=== PATIENT | male | born 1960 | race Caucasian/White ===

== ENCOUNTER → 2018-03-24 07:00 | Outpatient (REF) | payer OTHER, MEDICAID, SELFPAY ==
[2018-03-24 08:49] LABS: Add Manual Diff / Slide Review NO; Basophils Percent Auto 1.2 % (0-2); Eosinophils Percent Auto 3.2 % (2-4); Hematocrit 45.2 % (41-53); Lymphocytes Percent Auto 28.1 % (25-40); Mean Corpuscular HGB Conc 35.3 % (30-36); Mean Corpuscular Hemoglobin 31.2 PG (26-34); Mean Corpuscular Volume 88.2 fL (80-100); Monocytes Percent Auto 10.2 % (3-14); Neutrophils Absolute Auto 3600 /uL (3000-5900); Neutrophils Percent Auto 57.3 % (50-75); Platelet Count 223 X10^3/uL (150-400); Red Blood Cell Count 5.13 X10^6/uL (4.5-5.9); Red Cell Distribution Width 14.1 % (11.6-14.8); White Blood Cell Count 6.2 X10^3/uL (4.5-11.0)
[2018-03-24 09:18] LABS: BUN Creatinine Ratio 16.7 (6-22); Blood Urea Nitrogen 10 mg/dL (9-20); Calcium 8.9 mg/dL (8.4-10.2); Carbon Dioxide 30 mmol/L (22-32); Chloride 102 mmol/L (98-107); Estimated Glomerular Filt Rate > 60.0 mL/min (>60); Glucose 76 mg/dL (70-100); HEMOLYSIS < 15 (0-50); Potassium 3.4 mmol/L (3.4-5.1); Sodium 141 mmol/L (137-145)
== END ==
LOC: LAB 07:00
PROVIDERS: Visit Provider Internal Medicine
DX: N39.0 Urinary tract infection, site not specified (principal); I10 Essential (primary) hypertension
CPT/HCPCS: 36415; 80048; 85025

== ENCOUNTER → 2018-03-26 07:07 | Outpatient (REF) | payer OTHER, MEDICAID, SELFPAY ==
[2018-03-26 08:36] LABS: Add Manual Diff / Slide Review NO; Basophils Percent Auto 1.5 % (0-2); Eosinophils Percent Auto 3.2 % (2-4); Hematocrit 45.9 % (41-53); Hemoglobin 16.5 g/dL (13.5-17.5); Mean Corpuscular HGB Conc 35.9 % (30-36); Mean Corpuscular Hemoglobin 31.5 PG (26-34); Mean Corpuscular Volume 87.9 fL (80-100); Monocytes Percent Auto 10.6 % (3-14); Neutrophils Absolute Auto 3700 /uL (3000-5900); Neutrophils Percent Auto 59.7 % (50-75); Platelet Count 215 X10^3/uL (150-400); Red Blood Cell Count 5.23 X10^6/uL (4.5-5.9); Red Cell Distribution Width 14.2 % (11.6-14.8); White Blood Cell Count 6.2 X10^3/uL (4.5-11.0)
[2018-03-26 08:45] LABS: BUN Creatinine Ratio 16.7 (6-22); Blood Urea Nitrogen 10 mg/dL (9-20); Calcium 8.9 mg/dL (8.4-10.2); Carbon Dioxide 30 mmol/L (22-32); Chloride 101 mmol/L (98-107); Estimated Glomerular Filt Rate > 60.0 mL/min (>60); Glucose 81 mg/dL (70-100); HEMOLYSIS < 15 (0-50); Potassium 3.4 mmol/L (3.4-5.1); Sodium 140 mmol/L (137-145)
== END ==
LOC: LAB 07:07
PROVIDERS: Visit Provider Nurse Practitioner Family
DX: I10 Essential (primary) hypertension (principal); Z87.440 Personal history of urinary (tract) infections
CPT/HCPCS: 36415; 80048; 85025

== ENCOUNTER → 2018-04-14 14:06 | Outpatient (CLI) | payer OTHER, MEDICAID, SELFPAY ==
--- NOTE | 2018-04-14 | DI.ECHO.S_ITS ---
[facility]---------+ [facility] +---------+ : : [address] : : [place] : : : : [id number] : : : : Phone: [phone] Echocardiogram Report + + :Name: MISAEL COATES Study Date: 04/14/2018 Height: 71 in : :[facility] Exam Location: [facility] Weight: 191 lb : : Gender: Male BSA: 2.1 m2 : :: 1960 Age: 57 yrs BP: 168/100 mmHg: :Reason For Study: STROKE : :Ordering Physician: Dr. Verde : :Nicolas Performed By: Fany Jorge : :Referring: ROM HASSAN : + + Interpretation Summary This is a technically limited study complicated by positioning issues due to stroke. It is also complicated by inability to perform agitated saline study due to poor acoustic windows. As a result, cannot exclude small patent foramen ovale. Normal sinus rhythm. Normal LV size, mild concentric left ventricular hypertrophy, normal wall motion and left ventricular systolic function. Ejection fraction is 55-60 percent. Normal chamber sizes. No significant valvular abnormalities. Borderline dilated ascending aorta measuring 3.6 cm. No source of embolism identified. Procedure: A two-dimensional transthoracic echocardiogram with color flow and Doppler was performed. The study quality was technically difficult. Comparison is made with the echocardiogram of 5/24/18. The patient was in normal sinus rhythm during the exam. Left Ventricle: There is mild concentric left ventricular hypertrophy. The left ventricle is normal in size. The left ventricular ejection fraction is grossly normal. Left ventricular ejection fraction is estimated to be 55 +/- 5%. There are no obvious focal wall motion abnormalities noted but poor endocardial definition reduces the sensitivity for the detection of such. Assessment of diastolic parameters indicates a relaxation abnormality of the left ventricle, consistent with normal filling pressures. Right Ventricle: The right ventricle is normal in size and function. Atria: The left atrial size is normal. Right atrial size is normal. There is no Doppler evidence for an interatrial shunt. Mitral Valve: The mitral valve leaflets appear normal. There is no evidence of stenosis, fluttering, or prolapse. There is trace mitral regurgitation. Aortic Valve: The aortic valve is normal in structure and function. No aortic regurgitation is present. Tricuspid Valve: The tricuspid valve is normal. There is a trace or physiologic amount of tricuspid regurgitation. Pulmonary artery pressures cannot be estimated because of the lack of a measurable TR jet velocity. Pulmonic Valve: The pulmonic valve is not well seen, but is grossly normal. There is trace pulmonic regurgitation. Great Vessels: The aortic root is mildly dilated. The ascending aorta is at the upper limits of normal in size. The aortic arch is at the upper limits of normal in size. The pulmonary is not well visualized. The IVC is of normal diameter and collapses greater than 50% with a sniff. This suggests a low right atrial pressure of 3 mm Hg. Pericardium/ Pleura There is no pericardial effusion. There is no pleural effusion. MMode/2D Measurements & Calculations LVIDd: 4.4 cm LVOT diam: 2.3 cm LVIDs: 2.7 cm Ao root diam: 4.0 cm FS: 38.9 % asc Aorta Diam: 3.6 cm EPSS: 0.32 cm Ao Arch Diam (Prox Trans): 3.2 cm IVSd: 1.3 cm LVPWd: 1.1 cm LV saldaña. diameter/BSA (cm/m^2): 2.2 LV sys. diameter/BSA (cm/m^2): 1.3 LA A2 area: 15.4 cm2 RA long axis: 5.0 cm LA A4 area: 17.4 cm2 RA area: 17.1 cm2 LA length (vol): 4.4 cm RA vol: 49.8 ml LA vol: 51.1 ml RA : 24.1 ml/m2 LA vol index: 24.7 ml/m2 IVC diam: 0.91 cm TAPSE: 2.2 cm Doppler Measurements & Calculations Ao V2 max: 90.6 cm/sec LVOT Max Luke: 74.9 cm/sec Ao V2 mean: 63.6 cm/sec LV V1 max P.2 mmHg Ao max P.3 mmHg LV V1 VTI: 13.4 cm Ao mean P.8 mmHg OTONIEL(I,D): 3.5 cm2 Ao V2 VTI: 15.5 cm OTONIEL(V,D): 3.3 cm2 sev ratio: 0.86 OTONIEL indexed to BSA (cm^2/m^2): 1.7 MV E max luke: 67.2 cm/sec PA V2 max: 71.5 cm/sec MV A max luke: 79.9 cm/sec PA V2 mean: 42.2 cm/sec MV E/A: 0.84 PA mean P.85 mmHg Med Peak E' Luke: 6.2 cm/sec PA pr(Accel): 24.1 mmHg E/E' med: 10.8 Lat Peak E' Luke: 5.4 cm/sec E/E' lat: 12.5 E/e' average: 11.7 MV dec time: 0.17 sec MV P1/2t: 50.1 msec MV P1/2t max luke: 67.9 cm/sec MVA(P1/2t): 4.4 cm2 Reading Physician:05:09 PM
== END ==
PROVIDERS: Visit Provider Internal Medicine
DX: I63.9 Cerebral infarction, unspecified (principal)
CPT/HCPCS: 93306

== ENCOUNTER 2018-09-21 17:28 | Observation (INO) | payer OTHER, MEDICAID, SELFPAY ==
[2018-09-21] VITALS (7 sets, daily range): BP systolic 120–142; BP diastolic 73–87; PULSE 70–104; RESP 18–26; TEMP 36.9–38.4; O2SAT 96–98; BMI 23.2
--- NOTE | 2018-09-21 17:31 | DI.RAD.S_ITS ---
PROCEDURE: XR CHEST 1V INDICATIONS: suspected sepsis TECHNIQUE: One view of the chest was acquired. COMPARISON: [facility], CR, XR CHEST 1 VIEW, 12/30/2017, 14:08. FINDINGS: Surgical changes and devices: None. Lungs and pleura: Lungs are clear. No pleural effusions or pneumothorax. Mediastinum: Mediastinal contours appear normal. Heart size is normal. Bones and chest wall: No suspicious bony lesions. Overlying soft tissues appear unremarkable. IMPRESSION: No acute cardiopulmonary disease. Dictated by: Ana Maria Cota M.D. on 09/21/2018 at 20:27 Approved by: Ana Maria Cota M.D. on 09/21/2018 at 20:27
[2018-09-21 17:54] LABS: Influenza A and B by PCR Rapid Negative (Negative)
[2018-09-21 18:08] LABS: Add Manual Diff / Slide Review NO; Basophils Absolute Auto 100 /uL (0-100); Basophils Percent Auto 0.6 % (0-2); Eosinophils Absolute Auto 100 /uL (0-450); Eosinophils Percent Auto 0.5 % (2-4); Hematocrit 44.9 % (41-53); Hemoglobin 15.4 g/dL (13.5-17.5); Lymphocytes Absolute Auto 1000 /uL (1100-4500); Lymphocytes Percent Auto 7.2 % (25-40); Mean Corpuscular HGB Conc 34.3 % (30-36); Mean Corpuscular Hemoglobin 30.7 PG (26-34); Mean Corpuscular Volume 89.3 fL (80-100); Monocytes Absolute Auto 1400 /uL (0-900); Neutrophils Absolute Auto 11700 /uL (1500-7000); Neutrophils Percent Auto 81.7 % (50-75); Platelet Count 204 X10^3/uL (150-400); Red Blood Cell Count 5.02 X10^6/uL (4.5-5.9); Red Cell Distribution Width 13.8 % (11.6-14.8); White Blood Cell Count 14.3 X10^3/uL (4.5-11.0)
[2018-09-21 18:14] LABS: INR 1.2 (0.9-1.3); Prothrombin Time 13.8 SECONDS (10.1-12.7)
[2018-09-21 18:16] LABS: PTT Partial Thromboplastin Tim 35 SECONDS (26.4-36.2)
[2018-09-21 18:22] LABS: Alanine Aminotransferase 314 IU/L (21-72); Albumin 3.7 g/dL (3.5-5.0); Albumin Globulin Ratio 1.4 (1.0-2.8); Alkaline Phosphatase 259 U/L (38-126); Aspartate Aminotransferase 294 IU/L (17-59); Bilirubin Total 0.8 mg/dL (0.2-1.3); Blood Urea Nitrogen 9 mg/dL (9-20); Calcium 8.6 mg/dL (8.4-10.2); Carbon Dioxide 27 mmol/L (22-32); Chloride 99 mmol/L (98-107); Estimated Glomerular Filt Rate > 60.0 mL/min (>60); Globulin 2.7 g/dL (1.7-4.1); Glucose 171 mg/dL (70-100); HEMOLYSIS < 15 (0-50); Lipase 142 U/L (23-300); Potassium 3.3 mmol/L (3.4-5.1); Sodium 137 mmol/L (137-145); Total Protein 6.4 g/dL (6.3-8.2)
[2018-09-21 18:23] LABS: Lactate (Lactic Acid) 2.5 mmol/L (0.7-2.1)
--- NOTE | 2018-09-21 18:24 | ED.FEVER ---
HPI - Fever <MERLE Campos - Last Filed: 09/21/18 21:48> General Chief Complaint: Fever Stated Complaint: Fever Time Seen by Provider: 09/21/18 17:40 Source: patient Mode of arrival: ambulatory Limitations: no limitations History of Present Illness HPI Narrative: 57-year-old male with history of prior stroke and is a nonsmoker sent here from [facility] by provider due to a fever today. He denies any chest pain cough or cold-like symptoms. No nasal congestion. He denies any abdominal pain. No headache. No urinary symptoms no flank pain. Patient states that he feels pretty good he is tolerating p.o. fluids and intake well. He has no specific complaints at this timeframe. He denies any contact her family members having a fever or illness as well no other concerns or complaints at this timeframe. Related Data Home Medications Medication Instructions Recorded Confirmed Maalox Regular Strength 30 ml PO Q4H PRN 09/21/18 09/21/18 acetaminophen 650 mg PO Q4H PRN 09/21/18 09/21/18 amlodipine 5 mg PO DAILY 09/21/18 09/21/18 aspirin 81 mg PO DAILY 09/21/18 09/21/18 atorvastatin 40 mg PO DAILY 09/21/18 09/21/18 bisacodyl 5 - 10 mg PO PRN PRN 09/21/18 09/21/18 bisacodyl 10 mg MN Q8H PRN 09/21/18 09/21/18 cholecalciferol (vitamin D3) 1,000 unit PO DAILY 09/21/18 09/21/18 [Vitamin D3] dextran 70-hypromellose 1 drp EYE-BOTH BID 09/21/18 09/21/18 [Artificial Tears (PF)] docusate sodium 100 mg PO BID 09/21/18 09/21/18 fluoxetine 10 mg PO DAILY 09/21/18 09/21/18 hydrocortisone acetate [Anusol-HC] 1 supp MN Q2H PRN 09/21/18 09/21/18 sennosides [senna] 8.6 mg PO DAILY 09/21/18 09/21/18 Review of Systems <MERLE Campos - Last Filed: 09/21/18 21:48> Constitutional Denies chills, Reports fever(s), Denies lethargy and Denies weakness Eyes Denies change in vision, Denies eye discharge, Denies irritation and Denies loss of vision ENT Ears, Nose, Mouth, and Throat: Denies change in voice, Denies neck pain, Denies sore throat and Denies throat swelling Cardiovascular Denies chest pain, Denies irregular heart rhythm, Denies lightheadedness, Denies palpitations and Denies orthopnea Respiratory Denies wheezing Gastrointestinal Gastrointestinal: Denies abdominal pain, Denies change in bowel habits, Denies diarrhea, Denies nausea and Denies vomiting Genitourinary Denies hematuria, Denies flank pain, Denies urinary incontinence and Denies urinary urgency Musculoskeletal Denies neck pain Integumentary/Breasts Denies pruritus, Denies erythema, Denies rash and Denies wounds Neurologic Denies confusion, Denies loss of vision and Denies weakness Psychiatric Denies anxiety, Denies confusion, Denies depression, Denies homicidal ideation and Denies suicidal ideation Endocrine Denies palpitations Hematologic/Lymphatic Denies easy bruising Allergic/Immunologic Denies urticaria, Denies throat swelling and Denies wheezing PFSH <MERLE Campos - Last Filed: 09/21/18 21:48> Social History Smoking Status: Never smoker Social History Smoking Status: Never smoker Exam <MERLE Campos - Last Filed: 09/21/18 21:48> Initial Vital Signs Initial Vital Signs: Vital Signs Temperature 101.1 F H 09/21/18 17:32 Pulse Rate 104 H 09/21/18 17:32 Respiratory Rate 23 09/21/18 17:32 Blood Pressure 142/87 H 09/21/18 17:32 Pulse Oximetry 96 09/21/18 17:32 Const General: cooperative and well developed Nutritional Appearance: well nourished Orientation: alert, awake, oriented x3 and not confused [facility] Mouth: oral mucosae normal and moist mucous membranes Eyes Conjunctivae: conjunctivae normal Sclera: sclerae normal Pupils: PERRL EOM: EOM intact bilaterally Neck Neck: normal visual inspection, trachea midline, No lymphadenopathy, No midline deformity and No JVD Lymphatic: No lymphedema Chest Chest: normal inspection of the chest Resp Effort & Inspection: normal respiratory effort, able to speak in complete sentences, no respiratory distress and no use of accessory muscles Auscultation: clear to auscultation bilaterally, no rales, no rhonchi and no wheezes Cardio Rate: regular rate Rhythm: regular rhythm Heart Sounds: no click, no gallops, no murmurs and no rubs Pulses: normal peripheral pulses GI Inspection: non-distended Palpation: soft, no hepatosplenomegaly, No guarding, No pulsatile mass and No tender Auscultation: normal bowel sounds General: No CVA tenderness Neuro General: alert, oriented x3, gait normal and no focal motor deficits Speech: speech normal <Enrrique Carvalho DO - Last Filed: 09/21/18 21:53> Initial Vital Signs Initial Vital Signs: Vital Signs Temperature 101.1 F H 09/21/18 17:32 Pulse Rate 104 H 09/21/18 17:32 Respiratory Rate 23 09/21/18 17:32 Blood Pressure 142/87 H 09/21/18 17:32 Pulse Oximetry 96 09/21/18 17:32 Course <MERLE Campos - Last Filed: 09/21/18 21:48> Orders Ordered: ED Orders 09/21/18 17:30 FLU A and B [Influenza A and B by PCR Rapid] Stat 09/21/18 17:31 XR chest 1V Stat 09/21/18 17:55 Complete Blood Count AUTO DIFF Stat Comprehensive Metabolic Panel Stat Lactate (Lactic Acid) Stat Lipase Stat Partial Thromboplastin Time Stat Procalcitonin Stat Prothrombin Time INR Stat 09/21/18 18:12 Blood Culture Stat 09/21/18 19:43 US abdomen complete Stat Sodium Chloride (Normal Saline 0.9%) 1,000 mls @ 1,000 mls/hr IV BOLUS ONE Stop: 09/21/18 22:36 Last Admin: 09/21/18 21:49 Dose: 1,000 mls/hr Discontinued Medications Sodium Chloride (Normal Saline 0.9%) 1,000 mls @ 1,000 mls/hr IV BOLUS ONE Stop: 09/21/18 21:27 Last Infusion: 09/21/18 21:48 Dose: 0 mls/hr Admin: 09/21/18 20:32 Dose: 1,000 mls/hr Ceftriaxone Sodium/Dextrose (Rocephin) 1 gm in 50 mls @ 100 mls/hr IV NOW ONE Stop: 09/21/18 21:48 Last Admin: 09/21/18 21:28 Dose: 100 mls/hr Vital Signs - 8 hr 09/21/18 17:32 09/21/18 18:27 09/21/18 19:00 Temperature 101.1 F H Pulse Rate 104 H 89 88 Respiratory Rate 23 23 26 H Blood Pressure 142/87 H Blood Pressure [Left Arm] 127/80 124/77 Pulse Oximetry 96 96 96 09/21/18 20:00 09/21/18 20:33 09/21/18 21:00 Temperature 98.5 F Pulse Rate 76 75 Respiratory Rate 24 22 Blood Pressure Blood Pressure [Left Arm] 121/75 120/73 Pulse Oximetry 98 97 <Enrrique Carvalho DO - Last Filed: 09/21/18 21:53> Orders Ordered: ED Orders 09/21/18 17:30 FLU A and B [Influenza A and B by PCR Rapid] Stat 09/21/18 17:31 XR chest 1V Stat 09/21/18 17:55 Complete Blood Count AUTO DIFF Stat Comprehensive Metabolic Panel Stat Lactate (Lactic Acid) Stat Lipase Stat Partial Thromboplastin Time Stat Procalcitonin Stat Prothrombin Time INR Stat 09/21/18 18:12 Blood Culture Stat 09/21/18 19:43 US abdomen complete Stat Sodium Chloride (Normal Saline 0.9%) 1,000 mls @ 1,000 mls/hr IV BOLUS ONE Stop: 09/21/18 22:36 Last Admin: 09/21/18 21:49 Dose: 1,000 mls/hr Discontinued Medications Sodium Chloride (Normal Saline 0.9%) 1,000 mls @ 1,000 mls/hr IV BOLUS ONE Stop: 09/21/18 21:27 Last Infusion: 09/21/18 21:48 Dose: 0 mls/hr Admin: 09/21/18 20:32 Dose: 1,000 mls/hr Ceftriaxone Sodium/Dextrose (Rocephin) 1 gm in 50 mls @ 100 mls/hr IV NOW ONE Stop: 09/21/18 21:48 Last Admin: 09/21/18 21:28 Dose: 100 mls/hr Vital Signs - 8 hr 09/21/18 17:32 09/21/18 18:27 09/21/18 19:00 Temperature 101.1 F H Pulse Rate 104 H 89 88 Respiratory Rate 23 23 26 H Blood Pressure 142/87 H Blood Pressure [Left Arm] 127/80 124/77 Pulse Oximetry 96 96 96 09/21/18 20:00 09/21/18 20:33 09/21/18 21:00 Temperature 98.5 F Pulse Rate 76 75 Respiratory Rate 24 22 Blood Pressure Blood Pressure [Left Arm] 121/75 120/73 Pulse Oximetry 98 97 MDM - Fever <MERLE Campos - Last Filed: 09/21/18 21:48> Lab Data Result diagrams: 09/21/18 17:55 09/21/18 17:55 Lab Results 09/21/18 09/21/18 09/21/18 Range/Units 17:30 17:55 17:55 WBC 14.3 H (4.5-11.0) X10^3/uL RBC 5.02 (4.5-5.9) X10^6/uL Hgb 15.4 (13.5-17.5) g/dL Hct 44.9 (41-53) % MCV 89.3 (80-100) fL MCH 30.7 (26-34) PG MCHC 34.3 (30-36) % RDW 13.8 (11.6-14.8) % Plt Count 204 (150-400) X10^3/uL Neut % (Auto) 81.7 H (50-75) % Lymph % (Auto) 7.2 L (25-40) % [place] % (Auto) 10.0 (3-14) % Eos % (Auto) 0.5 L (2-4) % Baso % (Auto) 0.6 (0-2) % Neut # (Auto) 98469 H (4567-0111) /uL Lymph # (Auto) 1000 L (1500-4756) /uL [place] # (Auto) 1400 H (0-900) /uL Eos # (Auto) 100 (0-450) /uL Baso # (Auto) 100 (0-100) /uL PT 13.8 H (10.1-12.7) SECONDS INR 1.2 (0.9-1.3) APTT 35 (26.4-36.2) SECONDS Sodium (137-145) mmol/L Potassium (3.4-5.1) mmol/L Chloride (98-107) mmol/L Carbon Dioxide (22-32) mmol/L BUN (9-20) mg/dL Creatinine (0.66-1.25) mg/dL Estimated GFR (>60) mL/min BUN/Creatinine Ratio (6-22) Glucose (70-100) mg/dL Lactate (0.7-2.1) mmol/L Calcium (8.4-10.2) mg/dL Total Bilirubin (0.2-1.3) mg/dL AST (17-59) IU/L ALT (21-72) IU/L Alkaline Phosphatase (38-126) U/L Total Protein (6.3-8.2) g/dL Albumin (3.5-5.0) g/dL Globulin (1.7-4.1) g/dL Albumin/Globulin Ratio (1.0-2.8) Lipase (23-300) U/L Procalcitonin (<0.5) ng/mL Influenza A & B (PCR) Negative (Negative) 09/21/18 09/21/18 09/21/18 Range/Units 17:55 17:55 17:55 WBC (4.5-11.0) X10^3/uL RBC (4.5-5.9) X10^6/uL Hgb (13.5-17.5) g/dL Hct (41-53) % MCV (80-100) fL MCH (26-34) PG MCHC (30-36) % RDW (11.6-14.8) % Plt Count (150-400) X10^3/uL Neut % (Auto) (50-75) % Lymph % (Auto) (25-40) % [place] % (Auto) (3-14) % Eos % (Auto) (2-4) % Baso % (Auto) (0-2) % Neut # (Auto) (7194-6193) /uL Lymph # (Auto) (8902-4269) /uL [place] # (Auto) (0-900) /uL Eos # (Auto) (0-450) /uL Baso # (Auto) (0-100) /uL PT (10.1-12.7) SECONDS INR (0.9-1.3) APTT (26.4-36.2) SECONDS Sodium 137 (137-145) mmol/L Potassium 3.3 L (3.4-5.1) mmol/L Chloride 99 (98-107) mmol/L Carbon Dioxide 27 (22-32) mmol/L BUN 9 (9-20) mg/dL Creatinine 0.50 L (0.66-1.25) mg/dL Estimated GFR > 60.0 (>60) mL/min BUN/Creatinine Ratio 18.0 (6-22) Glucose 171 H (70-100) mg/dL Lactate 2.5 H (0.7-2.1) mmol/L Calcium 8.6 (8.4-10.2) mg/dL Total Bilirubin 0.8 (0.2-1.3) mg/dL AST 294 H (17-59) IU/L ALT 314 H (21-72) IU/L Alkaline Phosphatase 259 H (38-126) U/L Total Protein 6.4 (6.3-8.2) g/dL Albumin 3.7 (3.5-5.0) g/dL Globulin 2.7 (1.7-4.1) g/dL Albumin/Globulin Ratio 1.4 (1.0-2.8) Lipase 142 (23-300) U/L Procalcitonin 0.28 (<0.5) ng/mL Influenza A & B (PCR) (Negative) Urine Dip Bedside Urine Glucose Negative Bedside Urine Bilirubin - Negative Bedside Urine Ketone - Negative Urine Specific [place] 1.015 Bedside Urine Occult Blood - Negative Bedside Urine pH 5.5 Bedside Urine Protein - Negative Bedside Urine Urobilinogen +/- 1mg Bedside Urine Nitrite - Negative Bedside Urine Leukocytes - Negative Esterase Imaging Data Chest x-ray: Radiologist's impression: [address] [address] XRay Report Signed Patient: Osmin Pulido kMR#: [id number] : 2Acct:[id number] Age/Sex: 57 / MDate of Service: 09/21/18 Loc: ED Accession Number: [id number] Procedure: XR chest 1V Ordering Provider: Tiffanie Israel D.O. PROCEDURE: XR CHEST 1V INDICATIONS: suspected sepsis TECHNIQUE: One view of the chest was acquired. COMPARISON: [facility], CR, XR CHEST 1 VIEW, 12/30/2017, 14:08. FINDINGS: Surgical changes and devices: None. Lungs and pleura: Lungs are clear. No pleural effusions or pneumothorax. Mediastinum: Mediastinal contours appear normal. Heart size is normal. Bones and chest wall: No suspicious bony lesions. Overlying soft tissues appear unremarkable. IMPRESSION: No acute cardiopulmonary disease. Dictated by: Ana Maria Cota M.D. on 09/21/2018 at 20:27 Approved by: Ana Maria Cota M.D. on 09/21/2018 at 20:27 US - abdomen: Radiologist's impression: [place] [address] Ultrasound Report Signed Patient: Osmin Pulido kMR#: [id number] : 2Acct:[id number] Age/Sex: 57 / MDate of Service: 09/21/18 Loc: ED Accession Number: [id number] Procedure: US abdomen complete Ordering Provider: Nahid Pablo PROCEDURE: US ABDOMEN COMPLETE INDICATIONS: ELEVATED LIVER ENZYMES TECHNIQUE: Real-time scanning was performed of the abdominal and retroperitoneal organs, with image documentation. COMPARISON: US, ABDOMEN SONOGRAM, 11/05/2007, 10:30. CT, ABD/PELVIS W/CON (PNL), 10/27/2007, 5:00. [facility] Ultrasound, US, RETROPERITONEAL SONOGRAM, 09/12/2014, 8:00. FINDINGS: Liver: Liver is normal in size and measures diffusely increased echotexture. Gallbladder: There are multiple gallstones. No gallbladder wall thickening, pericholecystic fluid or sonographic Stinson's sign. Biliary ducts: Intrahepatic bile ducts are non-dilated. Extrahepatic bile duct caliber measures 3.5 mm. Normal is 6-7 mm or less in diameter, or 10 mm or less post-cholecystectomy. Pancreas: Visualized portions of the pancreas are sonographically normal. Spleen: Spleen is normal in size and homogeneous in echotexture. Kidneys: Kidneys are normal in size and echotexture. Right kidney measures 13.2 cm long; left kidney measures 10.6 cm long. No hydronephrosis or nephrolithiasis. No solid masses. Aorta: Visualized aorta is normal in caliber at less than 3 cm. Iliacs: Proximal common iliac arteries are normal in caliber at less than 2.5 cm. IVC: Intrahepatic inferior vena cava is not visualized. Miscellaneous: No free abdominal fluid. IMPRESSION: 1. Cholelithiasis. No ultrasound evidence for acute cholecystitis. 2. Diffusely increased hepatic echotexture. This finding is most likely secondary to hepatic fatty infiltration although other hepatocellular disease may have a similar appearance. Recommend clinical correlation. Dictated by: Ana Maria Cota M.D. on 09/21/2018 at 20:54 Approved by: Ana Maria Cota M.D. on 09/21/2018 at 20:56 [facility] Narrative Medical decision making narrative: CBC shows elevated white count. Chem panel shows elevated liver enzymes and alk-phos. Procalcitonin was obtained was unremarkable. Lactate was elevated at 2.5. Chest x-ray was obtained was negative for any acute findings. Due to elevated liver enzymes and alk-phos ultrasound of the abdomen was obtained and shows cholelithiasis but no signs of cholecystitis with normal common bile duct. Source of fever and infection is not identified at this time. Waiting for patient to give urine sample. Due to end of shift care is turned over to Dr. Carvalho. <Enrrique Carvalho, DO - Last Filed: 09/21/18 21:53> Lab Data Lab Results 09/21/18 09/21/18 09/21/18 Range/Units 17:30 17:55 17:55 WBC 14.3 H (4.5-11.0) X10^3/uL RBC 5.02 (4.5-5.9) X10^6/uL Hgb 15.4 (13.5-17.5) g/dL Hct 44.9 (41-53) % MCV 89.3 (80-100) fL MCH 30.7 (26-34) PG MCHC 34.3 (30-36) % RDW 13.8 (11.6-14.8) % Plt Count 204 (150-400) X10^3/uL Neut % (Auto) 81.7 H (50-75) % Lymph % (Auto) 7.2 L (25-40) % [place] % (Auto) 10.0 (3-14) % Eos % (Auto) 0.5 L (2-4) % Baso % (Auto) 0.6 (0-2) % Neut # (Auto) 27024 H (0377-5897) /uL Lymph # (Auto) 1000 L (8838-7498) /uL [place] # (Auto) 1400 H (0-900) /uL Eos # (Auto) 100 (0-450) /uL Baso # (Auto) 100 (0-100) /uL PT 13.8 H (10.1-12.7) SECONDS INR 1.2 (0.9-1.3) APTT 35 (26.4-36.2) SECONDS Sodium (137-145) mmol/L Potassium (3.4-5.1) mmol/L Chloride (98-107) mmol/L Carbon Dioxide (22-32) mmol/L BUN (9-20) mg/dL Creatinine (0.66-1.25) mg/dL Estimated GFR (>60) mL/min BUN/Creatinine Ratio (6-22) Glucose (70-100) mg/dL Lactate (0.7-2.1) mmol/L Calcium (8.4-10.2) mg/dL Total Bilirubin (0.2-1.3) mg/dL AST (17-59) IU/L ALT (21-72) IU/L Alkaline Phosphatase (38-126) U/L Total Protein (6.3-8.2) g/dL Albumin (3.5-5.0) g/dL Globulin (1.7-4.1) g/dL Albumin/Globulin Ratio (1.0-2.8) Lipase (23-300) U/L Procalcitonin (<0.5) ng/mL Influenza A & B (PCR) Negative (Negative) 09/21/18 09/21/18 09/21/18 Range/Units 17:55 17:55 17:55 WBC (4.5-11.0) X10^3/uL RBC (4.5-5.9) X10^6/uL Hgb (13.5-17.5) g/dL Hct (41-53) % MCV (80-100) fL MCH (26-34) PG MCHC (30-36) % RDW (11.6-14.8) % Plt Count (150-400) X10^3/uL Neut % (Auto) (50-75) % Lymph % (Auto) (25-40) % [place] % (Auto) (3-14) % Eos % (Auto) (2-4) % Baso % (Auto) (0-2) % Neut # (Auto) (8452-2356) /uL Lymph # (Auto) (8398-7029) /uL [place] # (Auto) (0-900) /uL Eos # (Auto) (0-450) /uL Baso # (Auto) (0-100) /uL PT (10.1-12.7) SECONDS INR (0.9-1.3) APTT (26.4-36.2) SECONDS Sodium 137 (137-145) mmol/L Potassium 3.3 L (3.4-5.1) mmol/L Chloride 99 (98-107) mmol/L Carbon Dioxide 27 (22-32) mmol/L BUN 9 (9-20) mg/dL Creatinine 0.50 L (0.66-1.25) mg/dL Estimated GFR > 60.0 (>60) mL/min BUN/Creatinine Ratio 18.0 (6-22) Glucose 171 H (70-100) mg/dL Lactate 2.5 H (0.7-2.1) mmol/L Calcium 8.6 (8.4-10.2) mg/dL Total Bilirubin 0.8 (0.2-1.3) mg/dL AST 294 H (17-59) IU/L ALT 314 H (21-72) IU/L Alkaline Phosphatase 259 H (38-126) U/L Total Protein 6.4 (6.3-8.2) g/dL Albumin 3.7 (3.5-5.0) g/dL Globulin 2.7 (1.7-4.1) g/dL Albumin/Globulin Ratio 1.4 (1.0-2.8) Lipase 142 (23-300) U/L Procalcitonin 0.28 (<0.5) ng/mL Influenza A & B (PCR) (Negative) Urine Dip Bedside Urine Glucose Negative Bedside Urine Bilirubin - Negative Bedside Urine Ketone - Negative Urine Specific [place] 1.015 Bedside Urine Occult Blood - Negative Bedside Urine pH 5.5 Bedside Urine Protein - Negative Bedside Urine Urobilinogen +/- 1mg Bedside Urine Nitrite - Negative Bedside Urine Leukocytes - Negative Esterase Discharge Plan Departure Patient Disposition: Admitted As Inpatient Clinical Impression: Fever Qualifiers: Fever type: unspecified Qualified Code(s): R50.9 - Fever, unspecified <Enrrique Carvalho DO - Last Filed: 09/21/18 21:53> Cosign ED Attending Quynh Attestation: I was available for consultation during this patient's emergency department encounter
[2018-09-21 18:48] LABS: Procalcitonin 0.28 ng/mL (<0.5)
--- NOTE | 2018-09-21 19:43 | DI.US.S_ITS ---
PROCEDURE: US ABDOMEN COMPLETE INDICATIONS: ELEVATED LIVER ENZYMES TECHNIQUE: Real-time scanning was performed of the abdominal and retroperitoneal organs, with image documentation. COMPARISON: US, ABDOMEN SONOGRAM, 11/05/2007, 10:30. CT, ABD/PELVIS W/CON (PNL), 10/27/2007, 5:00. [facility] Ultrasound, US, RETROPERITONEAL SONOGRAM, 09/12/2014, 8:00. FINDINGS: Liver: Liver is normal in size and measures diffusely increased echotexture. Gallbladder: There are multiple gallstones. No gallbladder wall thickening, pericholecystic fluid or sonographic Stinson's sign. Biliary ducts: Intrahepatic bile ducts are non-dilated. Extrahepatic bile duct caliber measures 3.5 mm. Normal is 6-7 mm or less in diameter, or 10 mm or less post-cholecystectomy. Pancreas: Visualized portions of the pancreas are sonographically normal. Spleen: Spleen is normal in size and homogeneous in echotexture. Kidneys: Kidneys are normal in size and echotexture. Right kidney measures 13.2 cm long; left kidney measures 10.6 cm long. No hydronephrosis or nephrolithiasis. No solid masses. Aorta: Visualized aorta is normal in caliber at less than 3 cm. Iliacs: Proximal common iliac arteries are normal in caliber at less than 2.5 cm. IVC: Intrahepatic inferior vena cava is not visualized. Miscellaneous: No free abdominal fluid. IMPRESSION: 1. Cholelithiasis. No ultrasound evidence for acute cholecystitis. 2. Diffusely increased hepatic echotexture. This finding is most likely secondary to hepatic fatty infiltration although other hepatocellular disease may have a similar appearance. Recommend clinical correlation. Dictated by: Ana Maria Cota M.D. on 09/21/2018 at 20:54 Approved by: Ana Maria Cota M.D. on 09/21/2018 at 20:56
[2018-09-21] MEDS: SODIUM CHLORIDE 0.9% 1,000 ML 1000 ML IV ×2 (20:32→21:49)
[2018-09-21] MEDS: CEFTRIAXONE 1 GM/50 ML FROZ.PIGGY IV (21:28)
[2018-09-21 21:56] LABS: Bacteria Urine None Seen; RBC Urine None Seen (0-5/HPF); WBC Urine None Seen (0-5/HPF)
[2018-09-21 22:00] LABS: Reflexed Lactate in 2 Hours Y
[2018-09-21 22:03] LABS: Culture Indicated Urine Cult Not Indicated; Urine Comments Microscopic Normal
[2018-09-21] MEDS: SODIUM CHLORIDE 0.9% 1,000 ML 125 ML IV (23:28)
--- NOTE | 2018-09-22 | DI.US.S_ITS ---
PROCEDURE: US THYROID INDICATIONS: PALPABLE THYROID NODULES TECHNIQUE: Real-time scanning was performed of the thyroid gland, with image documentation. COMPARISON: None. FINDINGS: Right: Thyroid lobe measures 4.3 x 2.3 x 1.5 cm, and is homogeneous in echotexture. Left: Thyroid lobe measures 4.2 x 2.0 x 1.8 cm, and is homogenous in echotexture. Isthmus: 3.0 mm thick. Nodule number: 1 Location: Right superior Size: 1.0 x 0.5 x 0.9 cm. Composition: Solid Echogenicity: Hypoechoic Shape: wider than tall. Margins: Smooth Echogenic foci: None Total points: 4 ACR TI-RADS category: Moderately suspicious Nodule number: 2 Location: Right superior Size: 0.8 x 0.5 x 0.8 cm. Composition: Solid Echogenicity: Hypoechoic Shape: wider than tall. Margins: Smooth Echogenic foci: None Total points: 4 ACR TI-RADS category: Moderately suspicious Nodule number: 3 Location: Right mid Size: 0.5 x 0.3 x 0.4 cm. Composition: Solid Echogenicity: Hypoechoic Shape: wider than tall. Margins: Smooth Echogenic foci: None Total points: 4 ACR TI-RADS category: Moderately suspicious Nodule number: 4 Location: Left mid Size: 0.9 x 0.6 x 0.7 cm. Composition: Solid Echogenicity: Isoechoic Shape: wider than tall. Margins: Smooth Echogenic foci: None Total points: 3 ACR TI-RADS category: Mildly suspicious Nodule number: 5 Location: Left inferior Size: 0.8 x 0.6 x 0.6 cm. Composition: Predominantly solid Echogenicity: Hypoechoic Shape: wider than tall. Margins: Smooth Echogenic foci: None Total points: 4 ACR TI-RADS category: Moderately suspicious Nodule number: 6 Location: Inferior isthmus Size: 1.8 x 1.0 x 1.5 cm. Composition: Predominantly solid Echogenicity: Hypoechoic Shape: wider than tall. Margins: Smooth Echogenic foci: None Total points: 4 ACR TI-RADS category: Moderately suspicious IMPRESSION: 1. Bilateral thyroid nodules as above. Recommend sonographic directed fine needle aspiration involving the # 6 isthmus nodule and continued followup sonographic surveillance as detailed below involving the additional nodules. ACR TI-RADS definitions and recommendations: TI-RADS 1 (benign): 0 points. FNA not needed. TI-RADS 2 (not suspicious): 2 points. FNA not needed. TI-RADS 3 (mildly suspicious): 3 points. * FNA if 2.5 cm or larger, follow up if 1.5 cm or larger (at 1, 3, and 5 years). TI-RADS 4 (moderately suspicious): 4-6 points. * FNA if 1.5 cm or larger, follow up if 1 cm or larger (at 1, 2, 3, and 5 years). TI-RADS 5 (highly suspicious): 7 points or more. * FNA if 1 cm or larger, follow up if 0.5 cm or larger (every year for 5 years). Dictated by: Gordon GERONIMO Interpreted: Beba Chisholm MD on 09/22/2018 at 14:59 Approved by: Beba Chisholm M.D. on 09/22/2018 at 17:20
[2018-09-22 00:22] VITALS: BP 131/78; PULSE 66; RESP 23; TEMP 36.9; O2SAT 96
[2018-09-22 04:23] VITALS: BP 141/86; PULSE 70; RESP 19; TEMP 36.9; O2SAT 96
[2018-09-22 05:19] LABS: Add Manual Diff / Slide Review NO; Basophils Absolute Auto 100 /uL (0-100); Basophils Percent Auto 0.8 % (0-2); Eosinophils Absolute Auto 100 /uL (0-450); Hematocrit 42.7 % (41-53); Hemoglobin 14.3 g/dL (13.5-17.5); Lymphocytes Absolute Auto 1600 /uL (1100-4500); Mean Corpuscular HGB Conc 33.6 % (30-36); Mean Corpuscular Hemoglobin 30.8 PG (26-34); Mean Corpuscular Volume 91.8 fL (80-100); Monocytes Absolute Auto 1400 /uL (0-900); Monocytes Percent Auto 11.2 % (3-14); Neutrophils Absolute Auto 9300 /uL (1500-7000); Platelet Count 175 X10^3/uL (150-400); Red Blood Cell Count 4.65 X10^6/uL (4.5-5.9); Red Cell Distribution Width 14.3 % (11.6-14.8); White Blood Cell Count 12.6 X10^3/uL (4.5-11.0)
[2018-09-22 05:23] LABS: Lactate (Lactic Acid) 0.7 mmol/L (0.7-2.1)
[2018-09-22] MEDS: SODIUM CHLORIDE 0.9% 1,000 ML 125 ML IV (07:34)
[2018-09-22 07:42] VITALS: BP 154/96; PULSE 75; RESP 21; TEMP 37; O2SAT 95
--- NOTE | 2018-09-22 10:20 | PM.HP.1 ---
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 Patient was sent to the emergency department last evening because of the documented fever of 101. Reports having a fever for 2 days. Patient denies any cough runny nose sore throat shortness of breath or chest pain. He has had no abdominal pain. He denies any nausea vomiting or diarrhea. Patient denies any joint pains. He has had no rashes. Patient denies any dysuria hematuria or pyuria. He denies any headache blurred vision or double vision. Patient was seen and examined in the emergency department. His lactate was elevated. Chest x-ray was negative, urine cultures negative, blood cultures are still pending. Patient had a influenza a and B both of which were negative. Of note the patient's LFTs were elevated in the emergency department. His bilirubin and protime were normal. However his AST ALT and alk-phos were elevated. An abdominal ultrasound was obtained. This revealed cholelithiasis but no evidence of cholecystitis gallbladder wall thickening or fluid, mey cholecystic fluid. His lipase was normal. Patient was given ceftriaxone and admitted to the hospital for further evaluation. Patient History Medical History Depression (Acute) History of CVA (cerebrovascular accident) (Acute) Hyperlipidemia (Acute) Hypertension (Acute) Surgical History S/P right knee arthroscopy (Acute) Social History Smoking Status: Never smoker alcohol intake: never Family & Social History Family History Father Heart disease Social History: Prior Living Arrangements Skilled Nurse Facility Safety & Behavioral: Feels Safe in Current Yes Environment Been Physically Hurt or No Threatened By a Person Suicidal Ideation Description None Tobacco & Substance use: Smoking Status Never smoker alcohol intake never Substance Use Type does not use Meds Home Medications Medication Instructions Recorded Confirmed Type Maalox Regular Strength 30 ml PO Q4H PRN 09/21/18 09/21/18 History acetaminophen 650 mg PO Q4H PRN 09/21/18 09/21/18 History amlodipine 5 mg PO DAILY 09/21/18 09/21/18 History aspirin 81 mg PO DAILY 09/21/18 09/21/18 History atorvastatin 40 mg PO DAILY 09/21/18 09/21/18 History bisacodyl 5 - 10 mg PO PRN PRN 09/21/18 09/21/18 History bisacodyl 10 mg MS Q8H PRN 09/21/18 09/21/18 History cholecalciferol (vitamin D3) 1,000 unit PO DAILY 09/21/18 09/21/18 History [Vitamin D3] dextran 70-hypromellose 1 drp EYE-BOTH BID 09/21/18 09/21/18 History [Artificial Tears (PF)] docusate sodium 100 mg PO BID 09/21/18 09/21/18 History fluoxetine 10 mg PO DAILY 09/21/18 09/21/18 History hydrocortisone acetate [Anusol-HC] 1 supp MS Q2H PRN 09/21/18 09/21/18 History sennosides [senna] 8.6 mg PO DAILY 09/21/18 09/21/18 History Allergies Allergy/AdvReac Type Severity Reaction Status Date / Time Penicillins Allergy Unknown Verified 09/22/18 10:24 Review of Systems Review of Systems All systems reviewed & are unremarkable except as noted in HPI and below Exam Vital Signs (past 8 hours): - 09/22/18 04:23 09/22/18 07:42 Temperature 98.4 F 98.6 F Pulse Rate 70 75 Respiratory Rate 19 21 Blood Pressure 141/86 H 154/96 H Pulse Oximetry 96 95 Oxygen Delivery Method Room Air Narrative Exam Narrative: Pleasant gentleman resting comfortably slow to respond but in no acute distress HEENT: Normocephalic atraumatic, extraocular muscles are intact, oropharynx is clear neck is supple, patient has a palpable firm nodules felt to be on the thyroid gland bilaterally. There is no appreciable adenopathy noted. There is no JVD. Lungs: Clear to auscultation Cardiac exam: Regular rate rhythm normal S1 and S2 with a 2/6 systolic ejection murmur Abdomen: Soft nontender nondistended without appreciable hepatosplenomegaly Extremities: No edema Skin: Multiple tattoos on the bilateral upper extremity Neuro exam: Cranial nerves appear to be intact, patient's speech is fluent although he is slow to respond. His strength is symmetric and equal in the left upper extremity. He has 1+ out of 5 in the right upper and right lower extremity. He is hyporeflexic on the right. Sensation appears to be intact. Psychiatric exam: No active hallucinations Objective Labs Result Diagrams: 09/22/18 04:48 09/22/18 04:48 Labs: Laboratory Results - last 24 hr 09/21/18 09/21/18 09/21/18 17:30 17:55 17:55 WBC 14.3 H RBC 5.02 Hgb 15.4 Hct 44.9 MCV 89.3 MCH 30.7 MCHC 34.3 RDW 13.8 Plt Count 204 Neut % (Auto) 81.7 H Lymph % (Auto) 7.2 L [place] % (Auto) 10.0 Eos % (Auto) 0.5 L Baso % (Auto) 0.6 Neut # (Auto) 78123 H Lymph # (Auto) 1000 L [place] # (Auto) 1400 H Eos # (Auto) 100 Baso # (Auto) 100 PT 13.8 H INR 1.2 APTT 35 Sodium Potassium Chloride Carbon Dioxide BUN Creatinine Estimated GFR BUN/Creatinine Ratio Glucose Lactate Calcium Total Bilirubin AST ALT Alkaline Phosphatase Total Protein Albumin Globulin Albumin/Globulin Ratio Lipase Procalcitonin Urine RBC Urine WBC Urine Bacteria Ur Culture Indicated? Micro UA Comment Nasal Screen MRSA (PCR) Influenza A & B (PCR) Negative 09/21/18 09/21/18 09/21/18 17:55 17:55 17:55 WBC RBC Hgb Hct MCV MCH MCHC RDW Plt Count Neut % (Auto) Lymph % (Auto) [place] % (Auto) Eos % (Auto) Baso % (Auto) Neut # (Auto) Lymph # (Auto) [place] # (Auto) Eos # (Auto) Baso # (Auto) PT INR APTT Sodium 137 Potassium 3.3 L Chloride 99 Carbon Dioxide 27 BUN 9 Creatinine 0.50 L Estimated GFR > 60.0 BUN/Creatinine Ratio 18.0 Glucose 171 H Lactate 2.5 H Calcium 8.6 Total Bilirubin 0.8 AST 294 H ALT 314 H Alkaline Phosphatase 259 H Total Protein 6.4 Albumin 3.7 Globulin 2.7 Albumin/Globulin Ratio 1.4 Lipase 142 Procalcitonin 0.28 Urine RBC Urine WBC Urine Bacteria Ur Culture Indicated? Micro UA Comment Nasal Screen MRSA (PCR) Influenza A & B (PCR) 09/21/18 09/21/18 09/21/18 20:50 22:12 22:45 WBC RBC Hgb Hct MCV MCH MCHC RDW Plt Count Neut % (Auto) Lymph % (Auto) [place] % (Auto) Eos % (Auto) Baso % (Auto) Neut # (Auto) Lymph # (Auto) [place] # (Auto) Eos # (Auto) Baso # (Auto) PT INR APTT Sodium Potassium Chloride Carbon Dioxide BUN Creatinine Estimated GFR BUN/Creatinine Ratio Glucose Lactate 1.0 Calcium Total Bilirubin AST ALT Alkaline Phosphatase Total Protein Albumin Globulin Albumin/Globulin Ratio Lipase Procalcitonin Urine RBC None seen Urine WBC None seen Urine Bacteria None seen Ur Culture Indicated? Cult not indicated Micro UA Comment Microscopic normal Nasal Screen MRSA (PCR) Negative for mrsa Influenza A & B (PCR) 09/22/18 09/22/18 09/22/18 04:48 04:48 04:48 WBC 12.6 H RBC 4.65 Hgb 14.3 Hct 42.7 MCV 91.8 MCH 30.8 MCHC 33.6 RDW 14.3 Plt Count 175 Neut % (Auto) 74.0 Lymph % (Auto) 13.0 L [place] % (Auto) 11.2 Eos % (Auto) 1.0 L Baso % (Auto) 0.8 Neut # (Auto) 9300 H Lymph # (Auto) 1600 [place] # (Auto) 1400 H Eos # (Auto) 100 Baso # (Auto) 100 PT INR APTT Sodium 140 Potassium 3.3 L Chloride 104 Carbon Dioxide 29 BUN 6 L Creatinine 0.40 L Estimated GFR > 60.0 BUN/Creatinine Ratio 15.0 Glucose 84 Lactate 0.7 Calcium 8.2 L Total Bilirubin AST ALT Alkaline Phosphatase Total Protein Albumin Globulin Albumin/Globulin Ratio Lipase Procalcitonin Urine RBC Urine WBC Urine Bacteria Ur Culture Indicated? Micro UA Comment Nasal Screen MRSA (PCR) Influenza A & B (PCR) Assessment & Plan Assessment Narrative: 57-year-old male with a history of CVA presents with fever of unknown etiology. Patient presented with an elevated lactate of 2.5. However chest x-ray blood cultures urine cultures have been negative thus far. Patient has had no further fever since admission. Elevated liver function tests, acute, present on admission. Suspect statin therapy. Id this may be causing fever as well. Will hold his atorvastatin. Hypertension, chronic, present on admission will continue amlodipine. History of CVA with right hemiplegia, chronic, present on admission. Hyperlipidemia, present on admission will hold statin at this time given elevated LFTs Plan Narrative: Patient found to have palpable nodules on his thyroid gland. Will obtain an ultrasound of the thyroid to rule out any significant pathology. In addition will obtain thyroid function studies. Patient indicates he is do not resuscitate. Will note that his record accordingly.
--- NOTE | 2018-09-22 10:26 | P.HP_ITS ---
History of Present Illness Date Patient Seen: 09/22/18 Chief complaint: Fever Narrative: The patient is a 57-year-old male who lives at [facility] following an acute CVA with resultant right upper extremity and lower extremity hemiplegia. Patient was sent to the emergency department last evening because of the documented fever of 101. Reports having a fever for 2 days. Patient denies any cough runny nose sore throat shortness of breath or chest pain. He has had no abdominal pain. He denies any nausea vomiting or diarrhea. Patient denies any joint pains. He has had no rashes. Patient denies any dysuria hematuria or pyuria. He denies any headache blurred vision or double vision. Patient was seen and examined in the emergency department. His lactate was elevated. Chest x-ray was negative, urine cultures negative, blood cultures are still pending. Patient had a influenza a and B both of which were negative. Of note the patient's LFTs were elevated in the emergency department. His bi lirubin and protime were normal. However his AST ALT and alk-phos were elevated. An abdominal ultrasound was obtained. This revealed cholelithiasis but no evidence of cholecystitis gallbladder wall thickening or fluid, mey cholecystic fluid. His lipase was normal. Patient was given ceftriaxone and admitted to the hospital for further evaluation. Patient History Medical History Depression (Acute) History of CVA (cerebrovascular accident) (Acute) Hyperlipidemia (Acute) Hypertension (Acute) Surgical History S/P right knee arthroscopy (Acute) Social History Smoking Status: Never smoker alcohol intake: never Family & Social History Family History Father Heart disease Social History: Prior Living Arrangements Skilled Nurse Facility Safety & Behavioral: Feels Safe in Current Yes Environment Been Physically Hurt or No Threatened By a Person Suicidal Ideation Description None Tobacco & Substance use: Smoking Status Never smoker alcohol intake never Substance Use Type does not use Meds Home Medications Medication Instructions Recorded Confirmed Type Maalox Regular Strength 30 ml PO Q4H PRN 09/21/18 09/21/18 History acetaminophen 650 mg PO Q4H PRN 09/21/18 09/21/18 History amlodipine 5 mg PO DAILY 09/21/18 09/21/18 History aspirin 81 mg PO DAILY 09/21/18 09/21/18 History atorvastatin 40 mg PO DAILY 09/21/18 09/21/18 History bisacodyl 5 - 10 mg PO PRN PRN 09/21/18 09/21/18 History bisacodyl 10 mg ID Q8H PRN 09/21/18 09/21/18 History cholecalciferol (vitamin D3) 1,000 unit PO DAILY 09/21/18 09/21/18 History [Vitamin D3] dextran 70-hypromellose 1 drp EYE-BOTH BID 09/21/18 09/21/18 History [Artificial Tears (PF)] docusate sodium 100 mg PO BID 09/21/18 09/21/18 History fluoxetine 10 mg PO DAILY 09/21/18 09/21/18 History hydrocortisone acetate [Anusol-HC] 1 supp ID Q2H PRN 09/21/18 09/21/18 History sennosides [senna] 8.6 mg PO DAILY 09/21/18 09/21/18 History Allergies Allergy/AdvReac Type Severity Reaction Status Date / Time Penicillins Allergy Unknown Verified 09/22/18 10:24 Review of Systems Review of Systems All systems reviewed & are unremarkable except as noted in HPI and below Exam Vital Signs (past 8 hours): - 09/22/18 04:23 09/22/18 07:42 Temperature 98.4 F 98.6 F Pulse Rate 70 75 Respiratory Rate 19 21 Blood Pressure 141/86 H 154/96 H Pulse Oximetry 96 95 Oxygen Delivery Method Room Air Narrative Exam Narrative: Pleasant gentleman resting comfortably slow to respond but in no acute distress HEENT: Normocephalic atraumatic, extraocular muscles are intact, oropharynx is clear neck is supple, patient has a palpable firm nodules felt to be on the thyroid gland bilaterally. There is no appreciable adenopathy noted. There is no JVD. Lungs: Clear to auscultation Cardiac exam: Regular rate rhythm normal S1 and S2 with a 2/6 systolic ejection murmur Abdomen: Soft nontender nondistended without appreciable hepatosplenomegaly Extremities: No edema Skin: Multiple tattoos on the bilateral upper extremity Neuro exam: Cranial nerves appear to be intact, patient's speech is fluent although he is slow to respond. His strength is symmetric and equal in the left upper extremity. He has 1+ out of 5 in the right upper and right lower extremity. He is hyporeflexic on the right. Sensation appears to be intact. Psychiatric exam: No active hallucinations Objective Labs Result Diagrams: 09/22/18 04:48 09/22/18 04:48 Labs: Laboratory Results - last 24 hr 09/21/18 09/21/18 09/21/18 17:30 17:55 17:55 WBC 14.3 H RBC 5.02 Hgb 15.4 Hct 44.9 MCV 89.3 MCH 30.7 MCHC 34.3 RDW 13.8 Plt Count 204 Neut % (Auto) 81.7 H Lymph % (Auto) 7.2 L [place] % (Auto) 10.0 Eos % (Auto) 0.5 L Baso % (Auto) 0.6 Neut # (Auto) 65221 H Lymph # (Auto) 1000 L [place] # (Auto) 1400 H Eos # (Auto) 100 Baso # (Auto) 100 PT 13.8 H INR 1.2 APTT 35 Sodium Potassium Chloride Carbon Dioxide BUN Creatinine Estimated GFR BUN/Creatinine Ratio Glucose Lactate Calcium Total Bilirubin AST ALT Alkaline Phosphatase Total Protein Albumin Globulin Albumin/Globulin Ratio Lipase Procalcitonin Urine RBC Urine WBC Urine Bacteria Ur Culture Indicated? Micro UA Comment Nasal Screen MRSA (PCR) Influenza A & B (PCR) Negative 09/21/18 09/21/18 09/21/18 17:55 17:55 17:55 WBC RBC Hgb Hct MCV MCH MCHC RDW Plt Count Neut % (Auto) Lymph % (Auto) [place] % (Auto) Eos % (Auto) Baso % (Auto) Neut # (Auto) Lymph # (Auto) [place] # (Auto) Eos # (Auto) Baso # (Auto) PT INR APTT Sodium 137 Potassium 3.3 L Chloride 99 Carbon Dioxide 27 BUN 9 Creatinine 0.50 L Estimated GFR > 60.0 BUN/Creatinine Ratio 18.0 Glucose 171 H Lactate 2.5 H Calcium 8.6 Total Bilirubin 0.8 AST 294 H ALT 314 H Alkaline Phosphatase 259 H Total Protein 6.4 Albumin 3.7 Globulin 2.7 Albumin/Globulin Ratio 1.4 Lipase 142 Procalcitonin 0.28 Urine RBC Urine WBC Urine Bacteria Ur Culture Indicated? Micro UA Comment Nasal Screen MRSA (PCR) Influenza A & B (PCR) 09/21/18 09/21/18 09/21/18 20:50 22:12 22:45 WBC RBC Hgb Hct MCV MCH MCHC RDW Plt Count Neut % (Auto) Lymph % (Auto) [place] % (Auto) Eos % (Auto) Baso % (Auto) Neut # (Auto) Lymph # (Auto) [place] # (Auto) Eos # (Auto) Baso # (Auto) PT INR APTT Sodium Potassium Chloride Carbon Dioxide BUN Creatinine Estimated GFR BUN/Creatinine Ratio Glucose Lactate 1.0 Calcium Total Bilirubin AST ALT Alkaline Phosphatase Total Protein Albumin Globulin Albumin/Globulin Ratio Lipase Procalcitonin Urine RBC None seen Urine WBC None seen Urine Bacteria None seen Ur Culture Indicated? Cult not indicated Micro UA Comment Microscopic normal Nasal Screen MRSA (PCR) Negative for mrsa Influenza A & B (PCR) 09/22/18 09/22/18 09/22/18 04:48 04:48 04:48 WBC 12.6 H RBC 4.65 Hgb 14.3 Hct 42.7 MCV 91.8 MCH 30.8 MCHC 33.6 RDW 14.3 Plt Count 175 Neut % (Auto) 74.0 Lymph % (Auto) 13.0 L [place] % (Auto) 11.2 Eos % (Auto) 1.0 L Baso % (Auto) 0.8 Neut # (Auto) 9300 H Lymph # (Auto) 1600 [place] # (Auto) 1400 H Eos # (Auto) 100 Baso # (Auto) 100 PT INR APTT Sodium 140 Potassium 3.3 L Chloride 104 Carbon Dioxide 29 BUN 6 L Creatinine 0.40 L Estimated GFR > 60.0 BUN/Creatinine Ratio 15.0 Glucose 84 Lactate 0.7 Calcium 8.2 L Total Bilirubin AST ALT Alkaline Phosphatase Total Protein Albumin Globulin Albumin/Globulin Ratio Lipase Procalcitonin Urine RBC Urine WBC Urine Bacteria Ur Culture Indicated? Micro UA Comment Nasal Screen MRSA (PCR) Influenza A & B (PCR) Assessment & Plan Assessment Narrative: 57-year-old male with a history of CVA presents with fever of unknown etiology. Patient presented with an elevated lactate of 2.5. H owever chest x-ray blood cultures urine cultures have been negative thus far. Patient has had no further fever since admission. Elevated liver function tests, acute, present on admission. Suspect statin therapy. Id this may be causing fever as well. Will hold his atorvastatin. Hypertension, chronic, present on admission will continue amlodipine. History of CVA with right hemiplegia, chronic, present on admission. Hyperlipidemia, present on admission will hold statin at this time given el evated LFTs Plan Narrative: Patient found to have palpable nodules on his thyroid gland. Will obtain an ultrasound of the thyroid to rule out any significant pathology. In addition will obtain thyroid function studies. Patient indicates he is do not resuscitate. Will note that his record accordingly.
[2018-09-22] MEDS: ENOXAPARIN 40 MG/0.4 ML SYRINGE SUBCUT (11:22)
[2018-09-22] MEDS: POTASSIUM CHLORIDE 40 MEQ in SODIUM CHLORIDE 0.9% 500 ML 130 ML IV (11:22)
[2018-09-22] MEDS: AMLODIPINE 5 MG TABLET PO (11:22)
[2018-09-22] MEDS: CHOLECALCIFEROL (VITAMIN D3) 1,000 UNIT TABLET 1000 UNIT PO (11:22)
[2018-09-22] MEDS: IBUPROFEN 600 MG TABLET PO (11:23)
--- NOTE | 2018-09-22 11:23 | CM.DANOTE ---
DCP: Case received, EMR reviewed and met with patient. Introduced self and role. Obtained additional information from Jennifer, admissions at [facility], regarding patient. DCP template completed with information currently available. Patient is a 57 year old male who admitted yesterday evening to the care of the hospitalist team. PCP: Dr. Yang/[facility]. Payer: confirmed: [facility]/Medicaid. Patient came to hospital via ambulance due to increased fatigue and fever. Patient holds diagnosis of possible sepsis, unclear if UTI related at this time. Spoke to Jennifer at [facility], for unable to get adequate information from patient. Would state yes or no. He knows that he lives at [facility]. Patient has history of CVA, as well. Jennifer at [facility] stated that patient self-propells in his wheel-chair. He is relatively quiet, and is up all day. She stated that he is on a regular diet, obtains assist with showers and toileting. P: DCP to follow closely. Patient should be able to return to [facility] when hs is medically stable. Olivia Pena RN/[employer]
[2018-09-22 11:40] LABS: Blood Urea Nitrogen 6 mg/dL (9-20); Calcium 8.2 mg/dL (8.4-10.2); Carbon Dioxide 29 mmol/L (22-32); Chloride 104 mmol/L (98-107); Estimated Glomerular Filt Rate > 60.0 mL/min (>60); Glucose 84 mg/dL (70-100); Potassium 3.3 mmol/L (3.4-5.1); Sodium 140 mmol/L (137-145)
[2018-09-22 11:42] LABS: Procalcitonin 0.22 ng/mL (<0.5)
[2018-09-22 11:52] LABS: Alanine Aminotransferase 252 IU/L (21-72); Albumin 3.1 g/dL (3.5-5.0); Albumin Globulin Ratio 1.2 (1.0-2.8); Alkaline Phosphatase 217 U/L (38-126); Aspartate Aminotransferase 196 IU/L (17-59); Bilirubin Total 0.9 mg/dL (0.2-1.3); Cholesterol 92 mg/dL (140-199); Globulin 2.6 g/dL (1.7-4.1); HDL Cholesterol 27 mg/dL (40-60); HEMOLYSIS 20 (0-50); LDL Cholesterol Calculated 58 mg/dL (<100); Total Protein 5.7 g/dL (6.3-8.2); Triglycerides 37 mg/dL (35-150)
[2018-09-22 11:59] VITALS: BP 147/82; PULSE 66; RESP 18; TEMP 36.7; O2SAT 95
[2018-09-22 12:29] VITALS: O2SAT 96
[2018-09-22 13:18] LABS: Adenovirus Not Detected (Not Detect); Bordetella pertussis Not Detected (Not Detect); Chlamydophila pneumoniae Not Detected (Not Detect); Coronavirus 229E Not Detected (Not Detect); Coronavirus HKU1 Not Detected (Not Detect); Coronavirus NL 63 Not Detected (Not Detect); Coronavirus OC43 Not Detected (Not Detect); Human Metapneumovirus Not Detected (Not Detect); Human Rhinovirus/Enterovirus Not Detected (Not Detect); Influenza A Not Detected (Not Detect); Influenza B Not Detected (Not Detect); Mycoplasma pneumoniae Not Detected (Not Detect); Parainfluenza Virus 1 Not Detected (Not Detect); Parainfluenza Virus 2 Not Detected (Not Detect); Parainfluenza Virus 3 Not Detected (Not Detect); Parainfluenza Virus 4 Not Detected (Not Detect); Respiratory Syncytial Virus Not Detected (Not Detect)
--- NOTE | 2018-09-22 14:33 | PC.NURSE ---
pt with prior cva and right sided hemiparesis- incont of urine- no noted temperatures this shift, lungs clear, iv kcl rider infusing at present then saline locked- pt denies pain and is a resident of [facility]
[2018-09-22 18:14] VITALS: BP 130/77; PULSE 56; RESP 20; TEMP 36.3; O2SAT 98
[2018-09-22] MEDS: DOCUSATE 100 MG CAPSULE PO (20:04)
[2018-09-22] MEDS: SENNOSIDES 8.6 MG TABLET 17.2 MG PO (20:04)
[2018-09-23] VITALS: BP 133/76; PULSE 64; RESP 16; TEMP 36.6; O2SAT 96
[2018-09-23 01:44] VITALS: O2SAT 96
[2018-09-23 04:52] VITALS: BP 146/87; PULSE 86; RESP 16; TEMP 36.9; O2SAT 96
[2018-09-23 07:00] VITALS: O2SAT 97
[2018-09-23 07:24] VITALS: BP 154/85; PULSE 61; RESP 20; TEMP 36.5; O2SAT 96
[2018-09-23] MEDS: ENOXAPARIN 40 MG/0.4 ML SYRINGE SUBCUT (08:23)
[2018-09-23] MEDS: DOCUSATE 100 MG CAPSULE PO (08:23)
[2018-09-23] MEDS: AMLODIPINE 5 MG TABLET PO (08:23)
[2018-09-23] MEDS: CHOLECALCIFEROL (VITAMIN D3) 1,000 UNIT TABLET 1000 UNIT PO (08:23)
[2018-09-23] MEDS: SODIUM CHLORIDE 0.9% FLUSH 10 ML IV (08:23)
--- NOTE | 2018-09-23 11:15 | PM.PN.1 ---
Subjective Date Patient Seen: 09/23/18 Interval history: Patient is seen and examined today. He has had no further fevers. Denies any shortness of breath cough or chest pain. We discussed the findings on ultrasound of his thyroid which indicated bilateral thyroid nodules. Explained to the patient that we will arrange for aspiration of the thyroid nodules to rule out cancer. In addition the patient has been taken off his statin. Will recheck his liver function tests today. Exam Vital Signs (past 8 hours): - 09/23/18 04:52 09/23/18 07:00 09/23/18 07:24 Temperature 98.5 F 97.7 F Pulse Rate 86 61 Respiratory Rate 16 20 Blood Pressure 146/87 H 154/85 H Pulse Oximetry 96 97 96 Oxygen Delivery Method Room Air Oxygen Flow Rate 0 Narrative Exam Narrative: Pleasant male in no acute distress Neck: Palpable bilateral thyroid nodules, firm to palpation Lungs: Clear to auscultation Cardiac exam: Regular rate rhythm normal S1 and S2 with a 2/6 systolic ejection murmur Abdomen: Soft nontender nondistended Extremities: No edema Neuro exam: Patient has a dense right lane paresis involving the upper and lower extremity Objective Labs Result Diagrams: 09/22/18 04:48 09/22/18 04:45 Labs: Laboratory Results - last 24 hr 09/22/18 09/22/18 09/22/18 04:45 04:48 04:48 Sodium 140 Cancelled Potassium 3.3 L Cancelled Chloride 104 Cancelled Carbon Dioxide 29 Cancelled BUN 6 L Cancelled Creatinine 0.40 L Cancelled Estimated GFR > 60.0 Cancelled BUN/Creatinine Ratio 15.0 Cancelled Glucose 84 Cancelled Calcium 8.2 L Cancelled Total Bilirubin 0.9 AST 196 H ALT 252 H Alkaline Phosphatase 217 H Total Protein 5.7 L Albumin 3.1 L Globulin 2.6 Albumin/Globulin Ratio 1.2 Triglycerides 37 Cholesterol 92 L LDL Cholesterol, Calc 58 HDL Cholesterol 27 L Procalcitonin 0.22 Chlamy pneumoniae PCR Adenovirus (PCR) B.parapertussis DNA PCR Coronavirus OC43 (PCR) Coronavirus HKU1 (PCR) Coronavirus 229E (PCR) Coronavirus NL63 (PCR) Human Metapneumovir PCR Influenza Type A (PCR) Influenza Type B (PCR) M. pneumoniae (PCR) Parainfluenza 1 (PCR) Parainfluenza 2 (PCR) Parainfluenza 3 (PCR) Parainfluenza 4 (PCR) RSV (PCR) Entero/Rhino (PCR) 09/22/18 09/22/18 04:48 10:30 Sodium Potassium Chloride Carbon Dioxide BUN Creatinine Estimated GFR BUN/Creatinine Ratio Glucose Calcium Total Bilirubin AST ALT Alkaline Phosphatase Total Protein Albumin Globulin Albumin/Globulin Ratio Triglycerides Cancelled Cholesterol Cancelled LDL Cholesterol, Calc Cancelled HDL Cholesterol Cancelled Procalcitonin Chlamy pneumoniae PCR Not detected Adenovirus (PCR) Not detected B.parapertussis DNA PCR Not detected Coronavirus OC43 (PCR) Not detected Coronavirus HKU1 (PCR) Not detected Coronavirus 229E (PCR) Not detected Coronavirus NL63 (PCR) Not detected Human Metapneumovir PCR Not detected Influenza Type A (PCR) Not detected Influenza Type B (PCR) Not detected M. pneumoniae (PCR) Not detected Parainfluenza 1 (PCR) Not detected Parainfluenza 2 (PCR) Not detected Parainfluenza 3 (PCR) Not detected Parainfluenza 4 (PCR) Not detected RSV (PCR) Not detected Entero/Rhino (PCR) Not detected Assessment & Plan Assessment Narrative: 1. Fever etiology unclear. No further fever since hospitalization 2. Elevated liver function tests, suspect secondary to statin, statin has been discontinued. Will recheck liver function tests present on admission, 3. Thyroid nodules, present on admission, 4. History of CVA with right lane paresis present on admission 5. Hyperlipidemia suspect elevated LFTs related to statin on hold Plan Narrative: Plan will arrange for thyroid biopsy today. Will repeat laboratory studies. Will continue to hold statin.
[2018-09-23 11:50] LABS: Add Manual Diff / Slide Review NO; Basophils Absolute Auto 100 /uL (0-100); Basophils Percent Auto 0.8 % (0-2); Eosinophils Absolute Auto 200 /uL (0-450); Eosinophils Percent Auto 1.9 % (2-4); Hematocrit 43.1 % (41-53); Hemoglobin 15.1 g/dL (13.5-17.5); Lymphocytes Absolute Auto 1500 /uL (1100-4500); Lymphocytes Percent Auto 15.4 % (25-40); Mean Corpuscular Hemoglobin 31.2 PG (26-34); Monocytes Absolute Auto 1000 /uL (0-900); Neutrophils Absolute Auto 6800 /uL (1500-7000); Neutrophils Percent Auto 71.9 % (50-75); Platelet Count 212 X10^3/uL (150-400); Red Blood Cell Count 4.84 X10^6/uL (4.5-5.9); Red Cell Distribution Width 13.9 % (11.6-14.8); White Blood Cell Count 9.5 X10^3/uL (4.5-11.0)
[2018-09-23 12:00] VITALS: BP 131/82; PULSE 75; RESP 18; TEMP 36.9; O2SAT 96
[2018-09-23 12:00] LABS: Alanine Aminotransferase 190 IU/L (21-72); Albumin 3.5 g/dL (3.5-5.0); Albumin Globulin Ratio 1.2 (1.0-2.8); Alkaline Phosphatase 243 U/L (38-126); Aspartate Aminotransferase 99 IU/L (17-59); Bilirubin Total 0.8 mg/dL (0.2-1.3); Blood Urea Nitrogen 6 mg/dL (9-20); Calcium 8.6 mg/dL (8.4-10.2); Carbon Dioxide 28 mmol/L (22-32); Chloride 101 mmol/L (98-107); Estimated Glomerular Filt Rate > 60.0 mL/min (>60); Globulin 2.9 g/dL (1.7-4.1); Glucose 99 mg/dL (70-100); HEMOLYSIS 16 (0-50); Potassium 3.8 mmol/L (3.4-5.1); Sodium 138 mmol/L (137-145); Total Protein 6.4 g/dL (6.3-8.2)
--- NOTE | 2018-09-23 12:15 | PM.DS.1 ---
History of Present Illness Chief complaint: Fever Narrative: The patient is a 57-year-old male who lives at [facility] following an acute CVA with resultant right upper extremity and lower extremity hemiplegia. Patient was sent to the emergency department last evening because of the documented fever of 101. Reports having a fever for 2 days. Patient denies any cough runny nose sore throat shortness of breath or chest pain. He has had no abdominal pain. He denies any nausea vomiting or diarrhea. Patient denies any joint pains. He has had no rashes. Patient denies any dysuria hematuria or pyuria. He denies any headache blurred vision or double vision. Patient was seen and examined in the emergency department. His lactate was elevated. Chest x-ray was negative, urine cultures negative, blood cultures are still pending. Patient had a influenza a and B both of which were negative. Of note the patient's LFTs were elevated in the emergency department. His bilirubin and protime were normal. However his AST ALT and alk-phos were elevated. An abdominal ultrasound was obtained. This revealed cholelithiasis but no evidence of cholecystitis gallbladder wall thickening or fluid, mey cholecystic fluid. His lipase was normal. Patient was given ceftriaxone and admitted to the hospital for further evaluation. Discharge Providers Date of admission: 09/21/18 22:02 Consults: 09/21/18 22:03 Consult to Physician Routine Comment: Consulting Provider: Atif Coyle Reason for consultation: Admission Has provider been notified: Yes Discharge provider: Danna Lott MD Discharge Date: 09/23/18 Summary Discharge Diagnosis: Fever etiology unclear, no evidence pneumonia urinary tract infection or cholecystitis, present on admission, resolved Bilateral thyroid nodules, concerning for malignancy, present on admission, further workup as an outpatient to include aspiration of the thyroid nodule Elevated liver function tests suspect secondary to statins statin therapy discontinued, present on admission, improved Hypertension, chronic Hyperlipidemia, chronic History of CVA, with resultant right hemiplegia, present on admission Hypokalemia, present on admission, resolved Hospital Course: Patient is a 57-year-old male who was in his usual state of health until 1 day prior to admission when he developed a high spiking fever to 101. He lives at [facility] following a stroke many years ago. Patient was sent to the emergency department for evaluation. In the emergency department a chest x-ray was negative. Urine culture was negative. Blood cultures have been negative. Patient had an elevated white count. There was concern regarding infection. And he was admitted to the hospital. During his hospitalization the patient did not receive antibiotics blood cultures remain negative. He had no further fever. Of note the patient's LFTs were elevated. His statin therapy was discontinued. Follow-up LFTs were improving. During the examination the patient was found to have bilateral thyroid nodules. These were firm and palpable. Ultrasound confirmed bilateral thyroid nodules and recommendations were for him to have an outpatient aspirate of the nodules to rule out thyroid cancer. This was shared with the patient who acknowledged understanding patient continued to improve and had no further symptoms. Was deemed appropriate for discharge and arrangements were made for him to be discharged back to [facility]. Status at Discharge Functional status at discharge: uses cane/walker Overall status at discharge: patient is back to baseline Time Spent with Patient Greater than 30 minutes Exam Vital Signs (past 8 hours): - 09/23/18 04:52 09/23/18 07:00 09/23/18 07:24 Temperature 98.5 F 97.7 F Pulse Rate 86 61 Respiratory Rate 16 20 Blood Pressure 146/87 H 154/85 H Pulse Oximetry 96 97 96 09/23/18 12:00 Temperature 98.5 F Pulse Rate 75 Respiratory Rate 18 Blood Pressure 131/82 Pulse Oximetry 96 Oxygen Delivery Method Room Air Oxygen Flow Rate 0 Narrative Exam Narrative: Pleasant male resting comfortably in no acute distress Neck exam: Palpable bilateral thyroid nodules noted, these are firm, not warm, nontender Lungs: Clear to auscultation Cardiac exam: Regular rate and rhythm normal S1 and S2 with a 2/6 systolic ejection murmur Abdomen: Soft nontender nondistended without hepatosplenomegaly Extremities: No edema Neuro exam: The patient has a dense right lane paresis Objective Labs Result Diagrams: 09/23/18 11:25 09/23/18 11:25 Labs: Laboratory Results - last 24 hr 09/22/18 09/23/18 09/23/18 10:30 11:25 11:25 WBC 9.5 RBC 4.84 Hgb 15.1 Hct 43.1 MCV 89.0 MCH 31.2 MCHC 35.0 RDW 13.9 Plt Count 212 Neut % (Auto) 71.9 Lymph % (Auto) 15.4 L [place] % (Auto) 10.0 Eos % (Auto) 1.9 L Baso % (Auto) 0.8 Neut # (Auto) 6800 Lymph # (Auto) 1500 [place] # (Auto) 1000 H Eos # (Auto) 200 Baso # (Auto) 100 Sodium 138 Potassium 3.8 Chloride 101 Carbon Dioxide 28 BUN 6 L Creatinine 0.50 L Estimated GFR > 60.0 BUN/Creatinine Ratio 12.0 Glucose 99 Calcium 8.6 Total Bilirubin 0.8 AST 99 H ALT 190 H Alkaline Phosphatase 243 H Total Protein 6.4 Albumin 3.5 Globulin 2.9 Albumin/Globulin Ratio 1.2 Chlamy pneumoniae PCR Not detected Adenovirus (PCR) Not detected B.parapertussis DNA PCR Not detected Coronavirus OC43 (PCR) Not detected Coronavirus HKU1 (PCR) Not detected Coronavirus 229E (PCR) Not detected Coronavirus NL63 (PCR) Not detected Human Metapneumovir PCR Not detected Influenza Type A (PCR) Not detected Influenza Type B (PCR) Not detected M. pneumoniae (PCR) Not detected Parainfluenza 1 (PCR) Not detected Parainfluenza 2 (PCR) Not detected Parainfluenza 3 (PCR) Not detected Parainfluenza 4 (PCR) Not detected RSV (PCR) Not detected Entero/Rhino (PCR) Not detected Discharge Plan Discharge Plan Patient Disposition: Assisted Living Other facility: [facility] Under care of provider: Dr. Vogt Transportation: Cabulance Diagnostic studies (x-ray, etc.): patient needs an outpatient biopsy/Aspirate thyroid to r/o cancer I certify the postop hospital snf care is medically necessary on a continuing basis for any conditions for which he/ she received care during this hospitalization.: Yes The receiving facility has agreed to accept transfer and provide medical treatment.: Yes Discharge Med Rec/Prescriptions Prescriptions: Continued sennosides [senna] 8.6 mg Tablet 8.6 mg PO DAILY RF: 0 acetaminophen 325 mg Tablet 650 mg PO Q4H PRN (Reason: Fever Or Pain) RF: 0 fluoxetine 10 mg Tablet 10 mg PO DAILY RF: 0 amlodipine 5 mg Tablet 5 mg PO DAILY RF: 0 aspirin 81 mg Tablet,Delayed Release (Dr/Ec) 81 mg PO DAILY RF: 0 hydrocortisone acetate [Anusol-HC] 25 mg Suppository 1 supp MD Q2H PRN (Reason: rectal pain) RF: 0 bisacodyl 10 mg Suppository 10 mg MD Q8H PRN (Reason: Constipation) RF: 0 docusate sodium 100 mg Capsule 100 mg PO BID RF: 0 bisacodyl 5 mg Tablet 5 - 10 mg PO PRN PRN (Reason: Constipation) RF: 0 Artificial Tears (PF) Dropperette 1 drp EYE-BOTH BID RF: 0 cholecalciferol (vitamin D3) [Vitamin D3] 1,000 unit Tablet 1,000 unit PO DAILY RF: 0 Maalox Regular Strength 30 ml PO Q4H PRN (Reason: nausea or heartburn) RF: 0 Discontinued atorvastatin 40 mg Tablet 40 mg PO DAILY RF: 0 Discharge Orders: Discharge (Order); Ordered 09/23/18 Ordered By: Danna Lott Discharge Health Status Brief summary of current health status: atorvastatin discontinued because of elevated liver function tests Provider Discharge Instructions Diet: Low-sodium and Low-cholesterol Liquid consistency: Normal/Thin Food texture: Regular Diet comment: no restrictions on diet Activity: as tolerated Special Rehabilitation Services Reason for rehabilitation: Therapy following stroke Rehab type: Physical therapy and Occupational therapy Discharge Data Attending Provider: Atif Coyle Admit Date/Time: 09/21/18 22:02
--- NOTE | 2018-09-23 12:21 | P.DS_ITS ---
History of Present Illness Chief complaint: Fever Narrative: The patient is a 57-year-old male who lives at [facility] following an acute CVA with resultant right upper extremity and lower extremity hemiplegia. Patient was sent to the emergency department last evening because of the documented fever of 101. Reports having a fever for 2 days. Patient denies any cough runny nose sore throat shortness of breath or chest pain. He has had no abdominal pain. He denies any nausea vomiting or diarrhea. Patient denies any joint pains. He has had no rashes. Patient denies any dysuria hematuria or pyuria. He denies any headache blurred vision or double vision. Patient was seen and examined in the emergency department. His lactate was elevated. Chest x-ray was negative, urine cultures negative, blood cultures are still pending. Patient had a influenza a and B both of which were negative. Of note the patient's LFTs were elevated in the emergency department. His bilirubin and protime were normal. However his AST ALT and alk-phos were elevated. An abdominal ultrasound was obtained. This revealed cholelithiasis b ut no evidence of cholecystitis gallbladder wall thickening or fluid, mey cholecystic fluid. His lipase was normal. Patient was given ceftriaxone and admitted to the hospital for further evaluation. Discharge Providers Date of admission: 09/21/18 22:02 Consults: 09/21/18 22:03 Consult to Physician Routine Comment: Consulting Provider: Atif Coyle Reason for consultation: Admission Has provider been notified: Yes Discharge provider: Danna Lott MD Discharge Date: 09/23/18 Summary Discharge Diagnosis: Fever etiology unclear, no evidence pneumonia urinary tract infection or cholecystitis, present on admission, resolved Bilateral thyroid nodules, concerning for malignancy, present on admission, further workup as an outpatient to include aspiration of the thyroid nodule Elevated liver function tests suspect secondary to statins statin therapy discontinued, present on admission, improved Hypertension, chronic Hyperlipidemia, chronic History of CVA, with resultant right hemiplegia, present on admission Hypokalemia, present on admission, resolved Hospital Course: Patient is a 57-year-old male who was in his usual state of health until 1 day prior to admission when he developed a high spiking fever to 101. He lives at [facility] following a stroke many years ago. Patient was sent to the emergency department for evaluation. In the emergency department a chest x-ray was negative. Urine culture was negative. Blood cultures have been negative. Patient had an elevated white count. There was concern regarding infection. And he was admitted to the hospital. During his hospitalization the patient did not receive antibiotics blood cultures remain negative. He had no further fever. Of note the patient's LFTs were elevated. His statin therapy was discontinued. Follow-up LFTs were improving. During the examination the patient was found to have bilateral thyroid nodules. These were firm and palpable. Ultrasound confirmed bilateral thyroid nodules and recommendations were for him to have an outpatient aspirate of the nodules to rule out thyroid cancer. This was shared with the patient who acknowledged understanding patient continued to improve and had no further symptoms. Was deemed appropriate for discharge and arrangements were made for him to be discharged back to [facility]. Status at Discharge Functional status at discharge: uses cane/walker Overall status at discharge: patient is back to baseline Time Spent with Patient Greater than 30 minutes Exam Vital Signs (past 8 hours): - 09/23/18 04:52 09/23/18 07:00 09/23/18 07:24 Temperature 98.5 F 97.7 F Pulse Rate 86 61 Respiratory Rate 16 20 Blood Pressure 146/87 H 154/85 H Pulse Oximetry 96 97 96 09/23/18 12:00 Temperature 98.5 F Pulse Rate 75 Respiratory Rate 18 Blood Pressure 131/82 Pulse Oximetry 96 Oxygen Delivery Method Room Air Oxygen Flow Rate 0 Narrative Exam Narrative: Pleasant male resting comfortably in no acute distress Neck exam: Palpable bilateral thyroid nodules noted, these are firm, not warm, nontender Lungs: Clear to auscultation Cardiac exam: Regular rate and rhythm normal S1 and S2 with a 2/6 systolic ejection murmur Abdomen: Soft nontender nondistended without hepatosplenomegaly Extremities: No edema Neuro exam: The patient has a dense right lane paresis Objective Labs Result Diagrams: 09/23/18 11:25 09/23/18 11:25 Labs: Laboratory Results - last 24 hr 09/22/18 09/23/18 09/23/18 10:30 11:25 11:25 WBC 9.5 RBC 4.84 Hgb 15.1 Hct 43.1 MCV 89.0 MCH 31.2 MCHC 35.0 RDW 13.9 Plt Count 212 Neut % (Auto) 71.9 Lymph % (Auto) 15.4 L [place] % (Auto) 10.0 Eos % (Auto) 1.9 L Baso % (Auto) 0.8 Neut # (Auto) 6800 Lymph # (Auto) 1500 [place] # (Auto) 1000 H Eos # (Auto) 200 Baso # (Auto) 100 Sodium 138 Potassium 3.8 Chloride 101 Carbon Dioxide 28 BUN 6 L Creatinine 0.50 L Estimated GFR > 60.0 BUN/Creatinine Ratio 12.0 Glucose 99 Calcium 8.6 Total Bilirubin 0.8 AST 99 H ALT 190 H Alkaline Phosphatase 243 H Total Protein 6.4 Albumin 3.5 Globulin 2.9 Albumin/Globulin Ratio 1.2 Chlamy pneumoniae PCR Not detected Adenovirus (PCR) Not detected B.parapertussis DNA PCR Not detected Coronavirus OC43 (PCR) Not detected Coronavirus HKU1 (PCR) Not detected Coronavirus 229E (PCR) Not detected Coronavirus NL63 (PCR) Not detected Human Metapneumovir PCR Not detected Influenza Type A (PCR) Not detected Influenza Type B (PCR) Not detected M. pneumoniae (PCR) Not detected Parainfluenza 1 (PCR) Not detected Parainfluenza 2 (PCR) Not detected Parainfluenza 3 (PCR) Not detected Parainfluenza 4 (PCR) Not detected RSV (PCR) Not detected Entero/Rhino (PCR) Not detected Discharge Plan Discharge Plan Patient Disposition: Assisted Living Other facility: [facility] Under care of provider: Dr. Vogt Transportation: Cabulance Diagnostic studies (x-ray, etc.): patient needs an outpatient biopsy/Aspirate thyroid to r/o cancer I certify the postop hospital residential care is medically necessary on a continuing basis for any conditions for which he/ she received care during this hospitalization.: Yes The receiving facility has agreed to accept transfer and provide medical treatment.: Yes Discharge Med Rec/Prescriptions Prescriptions: Continued sennosides [senna] 8.6 mg Tablet 8.6 mg PO DAILY RF: 0 acetaminophen 325 mg Tablet 650 mg PO Q4H PRN (Reason: Fever Or Pain) RF: 0 fluoxetine 10 mg Tablet 10 mg PO DAILY RF: 0 amlodipine 5 mg Tablet 5 mg PO DAILY RF: 0 aspirin 81 mg Tablet,Delayed Release (Dr/Ec) 81 mg PO DAILY RF: 0 hydrocortisone acetate [Anusol-HC] 25 mg Suppository 1 supp NC Q2H PRN (Reason: rectal pain) RF: 0 bisacodyl 10 mg Suppository 10 mg NC Q8H PRN (Reason: Constipation) RF: 0 docusate sodium 100 mg Capsule 100 mg PO BID RF: 0 bisacodyl 5 mg Tablet 5 - 10 mg PO PRN PRN (Reason: Constipation) RF: 0 Artificial Tears (PF) Dropperette 1 drp EYE-BOTH BID RF: 0 cholecalciferol (vitamin D3) [Vitamin D3] 1,000 unit Tablet 1,000 unit PO DAILY RF: 0 Maalox Regular Strength 30 ml PO Q4H PRN (Reason: nausea or heartburn) RF: 0 Discontinued atorvastatin 40 mg Tablet 40 mg PO DAILY RF: 0 Discharge Orders: Discharge (Order); Ordered 09/23/18 Ordered By: Danna Lott Discharge Health Status Brief summary of current health status: atorvastatin discontinued because of elevated liver function tests Provider Discharge Instructions Diet: Low-sodium and Low-cholesterol Liquid consistency: Normal/Thin Food texture: Regular Diet comment: no restrictions on diet Activity: as tolerated Special Rehabilitation Services Reason for rehabilitation: Therapy following stroke Rehab type: Physical therapy and Occupational therapy Discharge Data Attending Provider: Atif Coyle Admit Date/Time: 09/21/18 22:02
[2018-09-23 12:35] LABS: INR 1.1 (0.9-1.3)
[2018-09-23 12:37] LABS: PTT Partial Thromboplastin Tim 35 SECONDS (26.4-36.2)
--- NOTE | 2018-09-23 15:22 | PC.NURSE ---
Discharge Note Report given to receiving RN at [facility] and all questions answered. 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
--- NOTE | 2018-09-23 15:47 | CM.DPNOTE ---
DCP: continued: Dr. Lott did deem pt stable for a return to [facility] today. EMR reviewed. Orders were received this afternoon. Jennifer/STEVE discussed specifics of pt's current level of function and agreed to have their van pick him up at 1515 today. Have spoken with her now. She says she has no access to the current EMR at . Faxed her the d/c summary.
== END 2018-09-23 15:45 ==
LOC: ED 21:48 → ICU 22:03
PROVIDERS: Emergency Medicine; Internal Medicine; Admitting Provider Internal Medicine; Emergency Provider Nurse Practitioner Family; Visit Provider Internal Medicine
DX: R50.9 Fever, unspecified (principal); I69.351 Hemiplegia and hemiparesis following cerebral infarction affecting right dominant side; F32.9 Major depressive disorder, single episode, unspecified; E78.5 Hyperlipidemia, unspecified; I10 Essential (primary) hypertension; E87.6 Hypokalemia; E04.2 Nontoxic multinodular goiter; R94.5 Abnormal results of liver function studies
CPT/HCPCS: 36415; 36591; 51798; 71045; 76536; 76700; 80053; 80061; 81003; 81015; 83605; 83690; 84145; 85025; 85610; 85730; 87040; 87400; 87633; 87797; 96361; 96365; 99284; 99285; G0378; J1650; J3480

== ENCOUNTER → 2018-10-06 07:22 | Outpatient (REF) | payer OTHER, MEDICAID, SELFPAY ==
[2018-09-21 22:43] VITALS: BMI 23.2
[2018-10-06 08:10] LABS: Add Manual Diff / Slide Review NO; Basophils Absolute Auto 100 /uL (0-100); Basophils Percent Auto 1.3 % (0-2); Eosinophils Absolute Auto 200 /uL (0-450); Eosinophils Percent Auto 3.1 % (2-4); Lymphocytes Absolute Auto 1800 /uL (1100-4500); Lymphocytes Percent Auto 29.8 % (25-40); Mean Corpuscular HGB Conc 34.9 % (30-36); Mean Corpuscular Hemoglobin 31.1 PG (26-34); Mean Corpuscular Volume 89.1 fL (80-100); Monocytes Absolute Auto 500 /uL (0-900); Monocytes Percent Auto 8.8 % (3-14); Neutrophils Absolute Auto 3500 /uL (1500-7000); Platelet Count 268 X10^3/uL (150-400); Red Blood Cell Count 4.49 X10^6/uL (4.5-5.9); Red Cell Distribution Width 13.6 % (11.6-14.8); White Blood Cell Count 6.1 X10^3/uL (4.5-11.0)
[2018-10-06 08:29] LABS: Alanine Aminotransferase 54 IU/L (21-72); Albumin 3.2 g/dL (3.5-5.0); Albumin Globulin Ratio 1.2 (1.0-2.8); Alkaline Phosphatase 181 U/L (38-126); Aspartate Aminotransferase 34 IU/L (17-59); Bilirubin Total 0.6 mg/dL (0.2-1.3); Blood Urea Nitrogen 10 mg/dL (9-20); Calcium 8.4 mg/dL (8.4-10.2); Carbon Dioxide 30 mmol/L (22-32); Chloride 102 mmol/L (98-107); Estimated Glomerular Filt Rate > 60.0 mL/min (>60); Globulin 2.7 g/dL (1.7-4.1); Glucose 76 mg/dL (70-100); HEMOLYSIS 15 (0-50); Potassium 3.5 mmol/L (3.4-5.1); Sodium 139 mmol/L (137-145); Total Protein 5.9 g/dL (6.3-8.2)
== END ==
LOC: LAB 07:22
PROVIDERS: Visit Provider Nurse Practitioner Family
DX: R94.5 Abnormal results of liver function studies (principal); R50.9 Fever, unspecified
CPT/HCPCS: 36415; 80053; 85025

== ENCOUNTER → 2018-10-20 09:39 | Outpatient (CLI) | payer OTHER, MEDICAID, SELFPAY ==
[2018-09-21 22:43] VITALS: BMI 23.2
--- NOTE | 2018-10-20 | PATH_ITS ---
Note [facility] Accession Number: [id number] TESTS RESULT FLAG UNITS REF RANGE LAB Clinician Provided Cytology Information No. of containers..01 ThinPrep Vial No. of containers..12 Previously Prepared Cytology Slide 01 L THYROID ISTHMUS DIAGNOSIS: 02 L THYROID ISTHMUS BENIGN. BETHESDA CATEGORY II - BENIGN. SPECIMEN CONSISTS OF BENIGN FOLLICULAR CELLS, HEMOSIDERIN-LADEN MACROPHAGES, COLLOID, AND BLOOD. THIS PATTERN IS CONSISTENT WITH A BENIGN FOLLICULAR NODULE. Pathologist ICD10: 02 E04.1 02 Raghav Crowell MD, PhD, Pathologist NPI- [id number] Chalino Louis, Food Service Ambassador ([facility]) 01 30 CC, PINK, CLEAR Also received 6 alcohol fixed, 6 quick stained slides, and 1 RNA vial. /HKH FLAG LEGEND: L-Low Normal,H-High Normal,LL-Alert Low,HH-Alert High <-Panic Low,>-Panic High,A-Abnormal,AA-Critical Abnormal Performed at: 01 =Z [facility] [address], [place] [address] Nain Olivas MD, 02 [facility] [address] [place] [id number] Aura Mares MD, Performed at: 01 [facility] [address], [place], [place] [id number] MD Nain Olivas MD Phone: [phone]
--- NOTE | 2018-10-20 | DI.US.S_ITS ---
PROCEDURE: US FINE NEEDLE ASPIRATION INDICATIONS: THYROID NODULE TECHNIQUE: The indications, alternatives, benefits, risks, and complications of the procedure were explained to the patient. Written informed consent was obtained and placed in the chart. The thyroid region was examined sonographically and a site was chosen for ultrasound guided percutaneous sampling. The skin was prepared and draped in the usual fashion, and anesthetized with 1% lidocaine infiltrated from the skin down to the thyroid gland. Multiple passes were then performed, with contents emptied into an appropriate pathology specimen container. A bandage was applied to the area of access at completion of the study. COMPARISON: None. FINDINGS: Location(s) of lesion(s) sampled: Left lobe/isthmus [place]: 22 and 25 gauge hypodermic needles. Number of passes: 6 Medications: 1% lidocaine for local anaesthesia. Complications: None. IMPRESSION: Successful ultrasound-guided thyroid nodule fine needle aspiration, with cytology results pending. Please see chart below for management recommendations based on cytology results. [facility] ReportingRecommendationsNon-diagnostic* Repeat US-guided FNA, with on-site cytology evaluation if possible. * Repeated non-diagnostic nodules without high suspicion US features: close observation vs surgical consult. * Consider surgery if nodule has high suspicion US features, grows >20% in 2 dimensions on followup, or patient has clinical risk factors for malignancy. Benign* If nodule has high suspicion US features: repeat US and FNA within 12 months. * If nodule has low to intermediate suspicion US features: repeat US at 12-24 months. If nodule grows (20% increase in at least 2 dimensions, with minimal increase of 2 mm or >50% change in volume), or development of new suspicious US features, then repeat FNA or continue followup. * If nodule has very low suspicion US features: followup US at >24 months. Atypia of undetermined significance, follicular lesion of undetermined significanceRepeat FNA, molecular testing, followup US, or surgical consult.Follicular neoplasm, suspicious for follicular neoplasmSurgical consult; also consider molecular testing. Suspicious for malignancySurgical consult.MalignantSurgical consult. Dictated by: Trey Betancourt M.D. on 10/20/2018 at 12:07 Approved by: Trey Betancuort M.D. on 10/20/2018 at 12:24
== END ==
PROVIDERS: Visit Provider Nurse Practitioner Family
DX: E04.1 Nontoxic single thyroid nodule (principal)
CPT/HCPCS: 10005

== ENCOUNTER → 2018-12-15 09:30 | Outpatient (ROUT) | payer OTHER, MEDICAID, SELFPAY ==
[2018-09-21 22:43] VITALS: BMI 23.2
[2018-12-15 10:11] LABS: Add Manual Diff / Slide Review NO; Basophils Absolute Auto 100 /uL (0-100); Basophils Percent Auto 0.9 % (0-2); Eosinophils Absolute Auto 200 /uL (0-450); Eosinophils Percent Auto 3.3 % (2-4); Hematocrit 43.5 % (41-53); Hemoglobin 14.9 g/dL (13.5-17.5); Lymphocytes Absolute Auto 1800 /uL (1100-4500); Lymphocytes Percent Auto 23.7 % (25-40); Mean Corpuscular HGB Conc 34.3 % (30-36); Mean Corpuscular Hemoglobin 30.9 PG (26-34); Mean Corpuscular Volume 90.2 fL (80-100); Monocytes Absolute Auto 900 /uL (0-900); Monocytes Percent Auto 11.9 % (3-14); Neutrophils Absolute Auto 4500 /uL (1500-7000); Neutrophils Percent Auto 60.2 % (50-75); Platelet Count 214 X10^3/uL (150-400); Red Blood Cell Count 4.82 X10^6/uL (4.5-5.9); Red Cell Distribution Width 13.9 % (11.6-14.8); White Blood Cell Count 7.5 X10^3/uL (4.5-11.0)
[2018-12-15 10:21] LABS: Alanine Aminotransferase 40 IU/L (21-72); Albumin 3.4 g/dL (3.5-5.0); Albumin Globulin Ratio 1.3 (1.0-2.8); Alkaline Phosphatase 110 U/L (38-126); Aspartate Aminotransferase 33 IU/L (17-59); Bilirubin Total 0.6 mg/dL (0.2-1.3); Blood Urea Nitrogen 9 mg/dL (9-20); Calcium 8.7 mg/dL (8.4-10.2); Carbon Dioxide 30 mmol/L (22-32); Chloride 102 mmol/L (98-107); Estimated Glomerular Filt Rate > 60.0 mL/min (>60); Globulin 2.7 g/dL (1.7-4.1); Glucose 67 mg/dL (70-100); HEMOLYSIS < 15 (0-50); Potassium 3.4 mmol/L (3.4-5.1); Sodium 140 mmol/L (137-145); Total Protein 6.1 g/dL (6.3-8.2)
== END ==
PROVIDERS: Visit Provider Internal Medicine
DX: R94.5 Abnormal results of liver function studies (principal)
CPT/HCPCS: 36415; 80053; 85025

== ENCOUNTER → 2019-03-11 07:51 | Outpatient (ROUT) | payer OTHER, MEDICAID, SELFPAY ==
[2018-09-21 22:43] VITALS: BMI 23.2
[2019-03-11 08:11] LABS: Add Manual Diff / Slide Review NO; Basophils Absolute Auto 100 /uL (0-100); Basophils Percent Auto 1.3 % (0-2); Eosinophils Absolute Auto 200 /uL (0-450); Eosinophils Percent Auto 3.6 % (2-4); Hematocrit 43.6 % (41-53); Lymphocytes Absolute Auto 1800 /uL (1100-4500); Lymphocytes Percent Auto 30.3 % (25-40); Mean Corpuscular HGB Conc 34.5 % (30-36); Mean Corpuscular Hemoglobin 31.2 PG (26-34); Mean Corpuscular Volume 90.4 fL (80-100); Monocytes Absolute Auto 600 /uL (0-900); Monocytes Percent Auto 10.2 % (3-14); Neutrophils Absolute Auto 3200 /uL (1500-7000); Neutrophils Percent Auto 54.6 % (50-75); Platelet Count 209 X10^3/uL (150-400); Red Blood Cell Count 4.82 X10^6/uL (4.5-5.9); Red Cell Distribution Width 13.4 % (11.6-14.8); White Blood Cell Count 5.8 X10^3/uL (4.5-11.0)
[2019-03-11 08:45] LABS: Alanine Aminotransferase 37 IU/L (21-72); Albumin 3.3 g/dL (3.5-5.0); Albumin Globulin Ratio 1.4 (1.0-2.8); Alkaline Phosphatase 98 U/L (38-126); Aspartate Aminotransferase 34 IU/L (17-59); Bilirubin Total 0.7 mg/dL (0.2-1.3); Blood Urea Nitrogen 9 mg/dL (9-20); Calcium 8.7 mg/dL (8.4-10.2); Carbon Dioxide 30 mmol/L (22-32); Chloride 102 mmol/L (98-107); Cholesterol 159 mg/dL (140-199); Estimated Glomerular Filt Rate > 60.0 mL/min (>60); Globulin 2.4 g/dL (1.7-4.1); Glucose 78 mg/dL (70-100); HDL Cholesterol 30 mg/dL (40-60); HEMOLYSIS < 15 (0-50); LDL Cholesterol Calculated 115 mg/dL (<100); Potassium 3.7 mmol/L (3.4-5.1); Sodium 138 mmol/L (137-145); Total Protein 5.7 g/dL (6.3-8.2); Triglycerides 69 mg/dL (35-150)
== END ==
PROVIDERS: Visit Provider Nurse Practitioner Family
DX: I10 Essential (primary) hypertension (principal); F32.9 Major depressive disorder, single episode, unspecified; Z79.899 Other long term (current) drug therapy
CPT/HCPCS: 36415; 80053; 80061; 85025

== ENCOUNTER → 2019-08-12 07:23 | Outpatient (ROUT) | payer OTHER, MEDICAID, SELFPAY ==
[2018-09-21 22:43] VITALS: BMI 23.2
[2019-08-12 08:32] LABS: Add Manual Diff / Slide Review NO; Basophils Absolute Auto 100 /uL (0-100); Basophils Percent Auto 1.4 % (0-2); Eosinophils Absolute Auto 200 /uL (0-450); Eosinophils Percent Auto 3.9 % (2-4); Hematocrit 44.2 % (41-53); Hemoglobin 15.4 g/dL (13.5-17.5); Lymphocytes Absolute Auto 1700 /uL (1100-4500); Lymphocytes Percent Auto 27.9 % (25-40); Mean Corpuscular HGB Conc 34.9 % (30-36); Mean Corpuscular Hemoglobin 31.4 PG (26-34); Monocytes Absolute Auto 600 /uL (0-900); Neutrophils Absolute Auto 3500 /uL (1500-7000); Neutrophils Percent Auto 56.8 % (50-75); Platelet Count 240 X10^3/uL (150-400); Red Blood Cell Count 4.91 X10^6/uL (4.5-5.9); Red Cell Distribution Width 13.4 % (11.6-14.8); White Blood Cell Count 6.1 X10^3/uL (4.5-11.0)
[2019-08-12 08:53] LABS: Alanine Aminotransferase 46 IU/L (<50); Albumin 3.6 g/dL (3.5-5.0); Albumin Globulin Ratio 1.4 (1.0-2.8); Alkaline Phosphatase 106 U/L (38-126); Aspartate Aminotransferase 36 IU/L (17-59); BUN Creatinine Ratio 21.7 (6-22); Bilirubin Total 0.6 mg/dL (0.2-1.3); Blood Urea Nitrogen 13 mg/dL (9-20); Calcium 8.8 mg/dL (8.4-10.2); Carbon Dioxide 30 mmol/L (22-32); Chloride 103 mmol/L (98-107); Cholesterol 184 mg/dL (140-199); Estimated Glomerular Filt Rate > 60.0 mL/min (>60); Globulin 2.5 g/dL (1.7-4.1); Glucose 85 mg/dL (70-100); HDL Cholesterol 26 mg/dL (40-60); HEMOLYSIS < 15 (0-50); LDL Cholesterol Calculated 144 mg/dL (<100); Potassium 3.5 mmol/L (3.4-5.1); Sodium 140 mmol/L (137-145); Total Protein 6.1 g/dL (6.3-8.2); Triglycerides 71 mg/dL (35-150)
== END ==
PROVIDERS: Visit Provider Nurse Practitioner Family
DX: I25.2 Old myocardial infarction (principal); I50.9 Heart failure, unspecified; F32.9 Major depressive disorder, single episode, unspecified
CPT/HCPCS: 36415; 80053; 80061; 85025

== ENCOUNTER → 2020-01-11 07:34 | Outpatient (ROUT) | payer OTHER, MEDICAID, SELFPAY ==
[2018-09-21 22:43] VITALS: BMI 23.2
[2020-01-11 08:23] LABS: Alanine Aminotransferase 43 IU/L (<50); Albumin 3.9 g/dL (3.5-5.0); Albumin Globulin Ratio 1.3 (1.0-2.8); Alkaline Phosphatase 118 U/L (38-126); Aspartate Aminotransferase 39 IU/L (17-59); BUN Creatinine Ratio 17.5 (6-22); Bilirubin Total 0.7 mg/dL (0.2-1.3); Blood Urea Nitrogen 11 mg/dL (9-20); Calcium 8.9 mg/dL (8.4-10.2); Carbon Dioxide 29 mmol/L (22-32); Chloride 103 mmol/L (98-107); Cholesterol 103 mg/dL (140-199); Estimated Glomerular Filt Rate > 60.0 mL/min (>60); Globulin 3.1 g/dL (1.7-4.1); Glucose 84 mg/dL (70-100); HDL Cholesterol 27 mg/dL (40-60); HEMOLYSIS < 15 (0-50); LDL Cholesterol Calculated 66 mg/dL (<100); Potassium 3.6 mmol/L (3.4-5.1); Sodium 140 mmol/L (137-145); Triglycerides 48 mg/dL (35-150)
== END ==
PROVIDERS: Visit Provider Internal Medicine
DX: I10 Essential (primary) hypertension (principal); E78.5 Hyperlipidemia, unspecified
CPT/HCPCS: 36415; 80053; 80061

== ENCOUNTER → 2021-01-16 07:59 | Outpatient (ROUT) | payer OTHER, MEDICAID, SELFPAY ==
[2018-09-21 22:43] VITALS: BMI 23.2
[2021-01-16 08:42] LABS: Add Manual Diff / Slide Review NO; Basophils Absolute Auto 100 /uL (0-100); Basophils Percent Auto 1.3 % (0-2); Eosinophils Absolute Auto 300 /uL (0-450); Eosinophils Percent Auto 4.4 % (2-4); Hematocrit 43.5 % (41-53); Hemoglobin 15.2 g/dL (13.5-17.5); Lymphocytes Absolute Auto 1700 /uL (1100-4500); Lymphocytes Percent Auto 27.8 % (25-40); Mean Corpuscular HGB Conc 34.9 % (30-36); Mean Corpuscular Hemoglobin 31.2 PG (26-34); Mean Corpuscular Volume 89.5 fL (80-100); Monocytes Absolute Auto 700 /uL (0-900); Monocytes Percent Auto 12.1 % (3-14); Neutrophils Absolute Auto 3300 /uL (1500-7000); Neutrophils Percent Auto 54.4 % (50-75); Platelet Count 213 X10^3/uL (150-400); Red Blood Cell Count 4.86 X10^6/uL (4.5-5.9); Red Cell Distribution Width 13.8 % (11.6-14.8)
[2021-01-16 09:07] LABS: Alanine Aminotransferase 34 IU/L (<50); Albumin 3.4 g/dL (3.5-5.0); Albumin Globulin Ratio 1.3 (1.0-2.8); Alkaline Phosphatase 98 U/L (38-126); Aspartate Aminotransferase 40 IU/L (17-59); BUN Creatinine Ratio 18.5 (6-22); Bilirubin Total 0.6 mg/dL (0.2-1.3); Blood Urea Nitrogen 12 mg/dL (9-20); Calcium 8.8 mg/dL (8.4-10.2); Carbon Dioxide 30 mmol/L (22-32); Chloride 103 mmol/L (98-107); Cholesterol 124 mg/dL (140-199); Estimated Glomerular Filt Rate > 60.0 mL/min (>60); Globulin 2.7 g/dL (1.7-4.1); Glucose 81 mg/dL (70-100); HDL Cholesterol 28 mg/dL (40-60); HEMOLYSIS < 15 (0-50); LDL Cholesterol Calculated 86 mg/dL (<100); Potassium 3.7 mmol/L (3.4-5.1); Sodium 138 mmol/L (137-145); Total Protein 6.1 g/dL (6.3-8.2); Triglycerides 50 mg/dL (35-150)
[2021-01-16 09:34] LABS: Thyroid Stimulating Hormone 2.61 uIU/mL (0.47-4.68)
[2021-01-16 09:55] LABS: Vitamin B12 275 pg/mL (239-931)
== END ==
PROVIDERS: Visit Provider Nurse Practitioner Family
DX: I10 Essential (primary) hypertension (principal); R53.83 Other fatigue
CPT/HCPCS: 36415; 80053; 80061; 82607; 84443; 85025

== ENCOUNTER → 2021-06-05 08:33 | Outpatient (ROUT) | payer OTHER, MEDICAID, SELFPAY ==
[2018-09-21 22:43] VITALS: BMI 23.2
[2021-06-05 11:49] LABS: Add Manual Diff / Slide Review NO; Basophils Absolute Auto 100 /uL (0-100); Basophils Percent Auto 1.3 % (0-2); Eosinophils Absolute Auto 200 /uL (0-450); Eosinophils Percent Auto 2.2 % (2-4); Hematocrit 43.8 % (41-53); Hemoglobin 15.2 g/dL (13.5-17.5); Lymphocytes Absolute Auto 1800 /uL (1100-4500); Lymphocytes Percent Auto 26.1 % (25-40); Mean Corpuscular HGB Conc 34.7 % (30-36); Mean Corpuscular Hemoglobin 31.2 PG (26-34); Monocytes Absolute Auto 700 /uL (0-900); Monocytes Percent Auto 10.5 % (3-14); Neutrophils Absolute Auto 4200 /uL (1500-7000); Neutrophils Percent Auto 59.9 % (50-75); Platelet Count 254 X10^3/uL (150-400); Red Blood Cell Count 4.86 X10^6/uL (4.5-5.9); Red Cell Distribution Width 13.6 % (11.6-14.8)
[2021-06-05 12:09] LABS: Blood Urea Nitrogen 12 mg/dL (9-20); Calcium 8.9 mg/dL (8.4-10.2); Carbon Dioxide 28 mmol/L (22-32); Chloride 103 mmol/L (98-107); Estimated Glomerular Filt Rate > 60.0 mL/min (>60); Glucose 62 mg/dL (70-100); HEMOLYSIS < 15 (0-50); Potassium 3.8 mmol/L (3.4-5.1); Sodium 138 mmol/L (137-145)
== END ==
PROVIDERS: Visit Provider Nurse Practitioner Family
DX: R11.10 Vomiting, unspecified (principal)
CPT/HCPCS: 36415; 80048; 85025

== ENCOUNTER → 2021-07-12 15:32 | Outpatient (CLI) | payer OTHER, MEDICAID, SELFPAY ==
[2018-09-21 22:43] VITALS: BMI 23.2
--- NOTE | 2021-07-12 15:37 | DI.RAD.S_ITS ---
PROCEDURE: XR CHEST 2V INDICATIONS: FEVER AND NO APPETITE TECHNIQUE: 2 views of the chest were acquired. COMPARISON: None. FINDINGS: Surgical changes and devices: None. Lungs and pleura: Lungs are clear. No pleural effusions or pneumothorax. Mediastinum: Mediastinal contours are normal. Heart size is normal. Bones and chest wall: No suspicious bony abnormalities. Soft tissues appear unremarkable. IMPRESSION: No acute cardiopulmonary process demonstrated radiographically. Dictated by: Toribio Lowery M.D. on 07/12/2021 at 15:50 Approved by: Toribio Lowery M.D. on 07/12/2021 at 15:51
[2021-07-12 18:06] LABS: Add Manual Diff / Slide Review NO; Basophils Absolute Auto 100 /uL (0-100); Basophils Percent Auto 0.2 % (0-2); Eosinophils Absolute Auto 0 /uL (0-450); Hematocrit 49.9 % (41-53); Hemoglobin 17.6 g/dL (13.5-17.5); Lymphocytes Absolute Auto 1100 /uL (1100-4500); Lymphocytes Percent Auto 4.6 % (25-40); Mean Corpuscular HGB Conc 35.3 % (30-36); Mean Corpuscular Hemoglobin 31.4 PG (26-34); Monocytes Absolute Auto 2200 /uL (0-900); Monocytes Percent Auto 9.3 % (3-14); Neutrophils Absolute Auto 20500 /uL (1500-7000); Neutrophils Percent Auto 85.9 % (50-75); Platelet Count 229 X10^3/uL (150-400); Red Blood Cell Count 5.61 X10^6/uL (4.5-5.9); Red Cell Distribution Width 13.8 % (11.6-14.8); White Blood Cell Count 23.8 X10^3/uL (4.5-11.0)
[2021-07-12 18:38] LABS: Alanine Aminotransferase 112 IU/L (<50); Albumin 3.8 g/dL (3.5-5.0); Albumin Globulin Ratio 1.2 (1.0-2.8); Alkaline Phosphatase 148 U/L (38-126); Amylase 39 U/L (30-110); Aspartate Aminotransferase 73 IU/L (17-59); BUN Creatinine Ratio 18.8 (6-22); Bilirubin Total 3.2 mg/dL (0.2-1.3); Blood Urea Nitrogen 12 mg/dL (9-20); Calcium 9.3 mg/dL (8.4-10.2); Carbon Dioxide 28 mmol/L (22-32); Chloride 98 mmol/L (98-107); Estimated Glomerular Filt Rate > 60.0 mL/min (>60); Globulin 3.1 g/dL (1.7-4.1); Glucose 142 mg/dL (70-100); HEMOLYSIS 15 (0-50); Lipase 84 U/L (23-300); Potassium 3.8 mmol/L (3.4-5.1); Sodium 135 mmol/L (137-145); Total Protein 6.9 g/dL (6.3-8.2)
== END ==
PROVIDERS: Referring Provider Internal Medicine; Visit Provider Internal Medicine
DX: R50.9 Fever, unspecified (principal); R63.0 Anorexia
CPT/HCPCS: 36415; 71046; 80053; 82150; 83690; 85025

== ENCOUNTER 2021-07-12 20:45 | Observation (INO) | payer OTHER, MEDICAID, SELFPAY ==
[2018-09-21 22:43] VITALS: BMI 23.2
[2021-07-12] VITALS (11 sets, daily range): BP systolic 141–155; BP diastolic 78–93; PULSE 85–102; RESP 16; TEMP 37.7; O2SAT 92–95; BMI 25.4
--- NOTE | 2021-07-12 20:50 | DI.US.S_ITS ---
PROCEDURE: US ABDOMEN COMPLETE INDICATIONS: N/V, FEVER, ABNORMAL LABS TECHNIQUE: Real-time scanning was performed of the abdominal and retroperitoneal organs, with image documentation. COMPARISON: [facility], US, US ABDOMEN COMPLETE, 09/21/2018, 19:51. FINDINGS: Suboptimal study secondary to lack of good acoustic window. Liver: Liver is normal in size and homogeneous in echotexture. Gallbladder: The gallbladder is not well evaluated due to lack of good acoustic window. There are several shadowing floating and adherent stones within the gallbladder of varying sizes, the largest measuring up to 1.2 cm. The gallbladder wall is difficult to see but appears to be normal in thickness at 2.6 mm. No definite pericholecystic fluid or sonographic Stinson sign. Biliary ducts: Intrahepatic bile ducts are non-dilated. Extrahepatic bile duct caliber measures 5.4 mm. Normal is 6-7 mm or less in diameter, or 10 mm or less post-cholecystectomy. Pancreas: Visualized portions of the pancreas are sonographically normal. Spleen: Spleen is normal in size and homogeneous in echotexture. Kidneys: Kidneys are normal in size and echotexture. Right kidney measures 13.8 cm long; left kidney measures 10.6 cm long. No hydronephrosis or nephrolithiasis. No solid masses. Probable right parapelvic cyst measuring about 1.9 cm. Aorta: Visualized aorta is normal in caliber at less than 3 cm. Iliacs: Proximal common iliac arteries are normal in caliber at less than 2.5 cm. IVC: Not well seen. Miscellaneous: No free abdominal fluid. IMPRESSION: 1. Cholelithiasis and sludge without other sonographic sign of acute cholecystitis. The exam is technically challenging. 2. No other visible sonographic abnormalities. Dictated by: Clementine Waters M.D. on 07/12/2021 at 21:53 Approved by: Clementine Waters M.D. on 07/12/2021 at 21:57
--- NOTE | 2021-07-12 20:52 | ED.NAVMDI ---
HPI - Nausea/Vomiting/Diarrhea General Chief complaint: Abdominal Pain Stated complaint: N/V Time Seen by Provider: 07/12/21 20:49 History of Present Illness HPI Narrative: 60M nonsmoker with history of stroke resulting in expressive aphasia and right-sided deficits, hypertension and hyperlipidemia presents from a local shelter facility for about 24 hours of worsening symptoms including persistent nausea and vomiting, increasing upper abdominal pain and fever just prior to transport. He has a poor appetite and pain is worse when he moves while improves when he rests. He has no report of jaundice or confusion above baseline. Related Data Home Medications Medication Instructions Recorded Confirmed acetaminophen 325 mg tablet 650 mg PO Q4H PRN 09/21/18 07/12/21 amlodipine 5 mg tablet 10 mg PO DAILY 09/21/18 07/12/21 aspirin 81 mg tablet,delayed 81 mg PO DAILY 09/21/18 07/12/21 release cholecalciferol (vitamin D3) 25 1,000 unit PO DAILY 09/21/18 07/12/21 mcg (1,000 unit) tablet (Vitamin D3) docusate sodium 100 mg capsule 100 mg PO BID 09/21/18 07/12/21 fluoxetine 10 mg tablet 10 mg PO DAILY 09/21/18 07/12/21 sennosides 8.6 mg tablet (senna) 8.6 mg PO DAILY 09/21/18 07/12/21 atorvastatin 20 mg tablet 20 mg PO BEDTIME 07/12/21 07/12/21 cyanocobalamin (vitamin B-12) 1,000 mcg PO DAILY 07/12/21 07/12/21 1,000 mcg capsule ondansetron 4 mg disintegrating 4 mg PO Q4H PRN 07/12/21 07/12/21 tablet Allergies Allergy/AdvReac Type Severity Reaction Status Date / Time Penicillins Allergy Unknown Verified 07/12/21 20:51 Review of Systems Review of Systems Narrative: GENERAL: See HPI HEENT: Denies sinus pain, ear pain, sore throat, difficulty swallowing, dizziness. RESPIRATORY: Denies dyspnea, cough, wheezing, hemoptysis, sputum. CARDIOVASCULAR: Denies chest pain, palpitations, orthopnea, edema, GASTROINTESTINAL: See HPI : Denies dysuria, frequency, incontinence, hematuria, urinary retention. MUSCULOSKELETAL: denies weakness, joint pain, or bony pain SKIN: Denies rash, skin lesions, or other NEUROLOGIC: Denies weakness, headache, numbness, change in speech, confusion, seizures, incoordination. PSYCHIATRIC: No concerning psychosocial issues. 12 point review of systems is negative except for those stated above Patient History Medical History (Updated 07/13/21 @ 14:08 by Erik Strickland MD) Depression History of CVA (cerebrovascular accident) Hyperlipidemia Hypertension Surgical History S/P right knee arthroscopy Family History Father Heart disease Social History household members: other Smoking Status: Never smoker alcohol intake: never Smoking Status: Never smoker Substance Use Type: does not use Exam Narrative Exam Narrative: GENERAL: [60 year old patient appears stated age. Well-developed patient, in mild distress. Expressive aphasia at baseline per nursing staff HEAD: Atraumatic. Normocephalic. EYES: Pupils equal round and reactive. Extraocular motions intact. No scleral icterus. No injection or drainage. ENT: Nose without bleeding, purulent drainage. Throat without erythema, tonsillar hypertrophy or exudate. Airway patent. NECK: Trachea midline. Non tender CARDIOVASCULAR: Regular rate and rhythm without murmurs, gallops, or rubs. RESPIRATORY: Clear to auscultation. Breath sounds equal bilaterally. No wheezes, rales, or rhonchi. GASTROINTESTINAL: Abdomen soft, tender in the epigastrium and right upper quadrant nondistended. EXTREMITIES: No edema or joint tenderness. BACK: Nontender without deformity or crepitance. No flank tenderness. NEURO: Right-sided weakness consistent with prior stroke SKIN: No rash or erythema of visible areas Initial Vital Signs Initial Vital Signs: Vital Signs Temperature 99.9 F H 07/12/21 20:45 Pulse Rate 102 H 07/12/21 20:45 Respiratory Rate 16 07/12/21 20:45 Blood Pressure 141/93 H 07/12/21 20:45 Pulse Oximetry 95 07/12/21 20:45 Course Orders Ordered: Acetaminophen (Acetaminophen 325 Mg Tablet) 650 mg PO Q4H PRN PRN Reason: Fever Or Pain Amlodipine Besylate (Amlodipine 5 Mg Tablet) 10 mg PO DAILY [facility] Atorvastatin Calcium (Atorvastatin 20 Mg Tablet) 20 mg PO BEDTIME [facility] Last Admin: 07/13/21 21:24 Dose: 20 mg Documented by: HOWARD Docusate Sodium (Docusate 100 Mg Capsule) 100 mg PO BID [facility] Last Admin: 07/13/21 21:24 Dose: 100 mg Documented by: HOWARD Enoxaparin Sodium (Enoxaparin 40 Mg/0.4 Ml Syringe) 40 mg SUBCUT DAILY [facility] Fluoxetine HCl (Fluoxetine 10 Mg Capsule) 10 mg PO DAILY [facility] Levofloxacin (Levaquin) 750 mg in 150 mls @ 100 mls/hr IV Q24H [facility] Last Infusion: 07/14/21 01:02 Dose: 0 mls/hr Documented by: Admin: 07/13/21 22:38 Dose: 100 mls/hr Documented by: HOWARD Metronidazole (Flagyl) 500 mg in 100 mls @ 100 mls/hr IV Q6H [facility] Last Infusion: 07/14/21 02:05 Dose: 0 mls/hr Documented by: Admin: 07/14/21 01:02 Dose: 100 mls/hr Documented by: Infusion: 07/13/21 22:39 Dose: 0 mls/hr Documented by: Admin: 07/13/21 20:05 Dose: 100 mls/hr Documented by: HOWARD Sodium Chloride (Normal Saline 0.9%) 1,000 mls @ 100 mls/hr IV CONT [facility] Last Admin: 07/13/21 19:58 Dose: 100 mls/hr Documented by: HOWARD Morphine Sulfate (Morphine 4 Mg/Ml Inj) 4 mg IV Q4HR PRN PRN Reason: Pain, Severe (7-10) Naloxone HCl (Naloxone 0.4 Mg/Ml Vial) 0.2 mg IV Q2MIN PRN PRN Reason: Opiate Reversal Ondansetron HCl (Ondansetron 4 Mg/2 Ml Inj) 4 mg IV Q4HR PRN PRN Reason: Nausea And Vomiting Oxycodone HCl (Oxycodone Ir 5 Mg Tablet) 5 mg PO Q6HR PRN PRN Reason: Pain, Moderate (4-6) Last Admin: 07/14/21 04:14 Dose: 5 mg Documented by: Admin: 07/13/21 22:38 Dose: 5 mg Documented by: HOWARD Sennosides (Sennosides 8.6 Mg Tablet) 8.6 mg PO DAILY [facility] Discontinued Medications Acetaminophen (Acetaminophen 325 Mg Tablet) 975 mg PO NOW ONE Stop: 07/13/21 00:35 Last Admin: 07/13/21 00:37 Dose: Not Given Documented by: BROOKE Bupivacaine HCl (Bupivacaine 0.5% (Pf) Vial) 10 ml INJ NOW ONE Stop: 07/13/21 15:19 Last Admin: 07/13/21 15:18 Dose: 20 ml Documented by: YOLA Fentanyl (Fentanyl 100 Mcg/2 Ml Inj) 50 mcg IV Q1H PRN PRN Reason: Pain, Severe (7-10) Last Admin: 07/13/21 05:05 Dose: 50 mcg Documented by: BROOKE Fentanyl (Fentanyl 100 Mcg/2 Ml Inj) 0 mcg IV Q5M PRN PRN Reason: Pain, Moderate (4-6) Hydromorphone HCl (Hydromorphone 2 Mg Inj) 0 mg IV Q5MIN PRN PRN Reason: Pain, Mild (1-3) Hydroxyzine HCl (Hydroxyzine 50 Mg/Ml Inj) 25 mg IM NOW PRN PRN Reason: Pain, Mild (1-3) Hydroxyzine Pamoate (Hydroxyzine Pamoate 25 Mg Capsule) 25 mg PO NOW PRN PRN Reason: Pain, Mild (1-3) Sodium Chloride (Normal Saline 0.9%) 1,000 mls @ 125 mls/hr IV CONT [facility] Last Infusion: 07/13/21 12:29 Dose: 125 mls/hr Documented by: Infusion: 07/13/21 10:54 Dose: 125 mls/hr Documented by: Infusion: 07/13/21 10:12 Dose: 0 mls/hr Documented by: Admin: 07/13/21 09:31 Dose: 125 mls/hr Documented by: Infusion: 07/13/21 01:21 Dose: 0 mls/hr Documented by: Admin: 07/12/21 22:03 Dose: 125 mls/hr Documented by: BROOKE Metronidazole (Flagyl) 500 mg in 100 mls @ 100 mls/hr IV Q8H [facility] Last Admin: 07/13/21 19:59 Dose: Not Given Documented by: Infusion: 07/13/21 11:31 Dose: 0 mls/hr Documented by: Infusion: 07/13/21 10:54 Dose: 100 mls/hr Documented by: Infusion: 07/13/21 10:12 Dose: 0 mls/hr Documented by: Admin: 07/13/21 09:31 Dose: 100 mls/hr Documented by: Infusion: 07/13/21 00:51 Dose: 0 mls/hr Documented by: Admin: 07/12/21 23:37 Dose: 100 mls/hr Documented by: BROOKE Levofloxacin (Levaquin) 750 mg in 150 mls @ 100 mls/hr IV NOW ONE Stop: 07/13/21 00:51 Last Infusion: 07/13/21 01:21 Dose: 0 mls/hr Documented by: Admin: 07/12/21 23:37 Dose: 100 mls/hr Documented by: BROOKE Sodium Chloride (Normal Saline 0.9%) 1,000 mls @ 150 mls/hr IV BOLUS ONE Stop: 07/13/21 08:01 Last Infusion: 07/13/21 08:41 Dose: 0 mls/hr Documented by: Admin: 07/13/21 01:50 Dose: 150 mls/hr Documented by: BROOKE Lactated Ringer's (Lactated Ringers) 1,000 mls @ 150 mls/hr IV NOW ONE Stop: 07/13/21 19:18 Last Infusion: 07/13/21 18:18 Dose: 0 mls/hr Documented by: Admin: 07/13/21 15:40 Dose: 150 mls/hr Documented by: Infusion: 07/13/21 15:40 Dose: 150 mls/hr Documented by: Admin: 07/13/21 12:39 Dose: 150 mls/hr Documented by: JORGE Lactated Ringer's (Lactated Ringers) 1,000 mls @ 42 mls/hr IV CONT [facility] Last Admin: 07/13/21 23:09 Dose: Not Given Documented by: HOWARD Cefotetan Disodium 2 gm/ (Sodium Chloride) 100 mls @ 200 mls/hr IV NOW ONE Stop: 07/13/21 13:59 Last Admin: 07/13/21 15:17 Dose: 200 mls/hr Documented by: ROSE MARIE Lactated Ringer's (Lactated Ringers) 1,000 mls @ 120 mls/hr IV CONT [facility] Last Admin: 07/13/21 23:09 Dose: Not Given Documented by: HOWARD Iopamidol (Iopamidol 15 Ml Vial) 15 ml INJ NOW ONE Stop: 07/13/21 16:04 Last Admin: 07/13/21 16:04 Dose: 15 ml Documented by: YOLA Metoclopramide HCl (Metoclopramide 10 Mg/2 Ml Inj) 10 mg IV NOW PRN PRN Reason: Nausea And Vomiting Metoprolol Tartrate (Metoprolol Tartrate 5 Mg/5 Ml Inj) 1 mg IV PRN PRN PRN Reason: Tachyarrhythmias Ondansetron HCl (Ondansetron 4 Mg/2 Ml Inj) 4 mg IV NOW ONE Stop: 07/13/21 04:59 Last Admin: 07/13/21 05:05 Dose: 4 mg Documented by: BROOKE Ondansetron HCl (Ondansetron 4 Mg/2 Ml Inj) 4 mg IV NOW PRN PRN Reason: Nausea And Vomiting Oxycodone HCl (Oxycodone Ir 5 Mg Tablet) 5 mg PO PACUNOW PRN PRN Reason: Mild or moderate pain Consultations Consultation #1: discussed with photographer motion picture surgery (Marco A) regarding findings. Recommends NPO, fluids at 150, ABX as given, and order for MRCP Vital Signs Vital signs: Vital Signs - 8 hr 07/12/21 23:30 07/13/21 00:01 07/13/21 00:02 Pulse Rate 87 91 H Blood Pressure 155/89 H 149/85 H Pulse Oximetry 94 96 95 07/13/21 00:30 07/13/21 01:00 07/13/21 01:30 Pulse Rate 91 H 93 H 95 H Blood Pressure Pulse Oximetry 94 95 94 07/13/21 02:00 07/13/21 02:30 07/13/21 03:00 Pulse Rate 94 H 93 H 89 Blood Pressure Pulse Oximetry 94 94 94 07/13/21 03:30 07/13/21 04:00 07/13/21 04:30 Pulse Rate 92 H 91 H 89 Blood Pressure 151/90 H Pulse Oximetry 95 94 94 07/13/21 05:00 07/13/21 05:30 07/13/21 06:00 Pulse Rate 92 H 87 87 Blood Pressure Pulse Oximetry 94 93 94 07/13/21 06:30 Pulse Rate 89 Blood Pressure Pulse Oximetry 94 MDM - Nausea/Vomiting/Diarrhea Lab Data Result diagrams: 07/13/21 05:36 07/13/21 05:36 Labs: Lab Results 07/12/21 07/12/21 07/12/21 Range/Units 21:05 21:05 21:05 WBC 24.8 H (4.5-11.0) X10^3/uL RBC 5.58 (4.5-5.9) X10^6/uL Hgb 17.4 (13.5-17.5) g/dL Hct 49.5 (41-53) % MCV 88.6 (80-100) fL MCH 31.3 (26-34) PG MCHC 35.3 (30-36) % RDW 13.8 (11.6-14.8) % Plt Count 220 (150-400) X10^3/uL Neut % (Auto) 83.2 H (50-75) % Lymph % (Auto) 4.3 L (25-40) % Lincoln % (Auto) 12.2 (3-14) % Eos % (Auto) 0.0 L (2-4) % Baso % (Auto) 0.3 (0-2) % Neut # (Auto) 86827 H (6344-9152) /uL Lymph # (Auto) 1100 (1932-0220) /uL Lincoln # (Auto) 3000 H (0-900) /uL Eos # (Auto) 0 (0-450) /uL Baso # (Auto) 100 (0-100) /uL PT 16.4 H (10.1-12.7) SECONDS INR 1.4 H (0.9-1.3) Sodium 133 L (137-145) mmol/L Potassium 3.7 (3.4-5.1) mmol/L Chloride 99 (98-107) mmol/L Carbon Dioxide 30 (22-32) mmol/L BUN 13 (9-20) mg/dL Creatinine 0.69 (0.66-1.25) mg/dL Estimated GFR > 60.0 (>60) mL/min BUN/Creatinine Ratio 18.8 (6-22) Glucose 122 H (70-100) mg/dL Lactate (0.7-2.1) mmol/L Calcium 9.5 (8.4-10.2) mg/dL Total Bilirubin 3.1 H (0.2-1.3) mg/dL AST 66 H (17-59) IU/L ALT 116 H (<50) IU/L Alkaline Phosphatase 146 H (38-126) U/L Total Protein 7.4 (6.3-8.2) g/dL Albumin 3.9 (3.5-5.0) g/dL Globulin 3.5 (1.7-4.1) g/dL Albumin/Globulin Ratio 1.1 (1.0-2.8) Lipase 48 (23-300) U/L Urine RBC (0-5/HPF) Urine WBC (0-5/HPF) Urine Bacteria (None) Hyaline Casts (None) Ur Culture Indicated? Micro UA Comment SARS-CoV-2 (PCR) (Negative) 07/12/21 07/12/21 07/13/21 Range/Units 21:05 21:33 00:42 WBC (4.5-11.0) X10^3/uL RBC (4.5-5.9) X10^6/uL Hgb (13.5-17.5) g/dL Hct (41-53) % MCV (80-100) fL MCH (26-34) PG MCHC (30-36) % RDW (11.6-14.8) % Plt Count (150-400) X10^3/uL Neut % (Auto) (50-75) % Lymph % (Auto) (25-40) % Lincoln % (Auto) (3-14) % Eos % (Auto) (2-4) % Baso % (Auto) (0-2) % Neut # (Auto) (8621-9475) /uL Lymph # (Auto) (9127-1517) /uL Lincoln # (Auto) (0-900) /uL Eos # (Auto) (0-450) /uL Baso # (Auto) (0-100) /uL PT (10.1-12.7) SECONDS INR (0.9-1.3) Sodium (137-145) mmol/L Potassium (3.4-5.1) mmol/L Chloride (98-107) mmol/L Carbon Dioxide (22-32) mmol/L BUN (9-20) mg/dL Creatinine (0.66-1.25) mg/dL Estimated GFR (>60) mL/min BUN/Creatinine Ratio (6-22) Glucose (70-100) mg/dL Lactate 1.2 (0.7-2.1) mmol/L Calcium (8.4-10.2) mg/dL Total Bilirubin (0.2-1.3) mg/dL AST (17-59) IU/L ALT (<50) IU/L Alkaline Phosphatase (38-126) U/L Total Protein (6.3-8.2) g/dL Albumin (3.5-5.0) g/dL Globulin (1.7-4.1) g/dL Albumin/Globulin Ratio (1.0-2.8) Lipase (23-300) U/L Urine RBC 1-5/hpf (0-5/HPF) Urine WBC 5-10/hpf H (0-5/HPF) Urine Bacteria None seen (None) Hyaline Casts 0-1/lpf (None) Ur Culture Indicated? Specimen cultured Micro UA Comment * SARS-CoV-2 (PCR) Negative (Negative) 07/13/21 07/13/21 Range/Units 05:36 05:36 WBC 21.5 H (4.5-11.0) X10^3/uL RBC 5.21 (4.5-5.9) X10^6/uL Hgb 16.2 (13.5-17.5) g/dL Hct 45.9 (41-53) % MCV 88.1 (80-100) fL MCH 31.0 (26-34) PG MCHC 35.2 (30-36) % RDW 13.5 (11.6-14.8) % Plt Count 172 (150-400) X10^3/uL Neut % (Auto) 84.7 H (50-75) % Lymph % (Auto) 3.8 L (25-40) % Lincoln % (Auto) 11.1 (3-14) % Eos % (Auto) 0.2 L (2-4) % Baso % (Auto) 0.2 (0-2) % Neut # (Auto) 55169 H (4649-8615) /uL Lymph # (Auto) 800 L (5611-6175) /uL Lincoln # (Auto) 2400 H (0-900) /uL Eos # (Auto) 0 (0-450) /uL Baso # (Auto) 0 (0-100) /uL PT (10.1-12.7) SECONDS INR (0.9-1.3) Sodium 137 (137-145) mmol/L Potassium 3.7 (3.4-5.1) mmol/L Chloride 102 (98-107) mmol/L Carbon Dioxide 30 (22-32) mmol/L BUN 11 (9-20) mg/dL Creatinine 0.66 (0.66-1.25) mg/dL Estimated GFR > 60.0 (>60) mL/min BUN/Creatinine Ratio 16.7 (6-22) Glucose 106 H (70-100) mg/dL Lactate (0.7-2.1) mmol/L Calcium 8.5 (8.4-10.2) mg/dL Total Bilirubin 3.0 H (0.2-1.3) mg/dL AST 53 (17-59) IU/L ALT 92 H (<50) IU/L Alkaline Phosphatase 131 H (38-126) U/L Total Protein 6.4 (6.3-8.2) g/dL Albumin 3.3 L (3.5-5.0) g/dL Globulin 3.1 (1.7-4.1) g/dL Albumin/Globulin Ratio 1.1 (1.0-2.8) Lipase 33 (23-300) U/L Urine RBC (0-5/HPF) Urine WBC (0-5/HPF) Urine Bacteria (None) Hyaline Casts (None) Ur Culture Indicated? Micro UA Comment SARS-CoV-2 (PCR) (Negative) Urine Dip Bedside Urine Glucose Negative Bedside Urine Bilirubin - Negative Bedside Urine Ketone - Negative Urine Specific Parachute 1.015 Bedside Urine Occult Blood + Bedside Urine pH 5.5 Bedside Urine Protein + 30 Bedside Urine Urobilinogen 2+ 4mg Bedside Urine Nitrite - Negative Bedside Urine Leukocytes + 70 Esterase Discharge Plan Departure Patient Disposition: Admitted to Surgery Clinical Impression: Cholecystitis Admit Date/Time: 07/13/21 11:43 Admit Provider: Erik Strickland
[2021-07-12 21:12] LABS: Add Manual Diff / Slide Review NO; Basophils Absolute Auto 100 /uL (0-100); Basophils Percent Auto 0.3 % (0-2); Eosinophils Absolute Auto 0 /uL (0-450); Hematocrit 49.5 % (41-53); Hemoglobin 17.4 g/dL (13.5-17.5); Lymphocytes Absolute Auto 1100 /uL (1100-4500); Lymphocytes Percent Auto 4.3 % (25-40); Mean Corpuscular HGB Conc 35.3 % (30-36); Mean Corpuscular Hemoglobin 31.3 PG (26-34); Mean Corpuscular Volume 88.6 fL (80-100); Monocytes Absolute Auto 3000 /uL (0-900); Monocytes Percent Auto 12.2 % (3-14); Neutrophils Absolute Auto 20600 /uL (1500-7000); Neutrophils Percent Auto 83.2 % (50-75); Platelet Count 220 X10^3/uL (150-400); Red Blood Cell Count 5.58 X10^6/uL (4.5-5.9); Red Cell Distribution Width 13.8 % (11.6-14.8); White Blood Cell Count 24.8 X10^3/uL (4.5-11.0)
[2021-07-12 21:22] LABS: INR 1.4 (0.9-1.3); Prothrombin Time 16.4 SECONDS (10.1-12.7)
[2021-07-12 21:24] LABS: Lactate (Lactic Acid) 1.2 mmol/L (0.7-2.1)
[2021-07-12 21:25] LABS: Alanine Aminotransferase 116 IU/L (<50); Albumin 3.9 g/dL (3.5-5.0); Albumin Globulin Ratio 1.1 (1.0-2.8); Alkaline Phosphatase 146 U/L (38-126); Aspartate Aminotransferase 66 IU/L (17-59); BUN Creatinine Ratio 18.8 (6-22); Bilirubin Total 3.1 mg/dL (0.2-1.3); Blood Urea Nitrogen 13 mg/dL (9-20); Calcium 9.5 mg/dL (8.4-10.2); Carbon Dioxide 30 mmol/L (22-32); Chloride 99 mmol/L (98-107); Estimated Glomerular Filt Rate > 60.0 mL/min (>60); Globulin 3.5 g/dL (1.7-4.1); Glucose 122 mg/dL (70-100); HEMOLYSIS 16 (0-50); Lipase 48 U/L (23-300); Potassium 3.7 mmol/L (3.4-5.1); Sodium 133 mmol/L (137-145); Total Protein 7.4 g/dL (6.3-8.2)
--- NOTE | 2021-07-12 21:48 | DI.CT.S_ITS ---
PROCEDURE: CT ABDOMEN PELVIS W CON INDICATIONS: fever, N/V TECHNIQUE: After the administration of intravenous contrast, axial sections acquired from the lung bases to the pubic symphysis. Coronal and sagittal reformats were performed. For radiation dose reduction, the following was used: automated exposure control, adjustment of mA and/or kV according to patient size. COMPARISON: None. FINDINGS: Image quality: Excellent. Lung bases: Ill-defined 13 mm left lung base nodule.. Heart: No significant findings. ABDOMEN: Liver: Unremarkable. Gallbladder: Wall is mildly thickened and there is mild surrounding pericholecystic fat stranding. Multiple calculi within the gallbladder lumen are present. Biliary ducts: Unremarkable. Pancreas: Unremarkable. Spleen: Unremarkable. Adrenal Glands: Unremarkable. Kidneys and Ureters: Mild right hydronephrosis is present. There is a 12 mm right renal pelvic calculus. Mild right perinephric fat stranding. Minimal left perinephric fat stranding. No left hydronephrosis. Stomach and Bowel: Stomach, small bowel loops, and colon are unremarkable. Appendix is not seen. No evidence of appendicitis. Peritoneum: No abnormal intraperitoneal fluid. No free air. Ventral Wall: No hernias. Abdominal Nodes: No retroperitoneal or mesenteric adenopathy by size criteria. Vessels: Aorta and inferior vena cava are normal in size. PELVIS: Pelvic Organs: Unremarkable. Bladder: 7 mm right ureterovesical junction calculus. 2 mm diameter calculus within the posterior aspect of the urinary bladder. Pelvic Nodes: No enlarged lymph nodes. Miscellaneous: No hernias are seen. Bones: Unremarkable. IMPRESSION: 1. Acute cholecystitis. Cholelithiasis. 2. Right renal pelvic calculus associated with right hydronephrosis. Right ureteropelvic junction calculus. Small urinary bladder calculus. 3. Left lung base nodule. Follow-up is recommended as below. Fleischner Society criteria for SOLID lung nodule followup. Nodule size (mm)Low-risk patientHigh-risk patient<6 (single or multiple)No routine followup.Optional CT at 12 months. 6-8 (single or multiple)CT at 6-12 months, then optional CT at 18-24 mo.CT at 6-12 months, then CT at 18-24 months. >8 (single)CT, PET-CT, or biopsy at 3 months. Same as for low-risk pts. >8 (multiple)CT at 3-6 months, then optional CT at 18-24 mo.CT at 3-6 months, then CT at 18-24 months. Recommendations do not apply to lung cancer screening, patients with immunosuppression, or patients with known primary cancer. Dictated by: Jalen Rojas M.D. on 07/12/2021 at 22:24 Approved by: Jalen Rojas M.D. on 07/12/2021 at 22:27
[2021-07-12] MEDS: SODIUM CHLORIDE 0.9% 1,000 ML 125 ML IV (22:03)
[2021-07-12 22:33] LABS: COVID19 - ADMIT (NP swab/PCR) Negative (Negative)
[2021-07-12] MEDS: metroNIDAZOLE 500 MG/100 ML PIGGYBACK 100 MG IV (23:37)
[2021-07-12] MEDS: levoFLOXacin 750 MG/150 ML PIGGYBACK 100 MG IV (23:37)
[2021-07-13] VITALS (41 sets, daily range): BP systolic 127–157; BP diastolic 63–90; PULSE 78–95; RESP 12–25; TEMP 36.8–38.2; O2SAT 93–97; BMI 25.4
--- NOTE | 2021-07-13 | PATH_ITS ---
[facility] Accession Number: [id number] . 01 Material submitted: . gallbladder - GALLBLADDER . 02 Diagnosis: Gallbladder, Cholecystectomy: Acute necrotizing cholecystitis with cholelithiasis. Negative for dysplasia and malignancy. [facility] 07/17/2021 1444 Local . 02 Electronically signed: . Aura Mares MD, Pathologist NPI- [id number] . 01 Gross description: . Received in formalin, labeled with the patient's name and gallbladder is a significantly disrupted and fragmented gallbladder measuring 8.5 x 7.8 x 3.8 cm in aggregate. The external surface is diffusely roughened and covered by adhesions. The wall thickness ranges from 0.3-0.6 cm. The mucosa is green-brown and hemorrhagic. Approximately 15 black, multifaceted gallstones are present ranging from 0.5-1.2 cm in greatest dimension. Prn Occupational Therapist sections of cystic duct margin and gallbladder mucosa are submitted in cassette A1. ([id number]:[id number]) /V 07/16/2021 0944 Local . 02 Pathologist provided ICD-10: K81.0, K80.60 . 02 CPT . 018443 Performed at: 01 [facility] [address], [place], [place] [id number] MD Nain Olivas MD Phone: [phone] Performed at: 02 [facility] [address] [place], [place] [id number] MD Aura Mares MD Phone: [phone]
--- NOTE | 2021-07-13 00:12 | DI.MRI.S_ITS ---
PROCEDURE: MR ABDOMEN WO CON INDICATIONS: concern for CBD stone TECHNIQUE: Coronal HASTE through the abdomen, axial 2-D FLASH in- and [id number], and breath-hold T2 FSE with fat saturation through the biliary system and pancreas. Oblique coronal and axial thin-slice HASTE, radial thick-slab HASTE centered on the extrahepatic bile ducts. Intravenous secretin: Not requested. COMPARISON: [facility], US, US ABDOMEN COMPLETE, 07/12/2021, 21:10. [facility], CT, CT ABDOMEN PELVIS W CON, 07/12/2021, 22:03. FINDINGS: Image quality: Degraded by motion artifact. Pancreas and biliary system: Intra- and extra-hepatic biliary ducts are non dilated. There is suboptimal visualization of the distal common bile duct. Pancreas is normal in morphology, without adjacent soft tissue edema. Pancreatic duct is normal in caliber, without developmental anomalies. Gallbladder wall is thickened and there is moderate surrounding fat stranding. Multiple calculi within the gallbladder lumen are present. Other solid organs: Liver is normal in size. Spleen is normal in size. No adrenal nodules. Both kidneys are normal in size. There is mild right hydronephrosis. Incompletely visualized right ureteropelvic junction calculus is present, as before. Nodes and vessels: No retroperitoneal or mesenteric adenopathy by size criteria. Aorta and inferior vena cava are normal in size. Bowel and peritoneum: Unenhanced bowel loops are normal in caliber. No free fluid. Lung bases: No basal pleural effusions. Heart size is normal. Bones and soft tissues: No ventral hernias. Bone marrow is of normal overall signal. IMPRESSION: 1. Cholelithiasis. Cholecystitis, as seen by CT. 2. No biliary ductal dilatation, as seen by CT. 3. Limited evaluation of the distal common bile duct. No definite choledocholithiasis is present. 4. Right ureteropelvic junction calculus with mild right hydronephrosis, as seen by CT. Dictated by: Jalen Rojas M.D. on 07/13/2021 at 10:45 Approved by: Jalen Rojas M.D. on 07/13/2021 at 10:50
[2021-07-13 01:09] LABS: RBC Urine 1-5/HPF (0-5/HPF); WBC Urine 5-10/HPF (0-5/HPF)
[2021-07-13 01:10] LABS: Bacteria Urine None Seen; Culture Indicated Urine Specimen Cultured; Hyaline Casts Urine 0-1/LPF
[2021-07-13] MEDS: SODIUM CHLORIDE 0.9% 1,000 ML 150 ML IV (01:50)
[2021-07-13] MEDS: ONDANSETRON 4 MG/2 ML INJ IV (05:05)
[2021-07-13] MEDS: fentaNYL 100 MCG/2 ML INJ 50 MCG IV (05:05)
[2021-07-13 05:47] LABS: Add Manual Diff / Slide Review NO; Basophils Absolute Auto 0 /uL (0-100); Basophils Percent Auto 0.2 % (0-2); Eosinophils Absolute Auto 0 /uL (0-450); Eosinophils Percent Auto 0.2 % (2-4); Hematocrit 45.9 % (41-53); Hemoglobin 16.2 g/dL (13.5-17.5); Lymphocytes Absolute Auto 800 /uL (1100-4500); Lymphocytes Percent Auto 3.8 % (25-40); Mean Corpuscular HGB Conc 35.2 % (30-36); Mean Corpuscular Volume 88.1 fL (80-100); Monocytes Absolute Auto 2400 /uL (0-900); Monocytes Percent Auto 11.1 % (3-14); Neutrophils Absolute Auto 18200 /uL (1500-7000); Neutrophils Percent Auto 84.7 % (50-75); Platelet Count 172 X10^3/uL (150-400); Red Blood Cell Count 5.21 X10^6/uL (4.5-5.9); Red Cell Distribution Width 13.5 % (11.6-14.8); White Blood Cell Count 21.5 X10^3/uL (4.5-11.0)
[2021-07-13 05:55] LABS: Alanine Aminotransferase 92 IU/L (<50); Albumin 3.3 g/dL (3.5-5.0); Albumin Globulin Ratio 1.1 (1.0-2.8); Alkaline Phosphatase 131 U/L (38-126); Aspartate Aminotransferase 53 IU/L (17-59); BUN Creatinine Ratio 16.7 (6-22); Blood Urea Nitrogen 11 mg/dL (9-20); Calcium 8.5 mg/dL (8.4-10.2); Carbon Dioxide 30 mmol/L (22-32); Chloride 102 mmol/L (98-107); Estimated Glomerular Filt Rate > 60.0 mL/min (>60); Globulin 3.1 g/dL (1.7-4.1); Glucose 106 mg/dL (70-100); HEMOLYSIS < 15 (0-50); Lipase 33 U/L (23-300); Potassium 3.7 mmol/L (3.4-5.1); Sodium 137 mmol/L (137-145); Total Protein 6.4 g/dL (6.3-8.2)
--- NOTE | 2021-07-13 08:41 | PC.NURSE ---
Rec'd report on pt from [facility]. Pt resting comfortably in inpatient hospital bed. denies pain at this time. NS completed. Dr Taveras in to see. Plan for pt to go to [facility] at 1030. NAD.
[2021-07-13] MEDS: metroNIDAZOLE 500 MG/100 ML PIGGYBACK 100 MG IV ×2 (09:31→20:05)
[2021-07-13] MEDS: SODIUM CHLORIDE 0.9% 1,000 ML 125 ML IV (09:31)
--- NOTE | 2021-07-13 10:55 | PC.NURSE ---
pt arrived back from MRI, NAD. incontinence care provided.
[2021-07-13] MEDS: LACTATED RINGERS 1,000 ML 150 ML IV ×2 (12:39→15:40)
--- NOTE | 2021-07-13 13:46 | SUR.OPER ---
Supine on padded OR bed, head on pillow, arms secured on padded arm boards at <90 degrees abduction, legs uncrossed, safety belt at thigh, tape over blanket over lower legs.
--- NOTE | 2021-07-13 13:53 | PM.HP.1 ---
History of Present Illness History of Present Illness Date Patient Seen: 07/13/21 Time Patient Seen: 07:15 Date of Onset of Symptoms: 07/11/21 Chief complaint: N/V Narrative: The patient is a gentleman who developed back pain 2 days ago. It was accompanied by persistent nausea and vomiting. 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 He has not had this pain before. He had some lab tests done and because of the findings was sent to the emergency room where I was asked to evaluate him. Patient History Medical History (Updated 07/13/21 @ 14:08 by Erik Strickland MD) Depression History of CVA (cerebrovascular accident) Hyperlipidemia Hypertension Surgical History S/P right knee arthroscopy Family & Social History Family History Father Heart disease Social History: household members other Prior Living Arrangements Skilled Nurse Facility Safety & Behavioral: Feels Safe in Current Yes Environment Been Physically Hurt or No Threatened By a Person Tobacco & Substance use: Smoking Status Never smoker alcohol intake never alcohol intake frequency holiday/special occasion Substance Use Type does not use Meds Home Medications and Allergies Home Medications Medication Instructions Recorded Confirmed Type acetaminophen 325 mg tablet 650 mg PO Q4H PRN 09/21/18 07/12/21 History amlodipine 5 mg tablet 10 mg PO DAILY 09/21/18 07/12/21 History aspirin 81 mg tablet,delayed 81 mg PO DAILY 09/21/18 07/12/21 History release cholecalciferol (vitamin D3) 25 1,000 unit PO DAILY 09/21/18 07/12/21 History mcg (1,000 unit) tablet (Vitamin D3) docusate sodium 100 mg capsule 100 mg PO BID 09/21/18 07/12/21 History fluoxetine 10 mg tablet 10 mg PO DAILY 09/21/18 07/12/21 History sennosides 8.6 mg tablet (senna) 8.6 mg PO DAILY 09/21/18 07/12/21 History atorvastatin 20 mg tablet 20 mg PO BEDTIME 07/12/21 07/12/21 History cyanocobalamin (vitamin B-12) 1,000 mcg PO DAILY 07/12/21 07/12/21 History 1,000 mcg capsule ondansetron 4 mg disintegrating 4 mg PO Q4H PRN 07/12/21 07/12/21 History tablet Allergies Allergy/AdvReac Type Severity Reaction Status Date / Time Penicillins Allergy Unknown Verified 07/12/21 20:51 Review of Systems Review of Systems Narrative: No cough or cold at this time. No chest pain. No black or bloody bowel movements noted. Not vomiting blood. No seizures. Exam Vital Signs (past 8 hours): - 07/13/21 06:00 07/13/21 06:30 07/13/21 07:00 Temperature Pulse Rate 87 89 90 Respiratory Rate Blood Pressure Pulse Oximetry 94 94 95 07/13/21 07:30 07/13/21 08:00 07/13/21 08:30 Temperature Pulse Rate 90 90 90 Respiratory Rate Blood Pressure 157/82 H Pulse Oximetry 94 94 94 07/13/21 09:00 07/13/21 09:30 07/13/21 10:00 Temperature Pulse Rate 88 89 87 Respiratory Rate Blood Pressure Pulse Oximetry 94 94 95 07/13/21 10:51 07/13/21 10:52 07/13/21 11:00 Temperature Pulse Rate 88 90 87 Respiratory Rate Blood Pressure 144/83 H Pulse Oximetry 94 94 94 07/13/21 11:30 07/13/21 12:00 07/13/21 12:42 Temperature 100.7 F H Pulse Rate 88 90 86 Respiratory Rate 17 Blood Pressure 146/82 H 135/82 Pulse Oximetry 94 93 94 Oxygen Delivery Method Room Air Narrative Exam Narrative: Cooperative. Laying still in bed. Eyes are nonicteric. He is alert. Difficulty speaking but when he does it is appropriate. Eyebrows are covering over his eyes partially. Oral mucosa is dry no open lesions. No nodes in the neck or supraclavicular areas. Lungs are clear to auscultation without rales or rhonchi. Heart regular rate and rhythm without murmur gallop. Abdomen is protuberant soft. Mild tenderness in right upper quadrant. No guarding. No hernias appreciated. Patient is unable to move his right side. Objective Imaging MRI - abdomen: Radiologist's impression: Poor visualization of the distal common bile duct. No ductal dilatation in the liver. Right mild hydronephrosis due to a stone at the ureteropelvic junction. Labs Result Diagrams: 07/13/21 05:36 07/13/21 05:36 Labs: Laboratory Results - last 24 hr 07/12/21 07/12/21 07/12/21 21:05 21:05 21:05 WBC 24.8 H RBC 5.58 Hgb 17.4 Hct 49.5 MCV 88.6 MCH 31.3 MCHC 35.3 RDW 13.8 Plt Count 220 Neut % (Auto) 83.2 H Lymph % (Auto) 4.3 L [place] % (Auto) 12.2 Eos % (Auto) 0.0 L Baso % (Auto) 0.3 Neut # (Auto) 70613 H Lymph # (Auto) 1100 [place] # (Auto) 3000 H Eos # (Auto) 0 Baso # (Auto) 100 PT 16.4 H INR 1.4 H Sodium 133 L Potassium 3.7 Chloride 99 Carbon Dioxide 30 BUN 13 Creatinine 0.69 Estimated GFR > 60.0 BUN/Creatinine Ratio 18.8 Glucose 122 H Lactate Calcium 9.5 Total Bilirubin 3.1 H AST 66 H ALT 116 H Alkaline Phosphatase 146 H Total Protein 7.4 Albumin 3.9 Globulin 3.5 Albumin/Globulin Ratio 1.1 Lipase 48 Urine RBC Urine WBC Urine Bacteria Hyaline Casts Ur Culture Indicated? Micro UA Comment SARS-CoV-2 (PCR) 07/12/21 07/12/21 07/13/21 21:05 21:33 00:42 WBC RBC Hgb Hct MCV MCH MCHC RDW Plt Count Neut % (Auto) Lymph % (Auto) [place] % (Auto) Eos % (Auto) Baso % (Auto) Neut # (Auto) Lymph # (Auto) [place] # (Auto) Eos # (Auto) Baso # (Auto) PT INR Sodium Potassium Chloride Carbon Dioxide BUN Creatinine Estimated GFR BUN/Creatinine Ratio Glucose Lactate 1.2 Calcium Total Bilirubin AST ALT Alkaline Phosphatase Total Protein Albumin Globulin Albumin/Globulin Ratio Lipase Urine RBC 1-5/hpf Urine WBC 5-10/hpf H Urine Bacteria None seen Hyaline Casts 0-1/lpf Ur Culture Indicated? Specimen cultured Micro UA Comment * SARS-CoV-2 (PCR) Negative 07/13/21 07/13/21 05:36 05:36 WBC 21.5 H RBC 5.21 Hgb 16.2 Hct 45.9 MCV 88.1 MCH 31.0 MCHC 35.2 RDW 13.5 Plt Count 172 Neut % (Auto) 84.7 H Lymph % (Auto) 3.8 L [place] % (Auto) 11.1 Eos % (Auto) 0.2 L Baso % (Auto) 0.2 Neut # (Auto) 73431 H Lymph # (Auto) 800 L [place] # (Auto) 2400 H Eos # (Auto) 0 Baso # (Auto) 0 PT INR Sodium 137 Potassium 3.7 Chloride 102 Carbon Dioxide 30 BUN 11 Creatinine 0.66 Estimated GFR > 60.0 BUN/Creatinine Ratio 16.7 Glucose 106 H Lactate Calcium 8.5 Total Bilirubin 3.0 H AST 53 ALT 92 H Alkaline Phosphatase 131 H Total Protein 6.4 Albumin 3.3 L Globulin 3.1 Albumin/Globulin Ratio 1.1 Lipase 33 Urine RBC Urine WBC Urine Bacteria Hyaline Casts Ur Culture Indicated? Micro UA Comment SARS-CoV-2 (PCR) Assessment & Plan Assessment and plan (1) History of CVA (cerebrovascular accident): Status: Acute (2) Cholecystitis: Status: Acute Assessment & Plan narrative: Patient with gallstones and a thickened gallbladder wall and abnormal liver function test and marked elevation of the white blood cell count all suggesting acute cholecystitis. I have discussed removal of his gallbladder with him. Risks of bleeding infection injury to internal organs and ducts bile leakage discussed hernia discussed. He seemed to understand and wished to proceed. He also was agreeable to having his eyebrows tree and so he could see and having the hair around his mouth trimmed so he could eat with gout getting food in his flores. Time Spent With Patient Critical Care time: I spent a total of [] minutes of critical care time on this patient's care today; this time is exclusive of procedural time.
--- NOTE | 2021-07-13 14:09 | PM.PREOP ---
Pre-operative Note COVID-19 COVID-19 status: Negative Result date/Date tested (Pos, Neg/Pending): 07/12/21 Interval Note History & Physical reviewed/Exam performed by Physician: Yes Changes to H&P: No
[2021-07-13] MEDS: CEFOTETAN 2 GM in SODIUM CHLORIDE 0.9% 100 ML 200 ML IV (15:17)
[2021-07-13] MEDS: BUPIVACAINE 0.5% (PF) VIAL 10 ML INJ (15:18)
[2021-07-13] MEDS: IOPAMIDOL 15 ML VIAL INJ (16:04)
--- NOTE | 2021-07-13 18:08 | SUR.PHASEI ---
Pt arrived with oral airway, manual chin support also needed for 5 min, 02 placed nasal cannula, airway out, breathing on own w/o difficulty. Denied pain, following simple commands. Taking ice chips well, report called.
--- NOTE | 2021-07-13 18:20 | PM.OP.1 ---
Operative Date/Time/Diagnoses Date of procedure: 07/13/21 Time of procedure: 18:20 Pre-op diagnosis: Acute cholecystitis with cholelithiasis. Post-op diagnosis: same (Gangrenous gallbladder. Unable to perform a cholangiogram. See details below.) Procedure & Clinicians Procedure: Laparoscopic cholecystectomy.(very difficult procedure) Same procedure as scheduled: Yes Indications: Patient with an elevated white blood cell count elevated bilirubin labs with an MRCP that showed no evidence of stones in the duct that the distal duct was not seen well. There was no ductal dilatation. He was taken the operating room to remove his gallbladder. Surgeon: Erik Strickland Click Yes if Unassisted: Yes Anesthesia Type: General Operative Notes Findings: Gangrenous gallbladder. Very difficult dissection due to the bleeding that ensued and the necrosis of the gallbladder and spillage. Closure Type: primary Specimen(s): other (Gallbladder and stones) Prosthetic devices, grafts, tissues, transplants, or devices: None Estimated Blood Loss (mL): 300 Blood products transfused: none Procedure in detail: The patient was placed supine on the operating room table and underwent general endotracheal anesthesia. The patient was prepped and draped in the usual fashion. Local anesthetic was infiltrated and a vertical incision made above the umbilicus due to his long midline and carried down through fascia into the peritoneal cavity. Stay sutures of 0 Vicryl were placed in the fascia. A 12 mm port was placed. The abdomen was insufflated. The patient was repositioned. Local anesthetic was infiltrated in 3 areas under the right costal margin and 3 small incisions made followed by placing 3 5 mm ports under direct laparoscopic camera vision internally. The gallbladder was encased in omentum and this was bluntly taken down. The gallbladder was tensely distended and I aspirated dark green fluid from it. This was cultured. I then Grasped and elevated the gallbladder. The wall however was necrotic and it simply fell apart spilling some of the contents. Dissection was begun near its end. I swept away tissues from the end of the gallbladder and identified what I thought was probably the cystic duct and adjacent structures. However was quite thickened and I was concerned that I might be looking at a size common bile duct with a short cystic duct therefore I abandoned further dissection in this area as it was quite bloody and chose to take the gallbladder down from above. Using [employer] scalpel I dissected a plane between the gallbladder surface and inner wall and began to dissect the gallbladder out of the bed in the liver. The gallbladder was frankly necrotic and there places that the wall tore away leaving back wall in place. There was ensued a significant amount of bleeding during this dissection as well. Ultimately however I was able to bring the dissection down to where only the cystic duct held the gallbladder in place. I transected the gallbladder right near its junction with the cystic duct bleeding along of stump in order to manipulate it. I pushed the gallbladder to the side and attempted to perform a cholangiogram. I actually had add a 4th 5 mm port in order to gain enough exposure. After multiple attempts to cannulate the cystic duct through the gallbladder stump I abandoned the attempt at the cholangiogram and placed an 0 PDS loop at the junction of the other with the cystic duct and cinched it down. This appeared to control the duct. Gallbladder was then placed in a bag and removed through the umbilical port. I made a diligent search for any spilled stones and removed these as well. The right upper quadrant irrigated and suctioned free of fluid. Any slight oozing was controlled with cautery. I passed the camera off and realized I did not put a drain so I passed a drain through the ports and secured it with 2-0 PDS. It was placed in the gallbladder fossa. This was a 7 mm flat Martin-Johnson drain. The ports were all removed. Port sites were all irrigated. The stay sutures at the umbilicus were elevated. A 2 0 PDS suture was placed between them. The Vicryl and PDS sutures were then tied. The skin in all areas was closed with interrupted 4 0 Vicryl subcuticular stitches. Steri-Strips and Mastisol were applied. Band-Aids were placed and the patient was awakened, extubated and taken to the recovery area in good condition. Complications: none Post-operative Condition: stable Disposition: PACU
--- NOTE | 2021-07-13 18:26 | SUR.PHASEI ---
Pt ready to go up, awaiting orders from .
--- NOTE | 2021-07-13 18:58 | SUR.PHASEI ---
Orders in pt transported up to room, Bed low, locked SCD's on , call light in reach.
--- NOTE | 2021-07-13 19:16 | PC.NURSE ---
Patient to room 218, he had a lap gregory. Hx of cva and has r.sided weakness. Patient is incontinent of urine and band new brief placed on him. Patient is comfortable and on 1L of 02 at 96%.
[2021-07-13] MEDS: SODIUM CHLORIDE 0.9% 1,000 ML 100 ML IV (19:58)
[2021-07-13] MEDS: DOCUSATE 100 MG CAPSULE PO (21:24)
[2021-07-13] MEDS: ATORVASTATIN 20 MG TABLET PO (21:24)
[2021-07-13] MEDS: OXYCODONE IR 5 MG TABLET PO (22:38)
[2021-07-13] MEDS: levoFLOXacin 750 MG/150 ML PIGGYBACK 100 MG IV (22:38)
[2021-07-14] VITALS (11 sets, daily range): BP systolic 133–153; BP diastolic 77–88; PULSE 63–93; RESP 16–17; TEMP 36.8–37.4; O2SAT 94–98
[2021-07-14] MEDS: metroNIDAZOLE 500 MG/100 ML PIGGYBACK 100 MG IV ×4 (01:02→18:42)
--- NOTE | 2021-07-14 02:00 | PC.NURSE ---
Patient arrived to the unit at 1900, patient was sleepy but easily awoke. Patient has a history of stroke with right sided deficits and expressive aphasia. During admission questions and assessment, patient was not able to answer questions other than nodding yes or no. Patients chart was used for questions that could not be answered this way. Patient denied pain and was able to swallow 2100 medication with small sips of water. Patient was placed on 1L NC when he arrived but was quickly taken off. Around 2200 patients O2 saturation would decrease as low as 82% but would quickly recover to 95-97%, this RN replaced 1L NC and O2 saturation holding at 94-95%. Patient was becoming more awake and was able to speak yes, no and rate his pain. Patient was given 5mg Oxy at 2238 for pain rated 6/10 and a new ice pack was applied to the abdomen. Patient is resting in bed, call light within reach, and bed is in the lowest and locked position with the alarm on.
[2021-07-14] MEDS: OXYCODONE IR 5 MG TABLET PO ×2 (04:14→11:28)
[2021-07-14 06:32] LABS: Add Manual Diff / Slide Review NO; Basophils Absolute Auto 0 /uL (0-100); Basophils Percent Auto 0.4 % (0-2); Eosinophils Absolute Auto 0 /uL (0-450); Hematocrit 38.5 % (41-53); Hemoglobin 13.7 g/dL (13.5-17.5); Lymphocytes Absolute Auto 500 /uL (1100-4500); Lymphocytes Percent Auto 3.8 % (25-40); Mean Corpuscular HGB Conc 35.6 % (30-36); Mean Corpuscular Hemoglobin 31.4 PG (26-34); Mean Corpuscular Volume 88.1 fL (80-100); Monocytes Absolute Auto 1600 /uL (0-900); Monocytes Percent Auto 11.8 % (3-14); Neutrophils Absolute Auto 11300 /uL (1500-7000); Platelet Count 205 X10^3/uL (150-400); Red Blood Cell Count 4.37 X10^6/uL (4.5-5.9); Red Cell Distribution Width 13.4 % (11.6-14.8); White Blood Cell Count 13.5 X10^3/uL (4.5-11.0)
[2021-07-14 06:38] LABS: Alanine Aminotransferase 83 IU/L (<50); Albumin 2.9 g/dL (3.5-5.0); Alkaline Phosphatase 111 U/L (38-126); Aspartate Aminotransferase 54 IU/L (17-59); BUN Creatinine Ratio 18.3 (6-22); Bilirubin Total 1.5 mg/dL (0.2-1.3); Blood Urea Nitrogen 11 mg/dL (9-20); Calcium 8.2 mg/dL (8.4-10.2); Carbon Dioxide 30 mmol/L (22-32); Chloride 101 mmol/L (98-107); Estimated Glomerular Filt Rate > 60.0 mL/min (>60); Glucose 112 mg/dL (70-100); HEMOLYSIS < 15 (0-50); Potassium 3.7 mmol/L (3.4-5.1); Sodium 136 mmol/L (137-145); Total Protein 5.9 g/dL (6.3-8.2)
--- NOTE | 2021-07-14 08:38 | PM.PNPO.1 ---
Subjective Subjective Date Patient Seen: 07/14/21 Time Patient Seen: 08:38 Exam Vital Signs (past 8 hours): - 07/14/21 02:00 07/14/21 04:05 07/14/21 06:00 Temperature 99.3 F Pulse Rate 93 H Respiratory Rate 17 Blood Pressure 153/88 H Pulse Oximetry 96 94 94 07/14/21 07:15 Temperature 99.1 F Pulse Rate 65 Respiratory Rate 16 Blood Pressure 133/85 Pulse Oximetry 95 Oxygen Delivery Method Nasal Cannula Oxygen Flow Rate 1 Narrative Exam Narrative: abdomen is soft, incisions are dry and intact dressing. Drain is serosang. labs are showing resolution of biliary obstruction. Objective Labs Result Diagrams: 07/14/21 06:15 07/14/21 06:15 Labs: Laboratory Results - last 24 hr 07/14/21 07/14/21 06:15 06:15 WBC 13.5 H RBC 4.37 L Hgb 13.7 Hct 38.5 L MCV 88.1 MCH 31.4 MCHC 35.6 RDW 13.4 Plt Count 205 Neut % (Auto) 84.0 H Lymph % (Auto) 3.8 L [place] % (Auto) 11.8 Eos % (Auto) 0.0 L Baso % (Auto) 0.4 Neut # (Auto) 33925 H Lymph # (Auto) 500 L [place] # (Auto) 1600 H Eos # (Auto) 0 Baso # (Auto) 0 Sodium 136 L Potassium 3.7 Chloride 101 Carbon Dioxide 30 BUN 11 Creatinine 0.60 L Estimated GFR > 60.0 BUN/Creatinine Ratio 18.3 Glucose 112 H Calcium 8.2 L Total Bilirubin 1.5 H AST 54 ALT 83 H Alkaline Phosphatase 111 Total Protein 5.9 L Albumin 2.9 L Globulin 3.0 Albumin/Globulin Ratio 1.0 [facility] Medical History (Updated 07/13/21 @ 14:08 by Erik Strickland MD) Depression History of CVA (cerebrovascular accident) Hyperlipidemia Hypertension Surgical History S/P right knee arthroscopy Family History Father Heart disease Social History household members: other Smoking Status: Never smoker alcohol intake: never Assessment & Plan Post-op Postoperative Procedures: Procedures Operation Date: 07/13/21 12:30 Actual Procedure Side Surgeon p Laparoscopic Cholecystectomy Not Applicable Erik Strickland MD Postoperative status: doing well Postoperative status narrative: no post op complications Postoperative plan: routine post-op care Postoperative plan narrative: will continue drain and another day of IV antibiotics. discharge planning to anticipate discharge 1-2 days Time Spent With Patient Time with patient: 15-24 minutes
[2021-07-14] MEDS: ENOXAPARIN 40 MG/0.4 ML SYRINGE SUBCUT (10:34)
[2021-07-14] MEDS: AMLODIPINE 5 MG TABLET 10 MG PO (10:34)
[2021-07-14] MEDS: DOCUSATE 100 MG CAPSULE PO ×2 (10:34→21:00)
[2021-07-14] MEDS: SENNOSIDES 8.6 MG TABLET PO (10:35)
[2021-07-14] MEDS: FLUoxetine 10 MG CAPSULE PO (10:39)
--- NOTE | 2021-07-14 14:13 | PT-IP ANOTE ---
checked on pt this morning and asked regarding PLOF. pt has h/o CVA and has cognitive issues and needs time to respond to questions. Pt stated that he does not get out of the bed and does not even get out to use the toilet. PT asked pt if this is since he had a CVA ~ 2 years ago and pt stated that it has been 4 years. pt lives at [facility] and called [facility] to confirm information but unsuccessful. Tried several time but no repond. 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 checked back on pt and pt's brother in room visiting. Brother stated that pt cannot move his R side at all and when be took pt home for thanksgiving to visit, he picked pt up to squat pivot pt. Left pt to visit the brother. attempted to call [facility] again but continues to be unsuccessful. checked back on pt this afternoon to clarify PLOF. pt stated that he is mostly in bed but staff gets him up for dinner on a w/c with 2 person assist. asked pt if he is willing to get up with PT to assess current level of function. PT eval to obtain baseline assist and staff recommendations; if there is any change in mobility and if PT will be needed. Pt refused to get out of the bed this afternoon. Agreed to try tomorrow. will f/u
--- NOTE | 2021-07-14 14:44 | CM.IDA ---
Discharge Planning/Care Management CM Discharge Assessment Start: 07/14/21 14:33 Freq: Status: Active Protocol: Document 07/14/21 14:34 PATRICIA (Rec: 07/14/21 14:44 PATRICIA [id number]) Discharge Planning Assessment Assigned Manager House MELIZA Crawley DPOA/Assigned Designee Name Linda Pulido, mother Contact Information [phone] Advance Directives? Yes Advance Directives on File Yes History Provided By Patient,Medical Record Prior Living Arrangements Assisted Living Comment Patient states he has lived at [facility] for 4 years Household Members other Type of transporation used prior to Relies on Others admit Facility Name Admitted From: [facility] Willing to Return to Facility? Yes Independent with ADL's No Is patient alert and oriented? Yes: h/o CVA Slow processing, slow to respond Needs Assistance With Bathing,Grooming,Meal Prep, Toileting,Managing Medications ,Home Chores / Shopping Comment Bed bound, full care at [facility] according to patient. Patient does not want to get up w/PT today Barriers to Discharge No Comment Back to [facility] when medically stable, patient agreeable. Placed call to WOO Rodríguez at [facility] and alerted her that patient may be medically stable Friday or Friday. Anne instructed CM team to call back on the day of patient's DC Discharge Plan Assisted Living Facility Transportation Arrangement Facility van Referrals Initiated None needed
--- NOTE | 2021-07-14 17:00 | PC.NURSE ---
Pt responds & can answer short phrased questions. Pt resting at intervals. IVF changed to HL Bandaid dsgs to belly CDI. SHELDON drain intact/patent. Satisfactory post op course. Call light w/in reach, bed alarm on for pt safety. Continue w/plan of care.
[2021-07-14] MEDS: ATORVASTATIN 20 MG TABLET PO (21:00)
[2021-07-14] MEDS: levoFLOXacin 750 MG/150 ML PIGGYBACK 100 MG IV (21:50)
[2021-07-15 00:15] VITALS: BP 159/92; PULSE 66; RESP 16; TEMP 36.6
[2021-07-15] MEDS: metroNIDAZOLE 500 MG/100 ML PIGGYBACK 100 MG IV ×2 (00:22→05:45)
[2021-07-15 02:00] VITALS: O2SAT 96
[2021-07-15] MEDS: ACETAMINOPHEN 325 MG TABLET 650 MG PO (03:16)
[2021-07-15 03:20] VITALS: BP 151/88; PULSE 68; RESP 18; TEMP 36.8; O2SAT 96
[2021-07-15 05:20] VITALS: O2SAT 96
[2021-07-15] MEDS: DOCUSATE 100 MG CAPSULE PO (08:04)
[2021-07-15] MEDS: ENOXAPARIN 40 MG/0.4 ML SYRINGE SUBCUT (08:04)
[2021-07-15] MEDS: AMLODIPINE 5 MG TABLET 10 MG PO (08:04)
[2021-07-15] MEDS: SENNOSIDES 8.6 MG TABLET PO (08:04)
--- NOTE | 2021-07-15 08:24 | PC.NURSE ---
pt awake denies pain took am meds without problems, repositioned ,call light within reach, bed alarm on.
[2021-07-15 08:40] VITALS: BP 147/88; PULSE 61; RESP 18; TEMP 36.6; O2SAT 94
--- NOTE | 2021-07-15 12:01 | PT-IP ANOTE ---
Pt reports total assist for mobility and ADLs at baseline. He does not want to get up out of bed. PT will discharge orders at this time.
--- NOTE | 2021-07-15 12:49 | P.PN_ITS ---
Subjective Subjective Date Patient Seen: 07/15/21 Time Patient Seen: 12:49 Interval history: Patient feels ready for discharge back to assisted living. Exam Vital Signs (past 8 hours): - 07/15/21 05:20 07/15/21 08:40 Temperature 98 F Pulse Rate 61 Respiratory Rate 18 Blood Pressure 147/88 H Pulse Oximetry 96 94 Oxygen Delivery Method Room Air Oxygen Flow Rate 0 Narrative Exam Narrative: abdomen is benign, drain is serous no bile. Objective Labs Result Diagrams: 07/14/21 06:15 07/14/21 06:15 [facility] Medical History (Updated 07/13/21 @ 14:08 by Erik Strickland MD) Depression History of CVA (cerebrovascular accident) Hyperlipidemia Hypertension Surgical History S/P right knee arthroscopy Family History Father Heart disease Social History household members: other Smoking Status: Never smoker alcohol intake: never Assessment & Plan Post-op Postoperative Procedures: Procedures Operation Date: 07/13/21 12:30 Actual Procedure Side Surgeon p Laparoscopic Cholecystectomy Not Applicable Erik Strickland MD Postoperative status: doing well Postoperative status narrative: No complications Postoperative plan narrative: discharge to assisted living when bed available. Time Spent With Patient Time with patient: less than 15 minutes
--- NOTE | 2021-07-15 12:51 | P.DS_ITS ---
History of Present Illness History of Present Illness Date Patient Seen: 07/15/21 Time Patient Seen: 12:51 Chief complaint: N/V Narrative: Gangrenous cholecystitis. S/p lap gregory Discharge Providers Provider Date of admission: 07/13/21 11:43 Discharge Date: 07/15/21 Consults: 07/13/21 18:44 Consult to Discharge Planning Routine Comment: 07/14/21 08:37 Consult to Physical Therapy Evaluate & Treat Comment: H/o stroke with right sided weakness. Physician Instructions: Evaluate and Treat 07/14/21 09:00 Consult to Dietitian, Adult Routine Comment: Reason For Exam: expressive aphasia, low score on admit assessment Discharge provider: Zulema Gardner MD Summary Status at Discharge Overall status at discharge: patient is progressing back to baseline Time Spent with Patient Time spent: Less than 30 minutes Exam Vital Signs (past 8 hours): - 07/15/21 05:20 07/15/21 08:40 Temperature 98 F Pulse Rate 61 Respiratory Rate 18 Blood Pressure 147/88 H Pulse Oximetry 96 94 Oxygen Delivery Method Room Air Oxygen Flow Rate 0 Const General: cooperative and comfortable Nutritional Appearance: average body habitus Orientation: alert and oriented x3 Other: slow response due to prior stroke HENMT Head: normal to inspection Ears: hearing grossly normal bilaterally Eyes Sclera: sclerae normal Resp Effort & Inspection: normal respiratory effort and able to speak in complete sentences Cardio Rate: regular rate Rhythm: regular rhythm GI Palpation: soft Objective Labs Result Diagrams: 07/14/21 06:15 07/14/21 06:15 REPLACED BY [facility] Medical History (Updated 07/13/21 @ 14:08 by Erik Strickland MD) Depression History of CVA (cerebrovascular accident) Hyperlipidemia Hypertension Surgical History S/P right knee arthroscopy Family History Father Heart disease Social History household members: other Smoking Status: Never smoker alcohol intake: never Discharge Assessment & Plan Assessment and Plan Assessment: S/p lap gregory w/o complication Plan of Treatment: Remove drain [facility]. Discharge Plan Discharge Plan Patient Disposition: SNF Transfer to: [facility] Discharge orders & Medications Prescriptions: New oxycodone 5 mg Tablet 5 mg PO Q6HR PRN (Reason: Pain, Moderate (4-6)) Qty: 20 0RF Continued sennosides [senna] 8.6 mg Tablet 8.6 mg PO DAILY 0RF acetaminophen 325 mg Tablet 650 mg PO Q4H PRN (Reason: Fever Or Pain) 0RF Rx Instructions: pain level 1-3 or fever >100.1 fluoxetine 10 mg Tablet 10 mg PO DAILY 0RF amlodipine 5 mg Tablet 10 mg PO DAILY 0RF aspirin 81 mg Tablet,Delayed Release (Dr/Ec) 81 mg PO DAILY 0RF docusate sodium 100 mg Capsule 100 mg PO BID 0RF Rx Instructions: hold if loose stools cholecalciferol (vitamin D3) [Vitamin D3] 1,000 unit Tablet 1,000 unit PO DAILY 0RF atorvastatin 20 mg Tablet 20 mg PO BEDTIME 0RF ondansetron 4 mg Tablet,Disintegrating 4 mg PO Q4H PRN (Reason: Nausea) 0RF cyanocobalamin (vitamin B-12) 1,000 mcg Capsule 1,000 mcg PO DAILY 0RF Diet/Activity/Treatments Diet comment: as tolerated Activity: as tolerated Skin/Wound/Dressing Care Dressing: remove out dressing and leave steri strips for 10 day [facility] Reason for rehabilitation: Therapy following stroke Rehab type: Physical therapy and Occupational therapy Restrictions to mobility: right sided weakness Visit Report/Discharge Packet Instructions: DI for Laparoscopy Stand Alone Forms: Surgery Discharge
--- NOTE | 2021-07-15 12:52 | CM.DPC ---
DCP Discharge [facility] Per Surgeon, pt is medically stable to d/c back to [facility] today. ULTHER called [facility] nurses station and updated them on pt d/c today and they confirm that they can transport around 1430. LUTHER updated Surgeon that script needed for the pain med and to sign the med rec that was printed and on the chart and she is agreeable. LUTHER faxed [facility] the initial d/c pwk to review and med rec and will fax script and signed med rec when available. LUTHER updated FREIGHT CHECKER, food and beverage lead and RN and provided RN report number to call for RN. Plan: Patient to d/c back to [facility] via facility van at 1430 today. MELIZA Rasmussen
--- NOTE | 2021-07-15 14:43 | PC.NURSE ---
dc back to [facility] via w/c
== END 2021-07-15 14:40 ==
LOC: ED 07-13 11:17 → AC 07-13 12:21
PROVIDERS: Admitting Provider Specialist; Emergency Provider Emergency Medicine; Referring Provider Emergency Medicine; Visit Provider Specialist
PROC: 0FT44ZZ Resection of Gallbladder, Percutaneous Endoscopic Approach (ICD-10-PCS; CPT 47562; principal; 2021-07-13 12:30)
DX: K80.00 Calculus of gallbladder with acute cholecystitis without obstruction (principal); R10.9 Unspecified abdominal pain; I69.320 Aphasia following cerebral infarction; I69.351 Hemiplegia and hemiparesis following cerebral infarction affecting right dominant side; I10 Essential (primary) hypertension; E78.5 Hyperlipidemia, unspecified; F32.9 Major depressive disorder, single episode, unspecified; Z20.822 Contact with and (suspected) exposure to COVID-19; K82.A1 Gangrene of gallbladder in cholecystitis; K82.8 Other specified diseases of gallbladder; R50.9 Fever, unspecified; R63.0 Anorexia
CPT/HCPCS: 47562; 36415; 71046; 74177; 74181; 76700; 80053; 81003; 81015; 82150; 83605; 83690; 85025; 85610; 87040; 87070; 87075; 87077; 87086; 87147; 87205; 87635; 94760; 96361; 96365; 96366; 96367; 96372; 96375; 99219; 99284; 99285; C9803; G0378; J0330; J1100; J1650; J1956; J2250; J2405; J2704; J2765; J3010; Q9967

== ENCOUNTER → 2021-07-20 14:34 | Outpatient (CLI) | payer OTHER, MEDICAID, SELFPAY ==
[2021-07-18 11:50] VITALS: BMI 25.4
--- NOTE | 2021-07-20 14:36 | DI.RAD.S_ITS ---
PROCEDURE: XR KUB INDICATIONS: Stone TECHNIQUE: One view of the abdomen acquired. COMPARISON: [facility], CT, CT ABDOMEN PELVIS W CON, 07/12/2021, 22:03. FINDINGS: Surgical changes and devices: None. Bowel: Bowel gas pattern is normal. Soft tissues: There is a persistent calcification overlying the region of the right renal pelvis/proximal ureter, corresponding to stone on on 09/12/2020 CT exam. Visualized solid organ contours appear normal in size. Bones: No suspicious bony lesions. IMPRESSION: Persistent appearance of stone location overlying the proximal right ureter when compared to prior exam. Dictated by: Beba Chisholm M.D. on 07/20/2021 at 15:44 Approved by: Beba Chisholm M.D. on 07/20/2021 at 15:45
== END ==
PROVIDERS: Referring Provider Urology; Visit Provider Urology
DX: N20.1 Calculus of ureter (principal)
CPT/HCPCS: 74018

== ENCOUNTER → 2021-09-05 12:04 | Outpatient (CLI) | payer OTHER, MEDICAID, SELFPAY ==
[2021-08-01 15:52] VITALS: BMI 25.4
[2021-09-05 13:50] LABS: COVID19 -Nasal RAPID Negative (Negative)
== END ==
PROVIDERS: PCP Family Medicine; Referring Provider Specialist; Visit Provider Specialist
DX: N20.1 Calculus of ureter (principal); Z20.822 Contact with and (suspected) exposure to COVID-19
CPT/HCPCS: 87635; 99215

== ENCOUNTER 2021-09-07 09:34 | Day surgery (SDC) | payer OTHER, MEDICAID, SELFPAY ==
[2021-08-01 15:52] VITALS: BMI 25.4
[2021-09-04 07:34] VITALS: BMI 26.8
[2021-09-07] VITALS (7 sets, daily range): BP systolic 155–172; BP diastolic 84–89; PULSE 56–62; RESP 12–20; TEMP 36.6–37.1; O2SAT 96–98; BMI 26.8
--- NOTE | 2021-09-07 | DI.RAD.S_ITS ---
PROCEDURE: XR KUB INDICATIONS: RIGHT EXTRACORPORAL SHOCKWAVE LITHOTRIPSY TECHNIQUE: One view of the abdomen acquired. COMPARISON: [facility], , XR KUB, 07/20/2021, 14:35. FINDINGS: Surgical changes and devices: None. Bowel: Bowel gas pattern is normal. Soft tissues: With there is a persistent 1.3 cm calcification projecting over the proximal right ureter, similar prior exam. Bones: No suspicious bony lesions. IMPRESSION: Unchanged proximal right ureteral calculus Approved by: Rubén Kilgore M.D. on 09/07/2021 at 11:06
[2021-09-07] MEDS: LACTATED RINGERS 1,000 ML 42 ML IV (09:42)
--- NOTE | 2021-09-07 09:52 | PM.PREOP ---
Pre-operative Note COVID-19 Criteria for continued procedure: Expected advancement of disease process, Possibility delay results in more complex future surgery or treatment, Increased loss of function, Delay expected to result in less-positive ultimate med/surg outcome and Non-surgical alternatives not available or appropriate per current SOC Interval Note History & Physical reviewed/Exam performed by Physician: Yes Changes to H&P: No
[2021-09-07] MEDS: CEFAZOLIN 2 GM/20 ML SYRINGE IV (10:45)
--- NOTE | 2021-09-07 11:31 | SUR.OPER ---
Addendum entered by Minerva Ghosh R.N. 09/07/21 11:43: Patients glasses placed in black glass case with patient label and placed in patients belongings bag. Original Note: Supine on ESWL table in lithotomy position. Bilateral legs in padded stirrups, head on pillow, arms at sides. Gel pads under bilateral arms, rolled towel under bilateral wrists, warm blankets placed to entire body and around head. Once switched to ESWL, legs on padded table extension, gel pads under bilateral heels.
--- NOTE | 2021-09-07 11:50 | PM.OP.1 ---
Operative Date/Time/Diagnoses Date of procedure: 09/07/21 Time of procedure: 11:51 Pre-op diagnosis: 1. Obstructing 12 x 16 mm right ureteropelvic junction calculus. Post-op diagnosis: other (Multiple small/tiny bladder calculi) Procedure & Clinicians Procedure: 1. Cystoscopy/removal multiple bladder calculi. 2. Cystoscopy/manipulation right ureteral pelvic junction calculus. 3. Cystoscopy/placement right ureteral stent (7 [place] by 22-32 cm multi-length). 4. Right extracorporeal shockwave lithotripsy (maximal power level 7.5 x 2000 shocks). Same procedure as scheduled: No (Multiple tiny bladder calculi were discovered dependently at bladder base) Indications: 1. 12 x 16 mm obstructing right ureteropelvic junction calculus. 2. Right hemiparesis. Surgeon: Gama Oneil Click Yes if Unassisted: Yes Anesthesia Type: General Operative Notes Findings: 1. Urethra-normal caliber stricture or annular lesion. 2. External sphincter- coapted with normal overlying urothelium. 3. Prostate-3.5-4 cm length with moderate trilobar hyperplasia. 4. Bladder-1 to 2+ trabeculation. Normal ureteral orifices bilaterally. There are innumerable 1-2 mm calculi lying dependently in the bladder floor. Color ranged from cream/yellow to brown/black. 5. Stone was highly impacted in the right UPJ. The guidewire initially could not pass proximally. With the use of a 5 [place] open-ended catheter the stone was successfully manipulated and access to the wire to the upper portion of the right intrarenal collecting system was accomplished. Closure Type: not applicable Specimen(s): other (Bladder calculi) Applied: other (7 [place] by 22-32 cm multi-length right ureteral stent) Estimated Blood Loss (mL): 0 Blood products transfused: none Procedure in detail: The patient was positioned general anesthesia. He was then repositioned semi lithotomy and the lower abdomen, genitalia, and groin were then prepped and draped in sterile. A 22 [place] panendoscope was then passed lower urinary tract with findings as described above. The [facility] evacuator was then employed to irrigate and suction the calculi from within the bladder lumen. This material was then submitted for crystallographic analysis. Next, a 0.35 hybrid guidewire was selected advanced through the working channel of the scope and then into the right collecting system under direct fluoroscopic guidance. As noted above, the wire coiled at the inferior margin of the stone and could not be successfully manipulated beyond it more proximally. Therefore a 5 [place] open-ended [place] catheter was front loaded onto the hybrid guidewire and advanced proximally under direct and fluoroscopic guidance at which point successful passage of his tip proximal to the stone was accomplished. The wire was then advanced more proximally and positioned appropriately under fluoroscopic guidance. The [place] catheter was then backloaded off the wire. Next, a 7 [place] by 22-32 cm multi-length stent was selected. This was then advanced over the hybrid guidewire under direct fluoroscopic guidance with good positioning in the right collecting system. The bladder was then drained completely in the panendoscope was removed. A RETRIEVAL LINE WAS LEFT ATTACHED. A 1 in wide segment of clear plastic tape was then applied to the retrieval line several cm beyond the urethral meatus excess retrieval line was excised and discarded. Next, the patient was repositioned in supine. The index calculus was then localized in the X, Y, and Z plane. Lithotripsy was commenced at minimal power level for 200 shocks. A 2 minute pause was then conducted. Lithotripsy was then resumed and the power level gradually increased to maximum 7.5. A total 2000 shocks were delivered to the stone with excellent radiographic evidence complication. Patient was then awakened, transferred to [facility] in stable condition. Complications: none Post-operative Condition: stable Disposition: PACU Plan for aftercare: Discharge to his primary residence.
--- NOTE | 2021-09-07 12:46 | SUR.PHASEII ---
Called [facility] assisted living facility and report given to facility.
--- NOTE | 2021-09-07 13:11 | SUR.PHASEII ---
Discharged patient back to assisted care facility in stable condition. All paperwork and narcotic prescription given to brother, who provided same to long haul truck driver of [employer].
[2021-09-13 11:30] LABS: Ca oxalate monohydr 70 % (.); Hydroxyapatite 30 % (.); Size 2x1 mm (.)
== END 2021-09-07 13:11 | disposition home or self-care (01) ==
PROVIDERS: PCP Family Medicine; Referring Provider Specialist; Visit Provider Specialist
PROC: (CPT 50590; principal; 2021-09-07 10:30)
DX: N20.1 Calculus of ureter (principal); N21.0 Calculus in bladder; I69.351 Hemiplegia and hemiparesis following cerebral infarction affecting right dominant side
CPT/HCPCS: 50590; 52332; 74018; 82365; J0690; J2250; J2405; J2704; J3010

== ENCOUNTER → 2021-09-19 14:49 | Outpatient (CLI) | payer OTHER, MEDICAID, SELFPAY ==
[2021-09-10 10:27] VITALS: BMI 25.4
--- NOTE | 2021-09-19 14:52 | DI.RAD.S_ITS ---
PROCEDURE: XR KUB INDICATIONS: ureteropelvic stones TECHNIQUE: One view of the abdomen acquired. COMPARISON: [facility], CT, CT ABDOMEN PELVIS W CON, 07/12/2021, 22:03. [facility], CR, XR KUB, 07/20/2021, 14:35. [facility], CR, XR KUB, 09/07/2021, 9:40. FINDINGS: Surgical changes and devices: There is a ureteral stent in expected position. There is a stone overlapping the proximal loop of the stent. Bowel: Bowel gas pattern is normal. Soft tissues: No suspicious abdominal calcifications. Visualized solid organ contours appear normal in size. Bones: No suspicious bony lesions. IMPRESSION: Right ureteral stent in expected position. A stone is seen overlapping the proximal loop of the stent. Dictated by: Ana Maria Cota M.D. on 09/20/2021 at 7:47 Approved by: Ana Maria Cota M.D. on 09/20/2021 at 7:52
== END ==
PROVIDERS: PCP Family Medicine; Referring Provider Specialist; Visit Provider Specialist
DX: N20.1 Calculus of ureter (principal); Z96.0 Presence of urogenital implants
CPT/HCPCS: 74018; 99214

== ENCOUNTER → 2021-09-25 15:01 | Outpatient (CLI) | payer OTHER, MEDICAID, SELFPAY ==
[2021-09-19 15:36] VITALS: BMI 25.4
--- NOTE | 2021-09-25 15:03 | DI.RAD.S_ITS ---
PROCEDURE: XR KUB INDICATIONS: uteropelvic stones TECHNIQUE: One view of the abdomen acquired. COMPARISON: , CR, XR KUB, 09/19/2021, 14:45. FINDINGS: No significant change in appearance of right UPJ calculus projecting over the proximal coiled portion of the ureteral stent. No additional urinary tract calculus identified radiographically. IMPRESSION: No significant change from prior study. Dictated by: Toribio Lowery M.D. on 09/25/2021 at 16:16 Approved by: Toribio Lowery M.D. on 09/25/2021 at 16:16
== END ==
PROVIDERS: PCP Family Medicine; Referring Provider Specialist; Visit Provider Specialist
DX: N20.1 Calculus of ureter (principal)
CPT/HCPCS: 74018

== ENCOUNTER → 2021-10-16 10:16 | Outpatient (CLI) | payer OTHER, MEDICAID, SELFPAY ==
[2021-09-19 15:36] VITALS: BMI 25.4
[2021-10-16 11:27] LABS: COVID19 -Nasal RAPID Negative (Negative)
== END ==
PROVIDERS: PCP Family Medicine; Visit Provider Specialist
DX: Z20.822 Contact with and (suspected) exposure to COVID-19 (principal)
CPT/HCPCS: 87635; C9803

== ENCOUNTER 2021-10-19 06:35 | Day surgery (SDC) | payer OTHER, MEDICAID, SELFPAY ==
[2021-09-19 15:36] VITALS: BMI 25.4
[2021-10-16 10:10] VITALS: BMI 26.8
[2021-10-19] VITALS (7 sets, daily range): BP systolic 121–142; BP diastolic 66–83; PULSE 60–72; RESP 16–18; TEMP 36.7–37.1; O2SAT 95–100; BMI 26.8
--- NOTE | 2021-10-19 | DI.RAD.S_ITS ---
PROCEDURE: XR KUB INDICATIONS: Right nephrolithiasis/stone TECHNIQUE: One view of the abdomen acquired. COMPARISON: [facility], , XR KUB, 09/25/2021, 15:01. FINDINGS: Surgical changes and devices: Right-sided ureteral stent is again seen unchanged from prior study. Bowel: Bowel gas pattern is normal. Soft tissues: Patient's known stone projecting over proximal coiled portion of right ureteral stent remains unchanged. No new renal calcification is seen. Visualized solid organ contours appear normal in size. Bones: No suspicious bony lesions. IMPRESSION: Again noted is stone projecting in the region of right renal pelvis/UPJ with presence of right-sided ureteral stent. Dictated by: Luther Noe M.D. on 10/19/2021 at 8:16 Approved by: Luther Noe M.D. on 10/19/2021 at 8:17
--- NOTE | 2021-10-19 07:44 | SUR.PREOP ---
[facility] transfer with [facility] lift. Liquid stool, cleaned up, dressing to reddened area at the top of the buttocks crack. Patient oriented and responsive, cooperative.
--- NOTE | 2021-10-19 07:44 | PM.PREOP ---
Pre-operative Note COVID-19 Criteria for continued procedure: Expected advancement of disease process, Possibility delay results in more complex future surgery or treatment, Deterioration of the patient's condition or overall health, Delay expected to result in less-positive ultimate med/surg outcome and Non-surgical alternatives not available or appropriate per current SOC Interval Note History & Physical reviewed/Exam performed by Physician: Yes Changes to H&P: No
[2021-10-19] MEDS: LACTATED RINGERS 1,000 ML 42 ML IV (07:46)
--- NOTE | 2021-10-19 09:34 | PM.OP.1 ---
Operative Date/Time/Diagnoses Date of procedure: 10/19/21 Time of procedure: 09:34 Pre-op diagnosis: Right nephrolithiasis Post-op diagnosis: same Procedure & Clinicians Procedure: 1. Second stage right ESWL (maximal power level 7.5 x 2381 shocks). Same procedure as scheduled: Yes Indications: 1. Right nephrolithiasis. 2. Retained right ureteral stent. Surgeon: Gama Oenil Click Yes if Unassisted: Yes Anesthesia Type: General Operative Notes Findings: Index calculus identified fluoroscopically in unchanged position verses preoperative imaging. Closure Type: not applicable Specimen(s): none sent Estimated Blood Loss (mL): 0 Blood products transfused: none Procedure in detail: The patient was positioned in supine was administered general anesthesia. The above described calculus was identified in the X, Y, and Z plane. Lithotripsy was then commenced at minimal power level for 200 shocks. A 2 minute pause was then conducted. Lithotripsy was then resumed and power level was gradually increased to 7.5 maximum. The stone demonstrated progressive fragmentation. The various densities will relook lysed in the X, Y, and Z plane as needed during treatment. At 2381 shocks there was excellent radiographic evidence of stone comminution. Treatment was halted. Complications: none Post-operative Condition: stable Disposition: PACU Plan for aftercare: Discharge home.
--- NOTE | 2021-10-19 10:28 | SUR.PHASEII ---
pt discharged with his brother and brother wheeled him out in his own wheel chair. Physical therapy and RN's used [employer] lift an placed pt back in wheel chair. pt denies any pain prior to discharge. No complaints voiced. Pt's brother states he understands discharge instructions. RN called skilled nursing and they did not want a verbal report per nurse. She said she just wanted written discharge instructions.
== END 2021-10-19 10:31 | disposition home or self-care (01) ==
PROVIDERS: PCP Family Medicine; Referring Provider Specialist; Visit Provider Specialist
PROC: (CPT 50590; principal; 2021-10-19 07:45)
DX: N20.0 Calculus of kidney (principal); Z96.0 Presence of urogenital implants; I10 Essential (primary) hypertension; Z86.73 Personal history of transient ischemic attack (TIA), and cerebral infarction without residual deficits
CPT/HCPCS: 50590; 74018; 82962; J2704; J3010

== ENCOUNTER → 2021-12-18 08:20 | Outpatient (ROUT) | payer OTHER, MEDICAID, SELFPAY ==
[2021-09-19 15:36] VITALS: BMI 25.4
[2021-12-18 08:43] LABS: Add Manual Diff / Slide Review NO; Basophils Absolute Auto 100 /uL (0-100); Basophils Percent Auto 2.2 % (0-2); Eosinophils Absolute Auto 300 /uL (0-450); Hematocrit 42.1 % (41-53); Hemoglobin 14.4 g/dL (13.5-17.5); Lymphocytes Absolute Auto 1700 /uL (1100-4500); Lymphocytes Percent Auto 28.3 % (25-40); Mean Corpuscular HGB Conc 34.2 % (30-36); Mean Corpuscular Hemoglobin 30.5 PG (26-34); Mean Corpuscular Volume 89.1 fL (80-100); Monocytes Absolute Auto 600 /uL (0-900); Monocytes Percent Auto 11.1 % (3-14); Neutrophils Absolute Auto 3100 /uL (1500-7000); Neutrophils Percent Auto 53.4 % (50-75); Platelet Count 231 X10^3/uL (150-400); Red Blood Cell Count 4.72 X10^6/uL (4.5-5.9); Red Cell Distribution Width 14.3 % (11.6-14.8); White Blood Cell Count 5.8 X10^3/uL (4.5-11.0)
[2021-12-18 08:52] LABS: Alanine Aminotransferase 24 IU/L (<50); Albumin 3.4 g/dL (3.5-5.0); Albumin Globulin Ratio 1.3 (1.0-2.8); Alkaline Phosphatase 94 U/L (38-126); Aspartate Aminotransferase 29 IU/L (17-59); BUN Creatinine Ratio 13.6 (6-22); Bilirubin Total 0.4 mg/dL (0.2-1.3); Blood Urea Nitrogen 11 mg/dL (9-20); Calcium 8.3 mg/dL (8.4-10.2); Carbon Dioxide 33 mmol/L (22-32); Chloride 108 mmol/L (98-107); Estimated Glomerular Filt Rate > 60 mL/min (>60); Globulin 2.6 g/dL (1.7-4.1); Glucose 85 mg/dL (80-110); HEMOLYSIS < 15 (0-50); Potassium 3.6 mmol/L (3.4-5.1); Sodium 142 mmol/L (137-145)
[2021-12-18 09:51] LABS: Folate 4.4 ng/mL (2.76-20.0); Vitamin B12 > 1000 pg/mL (239-931)
== END ==
PROVIDERS: PCP Family Medicine; Visit Provider Internal Medicine
DX: E53.8 Deficiency of other specified B group vitamins (principal); E88.09 Other disorders of plasma-protein metabolism, not elsewhere classified; D72.829 Elevated white blood cell count, unspecified
CPT/HCPCS: 36415; 80053; 82607; 82746; 85025

== ENCOUNTER → 2022-01-15 08:54 | Outpatient (ROUT) | payer OTHER, MEDICAID, SELFPAY ==
[2021-09-19 15:36] VITALS: BMI 25.4
[2022-01-15 11:13] LABS: Cholesterol 118 mg/dL (140-199); HDL Cholesterol 27 mg/dL (40-60); LDL Cholesterol Calculated 79 mg/dL (<100); Triglycerides 59 mg/dL (35-150)
[2022-01-15 12:00] LABS: Vitamin B12 > 1000 pg/mL (239-931)
[2022-01-15 12:46] LABS: Folate 5.5 ng/mL (2.76-20.0)
== END ==
PROVIDERS: PCP Family Medicine; Visit Provider Nurse Practitioner Family
DX: E78.5 Hyperlipidemia, unspecified (principal); I10 Essential (primary) hypertension; D51.9 Vitamin B12 deficiency anemia, unspecified
CPT/HCPCS: 36415; 80061; 82607; 82746

== ENCOUNTER → 2022-03-12 08:40 | Outpatient (ROUT) | payer OTHER, MEDICAID, SELFPAY ==
[2021-09-19 15:36] VITALS: BMI 25.4
[2022-03-12 10:30] LABS: Vitamin B12 971 pg/mL (239-931)
== END ==
PROVIDERS: PCP Family Medicine; Visit Provider Nurse Practitioner Family
DX: E53.8 Deficiency of other specified B group vitamins (principal)
CPT/HCPCS: 36415; 82607

== ENCOUNTER → 2022-04-30 22:19 | Outpatient (ROUT) | payer OTHER, MEDICAID, SELFPAY ==
[2021-09-19 15:36] VITALS: BMI 25.4
[2022-04-30 22:58] LABS: Bilirubin Urine UA NEGATIVE (NEGATIVE); Glucose Urine UA NEGATIVE (Negative); Ketones Urine UA TRACE (NEGATIVE); Leukocyte Esterase Urine UA 2+ (NEGATIVE); Nitrite Urine UA POSITIVE (Negative); Occult Blood Urine UA 3+ (Negative); Protein Urine UA 3+ (Negative); Specific Gravity Urine UA >=1.030 (1.000-1.035); Urobilinogen Urine UA 0.2 E.U./dL (0.2)
[2022-04-30 23:01] LABS: Appearance Urine UA CLOUDY; Color Urine UA BROWN; RBC Urine >100/HPF (0-5/HPF); WBC Urine 5-10/HPF (0-5/HPF)
[2022-04-30 23:02] LABS: Bacteria Urine Many (>30); Culture Indicated Urine Specimen Cultured; Squamous Epithelial Cell Urine 0-1 /HPF (0-5/HPF)
== END ==
PROVIDERS: PCP Family Medicine; Visit Provider Nurse Practitioner Gerontology
DX: R31.9 Hematuria, unspecified (principal)
CPT/HCPCS: 81001; 87086

== ENCOUNTER → 2022-05-09 12:08 | Outpatient (CLI) | payer OTHER, MEDICAID, SELFPAY ==
[2021-09-19 15:36] VITALS: BMI 25.4
--- NOTE | 2022-05-09 | DI.US.S_ITS ---
PROCEDURE: US RENAL COMPLETE INDICATIONS: Hematuria, unspecified TECHNIQUE: Real-time scanning was performed of the kidneys and bladder, with image documentation. COMPARISON: [facility], CR, XR KUB, 10/19/2021, 7:36. [facility], CR, XR KUB, 09/25/2021, 15:01. [facility], CR, XR KUB, 09/19/2021, 14:45. [facility], CR, XR KUB, 09/07/2021, 9:40. CR, XR KUB, 07/20/2021, 14:35. [facility], MR, MR ABDOMEN WO CON, 07/13/2021, 10:02. [facility], CT, CT ABDOMEN PELVIS W CON, 07/12/2021, 22:03. FINDINGS: Kidneys: Kidneys are normal in size. Right kidney measures 13 cm long; left kidney measures 11.8 cm long. Right renal cortical thickness is 1.0 cm; left renal cortical thickness is 1.2 cm. There is mild echogenicity of the renal pyramids on the right with slight prominence of the superior renal collecting system. It is noted portions of the kidneys are obscured secondary to overlying bowel gas. Bladder: Pre-void bladder volume is 18 mL. Post-void residual not obtained. Pre-void images demonstrate multiple foci of increased echogenicity within the bladder. On pre-void images, neither ureteral jets are noted with color Doppler interrogation. (Of note, ureteral jets may not be detectable in up to 25% of cases due to insufficient differences in specific gravity between ureteral and bladder urine). Miscellaneous: No free pelvic fluid. IMPRESSION: Foci of increased echogenicity within the bladder possibly related to stones. It is noted that a single calcification was noted in the bladder on CT exam of 07/12/2021. Mild increased echogenicity of the renal pyramids on the right which can be seen with medullary calcinosis. This could also be artifactual noting this is not well appreciated on prior CT. Mild appearance of right hydronephrosis within partially visualized portions of the kidney. Dictated by: Beba Chisholm M.D. on 05/09/2022 at 14:55 Approved by: Beba Chisholm M.D. on 05/09/2022 at 14:59
== END ==
PROVIDERS: PCP Family Medicine; Referring Provider Nurse Practitioner Gerontology; Visit Provider Nurse Practitioner Gerontology
DX: N13.30 Unspecified hydronephrosis (principal); R31.9 Hematuria, unspecified
CPT/HCPCS: 76770

== ENCOUNTER → 2022-06-11 07:52 | Outpatient (ROUT) | payer OTHER, MEDICAID, SELFPAY ==
[2021-09-19 15:36] VITALS: BMI 25.4
[2022-06-11 09:59] LABS: Vitamin B12 819 pg/mL (239-931)
== END ==
PROVIDERS: PCP Family Medicine; Visit Provider Nurse Practitioner Family
DX: E67.8 Other specified hyperalimentation (principal)
CPT/HCPCS: 36415; 82607

== ENCOUNTER → 2022-06-19 11:27 | Outpatient (ROUT) | payer OTHER, MEDICAID, SELFPAY ==
[2021-09-19 15:36] VITALS: BMI 25.4
[2022-06-19 11:40] LABS: Appearance Urine UA CLOUDY; Bilirubin Urine UA NEGATIVE (NEGATIVE); Color Urine UA YELLOW; Glucose Urine UA NEGATIVE (Negative); Ketones Urine UA TRACE (NEGATIVE); Leukocyte Esterase Urine UA 2+ (NEGATIVE); Nitrite Urine UA POSITIVE (Negative); Occult Blood Urine UA 3+ (Negative); Protein Urine UA 2+ (Negative); Specific Gravity Urine UA 1.025 (1.000-1.035); pH Urine UA 6.5 (4.5-8.0)
[2022-06-19 12:00] LABS: Bacteria Urine Many (>30); Culture Indicated Urine Specimen Cultured; RBC Urine >100/HPF (0-5/HPF); WBC Urine >100/HPF (0-5/HPF)
== END ==
PROVIDERS: PCP Family Medicine; Visit Provider Nurse Practitioner Gerontology
DX: R31.9 Hematuria, unspecified (principal)
CPT/HCPCS: 81001; 87086

== ENCOUNTER 2022-06-25 14:20 | Emergency (ER) | payer OTHER, MEDICAID, SELFPAY ==
[2021-09-19 15:36] VITALS: BMI 25.4
[2022-06-25] VITALS (12 sets, daily range): BP systolic 132–188; BP diastolic 80–109; PULSE 85–112; RESP 18–32; TEMP 36.8; O2SAT 95–99
--- NOTE | 2022-06-25 14:31 | DI.RAD.S_ITS ---
PROCEDURE: XR CHEST 1V INDICATIONS: suspected sepsis TECHNIQUE: One view of the chest was acquired. COMPARISON: [facility], CR, XR CHEST 1V, 09/21/2018, 17:37. FINDINGS: Surgical changes and devices: None. Lungs and pleura: Lungs are clear. No pleural effusions or pneumothorax. Mediastinum: Mediastinal contours appear normal. Heart size is normal. Bones and chest wall: No suspicious bony lesions. Overlying soft tissues appear unremarkable. IMPRESSION: No acute cardiopulmonary process demonstrated radiographically. Dictated by: Toribio Lowery M.D. on 06/25/2022 at 15:38 Approved by: Toribio Lowery M.D. on 06/25/2022 at 15:38
[2022-06-25 14:45] LABS: Add Manual Diff / Slide Review NO; Basophils Absolute Auto 100 /uL (0-100); Eosinophils Absolute Auto 400 /uL (0-450); Eosinophils Percent Auto 2.7 % (2-4); Hematocrit 43.4 % (41-53); Hemoglobin 15.1 g/dL (13.5-17.5); Lymphocytes Absolute Auto 900 /uL (1100-4500); Lymphocytes Percent Auto 6.4 % (25-40); Mean Corpuscular HGB Conc 34.7 % (30-36); Mean Corpuscular Hemoglobin 30.1 PG (26-34); Mean Corpuscular Volume 86.8 fL (80-100); Monocytes Absolute Auto 1700 /uL (0-900); Monocytes Percent Auto 11.8 % (3-14); Neutrophils Absolute Auto 11100 /uL (1500-7000); Neutrophils Percent Auto 78.1 % (50-75); Platelet Count 349 X10^3/uL (150-400); Red Cell Distribution Width 13.4 % (11.6-14.8); White Blood Cell Count 14.3 X10^3/uL (4.5-11.0)
[2022-06-25 14:52] LABS: INR 1.3 (0.9-1.3); Prothrombin Time 14.4 SECONDS (10.1-12.7)
[2022-06-25 14:54] LABS: PTT Partial Thromboplastin Tim 35 SECONDS (26-36)
[2022-06-25 14:55] LABS: Lactate (Lactic Acid) 2.3 mmol/L (0.7-2.1)
[2022-06-25 14:57] LABS: Alanine Aminotransferase 33 IU/L (<50); Albumin 3.8 g/dL (3.5-5.0); Alkaline Phosphatase 206 U/L (38-126); Aspartate Aminotransferase 61 IU/L (17-59); BUN Creatinine Ratio 13.1 (6-22); Bilirubin Total 0.7 mg/dL (0.2-1.3); Blood Urea Nitrogen 11 mg/dL (9-20); Calcium 8.7 mg/dL (8.4-10.2); Carbon Dioxide 29 mmol/L (22-32); Chloride 98 mmol/L (98-107); Estimated Glomerular Filt Rate > 60 mL/min (>60); Glucose 164 mg/dL (80-110); HEMOLYSIS < 15 (0-50); Lipase 146 U/L (23-300); Potassium 3.3 mmol/L (3.4-5.1); Sodium 136 mmol/L (137-145); Total Protein 7.8 g/dL (6.3-8.2)
[2022-06-25] MEDS: SODIUM CHLORIDE 0.9% 1,000 ML 1000 ML IV (15:03)
[2022-06-25 15:13] LABS: Procalcitonin 0.12 ng/mL (<0.5)
[2022-06-25 16:40] LABS: Reflexed Lactate in 2 Hours Y
[2022-06-25 18:35] LABS: Lactate 2HR (Lactic Acid Rflx) 1.1 mmol/L (0.7-2.1)
[2022-06-25 19:18] LABS: Appearance Urine UA SL CLOUDY; Bilirubin Urine UA NEGATIVE (NEGATIVE); Color Urine UA YELLOW; Glucose Urine UA NEGATIVE (Negative); Ketones Urine UA NEGATIVE (NEGATIVE); Leukocyte Esterase Urine UA 3+ (NEGATIVE); Nitrite Urine UA POSITIVE (Negative); Occult Blood Urine UA 3+ (Negative); Protein Urine UA 2+ (Negative); pH Urine UA 6.5 (4.5-8.0)
--- NOTE | 2022-06-25 19:22 | ED_ITS ---
HPI - Fever General Chief Complaint: Fever Stated Complaint: Bloody Urine Time Seen by Provider: 06/25/22 19:18 Source: patient Mode of arrival: Wheelchair History of Present Illness HPI Narrative: Osmin Pulido is a 61-year-old skilled nursing bound gentleman with a history of stroke and ureteral stent on the right was sent to the ER today by the skilled nursing staff because of fever and hematuria. History is obtained from the nurse who spoke to the skilled nursing staff. Dr. Oneil spoke to the staff at the skilled nursing who suggested empiric antibiotics for the hematuria and fever. The patient himself denies pain other than a sensation of a full bladder. Denies fever, cough, chills, nausea, vomiting, abdominal pain or chest pain. In fact can not really tell me why he is here in the 1st place. Related Data Home Medications Medication Instructions Recorded Confirmed acetaminophen 325 mg tablet 650 mg PO Q4H PRN Fever Or Pain 09/21/18 10/19/21 amlodipine 5 mg tablet 10 mg PO DAILY 09/21/18 10/19/21 aspirin 81 mg tablet,delayed 81 mg PO DAILY 09/21/18 10/19/21 release cholecalciferol (vitamin D3) 25 1,000 unit PO DAILY 09/21/18 10/19/21 mcg (1,000 unit) tablet (Vitamin D3) docusate sodium 100 mg capsule 100 mg PO BID 09/21/18 10/19/21 fluoxetine 10 mg tablet 10 mg PO DAILY 09/21/18 10/19/21 sennosides 8.6 mg tablet (senna) 8.6 mg PO DAILY 09/21/18 10/19/21 atorvastatin 20 mg tablet 20 mg PO BEDTIME 07/12/21 10/19/21 cyanocobalamin (vitamin B-12) 1,000 mcg PO DAILY 07/12/21 10/19/21 1,000 mcg capsule ondansetron 4 mg disintegrating 4 mg PO Q4H PRN Nausea 07/12/21 10/19/21 tablet magnesium hydroxide 400 mg/5 mL 5 ml PO DAILY PRN Constipation 09/05/21 10/19/21 oral suspension (Milk of Magnesia) nystatin 100,000 unit/gram topical 1 applic topical DAILY 09/05/21 10/19/21 powder Previous Rx's Medication Instructions Recorded oxycodone 5 mg tablet 5 mg PO Q4H PRN pain #14 tabs 10/19/21 oxycodone 5 mg tablet 5 mg PO Q4H PRN pain #14 tabs 10/19/21 ciprofloxacin HCl 500 mg tablet 500 mg PO BID #14 tabs 06/25/22 (Cipro) Allergies Allergy/AdvReac Type Severity Reaction Status Date / Time Penicillins Allergy Intermediate Rash over Verified 06/25/22 14:29 body Review of Systems Review of Systems Narrative: Complete review of systems is negative other than as noted above. Patient History Medical History (Updated 06/25/22 @ 19:31 by José Miguel Dai MD) Depression History of CVA (cerebrovascular accident) Hyperlipidemia Hypertension Obstruction of right ureteropelvic junction (UPJ) due to stone Retained ureteral stent Right renal stone Surgical History (Updated 10/16/21 @ 10:18 by Zuleika Mims RN) History of cholecystectomy (07/13/21) Hx of cystoscopy (09/07/21) S/P right knee arthroscopy Family History Father Heart disease Social History household members: other Smoking Status: Former smoker Tobacco: How many years used: 15 alcohol intake: former caffeine: No Smoking Status: Former smoker alcohol intake frequency: holidays/special occasions only Substance Use Type: does not use Exam Narrative Exam Narrative: GENERAL: Alert, cooperative and in no distress. HEAD: Atraumatic. Normocephalic. EYES: Sclera are clear without icterus. Extraocular movements are full. ENT: No rhinorrhea NECK: Supple. Full range of motion. CARDIOVASCULAR: Normal rate and rhythm without murmur gallop or rub. RESPIRATORY: Clear to auscultation. Breath sounds equal bilaterally. No wheezes, rales, or rhonchi. GASTROINTESTINAL: Abdomen soft, non-tender, nondistended. EXTREMITIES: No edema, full range of motion. No obvious trauma. BACK: Normal inspection, no CVA tenderness. NEURO: Nonfocal examination, normal speech SKIN: No rash or erythema of visible areas PSYCH: Normally oriented. Normal range of affect. Appropriate behavior Initial Vital Signs Initial Vital Signs: Vital Signs Temperature 98.3 F 06/25/22 14:29 Pulse Rate 112 H 06/25/22 14:29 Respiratory Rate 18 06/25/22 14:29 Blood Pressure 146/91 H 06/25/22 14:29 Pulse Oximetry 98 06/25/22 14:29 Oxygen Delivery Method 06/25/22 14:29 Course Orders Ordered: ED Orders 06/25/22 14:31 XR chest 1V Stat EKG-12 Lead Stat RT Consult Eval and Treat NOW 06/25/22 14:34 Complete Blood Count AUTO DIFF Stat Comprehensive Metabolic Panel Stat Lactate (Lactic Acid) Stat Lipase Stat Partial Thromboplastin Time Stat Procalcitonin Stat Prothrombin Time INR Stat 06/25/22 14:55 Blood Culture Stat 06/25/22 19:11 Urinalysis and Microscopic Stat Urine Culture Stat Discontinued Medications Ciprofloxacin (Ciprofloxacin 250 Mg Tablet) 500 mg PO NOW ONE Stop: 06/25/22 19:32 Sodium Chloride (Normal Saline 0.9%) 1,000 mls @ 1,000 mls/hr IV BOLUS ONE Stop: 06/25/22 15:30 Last Infusion: 06/25/22 17:28 Dose: 0 mls/hr Documented By: Admin: 06/25/22 15:03 Dose: 1,000 mls/hr Documented By: CATHRYN Vital Signs Vital signs: Vital Signs - 8 hr 06/25/22 14:29 Temperature 98.3 F Pulse Rate 112 H Respiratory Rate 18 Blood Pressure 146/91 H Pulse Oximetry 98 Oxygen Delivery Method Room Air MDM - Fever Lab Data Result diagrams: 06/25/22 14:34 06/25/22 14:34 Labs: Lab Results 06/25/22 06/25/22 06/25/22 Range/Units 14:34 14:34 14:34 WBC 14.3 H (4.5-11.0) X10^3/uL RBC 5.00 (4.5-5.9) X10^6/uL Hgb 15.1 (13.5-17.5) g/dL Hct 43.4 (41-53) % MCV 86.8 (80-100) fL MCH 30.1 (26-34) PG MCHC 34.7 (30-36) % RDW 13.4 (11.6-14.8) % Plt Count 349 (150-400) X10^3/uL Neut % (Auto) 78.1 H (50-75) % Lymph % (Auto) 6.4 L (25-40) % [place] % (Auto) 11.8 (3-14) % Eos % (Auto) 2.7 (2-4) % Baso % (Auto) 1.0 (0-2) % Neut # (Auto) 71842 H (0543-2844) /uL Lymph # (Auto) 900 L (0074-2806) /uL [place] # (Auto) 1700 H (0-900) /uL Eos # (Auto) 400 (0-450) /uL Baso # (Auto) 100 (0-100) /uL PT 14.4 H (10.1-12.7) SECONDS INR 1.3 (0.9-1.3) APTT 35 (26-36) SECONDS Sodium 136 L (137-145) mmol/L Potassium 3.3 L (3.4-5.1) mmol/L Chloride 98 (98-107) mmol/L Carbon Dioxide 29 (22-32) mmol/L BUN 11 (9-20) mg/dL Creatinine 0.84 (0.66-1.25) mg/dL Estimated GFR > 60 (>60) mL/min BUN/Creatinine Ratio 13.1 (6-22) Glucose 164 H (80-110) mg/dL Lactate (0.7-2.1) mmol/L Calcium 8.7 (8.4-10.2) mg/dL Total Bilirubin 0.7 (0.2-1.3) mg/dL AST 61 H (17-59) IU/L ALT 33 (<50) IU/L Alkaline Phosphatase 206 H (38-126) U/L Total Protein 7.8 (6.3-8.2) g/dL Albumin 3.8 (3.5-5.0) g/dL Globulin 4.0 (1.7-4.1) g/dL Albumin/Globulin Ratio 1.0 (1.0-2.8) Lipase 146 (23-300) U/L Procalcitonin 0.12 (<0.5) ng/mL Urine Color Urine Appearance Urine pH (4.5-8.0) Ur Specific [place] (1.000-1.035) Urine Protein (Negative) Urine Glucose (UA) (Negative) g/dL Urine Ketones (NEGATIVE) Urine Occult Blood (Negative) Urine Nitrate (Negative) Urine Bilirubin (NEGATIVE) Urine Urobilinogen (0.2) E.U./dL Ur Leukocyte Esterase (NEGATIVE) Urine RBC (0-5/HPF) Urine WBC (0-5/HPF) Ur Squamous Epith Cells (0-5/HPF) Amorphous Sediment Urine Bacteria (None) Urine Mucus (Negative) Ur Culture Indicated? 06/25/22 06/25/22 06/25/22 Range/Units 14:34 18:10 19:11 WBC (4.5-11.0) X10^3/uL RBC (4.5-5.9) X10^6/uL Hgb (13.5-17.5) g/dL Hct (41-53) % MCV (80-100) fL MCH (26-34) PG MCHC (30-36) % RDW (11.6-14.8) % Plt Count (150-400) X10^3/uL Neut % (Auto) (50-75) % Lymph % (Auto) (25-40) % [place] % (Auto) (3-14) % Eos % (Auto) (2-4) % Baso % (Auto) (0-2) % Neut # (Auto) (2280-2038) /uL Lymph # (Auto) (4464-7822) /uL [place] # (Auto) (0-900) /uL Eos # (Auto) (0-450) /uL Baso # (Auto) (0-100) /uL PT (10.1-12.7) SECONDS INR (0.9-1.3) APTT (26-36) SECONDS Sodium (137-145) mmol/L Potassium (3.4-5.1) mmol/L Chloride (98-107) mmol/L Carbon Dioxide (22-32) mmol/L BUN (9-20) mg/dL Creatinine (0.66-1.25) mg/dL Estimated GFR (>60) mL/min BUN/Creatinine Ratio (6-22) Glucose (80-110) mg/dL Lactate 2.3 H 1.1 (0.7-2.1) mmol/L Calcium (8.4-10.2) mg/dL Total Bilirubin (0.2-1.3) mg/dL AST (17-59) IU/L ALT (<50) IU/L Alkaline Phosphatase (38-126) U/L Total Protein (6.3-8.2) g/dL Albumin (3.5-5.0) g/dL Globulin (1.7-4.1) g/dL Albumin/Globulin Ratio (1.0-2.8) Lipase (23-300) U/L Procalcitonin (<0.5) ng/mL Urine Color Yellow Urine Appearance Sl cloudy Urine pH 6.5 (4.5-8.0) Ur Specific [place] 1.020 (1.000-1.035) Urine Protein 2+ H (Negative) Urine Glucose (UA) Negative (Negative) g/dL Urine Ketones Negative (NEGATIVE) Urine Occult Blood 3+ H (Negative) Urine Nitrate Positive H (Negative) Urine Bilirubin Negative (NEGATIVE) Urine Urobilinogen 1.0 (0.2) E.U./dL Ur Leukocyte Esterase 3+ H (NEGATIVE) Urine RBC 30-100/hpf H (0-5/HPF) Urine WBC 30-100/hpf H (0-5/HPF) Ur Squamous Epith Cells 0-1 /hpf (0-5/HPF) Amorphous Sediment 2+ Urine Bacteria Moderate (10-30) H (None) Urine Mucus 1+ H (Negative) Ur Culture Indicated? Specimen cultured MDM Narrative Medical decision making narrative: The patient was little tachycardic on arrival he is no longer tachycardic. He has no fever. White blood cell count is slightly elevated. I think he has a urinary tract source for his infection without evidence of acute sepsis. IV hydration has improved his symptoms dramatically. He has no vomiting. He has a soft and benign abdominal examination. Urinary evaluation looks consistent with urinary tract infection and will treat for same with Cipro as recommended by Dr. Oneil. Discharge Plan Departure Patient Disposition: Home Clinical Impression: Acute on chronic urinary retention, Urinary tract infection Activity Restrictions/Additional Instructions: Some evidence of urinary tract infection. Also, the patient was unable to void. Padron catheter was placed. Retained 500 mL of urine was drained. Will treat empirically with ciprofloxacin. Monitor closely for signs of sepsis such as vomiting, high fever or altered mental status. For now I recommend Tylenol or ibuprofen. I recommend Urology follow-up regarding the stent and resolution of the infection. Prescriptions: New ciprofloxacin HCl [Cipro] 500 mg tablet 500 mg PO BID Qty: 14 0RF No Action sennosides [senna] 8.6 mg Tablet 8.6 mg PO DAILY acetaminophen 325 mg Tablet 650 mg PO Q4H PRN (Reason: Fever Or Pain) Rx Instructions: pain level 1-3 or fever >100.1 fluoxetine 10 mg Tablet 10 mg PO DAILY amlodipine 5 mg Tablet 10 mg PO DAILY aspirin 81 mg Tablet,Delayed Release (Dr/Ec) 81 mg PO DAILY docusate sodium 100 mg Capsule 100 mg PO BID Rx Instructions: hold if loose stools cholecalciferol (vitamin D3) [Vitamin D3] 1,000 unit Tablet 1,000 unit PO DAILY atorvastatin 20 mg Tablet 20 mg PO BEDTIME ondansetron 4 mg Tablet,Disintegrating 4 mg PO Q4H PRN (Reason: Nausea) cyanocobalamin (vitamin B-12) 1,000 mcg Capsule 1,000 mcg PO DAILY oxycodone 5 mg tablet 5 mg PO Q4H PRN (Reason: pain) Qty: 14 0RF oxycodone 5 mg tablet 5 mg PO Q4H PRN (Reason: pain) Qty: 14 0RF nystatin 100,000 unit/gram powder 1 applic topical DAILY magnesium hydroxide [Milk of Magnesia] 400 mg/5 mL suspension 5 ml PO DAILY PRN (Reason: Constipation) Referrals: Gee Arriaga MD [Primary Care Provider] -
[2022-06-25 19:30] LABS: Amorphous Sediment Urine 2+; Bacteria Urine Moderate (10-30); Culture Indicated Urine Specimen Cultured; Mucus Urine 1+ (Negative); RBC Urine 30-100/HPF (0-5/HPF); Squamous Epithelial Cell Urine 0-1 /HPF (0-5/HPF); WBC Urine 30-100/HPF (0-5/HPF)
[2022-06-25] MEDS: CIPROFLOXACIN 250 MG TABLET 500 MG PO (19:52)
== END 2022-06-25 22:30 | disposition home or self-care (01) ==
PROVIDERS: Emergency Medicine; Emergency Provider Family Medicine Addiction Medicine; PCP Family Medicine
DX: R33.8 Other retention of urine (principal); N39.0 Urinary tract infection, site not specified; R00.0 Tachycardia, unspecified; R79.89 Other specified abnormal findings of blood chemistry
CPT/HCPCS: 36415; 51798; 71045; 80053; 81001; 83605; 83690; 84145; 85025; 85610; 85730; 87040; 87077; 87086; 87186; 99284

== ENCOUNTER → 2022-07-11 08:29 | Outpatient (CLI) | payer OTHER, MEDICAID, SELFPAY ==
[2021-09-19 15:36] VITALS: BMI 25.4
--- NOTE | 2022-07-11 08:30 | DI.RAD.S_ITS ---
PROCEDURE: XR KUB INDICATIONS: renal stones TECHNIQUE: One view of the abdomen acquired. COMPARISON: [facility], , XR KUB, 10/19/2021, 7:36. FINDINGS: Surgical changes and devices: Double-J ureteral stent is unchanged. Bowel: Bowel gas pattern is normal. Soft tissues: A focal radiopacity surrounds the inferior aspect of the right double-J ureteral stent which is new when compared with the prior CT dated October 19, 2021. Bones: No suspicious bony lesions. IMPRESSION: Focal radiopacity surrounding the inferior margin of the double-J ureteral stent. Findings raise the suspicion for calcification around the tube. If further characterization is warranted, CT KUB could be used. Dictated by: Zita Henry M.D. on 07/11/2022 at 12:30 Approved by: Zita Henry M.D. on 07/11/2022 at 12:31
== END ==
PROVIDERS: PCP Family Medicine; Referring Provider Internal Medicine; Visit Provider Internal Medicine
DX: N20.0 Calculus of kidney (principal); Z96.0 Presence of urogenital implants; Z87.442 Personal history of urinary calculi
CPT/HCPCS: 74018; 99215

== ENCOUNTER → 2022-07-19 10:00 | Outpatient (CLI) | payer OTHER, MEDICAID, SELFPAY ==
[2021-09-19 15:36] VITALS: BMI 25.4
--- NOTE | 2022-07-19 10:01 | DI.CT.S_ITS ---
PROCEDURE: CT KIDNEY URETER BLADDER (KUB) INDICATIONS: Right stent/stone TECHNIQUE: Axial sections were acquired from the lung bases to the pubic symphysis. Coronal and sagittal reformats were performed. For radiation dose reduction, the following was used: automated exposure control, adjustment of mA and/or kV according to patient size. COMPARISON: [facility], CT, CT ABDOMEN PELVIS W CON, 07/12/2021, 22:03. [facility], US, US RENAL COMPLETE, 05/09/2022, 12:38. FINDINGS: Image quality: Excellent. Lung bases: Unremarkable. Heart: Heart size is enlarged, no pericardial effusion. URINARY: Right Kidney: Right-sided ureteral stent is seen. There is moderate right-sided hydronephrosis and mild right perinephric fat stranding. Right Ureter: There is right-sided hydroureter is adjacent to ureteral stent. No obstructing stone is noted. Left Kidney: No stones or hydronephrosis. Left Ureter: No hydroureter. Bladder: Diffuse bladder wall thickening is seen. Padron catheter is seen within the bladder lumen. No gross discrete bladder wall mass. No calcified bladder stones. ABDOMEN: Liver: Unremarkable. Gallbladder: Surgically absent. Biliary ducts: Unremarkable. Pancreas: Unremarkable. Spleen: Unremarkable. Adrenal Glands: Unremarkable. Stomach and Bowel: Stomach, small bowel loops, and colon are unremarkable. Mild sigmoid diverticulosis is seen without sigmoid colon wall thickening or mesenteric fat stranding. Appendix is visualized and is within normal limits. Peritoneum: No abnormal intraperitoneal fluid. No free air. Ventral Wall: No hernia. Abdominal Nodes: No enlarged retroperitoneal or mesenteric lymph nodes. Vessels: Aorta and inferior vena cava are normal in size. PELVIS: Pelvic Organs: Unremarkable. Pelvic Nodes: Unremarkable. Miscellaneous: No inguinal hernias are seen. Bones: No suspicious bony lesions. No acute vertebral body compression fracture. IMPRESSION: 1. Right-sided ureteral stent in place. Moderate right-sided hydronephrosis and hydroureter and mild right perinephric fat stranding concerning for stent malfunction, suggest clinical correlation. 2. No left-sided stones or hydronephrosis. Padron catheter in decompressed urinary bladder with suggestion of diffuse bladder wall thickening concerning for cystitis. No discrete bladder wall mass. 3. No bowel obstruction or abnormal bowel wall thickening. No free fluid or free air. 4. Interval cholecystectomy. Dictated by: Luther Noe M.D. on 07/19/2022 at 10:33 Approved by: Luther Noe M.D. on 07/19/2022 at 10:47
== END ==
PROVIDERS: PCP Family Medicine; Referring Provider Specialist; Visit Provider Specialist
DX: N13.30 Unspecified hydronephrosis; N20.2 Calculus of kidney with calculus of ureter; Z96.0 Presence of urogenital implants
CPT/HCPCS: 74176

== ENCOUNTER → 2022-07-27 00:36 | Outpatient (ROUT) | payer OTHER, MEDICAID, SELFPAY ==
[2021-09-19 15:36] VITALS: BMI 25.4
[2022-07-27 01:01] LABS: Bilirubin Urine UA NEGATIVE (NEGATIVE); Color Urine UA YELLOW; Glucose Urine UA NEGATIVE (Negative); Ketones Urine UA NEGATIVE (NEGATIVE); Leukocyte Esterase Urine UA 2+ (NEGATIVE); Nitrite Urine UA POSITIVE (Negative); Occult Blood Urine UA 3+ (Negative); Protein Urine UA 2+ (Negative); Urobilinogen Urine UA 0.2 E.U./dL (0.2)
[2022-07-27 01:03] LABS: Appearance Urine UA CLOUDY
[2022-07-27 01:22] LABS: Bacteria Urine Many (>30); Culture Indicated Urine Specimen Cultured; RBC Urine 10-30/HPF (0-5/HPF); WBC Urine >100/HPF (0-5/HPF)
== END ==
PROVIDERS: PCP Family Medicine; Visit Provider Nurse Practitioner Family
DX: N39.0 Urinary tract infection, site not specified (principal)
CPT/HCPCS: 81001; 87077; 87086; 87186

== ENCOUNTER → 2022-08-06 08:08 | Outpatient (ROUT) | payer OTHER, MEDICAID, SELFPAY ==
[2021-09-19 15:36] VITALS: BMI 25.4
[2022-08-06 08:42] LABS: Add Manual Diff / Slide Review NO; Basophils Absolute Auto 100 /uL (0-100); Basophils Percent Auto 1.1 % (0-2); Eosinophils Absolute Auto 300 /uL (0-450); Eosinophils Percent Auto 2.6 % (2-4); Hematocrit 42.4 % (41-53); Hemoglobin 14.6 g/dL (13.5-17.5); Lymphocytes Absolute Auto 1300 /uL (1100-4500); Lymphocytes Percent Auto 12.9 % (25-40); Mean Corpuscular HGB Conc 34.5 % (30-36); Mean Corpuscular Hemoglobin 30.6 PG (26-34); Mean Corpuscular Volume 88.7 fL (80-100); Monocytes Absolute Auto 1300 /uL (0-900); Monocytes Percent Auto 12.9 % (3-14); Neutrophils Absolute Auto 7400 /uL (1500-7000); Neutrophils Percent Auto 70.5 % (50-75); Platelet Count 301 X10^3/uL (150-400); Red Blood Cell Count 4.78 X10^6/uL (4.5-5.9); Red Cell Distribution Width 13.7 % (11.6-14.8); White Blood Cell Count 10.5 X10^3/uL (4.5-11.0)
[2022-08-06 08:58] LABS: Alanine Aminotransferase 29 IU/L (<50); Albumin 3.4 g/dL (3.5-5.0); Albumin Globulin Ratio 0.9 (1.0-2.8); Alkaline Phosphatase 145 U/L (38-126); Aspartate Aminotransferase 30 IU/L (17-59); BUN Creatinine Ratio 15.3 (6-22); Bilirubin Total 0.3 mg/dL (0.2-1.3); Blood Urea Nitrogen 11 mg/dL (9-20); Calcium 8.4 mg/dL (8.4-10.2); Carbon Dioxide 32 mmol/L (22-32); Chloride 105 mmol/L (98-107); Estimated Glomerular Filt Rate > 60 mL/min (>60); Globulin 3.7 g/dL (1.7-4.1); Glucose 90 mg/dL (80-110); HEMOLYSIS < 15 (0-50); Potassium 4.1 mmol/L (3.4-5.1); Sodium 144 mmol/L (137-145); Total Protein 7.1 g/dL (6.3-8.2)
== END ==
PROVIDERS: PCP Family Medicine; Visit Provider Nurse Practitioner Gerontology
DX: D51.9 Vitamin B12 deficiency anemia, unspecified (principal)
CPT/HCPCS: 36415; 80053; 85025

== ENCOUNTER → 2022-08-26 17:10 | Outpatient (ROUT) | payer OTHER, MEDICAID, SELFPAY ==
[2021-09-19 15:36] VITALS: BMI 25.4
[2022-08-26 18:28] LABS: Appearance Urine UA TURBID; Bilirubin Urine UA NEGATIVE (NEGATIVE); Color Urine UA YELLOW; Glucose Urine UA NEGATIVE (Negative); Ketones Urine UA NEGATIVE (NEGATIVE); Leukocyte Esterase Urine UA 2+ (NEGATIVE); Nitrite Urine UA POSITIVE (Negative); Occult Blood Urine UA 3+ (Negative); Protein Urine UA 3+ (Negative)
[2022-08-26 18:46] LABS: Bacteria Urine Moderate (10-30); Culture Indicated Urine Specimen Cultured; RBC Urine None Seen (0-5/HPF); WBC Urine >100/HPF (0-5/HPF)
== END ==
PROVIDERS: PCP Family Medicine; Visit Provider Specialist
DX: N39.0 Urinary tract infection, site not specified (principal)
CPT/HCPCS: 81001; 87077; 87086; 87186

== ENCOUNTER → 2022-09-25 19:34 | Outpatient (ROUT) | payer OTHER, MEDICAID, SELFPAY ==
[2021-09-19 15:36] VITALS: BMI 25.4
[2022-09-25 19:45] LABS: Appearance Urine UA TURBID; Bilirubin Urine UA NEGATIVE (NEGATIVE); Color Urine UA YELLOW; Glucose Urine UA NEGATIVE (Negative); Ketones Urine UA NEGATIVE (NEGATIVE); Leukocyte Esterase Urine UA 3+ (NEGATIVE); Nitrite Urine UA POSITIVE (Negative); Occult Blood Urine UA 3+ (Negative); Protein Urine UA 1+ (Negative); pH Urine UA 7.5 (4.5-8.0)
[2022-09-25 19:46] LABS: Bacteria Urine Moderate (10-30); Culture Indicated Urine Specimen Cultured; RBC Urine None Seen (0-5/HPF); WBC Urine >100/HPF (0-5/HPF)
== END ==
PROVIDERS: PCP Family Medicine; Visit Provider Physician Assistant Surgical
DX: N21.0 Calculus in bladder (principal)
CPT/HCPCS: 81001; 87077; 87086; 87186

== ENCOUNTER → 2022-10-07 19:32 | Outpatient (ROUT) | payer OTHER, MEDICAID, SELFPAY ==
[2021-09-19 15:36] VITALS: BMI 25.4
[2022-10-07 19:37] LABS: Appearance Urine UA TURBID; Bilirubin Urine UA NEGATIVE (NEGATIVE); Color Urine UA YELLOW; Glucose Urine UA NEGATIVE (Negative); Ketones Urine UA NEGATIVE (NEGATIVE); Leukocyte Esterase Urine UA 2+ (NEGATIVE); Nitrite Urine UA POSITIVE (Negative); Occult Blood Urine UA 3+ (Negative); Protein Urine UA 2+ (Negative); Specific Gravity Urine UA 1.025 (1.000-1.035)
[2022-10-07 20:11] LABS: Bacteria Urine Many (>30); Culture Indicated Urine Specimen Cultured; RBC Urine None Seen (0-5/HPF); WBC Urine 30-100/HPF (0-5/HPF)
== END ==
PROVIDERS: PCP Family Medicine; Visit Provider Nurse Practitioner Gerontology
DX: N39.0 Urinary tract infection, site not specified (principal)
CPT/HCPCS: 81001; 87077; 87086; 87186

== ENCOUNTER 2022-10-25 23:51 | Emergency (ER) | payer OTHER, MEDICAID, SELFPAY ==
[2021-09-19 15:36] VITALS: BMI 25.4
[2022-10-26 00:05] VITALS: BP 115/80; PULSE 59; RESP 12; TEMP 36.6; O2SAT 97; BMI 23.1
--- NOTE | 2022-10-26 00:51 | ED_ITS ---
HPI - Male Genitourinary General Chief complaint: Urogenital-Male Stated complaint: urinary pain Time Seen by Provider: 10/26/22 00:08 Source: patient and EMS Mode of arrival: EMS History of Present Illness HPI Narrative: 61-year-old male nonsmoker with prior stroke presents by EMS for evaluation problem with Padron catheter and ureteral stent. The patient had been at the [facility] about 1 week ago and had a ureteral stent placed for complications relating to a prior stent. Additionally, he had a Padron catheter in place and nursing staff from his long term facility report that his Padron catheter was removed today and they note that it was not supposed to be removed until Friday. He was sent here for evaluation. The patient is asymptomatic and denies dizziness, weakness or lightheadedness. He has no chest pain or shortness of breath. He has no abdominal pain, nausea or vomiting. He has no urinary complaints and specifically no lower abdominal, suprapubic or penile pain. The nursing note from facility suggests that the Padron catheter and stent or to be removed on Friday and the expectation is that when the Padron catheter is removed the stent should have come out with it, however it did not Related Data Home Medications Medication Instructions Recorded Confirmed acetaminophen 325 mg tablet 650 mg PO Q4H PRN Fever Or Pain 09/21/18 07/23/22 amlodipine 5 mg tablet 10 mg PO DAILY 09/21/18 07/23/22 aspirin 81 mg tablet,delayed 81 mg PO DAILY 09/21/18 07/23/22 release cholecalciferol (vitamin D3) 25 1,000 unit PO DAILY 09/21/18 07/23/22 mcg (1,000 unit) tablet (Vitamin D3) docusate sodium 100 mg capsule 100 mg PO BID 09/21/18 07/23/22 fluoxetine 10 mg tablet 10 mg PO DAILY 09/21/18 07/23/22 sennosides 8.6 mg tablet (senna) 8.6 mg PO DAILY 09/21/18 07/23/22 atorvastatin 20 mg tablet 20 mg PO BEDTIME 07/12/21 07/23/22 cyanocobalamin (vitamin B-12) 1,000 mcg PO DAILY 07/12/21 07/23/22 1,000 mcg capsule ondansetron 4 mg disintegrating 4 mg PO Q4H PRN Nausea 07/12/21 07/23/22 tablet magnesium hydroxide 400 mg/5 mL 5 ml PO DAILY PRN Constipation 09/05/21 07/23/22 oral suspension (Milk of Magnesia) nystatin 100,000 unit/gram topical 1 applic topical DAILY 09/05/21 07/23/22 powder Previous Rx's Medication Instructions Recorded oxycodone 5 mg tablet 5 mg PO Q4H PRN pain #14 tabs 10/19/21 Allergies Allergy/AdvReac Type Severity Reaction Status Date / Time Penicillins Allergy Intermediate Rash over Verified 07/23/22 08:12 body tetracycline Allergy Unknown Verified 07/23/22 08:12 Review of Systems Review of Systems Narrative: GENERAL: Denies chills, fatigue, malaise, fever, sweats. HEENT: Denies sinus pain, ear pain, sore throat, difficulty swallowing, dizziness. RESPIRATORY: Denies dyspnea, cough, wheezing, hemoptysis, sputum. CARDIOVASCULAR: Denies chest pain, palpitations, orthopnea, edema, GASTROINTESTINAL: Denies nausea, vomiting, abdominal pain, diarrhea, constipation, melena. : See HPI MUSCULOSKELETAL: denies weakness, joint pain, or bony pain SKIN: Denies rash, skin lesions, or other NEUROLOGIC: Denies weakness, headache, numbness, change in speech, confusion, seizures, incoordination. PSYCHIATRIC: No concerning psychosocial issues. 12 point review of systems is negative except for those stated above Patient History Medical History Depression History of CVA (cerebrovascular accident) History of nephrolithiasis Hyperlipidemia Hypertension Obstruction of right ureteropelvic junction (UPJ) due to stone Retained ureteral stent Retained ureteral stent Right renal stone Surgical History History of cholecystectomy (07/13/21) Hx of cystoscopy (09/07/21) S/P right knee arthroscopy Family History Father Heart disease Social History household members: other Smoking Status: Former smoker Tobacco: How many years used: 15 alcohol intake: former caffeine: No Smoking Status: Former smoker alcohol intake frequency: holidays/special occasions only Substance Use Type: does not use Exam Narrative Exam Narrative: GENERAL: [61] year old patient appears stated age. Well-developed patient, in no obvious distress. HEAD: Atraumatic. Normocephalic. EYES: Pupils equal round and reactive. Extraocular motions intact. No scleral icterus. No injection or drainage. ENT: Nose without bleeding, purulent drainage. Throat without erythema, tonsillar hypertrophy or exudate. Airway patent. NECK: Trachea midline. Non tender CARDIOVASCULAR: Regular rate and rhythm without murmurs, gallops, or rubs. RESPIRATORY: Clear to auscultation. Breath sounds equal bilaterally. No wheezes, rales, or rhonchi. GASTROINTESTINAL: Abdomen soft, non-tender, nondistended. : no pain, ureteral strings visible, no bleeding or discharge EXTREMITIES: No edema or joint tenderness. BACK: Nontender without deformity or crepitance. No flank tenderness. NEURO: AOx3.R sided weakness is chronic SKIN: No rash or erythema of visible areas Initial Vital Signs Initial Vital Signs: Vital Signs Temperature 97.8 F 10/26/22 00:05 Pulse Rate 59 L 10/26/22 00:05 Respiratory Rate 12 10/26/22 00:05 Blood Pressure 115/80 10/26/22 00:05 Pulse Oximetry 97 10/26/22 00:05 Oxygen Delivery Method Room Air 10/26/22 00:05 Course Consultations Consultation #1: Call to on-call Urology at [facility], they have reviewed the patient's history and physical as well as recent visit charts. After this discussion they recommend removal of ureteral stent and discharged home Vital Signs Vital signs: Vital Signs - 8 hr 10/26/22 00:05 Temperature 97.8 F Pulse Rate 59 L Respiratory Rate 12 Blood Pressure 115/80 Pulse Oximetry 97 Oxygen Delivery Method Room Air MDM - Male Genitourinary MDM Narrative Medical decision making narrative: [61] year old patient presents with retained ureteral stent in the absence of symptoms Multiple etiologies for patient's symptoms considered including, but not limited to: Retained ureteral stent versus other [] Prior Charts reviewed in our EMR Primary Historian: patient Consultations: Neurology, see details above Patient asymptomatic for duration of visit. Ureteral stent easily removed at request of Urology, no pain or bleeding Findings and discharge diagnosis discussed with patient/family followed by verbalization of understanding Return precautions discussed with patient/family whom verbalize understanding of diagnosis and plan Discharge Plan Departure Patient Disposition: Home Clinical Impression: Displacement of ureteral stent Instructions: DI for Ureteral Stent Placement Activity Restrictions/Additional Instructions: *You have been diagnosed with [ureteral stent removal] *What to do: *Please continue to take your regular medications as directed. *Please follow up with your primary care provider in 2-3 days, call for an appointment. Let them know you were seen in the Emergency Department and that we ask that you be seen in follow up. We will electronically transmit a record of today's note if your PCP is in our system *Return to Emergency Department if you should have any new, worsening or concerning symptoms Prescriptions: No Action sennosides [senna] 8.6 mg Tablet 8.6 mg PO DAILY acetaminophen 325 mg Tablet 650 mg PO Q4H PRN (Reason: Fever Or Pain) Rx Instructions: pain level 1-3 or fever >100.1 fluoxetine 10 mg Tablet 10 mg PO DAILY amlodipine 5 mg Tablet 10 mg PO DAILY aspirin 81 mg Tablet,Delayed Release (Dr/Ec) 81 mg PO DAILY docusate sodium 100 mg Capsule 100 mg PO BID Rx Instructions: hold if loose stools cholecalciferol (vitamin D3) [Vitamin D3] 1,000 unit Tablet 1,000 unit PO DAILY atorvastatin 20 mg Tablet 20 mg PO BEDTIME ondansetron 4 mg Tablet,Disintegrating 4 mg PO Q4H PRN (Reason: Nausea) cyanocobalamin (vitamin B-12) 1,000 mcg Capsule 1,000 mcg PO DAILY oxycodone 5 mg tablet 5 mg PO Q4H PRN (Reason: pain) Qty: 14 0RF nystatin 100,000 unit/gram powder 1 applic topical DAILY magnesium hydroxide [Milk of Magnesia] 400 mg/5 mL suspension 5 ml PO DAILY PRN (Reason: Constipation) Referrals: Gee Arriaga MD [Primary Care Provider] - Stand Alone Forms: Patient Portal/API
--- NOTE | 2022-10-26 01:57 | PC.NURSE ---
Pt had stent in place, was suppose to be removed with catheter, but catheter was removed and stent did not come out.
== END 2022-10-26 01:59 | disposition home or self-care (01) ==
PROVIDERS: Emergency Provider Emergency Medicine; PCP Family Medicine
DX: T83.123A Displacement of other urinary stents, initial encounter (principal)
CPT/HCPCS: 99281

== ENCOUNTER → 2022-11-25 17:06 | Outpatient (ROUT) | payer OTHER, MEDICAID, SELFPAY ==
[2021-09-19 15:36] VITALS: BMI 25.4
[2022-11-25 17:38] LABS: Appearance Urine UA CLOUDY; Bilirubin Urine UA NEGATIVE (NEGATIVE); Color Urine UA YELLOW; Glucose Urine UA NEGATIVE (Negative); Ketones Urine UA NEGATIVE (NEGATIVE); Leukocyte Esterase Urine UA 2+ (NEGATIVE); Nitrite Urine UA NEGATIVE (Negative); Occult Blood Urine UA 3+ (Negative); Protein Urine UA 2+ (Negative); Specific Gravity Urine UA >=1.030 (1.000-1.035); Urobilinogen Urine UA 0.2 E.U./dL (0.2); pH Urine UA 5.5 (4.5-8.0)
[2022-11-25 17:47] LABS: Bacteria Urine Moderate (10-30); Culture Indicated Urine Specimen Cultured; RBC Urine 10-30/HPF (0-5/HPF); WBC Urine >100/HPF (0-5/HPF)
== END ==
PROVIDERS: PCP Family Medicine; Visit Provider Internal Medicine
DX: Z46.6 Encounter for fitting and adjustment of urinary device (principal)
CPT/HCPCS: 81001; 87077; 87086; 87186

== ENCOUNTER → 2022-12-10 07:49 | Outpatient (ROUT) | payer OTHER, MEDICAID, SELFPAY ==
[2021-09-19 15:36] VITALS: BMI 25.4
[2022-12-10 16:13] LABS: Vitamin B12 863 pg/mL (239-931)
== END ==
PROVIDERS: PCP Family Medicine; Visit Provider Nurse Practitioner Gerontology
DX: E53.8 Deficiency of other specified B group vitamins (principal)
CPT/HCPCS: 36415; 82607

== ENCOUNTER → 2022-12-11 15:17 | Outpatient (CLI) | payer OTHER, MEDICAID, SELFPAY ==
[2021-09-19 15:36] VITALS: BMI 25.4
--- NOTE | 2022-12-11 | DI.US.S_ITS ---
PROCEDURE: US RENAL COMPLETE INDICATIONS: POSSIBLE KIDNEY STONE TECHNIQUE: Real-time scanning was performed of the kidneys and bladder, with image documentation. COMPARISON: [facility], CT, CT KIDNEY URETER BLADDER (KUB), 07/19/2022, 10:13. [facility], US, US RENAL COMPLETE, 05/09/2022, 12:38. FINDINGS: Kidneys: Kidneys are normal in size. Right kidney measures 13.7 cm long; left kidney measures 12.2 cm long. Right renal cortical thickness is 1.5 cm; left renal cortical thickness is 1.5 cm. Renal cortical echotexture is normal. No nephrolithiasis. No suspicious solid mass lesions. Note is made of lobulated cortex of the right kidney. Moderate right-sided hydronephrosis is seen. At the superior aspect of the left kidney, there is a 1.9 cm simple cyst. Bladder: A Padron catheter is seen, which decompresses the bladder and limits evaluation of the bladder. Miscellaneous: No free pelvic fluid. IMPRESSION: There is moderate right-sided hydronephrosis. No stones are seen on these images. Padron catheter in place. Dictated by: Keron Torres M.D. on 12/11/2022 at 16:38 Approved by: Keron Torres M.D. on 12/11/2022 at 16:40
== END ==
PROVIDERS: PCP Family Medicine; Referring Provider Physician Assistant Surgical; Visit Provider Physician Assistant Surgical
DX: N13.30 Unspecified hydronephrosis (principal); N28.1 Cyst of kidney, acquired
CPT/HCPCS: 76770

== ENCOUNTER → 2022-12-18 17:29 | Outpatient (ROUT) | payer OTHER, MEDICAID, SELFPAY ==
[2021-09-19 15:36] VITALS: BMI 25.4
[2022-12-18 17:40] LABS: Appearance Urine UA CLOUDY; Bilirubin Urine UA NEGATIVE (NEGATIVE); Color Urine UA YELLOW; Glucose Urine UA NEGATIVE (Negative); Ketones Urine UA NEGATIVE (NEGATIVE); Leukocyte Esterase Urine UA 3+ (NEGATIVE); Nitrite Urine UA NEGATIVE (Negative); Occult Blood Urine UA 3+ (Negative); Protein Urine UA 1+ (Negative); pH Urine UA 6.5 (4.5-8.0)
[2022-12-18 18:29] LABS: RBC Urine 10-30/HPF (0-5/HPF); WBC Urine >100/HPF (0-5/HPF)
[2022-12-18 18:30] LABS: Bacteria Urine Many (>30); Culture Indicated Urine Specimen Cultured
== END ==
PROVIDERS: PCP Family Medicine; Visit Provider Nurse Practitioner Family
DX: R10.30 Lower abdominal pain, unspecified (principal)
CPT/HCPCS: 81001; 87077; 87086; 87186

== ENCOUNTER 2023-01-11 11:38 | Emergency (ER) | payer OTHER, MEDICAID, SELFPAY ==
[2021-09-19 15:36] VITALS: BMI 25.4
[2023-01-11] VITALS (27 sets, daily range): BP systolic 115–162; BP diastolic 74–92; PULSE 76–119; RESP 18–27; TEMP 36.4–37; O2SAT 94–99; BMI 24.3
[2023-01-11 12:24] LABS: Appearance Urine UA TURBID; Color Urine UA BROWN
[2023-01-11 12:26] LABS: Glucose Urine UA NEGATIVE (Negative); Ketones Urine UA NEGATIVE (NEGATIVE); Occult Blood Urine UA 4+ (Negative); Protein Urine UA 4+ (Negative)
[2023-01-11 12:27] LABS: Bilirubin Urine UA Negative (NEGATIVE); Leukocyte Esterase Urine UA 4+ (NEGATIVE); Nitrite Urine UA NEGATIVE (Negative); Urobilinogen Urine UA 0.2 E.U./dL (0.2)
[2023-01-11 12:28] LABS: Amorphous Sediment Urine 3+; Bacteria Urine Many (>30); RBC Urine 30-100/HPF (0-5/HPF); Squamous Epithelial Cell Urine 1-5 /HPF (0-5/HPF); Triple Phosphate Crystal Urine Few; WBC Urine >100/HPF (0-5/HPF)
[2023-01-11 12:29] LABS: Culture Indicated Urine Specimen Cultured; Mucus Urine 4+ (Negative)
--- NOTE | 2023-01-11 12:45 | PC.NURSE ---
Attempted IV x2 unsuccessfully, lab called for blood draw, Charge Claribel BERKOWITZ notified.
[2023-01-11 13:16] LABS: Add Manual Diff / Slide Review NO; Basophils Absolute Auto 0 /uL (0-100); Basophils Percent Auto 0.4 % (0-2); Eosinophils Absolute Auto 0 /uL (0-450); Hemoglobin 15.2 g/dL (13.5-17.5); Lymphocytes Absolute Auto 500 /uL (1100-4500); Lymphocytes Percent Auto 3.6 % (25-40); Mean Corpuscular HGB Conc 35.3 % (30-36); Mean Corpuscular Hemoglobin 30.5 PG (26-34); Mean Corpuscular Volume 86.4 fL (80-100); Monocytes Absolute Auto 2200 /uL (0-900); Monocytes Percent Auto 15.7 % (3-14); Neutrophils Absolute Auto 11000 /uL (1500-7000); Neutrophils Percent Auto 80.3 % (50-75); Platelet Count 291 X10^3/uL (150-400); Red Blood Cell Count 4.97 X10^6/uL (4.5-5.9); Red Cell Distribution Width 13.9 % (11.6-14.8); White Blood Cell Count 13.7 X10^3/uL (4.5-11.0)
[2023-01-11 13:24] LABS: Lactate (Lactic Acid) 3.8 mmol/L (0.7-2.1)
[2023-01-11 13:26] LABS: Albumin 3.8 g/dL (3.5-5.0); Albumin Globulin Ratio 1.1 (1.0-2.8); Alkaline Phosphatase 127 U/L (38-126); Aspartate Aminotransferase 57 IU/L (17-59); BUN Creatinine Ratio 13.8 (6-22); Bilirubin Total 0.7 mg/dL (0.2-1.3); Blood Urea Nitrogen 15 mg/dL (9-20); Calcium 8.6 mg/dL (8.4-10.2); Carbon Dioxide 27 mmol/L (22-32); Chloride 102 mmol/L (98-107); Creatine Kinase 36 U/L (55-170); Estimated Glomerular Filt Rate > 60 mL/min (>60); Globulin 3.6 g/dL (1.7-4.1); Glucose 142 mg/dL (80-110); HEMOLYSIS < 15 (0-50); Potassium 3.3 mmol/L (3.4-5.1); Sodium 139 mmol/L (137-145); Total Protein 7.4 g/dL (6.3-8.2)
[2023-01-11 13:34] LABS: Alanine Aminotransferase 46 IU/L (<50)
[2023-01-11 13:36] LABS: Troponin I 0.027 ng/mL (0.01-0.034)
[2023-01-11 13:40] LABS: Procalcitonin 0.25 ng/mL (<0.5)
[2023-01-11] MEDS: SODIUM CHLORIDE 0.9% 1,000 ML 1000 ML IV (13:46)
[2023-01-11] MEDS: cefTRIAXone 1,000 MG in SODIUM CHLORIDE 0.9% 100 ML 200 MG IV (13:46)
--- NOTE | 2023-01-11 13:51 | PC.NURSE ---
Padron bag emptied, urine initially draining has a sludge-purulent quality and then becomes more liquid like, is malodorous.
[2023-01-11 15:06] LABS: Reflexed Lactate in 2 Hours Y
--- NOTE | 2023-01-11 15:31 | ED_ITS ---
HPI - Male Genitourinary General Chief complaint: Urogenital-Male Stated complaint: UTI, low fever Time Seen by Provider: 01/11/23 11:51 Source: patient and EMS Mode of arrival: EMS History of Present Illness HPI Narrative: Patient is a 62-year-old male history of nonsmoker prior stroke lives at long- term care facility has urinary retention with indwelling Padron catheter presents today with kinked fully. He reports that he was feeling well he has no fever nausea vomiting or other symptoms. Catheter was noted to be kinked or not work ing appropriately 700 cc was found in the bladder. It has since been readjusted and draining. The patient has no other complaints. Related Data Home Medications Medication Instructions Recorded Confirmed acetaminophen 325 mg tablet 650 mg PO Q4H PRN Fever Or Pain 09/21/18 07/23/22 amlodipine 5 mg tablet 10 mg PO DAILY 09/21/18 07/23/22 aspirin 81 mg tablet,delayed 81 mg PO DAILY 09/21/18 07/23/22 release cholecalciferol (vitamin D3) 25 1,000 unit PO DAILY 09/21/18 07/23/22 mcg (1,000 unit) tablet (Vitamin D3) docusate sodium 100 mg capsule 100 mg PO BID 09/21/18 07/23/22 fluoxetine 10 mg tablet 10 mg PO DAILY 09/21/18 07/23/22 sennosides 8.6 mg tablet (senna) 8.6 mg PO DAILY 09/21/18 07/23/22 atorvastatin 20 mg tablet 20 mg PO BEDTIME 07/12/21 07/23/22 cyanocobalamin (vitamin B-12) 1,000 mcg PO DAILY 07/12/21 07/23/22 1,000 mcg capsule ondansetron 4 mg disintegrating 4 mg PO Q4H PRN Nausea 07/12/21 07/23/22 tablet magnesium hydroxide 400 mg/5 mL 5 ml PO DAILY PRN Constipation 09/05/21 07/23/22 oral suspension (Milk of Magnesia) nystatin 100,000 unit/gram topical 1 applic topical DAILY 09/05/21 07/23/22 powder Previous Rx's Medication Instructions Recorded oxycodone 5 mg tablet 5 mg PO Q4H PRN pain #14 tabs 10/19/21 nitrofurantoin 100 mg PO Q12H 7 days #14 caps 01/11/23 monohydrate/macrocrystals 100 mg capsule (Macrobid) nitrofurantoin 100 mg PO Q12H 7 days #14 caps 01/11/23 monohydrate/macrocrystals 100 mg capsule (Macrobid) Allergies Allergy/AdvReac Type Severity Reaction Status Date / Time Penicillins Allergy Intermediate Rash over Verified 01/11/23 11:44 body tetracycline Allergy Unknown Verified 01/11/23 11:44 Review of Systems Review of Systems ROS Unobtainable: All systems reviewed & are unremarkable except as noted in HPI and below Patient History Medical History Depression History of CVA (cerebrovascular accident) History of nephrolithiasis Hyperlipidemia Hypertension Obstruction of right ureteropelvic junction (UPJ) due to stone Retained ureteral stent Retained ureteral stent Right renal stone Surgical History History of cholecystectomy (07/13/21) Hx of cystoscopy (09/07/21) S/P right knee arthroscopy Family History Father Heart disease Social History household members: other Smoking Status: Former smoker Tobacco: How many years used: 15 alcohol intake: former caffeine: No Smoking Status: Former smoker alcohol intake frequency: holidays/special occasions only Substance Use Type: does not use Exam Initial Vital Signs Initial Vital Signs: Vital Signs Temperature 98.6 F 01/11/23 11:41 Pulse Rate 119 H 01/11/23 11:41 Respiratory Rate 18 01/11/23 11:41 Blood Pressure 162/92 H 01/11/23 11:41 Pulse Oximetry 96 01/11/23 11:41 Oxygen Delivery Method Room Air 01/11/23 11:41 GENERAL: Alert 62-year-old male HEENT: Head atraumatic,EOMI, pupils reactive, face symmetric, slightly dry mucous membranes CARDIOVASCULAR: Regular rate and rhythm without murmurs, rubs or gallops. RESPIRATORY: Breath sounds equal bilaterally, no wheezes rales or rhonchi. ABDOMEN: Soft, nontender. Normoactive bowel sounds all 4 quadrants. No guarding or rebound. : Padron in place cloudy. EXTREMITIES: Normal range of motion, no clubbing or edema. Neurovascularly intact NEUROLOGICAL: Alert and oriented x4. SKIN: Warm, dry, no laceration, no petechiae, no rashes or lesions. Course Orders Ordered: Discontinued Medications Sodium Chloride (Normal Saline 0.9%) 1,000 mls @ 1,000 mls/hr IV BOLUS ONE Stop: 01/11/23 14:18 Last Infusion: 01/11/23 14:24 Dose: 0 mls/hr Documented By: Admin: 01/11/23 13:46 Dose: 1,000 mls/hr Documented By: MODESTA Sodium Chloride (Normal Saline 0.9%) 1,000 mls @ 1,000 mls/hr IV BOLUS ONE Stop: 01/11/23 14:18 Last Admin: 01/11/23 13:21 Dose: Not Given Documented By: SOLOMON Ceftriaxone Sodium 1,000 mg/ (Sodium Chloride) 100 mls @ 200 mls/hr IV NOW ONE Stop: 01/11/23 13:20 Last Infusion: 01/11/23 14:24 Dose: 0 mls/hr Documented By: Admin: 01/11/23 13:46 Dose: 200 mls/hr Documented By: MODESTA Vital Signs Vital signs: Vital Signs - 8 hr 01/11/23 11:41 01/11/23 12:00 01/11/23 12:47 Temperature 98.6 F Pulse Rate 119 H 104 H 108 H Respiratory Rate 18 18 27 H Blood Pressure 162/92 H 144/81 H Pulse Oximetry 96 99 97 Oxygen Delivery Method Room Air Room Air 01/11/23 12:59 01/11/23 12:59 01/11/23 13:00 Temperature Pulse Rate 94 H Respiratory Rate 23 Blood Pressure 115/75 115/74 Pulse Oximetry 95 Oxygen Delivery Method 01/11/23 13:00 01/11/23 13:15 01/11/23 13:15 Temperature Pulse Rate 92 H 89 Respiratory Rate 22 24 Blood Pressure 119/74 Pulse Oximetry 96 Oxygen Delivery Method Room Air 01/11/23 13:30 01/11/23 13:30 01/11/23 13:45 Temperature Pulse Rate 87 84 Respiratory Rate 22 21 Blood Pressure 124/77 Pulse Oximetry Oxygen Delivery Method 01/11/23 13:45 01/11/23 14:00 01/11/23 14:00 Temperature Pulse Rate 81 Respiratory Rate 22 Blood Pressure 122/78 122/76 Pulse Oximetry Oxygen Delivery Method 01/11/23 14:15 01/11/23 14:15 01/11/23 14:30 Temperature Pulse Rate 81 Respiratory Rate 22 Blood Pressure 129/81 129/79 Pulse Oximetry Oxygen Delivery Method 01/11/23 14:30 01/11/23 14:45 01/11/23 14:45 Temperature Pulse Rate 82 82 Respiratory Rate 22 21 Blood Pressure 127/78 Pulse Oximetry 96 95 Oxygen Delivery Method 01/11/23 15:00 01/11/23 15:00 01/11/23 15:15 Temperature Pulse Rate 82 80 Respiratory Rate 23 21 Blood Pressure 129/78 Pulse Oximetry 94 98 Oxygen Delivery Method 01/11/23 15:15 01/11/23 15:30 01/11/23 15:30 Temperature Pulse Rate 80 Respiratory Rate 23 Blood Pressure 130/75 132/80 Pulse Oximetry 96 Oxygen Delivery Method 01/11/23 15:45 01/11/23 15:45 01/11/23 16:00 Temperature Pulse Rate 79 Respiratory Rate 22 Blood Pressure 126/78 132/76 Pulse Oximetry 94 Oxygen Delivery Method 01/11/23 16:00 01/11/23 16:15 01/11/23 16:15 Temperature Pulse Rate 79 79 Respiratory Rate 21 22 Blood Pressure 129/77 Pulse Oximetry 96 96 Oxygen Delivery Method 01/11/23 16:30 01/11/23 16:30 01/11/23 16:45 Temperature Pulse Rate 79 77 Respiratory Rate 21 20 Blood Pressure 126/77 Pulse Oximetry 96 97 Oxygen Delivery Method 01/11/23 16:45 01/11/23 17:00 01/11/23 17:00 Temperature Pulse Rate 78 Respiratory Rate 20 Blood Pressure 125/78 125/77 Pulse Oximetry 97 Oxygen Delivery Method 01/11/23 17:15 01/11/23 17:15 01/11/23 17:30 Temperature Pulse Rate 77 Respiratory Rate 21 Blood Pressure 124/78 122/78 Pulse Oximetry 97 Oxygen Delivery Method 01/11/23 17:30 01/11/23 18:25 01/11/23 17:45 Temperature 97.5 F L Pulse Rate 79 78 Respiratory Rate 22 20 Blood Pressure Pulse Oximetry 95 97 Oxygen Delivery Method 01/11/23 17:45 01/11/23 18:00 01/11/23 18:00 Temperature Pulse Rate 77 Respiratory Rate 21 Blood Pressure 128/81 128/79 Pulse Oximetry 96 Oxygen Delivery Method 01/11/23 18:15 01/11/23 18:15 Temperature Pulse Rate 76 Respiratory Rate 21 Blood Pressure 129/75 Pulse Oximetry 97 Oxygen Delivery Method MDM - Male Genitourinary Lab Data 01/11/23 12:55 01/11/23 12:55 Labs: Lab Results 01/11/23 01/11/23 01/11/23 Range/Units 12:00 12:55 12:55 WBC 13.7 H (4.5-11.0) X10^3/uL RBC 4.97 (4.5-5.9) X10^6/uL Hgb 15.2 (13.5-17.5) g/dL Hct 43.0 (41-53) % MCV 86.4 (80-100) fL MCH 30.5 (26-34) PG MCHC 35.3 (30-36) % RDW 13.9 (11.6-14.8) % Plt Count 291 (150-400) X10^3/uL Neut % (Auto) 80.3 H (50-75) % Lymph % (Auto) 3.6 L (25-40) % [place] % (Auto) 15.7 H (3-14) % Eos % (Auto) 0.0 L (2-4) % Baso % (Auto) 0.4 (0-2) % Neut # (Auto) 76162 H (3839-5136) /uL Lymph # (Auto) 500 L (5881-4147) /uL [place] # (Auto) 2200 H (0-900) /uL Eos # (Auto) 0 (0-450) /uL Baso # (Auto) 0 (0-100) /uL Sodium 139 (137-145) mmol/L Potassium 3.3 L (3.4-5.1) mmol/L Chloride 102 (98-107) mmol/L Carbon Dioxide 27 (22-32) mmol/L BUN 15 (9-20) mg/dL Creatinine 1.09 (0.66-1.25) mg/dL Estimated GFR > 60 (>60) mL/min BUN/Creatinine Ratio 13.8 (6-22) Glucose 142 H (80-110) mg/dL Lactate (0.7-2.1) mmol/L Calcium 8.6 (8.4-10.2) mg/dL Total Bilirubin 0.7 (0.2-1.3) mg/dL AST 57 (17-59) IU/L ALT 46 (<50) IU/L Alkaline Phosphatase 127 H (38-126) U/L Total Creatine Kinase 36 L (55-170) U/L CK-MB (CK-2) TNP CK-MB (CK-2) Rel Index TNP Troponin I 0.027 (0.01-0.034) ng/mL Total Protein 7.4 (6.3-8.2) g/dL Albumin 3.8 (3.5-5.0) g/dL Globulin 3.6 (1.7-4.1) g/dL Albumin/Globulin Ratio 1.1 (1.0-2.8) Procalcitonin 0.25 (<0.5) ng/mL Urine Color Brown Urine Appearance Turbid Urine pH 8.0 (4.5-8.0) Ur Specific [place] 1.010 (1.000-1.035) Urine Protein 4+ H (Negative) Urine Glucose (UA) Negative (Negative) g/dL Urine Ketones Negative (NEGATIVE) Urine Occult Blood 4+ H (Negative) Urine Nitrate Negative (Negative) Urine Bilirubin Negative (NEGATIVE) Urine Urobilinogen 0.2 (0.2) E.U./dL Ur Leukocyte Esterase 4+ H (NEGATIVE) Urine RBC 30-100/hpf H (0-5/HPF) Urine WBC >100/hpf H (0-5/HPF) Ur Squamous Epith Cells 1-5 /hpf (0-5/HPF) Triple Phos Crystals Few Amorphous Sediment 3+ Urine Bacteria Many (>30) H (None) Urine Mucus 4+ H D (Negative) Ur Culture Indicated? Specimen cultured 01/11/23 01/11/23 Range/Units 12:55 15:25 WBC (4.5-11.0) X10^3/uL RBC (4.5-5.9) X10^6/uL Hgb (13.5-17.5) g/dL Hct (41-53) % MCV (80-100) fL MCH (26-34) PG MCHC (30-36) % RDW (11.6-14.8) % Plt Count (150-400) X10^3/uL Neut % (Auto) (50-75) % Lymph % (Auto) (25-40) % [place] % (Auto) (3-14) % Eos % (Auto) (2-4) % Baso % (Auto) (0-2) % Neut # (Auto) (8793-4009) /uL Lymph # (Auto) (6607-9592) /uL [place] # (Auto) (0-900) /uL Eos # (Auto) (0-450) /uL Baso # (Auto) (0-100) /uL Sodium (137-145) mmol/L Potassium (3.4-5.1) mmol/L Chloride (98-107) mmol/L Carbon Dioxide (22-32) mmol/L BUN (9-20) mg/dL Creatinine (0.66-1.25) mg/dL Estimated GFR (>60) mL/min BUN/Creatinine Ratio (6-22) Glucose (80-110) mg/dL Lactate 3.8 H 2.0 (0.7-2.1) mmol/L Calcium (8.4-10.2) mg/dL Total Bilirubin (0.2-1.3) mg/dL AST (17-59) IU/L ALT (<50) IU/L Alkaline Phosphatase (38-126) U/L Total Creatine Kinase (55-170) U/L CK-MB (CK-2) CK-MB (CK-2) Rel Index Troponin I (0.01-0.034) ng/mL Total Protein (6.3-8.2) g/dL Albumin (3.5-5.0) g/dL Globulin (1.7-4.1) g/dL Albumin/Globulin Ratio (1.0-2.8) Procalcitonin (<0.5) ng/mL Urine Color Urine Appearance Urine pH (4.5-8.0) Ur Specific [place] (1.000-1.035) Urine Protein (Negative) Urine Glucose (UA) (Negative) g/dL Urine Ketones (NEGATIVE) Urine Occult Blood (Negative) Urine Nitrate (Negative) Urine Bilirubin (NEGATIVE) Urine Urobilinogen (0.2) E.U./dL Ur Leukocyte Esterase (NEGATIVE) Urine RBC (0-5/HPF) Urine WBC (0-5/HPF) Ur Squamous Epith Cells (0-5/HPF) Triple Phos Crystals Amorphous Sediment Urine Bacteria (None) Urine Mucus (Negative) Ur Culture Indicated? Imaging Data XR KUB: Radiologist's Impression: PROCEDURE:? XR KUB ? INDICATIONS:? stent? ? TECHNIQUE:? One view of the abdomen acquired.? ? COMPARISON:? [facility], , XR KUB, 07/11/2022, 8:31. ? FINDINGS:? ? Surgical changes and devices:? Overlying EKG wires.? Interval removal of right- sided ureteral stent. ? Bowel:? Nonobstructive bowel gas pattern.? Large amount of dense stool noted within the rectum. ? Soft tissues:? No suspicious abdominal calcifications.? Visualized solid organ contours appear normal in size.? ? Bones:? No suspicious bony lesions.? ? IMPRESSION:? ? Large amount of dense stool noted distending the rectum.? Recommend clinical correlation for constipation. ? Interval removal of right-sided ureteral stent. ? ? Dictated by: Edward Brand D.O. on 01/11/2023 at 15:25 ? ? Approved by: Edward Brand D.O. on 01/11/2023 at 15:27? ECG Data Interpretation: EKG 1. Sinus rhythm significant artifact noted rate 121 IL interval 172 QRS 86 QTC 448 no priors to compare ST elevations wandering baseline low voltage Repeat EKG significantly less artifact normal sinus rhythm rate 70 IL interval 180 QRS 98 QTC 471 Q-wave noted in lead 3 MDM Narrative Medical decision making narrative: Patient is a 62-year-old male history of UTIs nephrolithiasis with ureteral stents presenting today low-grade fever catheter problem. Found to have mild leukocytosis 13, lactate 3.8 with improvement 2.0 after 1 L of fluids, UTI. He is currently hemodynamically stable. X-ray KUB confirms removal of right ureteral stent. He overall appears well. He was given fluids and 1 dose Rocephin. Previous urine culture from 12/18/2022 shows Klebsiella with resistance to ampicillin and intensive activities to fluoroquinolones. At this time I think reasonable to be discharged back to facility with new Padron catheter and Keflex. No concern for sepsis at this time. He overall is not in any further pain. Discharge Plan Departure Patient Disposition: Home Clinical Impression: Acute UTI, Acute urinary retention Instructions: DI for Urinary Tract Infection (UTI) Activity Restrictions/Additional Instructions: *You have been diagnosed with UTI *What to do: At this time you do have a bladder and action Padron catheter has been replaced. *Continue to take medications as directed Macrobid 100mg twice a day for 7 days--> SENT TO [facility] *Follow up with your primary care provider in 2-3 days or call [phone] *Return to ER if you should have increasing confusion fever catheter problem abdominal pain or any new, worsening or concerning symptoms Prescriptions: New nitrofurantoin monohyd/m-cryst [Macrobid] 100 mg capsule 100 mg PO Q12H 7 Days Qty: 14 0RF Rx Instructions: must administer with a meal/food nitrofurantoin monohyd/m-cryst [Macrobid] 100 mg capsule 100 mg PO Q12H 7 Days Qty: 14 0RF Rx Instructions: must administer with a meal/food No Action sennosides [senna] 8.6 mg Tablet 8.6 mg PO DAILY acetaminophen 325 mg Tablet 650 mg PO Q4H PRN (Reason: Fever Or Pain) Rx Instructions: pain level 1-3 or fever >100.1 fluoxetine 10 mg Tablet 10 mg PO DAILY amlodipine 5 mg Tablet 10 mg PO DAILY aspirin 81 mg Tablet,Delayed Release (Dr/Ec) 81 mg PO DAILY docusate sodium 100 mg Capsule 100 mg PO BID Rx Instructions: hold if loose stools cholecalciferol (vitamin D3) [Vitamin D3] 1,000 unit Tablet 1,000 unit PO DAILY atorvastatin 20 mg Tablet 20 mg PO BEDTIME ondansetron 4 mg Tablet,Disintegrating 4 mg PO Q4H PRN (Reason: Nausea) cyanocobalamin (vitamin B-12) 1,000 mcg Capsule 1,000 mcg PO DAILY oxycodone 5 mg tablet 5 mg PO Q4H PRN (Reason: pain) Qty: 14 0RF nystatin 100,000 unit/gram powder 1 applic topical DAILY magnesium hydroxide [Milk of Magnesia] 400 mg/5 mL suspension 5 ml PO DAILY PRN (Reason: Constipation) Referrals: Gee Arriaga MD [Primary Care Provider] - Stand Alone Forms: Patient Portal/API
--- NOTE | 2023-01-11 15:55 | DI.RAD.S_ITS ---
PROCEDURE: XR KUB INDICATIONS: stent? TECHNIQUE: One view of the abdomen acquired. COMPARISON: [facility], CR, XR KUB, 07/11/2022, 8:31. FINDINGS: Surgical changes and devices: Overlying EKG wires. Interval removal of right-sided ureteral stent. Bowel: Nonobstructive bowel gas pattern. Large amount of dense stool noted within the rectum. Soft tissues: No suspicious abdominal calcifications. Visualized solid organ contours appear normal in size. Bones: No suspicious bony lesions. IMPRESSION: Large amount of dense stool noted distending the rectum. Recommend clinical correlation for constipation. Interval removal of right-sided ureteral stent. Dictated by: Edward Brand D.O. on 01/11/2023 at 15:25 Approved by: Edward Brand D.O. on 01/11/2023 at 15:27
== END 2023-01-11 18:32 | disposition home or self-care (01) ==
PROVIDERS: Emergency Provider Emergency Medicine; PCP Family Medicine
DX: N39.0 Urinary tract infection, site not specified (principal); R33.8 Other retention of urine; R50.9 Fever, unspecified
CPT/HCPCS: 36415; 74018; 80053; 81001; 82550; 83605; 84145; 84484; 85025; 87040; 87077; 87086; 87186; 93005; 93010; 96365; 99284; J0696

== ENCOUNTER → 2023-01-25 00:08 | Outpatient (ROUT) | payer OTHER, MEDICAID, SELFPAY ==
[2021-09-19 15:36] VITALS: BMI 25.4
[2023-01-25 00:38] LABS: Bilirubin Urine UA NEGATIVE (NEGATIVE); Color Urine UA YELLOW; Glucose Urine UA NEGATIVE (Negative); Ketones Urine UA NEGATIVE (NEGATIVE); Leukocyte Esterase Urine UA 2+ (NEGATIVE); Nitrite Urine UA NEGATIVE (Negative); Occult Blood Urine UA 1+ (Negative); Protein Urine UA 1+ (Negative)
[2023-01-25 00:41] LABS: Appearance Urine UA Slightly Cloudy
[2023-01-25 01:43] LABS: RBC Urine 1-5/HPF (0-5/HPF)
[2023-01-25 01:44] LABS: Bacteria Urine Few (2-10); Culture Indicated Urine Specimen Cultured; Squamous Epithelial Cell Urine None Seen (0-5/HPF); WBC Urine 30-100/HPF (0-5/HPF)
== END ==
PROVIDERS: PCP Family Medicine; Visit Provider Internal Medicine
DX: N39.0 Urinary tract infection, site not specified (principal)
CPT/HCPCS: 81001; 87086

== ENCOUNTER → 2023-02-08 09:52 | Outpatient (ROUT) | payer OTHER, MEDICAID, SELFPAY ==
[2021-09-19 15:36] VITALS: BMI 25.4
[2023-02-08 10:07] LABS: Appearance Urine UA CLOUDY; Bilirubin Urine UA NEGATIVE (NEGATIVE); Color Urine UA YELLOW; Glucose Urine UA NEGATIVE (Negative); Ketones Urine UA NEGATIVE (NEGATIVE); Leukocyte Esterase Urine UA 3+ (NEGATIVE); Nitrite Urine UA POSITIVE (Negative); Occult Blood Urine UA 3+ (Negative); Protein Urine UA 3+ (Negative)
[2023-02-08 10:16] LABS: Bacteria Urine Many (>30); Culture Indicated Urine Specimen Cultured; RBC Urine 10-30/HPF (0-5/HPF); Squamous Epithelial Cell Urine None Seen (0-5/HPF); WBC Urine >100/HPF (0-5/HPF)
== END ==
PROVIDERS: PCP Family Medicine; Visit Provider Internal Medicine
DX: R50.9 Fever, unspecified (principal); R82.90 Unspecified abnormal findings in urine
CPT/HCPCS: 81001; 87077; 87086; 87186

== ENCOUNTER → 2023-02-23 16:02 | Outpatient (ROUT) | payer OTHER, MEDICAID, SELFPAY ==
[2021-09-19 15:36] VITALS: BMI 25.4
[2023-02-23 16:13] LABS: Appearance Urine UA CLEAR; Bilirubin Urine UA NEGATIVE (NEGATIVE); Color Urine UA YELLOW; Glucose Urine UA NEGATIVE (Negative); Ketones Urine UA NEGATIVE (NEGATIVE); Leukocyte Esterase Urine UA 2+ (NEGATIVE); Nitrite Urine UA NEGATIVE (Negative); Occult Blood Urine UA 3+ (Negative); Protein Urine UA TRACE (Negative); Specific Gravity Urine UA 1.015 (1.000-1.035)
[2023-02-23 16:30] LABS: Bacteria Urine Moderate (10-30); Culture Indicated Urine Specimen Cultured; RBC Urine 30-100/HPF (0-5/HPF); Squamous Epithelial Cell Urine None Seen (0-5/HPF); WBC Urine 5-10/HPF (0-5/HPF)
== END ==
PROVIDERS: PCP Family Medicine; Visit Provider Internal Medicine
DX: N39.0 Urinary tract infection, site not specified (principal)
CPT/HCPCS: 81001; 87086

== ENCOUNTER → 2023-03-25 22:07 | Outpatient (ROUT) | payer OTHER, MEDICAID, SELFPAY ==
[2021-09-19 15:36] VITALS: BMI 25.4
[2023-03-25 22:49] LABS: Appearance Urine UA SL CLOUDY; Bilirubin Urine UA NEGATIVE (NEGATIVE); Glucose Urine UA NEGATIVE (Negative); Ketones Urine UA NEGATIVE (NEGATIVE); Leukocyte Esterase Urine UA 2+ (NEGATIVE); Nitrite Urine UA POSITIVE (Negative); Occult Blood Urine UA 3+ (Negative); Protein Urine UA 2+ (Negative); Specific Gravity Urine UA 1.025 (1.000-1.035); pH Urine UA 6.5 (4.5-8.0)
[2023-03-25 23:31] LABS: Bacteria Urine Many (>30); Color Urine UA YELLOW; RBC Urine 5-10/HPF (0-5/HPF); WBC Urine 30-100/HPF (0-5/HPF)
[2023-03-25 23:32] LABS: Culture Indicated Urine Specimen Cultured; Squamous Epithelial Cell Urine n (0-5/HPF)
== END ==
PROVIDERS: PCP Family Medicine; Visit Provider Internal Medicine
DX: Z00.00 Encounter for general adult medical examination without abnormal findings (principal)
CPT/HCPCS: 81001; 87077; 87086; 87186

== ENCOUNTER 2023-04-23 11:38 | Emergency (ER) | payer OTHER, MEDICAID, SELFPAY ==
[2021-09-19 15:36] VITALS: BMI 25.4
[2023-04-23 11:40] VITALS: BP 144/79; PULSE 65; RESP 16; TEMP 36.9; O2SAT 97; BMI 24.3
--- NOTE | 2023-04-23 12:09 | ED_ITS ---
HPI - Male Genitourinary <Edna Coronado PA-C - Last Filed: 04/23/23 12:15> General Chief complaint: Urogenital-Male Stated complaint: hematuria/catheter placed last night Time Seen by Provider: 04/23/23 11:59 Source: patient and EMS Mode of arrival: EMS History of Present Illness HPI Narrative: Patient is a 62-year-old male with a history of CVA and right-sided deficit with chronic indwelling Padron presents with hematuria and penile pain. His Padron catheter was replaced yesterday at his facility and he subsequently felt pain at the tip of his penis and noticed blood in his urine and a large blood clot in his catheter bag. He does not report any difficult placement of the catheter yesterday or pain at the time of placement. He does not usually have blood in his urine. He has no fever, no abdominal pain, no nausea vomiting. Patient does not take any blood thinners. Related Data Home Medications Medication Instructions Recorded Confirmed acetaminophen 325 mg tablet 650 mg PO Q4H PRN Fever Or Pain 09/21/18 07/23/22 amlodipine 5 mg tablet 10 mg PO DAILY 09/21/18 07/23/22 aspirin 81 mg tablet,delayed 81 mg PO DAILY 09/21/18 07/23/22 release cholecalciferol (vitamin D3) 25 1,000 unit PO DAILY 09/21/18 07/23/22 mcg (1,000 unit) tablet (Vitamin D3) docusate sodium 100 mg capsule 100 mg PO BID 09/21/18 07/23/22 fluoxetine 10 mg tablet 10 mg PO DAILY 09/21/18 07/23/22 sennosides 8.6 mg tablet (senna) 8.6 mg PO DAILY 09/21/18 07/23/22 atorvastatin 20 mg tablet 20 mg PO BEDTIME 07/12/21 07/23/22 cyanocobalamin (vitamin B-12) 1,000 mcg PO DAILY 07/12/21 07/23/22 1,000 mcg capsule ondansetron 4 mg disintegrating 4 mg PO Q4H PRN Nausea 07/12/21 07/23/22 tablet magnesium hydroxide 400 mg/5 mL 5 ml PO DAILY PRN Constipation 09/05/21 07/23/22 oral suspension (Milk of Magnesia) nystatin 100,000 unit/gram topical 1 applic topical DAILY 09/05/21 07/23/22 powder Previous Rx's Medication Instructions Recorded oxycodone 5 mg tablet 5 mg PO Q4H PRN pain #14 tabs 10/19/21 Allergies Allergy/AdvReac Type Severity Reaction Status Date / Time Penicillins Allergy Intermediate Rash over Verified 01/11/23 11:44 body tetracycline Allergy Unknown Verified 01/11/23 11:44 Review of Systems <Edna Coronado PA-C - Last Filed: 04/23/23 12:15> Review of Systems ROS Unobtainable: All systems reviewed & are unremarkable except as noted in HPI and below Patient History <Edna Coronado PA-C - Last Filed: 04/23/23 12:15> Medical History Depression History of CVA (cerebrovascular accident) History of nephrolithiasis Hyperlipidemia Hypertension Obstruction of right ureteropelvic junction (UPJ) due to stone Retained ureteral stent Retained ureteral stent Right renal stone Surgical History History of cholecystectomy (07/13/21) Hx of cystoscopy (09/07/21) S/P right knee arthroscopy Family History Father Heart disease Social History household members: other Smoking Status: Former smoker Tobacco: How many years used: 15 alcohol intake: former caffeine: No Smoking Status: Former smoker alcohol intake frequency: holidays/special occasions only Substance Use Type: does not use Exam <Edna Coronado PA-C - Last Filed: 04/23/23 12:15> Narrative Exam Narrative: GENERAL: 62 year old patient appears stated age. Well-developed patient, in no distress. NEURO: AOx3. HEAD: Atraumatic. Normocephalic. EYES: Pupils equal round and reactive. RESPIRATORY: No distress GASTROINTESTINAL: Abdomen soft, non-tender, nondistended. No suprapubic pain. : No skin breakdown or lesions at the urethral meatus. Padron catheter is actively draining yellow urine with visible blood clots. SKIN: No rash or erythema of visible areas. Bandage over skin tear on the right elbow. Initial Vital Signs Initial Vital Signs: Vital Signs Temperature 98.5 F 04/23/23 11:40 Pulse Rate 65 04/23/23 11:40 Respiratory Rate 16 04/23/23 11:40 Blood Pressure 144/79 H 04/23/23 11:40 Pulse Oximetry 97 04/23/23 11:40 Oxygen Delivery Method Room Air 04/23/23 11:40 <Brock Veloz MD - Last Filed: 05/01/23 08:30> Initial Vital Signs Initial Vital Signs: Vital Signs Temperature 98.5 F 04/23/23 11:40 Pulse Rate 65 04/23/23 11:40 Respiratory Rate 16 04/23/23 11:40 Blood Pressure 144/79 H 04/23/23 11:40 Pulse Oximetry 97 04/23/23 11:40 Oxygen Delivery Method Room Air 04/23/23 11:40 Course <Edna Coronado PA-C - Last Filed: 04/23/23 12:15> Orders Ordered: Discontinued Medications Oxybutynin (Oxybutynin 5 Mg Tablet) 5 mg PO DAILY [facility] Last Admin: 04/23/23 13:27 Dose: 5 mg Documented By: AMV Vital Signs Vital signs: Vital Signs - 8 hr 04/23/23 11:40 Temperature 98.5 F Pulse Rate 65 Respiratory Rate 16 Blood Pressure 144/79 H Pulse Oximetry 97 Oxygen Delivery Method Room Air <Brock Veloz MD - Last Filed: 05/01/23 08:30> Orders Ordered: Discontinued Medications Oxybutynin (Oxybutynin 5 Mg Tablet) 5 mg PO DAILY [facility] Last Admin: 04/23/23 13:27 Dose: 5 mg Documented By: AMV Vital Signs Vital signs: Vital Signs - 8 hr 04/23/23 11:40 Temperature 98.5 F Pulse Rate 65 Respiratory Rate 16 Blood Pressure 144/79 H Pulse Oximetry 97 Oxygen Delivery Method Room Air MDM - Male Genitourinary <Edna Coronado PA-C - Last Filed: 04/23/23 12:15> MDM Narrative Medical decision making narrative: Multiple etiologies for patient's symptoms considered including, but not limited to: Traumatic catheter placement causing urethral or bladder bleeding, neoplasm of the bladder. Bladder scan with scant urine consistent with fully that is draining. Will attempt catheter irrigation and repositioning. Patient's symptoms improved over duration of stay with above-stated therapies. Findings and discharge diagnosis discussed with patient/family followed by verbalization of understanding Return precautions discussed with patient/family whom verbalize understanding of diagnosis and plan Discharge Plan Departure Patient Disposition: Assisted Living Clinical Impression: Trauma of urethra Qualifiers: Encounter type: initial encounter Qualified Code(s): S37.30XA - Unspecified injury of urethra, initial encounter Hematuria Qualifiers: Hematuria type: gross Qualified Code(s): R31.0 - Gross hematuria Instructions: DI for Hematuria Activity Restrictions/Additional Instructions: *You have been diagnosed with hematuria likely secondary to Padron catheter malposition. Catheter was flushed and repositioned while in emergency room. Yo u were given a dose of an antispasmodic agent to help calm down your bladder spasms. You may continue to have some blood in your urine for the next several days but it should be getting less and less. The pain should improve over the next several days. If you continue to notice significant bleeding or experienced significant pain, you should return to the emergency department. Please follow-up with your primary care as scheduled. *What to do: *Please continue to take your regular medications as directed. [ ] New medication prescriptions sent to your pharmacy: [ ] [ ] New medication written as a paper prescription [x ] No new medications given *Please follow up with your primary care provider in 2-3 days, call for an appointment. Let them know you were seen in the Emergency Department and that we ask that you be seen in follow up. We will electronically transmit a record of today's note if your PCP is in our system *If you do not have a primary care provider please contact the [facility] Resource line at [phone]. They will ask some questions about your medical history and help get you set up with a doctor in the community. *Return to Emergency Department if you should have any new, worsening or concerning symptoms, such as [fever greater than 101 F, shaking chills, worsening pain, persistent vomiting or other concerning symptoms]. Prescriptions: No Action sennosides [senna] 8.6 mg Tablet 8.6 mg PO DAILY acetaminophen 325 mg Tablet 650 mg PO Q4H PRN (Reason: Fever Or Pain) Rx Instructions: pain level 1-3 or fever >100.1 fluoxetine 10 mg Tablet 10 mg PO DAILY amlodipine 5 mg Tablet 10 mg PO DAILY aspirin 81 mg Tablet,Delayed Release (Dr/Ec) 81 mg PO DAILY docusate sodium 100 mg Capsule 100 mg PO BID Rx Instructions: hold if loose stools cholecalciferol (vitamin D3) [Vitamin D3] 1,000 unit Tablet 1,000 unit PO DAILY atorvastatin 20 mg Tablet 20 mg PO BEDTIME ondansetron 4 mg Tablet,Disintegrating 4 mg PO Q4H PRN (Reason: Nausea) cyanocobalamin (vitamin B-12) 1,000 mcg Capsule 1,000 mcg PO DAILY oxycodone 5 mg tablet 5 mg PO Q4H PRN (Reason: pain) Qty: 14 0RF nystatin 100,000 unit/gram powder 1 applic topical DAILY magnesium hydroxide [Milk of Magnesia] 400 mg/5 mL suspension 5 ml PO DAILY PRN (Reason: Constipation) Medication counseling provided by Pharmacist: No Referrals: Gee Arriaga MD [Primary Care Provider] - SNF Discharge Plan Transfer to: [facility] I certify the postop hospital long term care is medically necessary on a continuing basis for any conditions for which he/ she received care during this hospitalization.: Yes The receiving facility has agreed to accept transfer and provide medical treatment.: Yes Discharge Health Status Precautions: [place] Diet/Activity/Treatments Catheter: 2-way Padron <Brock Veloz MD - Last Filed: 05/01/23 08:30> Cosign ED Attending Cosignature Attestation: I was immediately available in the department for consultation. ?This documentation has been reviewed and I agree with assessment and plan. Supervised by Brock Veloz MD
--- NOTE | 2023-04-23 12:26 | PC.NURSE ---
went in to room to reposition catheter and flush. when pulling back on balloon, this nurse found only 3ml in the balloon. advanced catheter and filled balloon with 10cc NS. catheter then appeared much more advance than found. some drainage of blood clots noticed escaping from tip of penis. flushed patient's bladder with 30cc NS and 50cc returned. small blood clots and some pink noticed in return. 2nd syringe of 60cc flushed into bladder with return of 60 clear fluid, no clots. 3rd syring of 50cc flushed into bladder with clear return and not clots. informed provider of procedure and outcomes.
[2023-04-23] MEDS: OXYBUTYNIN 5 MG TABLET PO (13:27)
[2023-04-23 13:59] VITALS: BP 129/69; PULSE 61; RESP 16; O2SAT 96
== END 2023-04-23 14:00 ==
PROVIDERS: Emergency Provider Physician Assistant; PCP Family Medicine
DX: S37.30XA Unspecified injury of urethra, initial encounter (principal); R31.9 Hematuria, unspecified
CPT/HCPCS: 51798; 99283

== ENCOUNTER 2023-05-01 00:46 | Emergency (ER) | payer OTHER, MEDICAID, SELFPAY ==
[2021-09-19 15:36] VITALS: BMI 25.4
[2023-05-01 00:57] VITALS: BP 165/94; PULSE 114; RESP 23; TEMP 37.2; O2SAT 95; BMI 25.2
[2023-05-01] MEDS: LIDOCAINE 2% (GLYDO) 6 ML GEL TOP (01:07)
[2023-05-01 01:08] VITALS: PULSE 91; O2SAT 95
--- NOTE | 2023-05-01 01:08 | PC.NURSE ---
Facility catheter removed. Replaced with 20fr coude with no complications. 500ml output noted. Urine collected and sent to lab. Pt with immediate relief.
[2023-05-01 01:10] VITALS: BP 120/68; PULSE 90; O2SAT 95
[2023-05-01 01:12] LABS: Bilirubin Urine UA NEGATIVE (NEGATIVE); Color Urine UA YELLOW; Glucose Urine UA NEGATIVE (Negative); Ketones Urine UA NEGATIVE (NEGATIVE); Leukocyte Esterase Urine UA 3+ (NEGATIVE); Nitrite Urine UA POSITIVE (Negative); Occult Blood Urine UA TRACE-INTACT (Negative); Protein Urine UA TRACE (Negative); Specific Gravity Urine UA 1.015 (1.000-1.035)
[2023-05-01 01:16] LABS: Appearance Urine UA Slightly Cloudy
[2023-05-01 01:18] LABS: Bacteria Urine Many (>30); RBC Urine 0-1/HPF (0-5/HPF); WBC Urine 30-100/HPF (0-5/HPF)
[2023-05-01 01:19] LABS: Culture Indicated Urine Specimen Cultured; Squamous Epithelial Cell Urine None Seen (0-5/HPF)
[2023-05-01 01:30] VITALS: BP 114/70; PULSE 86; O2SAT 94
--- NOTE | 2023-05-01 01:46 | ED.MALEGU ---
HPI - Male Genitourinary General Chief complaint: Urogenital-Male Stated complaint: Catheter not draining, Lower abdomen pain Time Seen by Provider: 05/01/23 01:01 Source: patient and EMS Mode of arrival: EMS History of Present Illness HPI Narrative: Patient is a 62-year-old male history of CVA chronic indwelling Padron catheter multidrug resistant organisms presents today with Padron catheter problem. Was previously seen on February 20 with hematuria and previously January 11. He is afebrile he is overall a poor historian. He was having some abdominal discomfort way 1st came in due to malfunctioning Padron catheter. Once Padron has been changed pain is improved and so his heart rate. Related Data Home Medications Medication Instructions Recorded Confirmed acetaminophen 325 mg tablet 650 mg PO Q4H PRN Fever Or Pain 09/21/18 07/23/22 amlodipine 5 mg tablet 10 mg PO DAILY 09/21/18 07/23/22 aspirin 81 mg tablet,delayed 81 mg PO DAILY 09/21/18 07/23/22 release cholecalciferol (vitamin D3) 25 1,000 unit PO DAILY 09/21/18 07/23/22 mcg (1,000 unit) tablet (Vitamin D3) docusate sodium 100 mg capsule 100 mg PO BID 09/21/18 07/23/22 fluoxetine 10 mg tablet 10 mg PO DAILY 09/21/18 07/23/22 sennosides 8.6 mg tablet (senna) 8.6 mg PO DAILY 09/21/18 07/23/22 atorvastatin 20 mg tablet 20 mg PO BEDTIME 07/12/21 07/23/22 cyanocobalamin (vitamin B-12) 1,000 mcg PO DAILY 07/12/21 07/23/22 1,000 mcg capsule ondansetron 4 mg disintegrating 4 mg PO Q4H PRN Nausea 07/12/21 07/23/22 tablet magnesium hydroxide 400 mg/5 mL 5 ml PO DAILY PRN Constipation 09/05/21 07/23/22 oral suspension (Milk of Magnesia) nystatin 100,000 unit/gram topical 1 applic topical DAILY 09/05/21 07/23/22 powder Previous Rx's Medication Instructions Recorded oxycodone 5 mg tablet 5 mg PO Q4H PRN pain #14 tabs 10/19/21 Allergies Allergy/AdvReac Type Severity Reaction Status Date / Time Penicillins Allergy Intermediate Rash over Verified 01/11/23 11:44 body tetracycline Allergy Unknown Verified 01/11/23 11:44 Review of Systems Review of Systems ROS Unobtainable: All systems reviewed & are unremarkable except as noted in HPI and below Patient History Medical History Depression History of CVA (cerebrovascular accident) History of nephrolithiasis Hyperlipidemia Hypertension Obstruction of right ureteropelvic junction (UPJ) due to stone Retained ureteral stent Retained ureteral stent Right renal stone Surgical History History of cholecystectomy (07/13/21) Hx of cystoscopy (09/07/21) S/P right knee arthroscopy Family History Father Heart disease Social History household members: other Smoking Status: Former smoker Tobacco: How many years used: 15 alcohol intake: former caffeine: No Smoking Status: Former smoker alcohol intake frequency: holidays/special occasions only Substance Use Type: does not use Exam Initial Vital Signs Initial Vital Signs: Vital Signs Temperature 98.9 F 05/01/23 00:57 Pulse Rate 114 H 05/01/23 00:57 Respiratory Rate 23 05/01/23 00:57 Blood Pressure 165/94 H 05/01/23 00:57 Pulse Oximetry 95 05/01/23 00:57 Oxygen Delivery Method Room Air 05/01/23 00:57 GENERAL: Alert 62-year-old male that baseline CARDIOVASCULAR: peripheral pulses in tact, cap refill <2 sec RESPIRATORY: No respiratory distress, speaks in full sentences without difficulty ABDOMEN: Soft, nontender, no guarding or rebound : Padron catheter that has now been replaced significant clouding it does drain gross blood EXTREMITIES: Normal range of motion, no clubbing or edema. Neurovascularly intact NEUROLOGICAL: A&O x 3 SKIN: Warm, dry, no petechiae, no rashes or lesions. Course Orders Ordered: ED Orders 05/01/23 01:01 Urinalysis and Microscopic Stat Urine Culture Stat Discontinued Medications Lidocaine HCl (Lidocaine 2% (Glydo) 6 Ml Gel) 6 ml TOP NOW ONE Stop: 05/01/23 01:06 Last Admin: 05/01/23 01:07 Dose: 6 ml Documented By: Vital Signs Vital signs: Vital Signs - 8 hr 05/01/23 00:57 05/01/23 01:08 05/01/23 01:10 Temperature 98.9 F Pulse Rate 114 H 91 H 90 Respiratory Rate 23 Blood Pressure 165/94 H Pulse Oximetry 95 95 95 Oxygen Delivery Method Room Air 05/01/23 01:10 05/01/23 01:30 05/01/23 01:30 Temperature Pulse Rate 86 Respiratory Rate Blood Pressure 120/68 114/70 Pulse Oximetry 94 Oxygen Delivery Method Room Air 05/01/23 02:00 05/01/23 02:00 Temperature Pulse Rate 82 Respiratory Rate Blood Pressure 117/71 Pulse Oximetry 93 Oxygen Delivery Method Room Air MDM - Male Genitourinary Lab Data Labs: Lab Results 05/01/23 Range/Units 01:01 Urine Color Yellow Urine Appearance Slightly cloudy Urine pH 8.0 (4.5-8.0) Ur Specific [place] 1.015 (1.000-1.035) Urine Protein Trace H (Negative) Urine Glucose (UA) Negative (Negative) g/dL Urine Ketones Negative (NEGATIVE) Urine Occult Blood Trace-intact (Negative) Urine Nitrate Positive H (Negative) Urine Bilirubin Negative (NEGATIVE) Urine Urobilinogen 1.0 (0.2) E.U./dL Ur Leukocyte Esterase 3+ H (NEGATIVE) Urine RBC 0-1/hpf (0-5/HPF) Urine WBC 30-100/hpf H (0-5/HPF) Ur Squamous Epith Cells None seen (0-5/HPF) Urine Bacteria Many (>30) H (None) Ur Culture Indicated? 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 It has been switched urinalysis sent. Recommend waiting for UA before starting antibiotics. Possible colonization as well. Although quite significant amount of sedimentation Discharge Plan Departure Patient Disposition: Home Clinical Impression: Complication of Padron catheter Instructions: How to Catheterize Yourself -- for Men Activity Restrictions/Additional Instructions: *You have been diagnosed with catheter problem *What to do: No antibiotics but wait for culture in 2-3 days *Continue to take medications as directed *Follow up with your primary care provider in 2-3 days or call [phone] *Return to ER if you should have Padron catheter problem, hematuria or any new, worsening or concerning symptoms Prescriptions: No Action sennosides [senna] 8.6 mg Tablet 8.6 mg PO DAILY acetaminophen 325 mg Tablet 650 mg PO Q4H PRN (Reason: Fever Or Pain) Rx Instructions: pain level 1-3 or fever >100.1 fluoxetine 10 mg Tablet 10 mg PO DAILY amlodipine 5 mg Tablet 10 mg PO DAILY aspirin 81 mg Tablet,Delayed Release (Dr/Ec) 81 mg PO DAILY docusate sodium 100 mg Capsule 100 mg PO BID Rx Instructions: hold if loose stools cholecalciferol (vitamin D3) [Vitamin D3] 1,000 unit Tablet 1,000 unit PO DAILY atorvastatin 20 mg Tablet 20 mg PO BEDTIME ondansetron 4 mg Tablet,Disintegrating 4 mg PO Q4H PRN (Reason: Nausea) cyanocobalamin (vitamin B-12) 1,000 mcg Capsule 1,000 mcg PO DAILY oxycodone 5 mg tablet 5 mg PO Q4H PRN (Reason: pain) Qty: 14 0RF nystatin 100,000 unit/gram powder 1 applic topical DAILY magnesium hydroxide [Milk of Magnesia] 400 mg/5 mL suspension 5 ml PO DAILY PRN (Reason: Constipation) Referrals: Gee Arriaga MD [Primary Care Provider] - Stand Alone Forms: Patient Portal/API
[2023-05-01 02:00] VITALS: BP 117/71; PULSE 82; O2SAT 93
== END 2023-05-01 02:30 | disposition home or self-care (01) ==
PROVIDERS: Emergency Provider Emergency Medicine; PCP Family Medicine
DX: T83.9XXA Unspecified complication of genitourinary prosthetic device, implant and graft, initial encounter (principal); B96.89 Other specified bacterial agents as the cause of diseases classified elsewhere; Z16.24 Resistance to multiple antibiotics
CPT/HCPCS: 51702; 81001; 87077; 87086; 87186; 99283

== ENCOUNTER → 2023-05-20 21:43 | Outpatient (ROUT) | payer OTHER, MEDICAID, SELFPAY ==
[2021-09-19 15:36] VITALS: BMI 25.4
[2023-05-20 21:56] LABS: Bilirubin Urine UA NEGATIVE (NEGATIVE); Color Urine UA YELLOW; Glucose Urine UA NEGATIVE (Negative); Ketones Urine UA NEGATIVE (NEGATIVE); Leukocyte Esterase Urine UA 3+ (NEGATIVE); Nitrite Urine UA POSITIVE (Negative); Occult Blood Urine UA 3+ (Negative); Protein Urine UA 3+ (Negative); Urobilinogen Urine UA 0.2 E.U./dL (0.2); pH Urine UA 7.5 (4.5-8.0)
[2023-05-20 21:57] LABS: Appearance Urine UA CLOUDY
[2023-05-20 22:17] LABS: Bacteria Urine Moderate (10-30); Culture Indicated Urine Specimen Cultured; RBC Urine 10-30/HPF (0-5/HPF); Squamous Epithelial Cell Urine None Seen (0-5/HPF); WBC Urine >100/HPF (0-5/HPF)
== END ==
PROVIDERS: PCP Family Medicine; Visit Provider Internal Medicine
DX: Z13.89 Encounter for screening for other disorder (principal)
CPT/HCPCS: 81001; 87077; 87086; 87186

== ENCOUNTER → 2023-06-02 22:52 | Outpatient (ROUT) | payer OTHER, MEDICAID, SELFPAY ==
[2021-09-19 15:36] VITALS: BMI 25.4
[2023-06-03 01:38] LABS: Bilirubin Urine UA NEGATIVE (NEGATIVE); Color Urine UA YELLOW; Glucose Urine UA NEGATIVE (Negative); Ketones Urine UA NEGATIVE (NEGATIVE); Leukocyte Esterase Urine UA 2+ (NEGATIVE); Nitrite Urine UA POSITIVE (Negative); Occult Blood Urine UA NEGATIVE (Negative); Protein Urine UA 2+ (Negative); pH Urine UA >= 9.0 (4.5-8.0)
[2023-06-03 01:47] LABS: Appearance Urine UA Slightly Cloudy
[2023-06-03 02:00] LABS: Bacteria Urine Many (>30); RBC Urine None Seen (0-5/HPF); Squamous Epithelial Cell Urine None Seen (0-5/HPF); Triple Phosphate Crystal Urine Many; WBC Urine 1-5/HPF (0-5/HPF)
[2023-06-03 02:01] LABS: Culture Indicated Urine Specimen Cultured
== END ==
PROVIDERS: PCP Family Medicine; Visit Provider Internal Medicine
DX: R10.30 Lower abdominal pain, unspecified (principal); R30.0 Dysuria; R50.9 Fever, unspecified
CPT/HCPCS: 81001; 87077; 87086; 87186

== ENCOUNTER → 2023-06-28 14:51 | Outpatient (ROUT) | payer OTHER, MEDICAID, SELFPAY ==
[2021-09-19 15:36] VITALS: BMI 25.4
[2023-06-28 16:04] LABS: Appearance Urine UA CLEAR; Bilirubin Urine UA NEGATIVE (NEGATIVE); Color Urine UA YELLOW; Glucose Urine UA NEGATIVE (Negative); Ketones Urine UA NEGATIVE (NEGATIVE); Leukocyte Esterase Urine UA 3+ (NEGATIVE); Nitrite Urine UA POSITIVE (Negative); Occult Blood Urine UA 2+ (Negative); Protein Urine UA 2+ (Negative); pH Urine UA >= 9.0 (4.5-8.0)
[2023-06-28 16:13] LABS: Bacteria Urine Many (>30); RBC Urine None Seen (0-5/HPF); Squamous Epithelial Cell Urine None Seen (0-5/HPF); WBC Urine 10-30/HPF (0-5/HPF)
[2023-06-28 16:14] LABS: Culture Indicated Urine Specimen Cultured; Triple Phosphate Crystal Urine Few
== END ==
PROVIDERS: PCP Family Medicine; Visit Provider Internal Medicine
DX: R39.89 Other symptoms and signs involving the genitourinary system (principal); R50.9 Fever, unspecified; R82.90 Unspecified abnormal findings in urine
CPT/HCPCS: 81001; 87077; 87086; 87186

== ENCOUNTER → 2023-08-01 02:47 | Outpatient (ROUT) | payer OTHER, MEDICAID, SELFPAY ==
[2021-09-19 15:36] VITALS: BMI 25.4
[2023-08-01 02:55] LABS: Appearance Urine UA SL CLOUDY; Bilirubin Urine UA NEGATIVE (NEGATIVE); Color Urine UA YELLOW; Glucose Urine UA NEGATIVE (Negative); Ketones Urine UA NEGATIVE (NEGATIVE); Leukocyte Esterase Urine UA 1+ (NEGATIVE); Nitrite Urine UA POSITIVE (Negative); Occult Blood Urine UA 1+ (Negative); Protein Urine UA 2+ (Negative)
[2023-08-01 03:40] LABS: Bacteria Urine Moderate (10-30); Culture Indicated Urine Specimen Cultured; Granular Casts Urine 0-1/LPF; RBC Urine 1-5/HPF (0-5/HPF); Squamous Epithelial Cell Urine 0-1 /HPF (0-5/HPF); Triple Phosphate Crystal Urine Few; WBC Urine 30-100/HPF (0-5/HPF)
== END ==
PROVIDERS: PCP Family Medicine; Visit Provider Internal Medicine
DX: Z13.89 Encounter for screening for other disorder (principal)
CPT/HCPCS: 81001; 87077; 87086; 87186

== ENCOUNTER → 2023-08-05 10:31 | Outpatient (ROUT) | payer OTHER, MEDICAID, SELFPAY ==
[2021-09-19 15:36] VITALS: BMI 25.4
[2023-08-05 10:49] LABS: Bilirubin Urine UA NEGATIVE (NEGATIVE); Color Urine UA YELLOW; Glucose Urine UA NEGATIVE (Negative); Ketones Urine UA TRACE (NEGATIVE); Leukocyte Esterase Urine UA 3+ (NEGATIVE); Nitrite Urine UA POSITIVE (Negative); Occult Blood Urine UA TRACE-INTACT (Negative); Protein Urine UA 2+ (Negative); pH Urine UA >= 9.0 (4.5-8.0)
[2023-08-05 11:03] LABS: Appearance Urine UA CLOUDY
[2023-08-05 11:04] LABS: Amorphous Sediment Urine 3+; Bacteria Urine Many (>30); Culture Indicated Urine Specimen Cultured; RBC Urine 0-1/HPF (0-5/HPF); Squamous Epithelial Cell Urine 0-1 /HPF (0-5/HPF); Triple Phosphate Crystal Urine Few; WBC Urine 1-5/HPF (0-5/HPF)
== END ==
PROVIDERS: PCP Family Medicine; Visit Provider Internal Medicine
DX: N39.0 Urinary tract infection, site not specified (principal)
CPT/HCPCS: 81001; 87077; 87086; 87186

== ENCOUNTER → 2023-08-23 22:24 | Outpatient (ROUT) | payer OTHER, MEDICAID, SELFPAY ==
[2021-09-19 15:36] VITALS: BMI 25.4
[2023-08-23 22:31] LABS: Appearance Urine UA CLEAR; Bilirubin Urine UA NEGATIVE (NEGATIVE); Color Urine UA YELLOW; Glucose Urine UA NEGATIVE (Negative); Ketones Urine UA NEGATIVE (NEGATIVE); Leukocyte Esterase Urine UA TRACE (NEGATIVE); Nitrite Urine UA NEGATIVE (Negative); Occult Blood Urine UA 3+ (Negative); Protein Urine UA NEGATIVE (Negative); Specific Gravity Urine UA 1.025 (1.000-1.035); pH Urine UA 5.5 (4.5-8.0)
[2023-08-23 22:42] LABS: RBC Urine 5-10/HPF (0-5/HPF)
[2023-08-23 22:43] LABS: Bacteria Urine Few (2-10); Culture Indicated Urine Specimen Cultured; Squamous Epithelial Cell Urine None Seen (0-5/HPF); WBC Urine 5-10/HPF (0-5/HPF)
== END ==
PROVIDERS: PCP Family Medicine; Visit Provider Internal Medicine
DX: N39.0 Urinary tract infection, site not specified (principal)
CPT/HCPCS: 81001; 87086

== ENCOUNTER → 2023-09-22 18:02 | Outpatient (ROUT) | payer OTHER, MEDICAID, SELFPAY ==
[2021-09-19 15:36] VITALS: BMI 25.4
[2023-09-22 18:12] LABS: Appearance Urine UA CLOUDY; Bilirubin Urine UA NEGATIVE (NEGATIVE); Color Urine UA YELLOW; Glucose Urine UA NEGATIVE (Negative); Ketones Urine UA TRACE (NEGATIVE); Leukocyte Esterase Urine UA 2+ (NEGATIVE); Nitrite Urine UA POSITIVE (Negative); Occult Blood Urine UA 3+ (Negative); Protein Urine UA 2+ (Negative); Specific Gravity Urine UA 1.025 (1.000-1.035); pH Urine UA 6.5 (4.5-8.0)
[2023-09-22 18:20] LABS: Amorphous Sediment Urine 1+; Bacteria Urine Few (2-10); RBC Urine 5-10/HPF (0-5/HPF); Squamous Epithelial Cell Urine 0-1 /HPF (0-5/HPF); Urine Volume 10mL (spun); WBC Urine 5-10/HPF (0-5/HPF)
[2023-09-22 18:21] LABS: Culture Indicated Urine Specimen Cultured
== END ==
PROVIDERS: PCP Family Medicine; Visit Provider Internal Medicine
DX: Z00.00 Encounter for general adult medical examination without abnormal findings (principal)
CPT/HCPCS: 81001; 87077; 87086; 87186

== ENCOUNTER → 2023-10-21 18:46 | Outpatient (ROUT) | payer OTHER, MEDICAID, SELFPAY ==
[2021-09-19 15:36] VITALS: BMI 25.4
[2023-10-21 18:59] LABS: Appearance Urine UA SL CLOUDY; Bilirubin Urine UA NEGATIVE (NEGATIVE); Color Urine UA YELLOW; Glucose Urine UA NEGATIVE (Negative); Ketones Urine UA TRACE (NEGATIVE); Leukocyte Esterase Urine UA 2+ (NEGATIVE); Nitrite Urine UA POSITIVE (Negative); Occult Blood Urine UA 1+ (Negative); Protein Urine UA 1+ (Negative); Specific Gravity Urine UA >=1.030 (1.000-1.035); Urobilinogen Urine UA 0.2 E.U./dL (0.2); pH Urine UA 5.5 (4.5-8.0)
[2023-10-21 19:07] LABS: RBC Urine 0-1/HPF (0-5/HPF); Urine Volume 10mL (spun); WBC Urine 30-100/HPF (0-5/HPF)
[2023-10-21 19:08] LABS: Bacteria Urine Moderate (10-30); Calcium Oxalate Crystals Urine Few; Culture Indicated Urine Specimen Cultured; Mucus Urine 2+ (Negative); Squamous Epithelial Cell Urine 0-1 /HPF (0-5/HPF)
== END ==
PROVIDERS: PCP Family Medicine; Visit Provider Internal Medicine
DX: Z00.00 Encounter for general adult medical examination without abnormal findings (principal)
CPT/HCPCS: 81001; 87077; 87086; 87186

== ENCOUNTER → 2023-11-20 21:16 | Outpatient (ROUT) | payer OTHER, MEDICAID, SELFPAY ==
[2021-09-19 15:36] VITALS: BMI 25.4
[2023-11-20 21:28] LABS: Appearance Urine UA CLOUDY; Bilirubin Urine UA NEGATIVE (NEGATIVE); Color Urine UA YELLOW; Glucose Urine UA NEGATIVE (Negative); Ketones Urine UA NEGATIVE (NEGATIVE); Leukocyte Esterase Urine UA 3+ (NEGATIVE); Nitrite Urine UA POSITIVE (Negative); Occult Blood Urine UA 2+ (Negative); Protein Urine UA 1+ (Negative)
[2023-11-20 21:36] LABS: Bacteria Urine Many (>30); RBC Urine 5-10/HPF (0-5/HPF); Squamous Epithelial Cell Urine 0-1 /HPF (0-5/HPF); Urine Volume Low Vol <10mL unspun; WBC Urine 30-100/HPF (0-5/HPF)
[2023-11-20 21:37] LABS: Calcium Oxalate Crystals Urine Occasional; Culture Indicated Urine Specimen Cultured
== END ==
PROVIDERS: PCP Family Medicine; Visit Provider Internal Medicine
DX: Z00.00 Encounter for general adult medical examination without abnormal findings (principal)
CPT/HCPCS: 81001; 87077; 87086; 87186

== ENCOUNTER → 2023-12-20 23:12 | Outpatient (ROUT) | payer OTHER, MEDICAID, SELFPAY ==
[2021-09-19 15:36] VITALS: BMI 25.4
[2023-12-20 23:19] LABS: Bilirubin Urine UA NEGATIVE (NEGATIVE); Color Urine UA YELLOW; Glucose Urine UA NEGATIVE (Negative); Ketones Urine UA TRACE (NEGATIVE); Leukocyte Esterase Urine UA 2+ (NEGATIVE); Nitrite Urine UA POSITIVE (Negative); Occult Blood Urine UA 3+ (Negative); Protein Urine UA 2+ (Negative)
[2023-12-20 23:22] LABS: Appearance Urine UA SL CLOUDY
[2023-12-20 23:23] LABS: Urine Volume 10mL (spun)
[2023-12-20 23:25] LABS: Bacteria Urine Many (>30); RBC Urine 30-100/HPF (0-5/HPF); Squamous Epithelial Cell Urine 1-5 /HPF (0-5/HPF); Transitional Epi Cells Urine 1-5/HPF (0-5/HPF); WBC Urine 30-100/HPF (0-5/HPF)
[2023-12-20 23:26] LABS: Culture Indicated Urine Specimen Cultured; Mucus Urine 1+ (Negative)
== END ==
PROVIDERS: PCP Family Medicine; Visit Provider Internal Medicine
DX: N39.0 Urinary tract infection, site not specified (principal)
CPT/HCPCS: 81001; 87077; 87086; 87186

== ENCOUNTER → 2023-12-23 07:53 | Outpatient (ROUT) | payer OTHER, MEDICAID, SELFPAY ==
[2021-09-19 15:36] VITALS: BMI 25.4
[2023-12-23 09:48] LABS: Vitamin B12 889 pg/mL (239-931)
== END ==
PROVIDERS: PCP Family Medicine; Visit Provider Nurse Practitioner Gerontology
DX: Z13.9 Encounter for screening, unspecified (principal)
CPT/HCPCS: 36415; 82607

== ENCOUNTER → 2024-01-19 16:46 | Outpatient (ROUT) | payer OTHER, MEDICAID, SELFPAY ==
[2021-09-19 15:36] VITALS: BMI 25.4
[2024-01-19 17:02] LABS: Appearance Urine UA CLEAR; Bilirubin Urine UA NEGATIVE (NEGATIVE); Color Urine UA YELLOW; Glucose Urine UA NEGATIVE (Negative); Ketones Urine UA TRACE (NEGATIVE); Leukocyte Esterase Urine UA 2+ (NEGATIVE); Nitrite Urine UA POSITIVE (Negative); Occult Blood Urine UA 3+ (Negative); Protein Urine UA 2+ (Negative); Specific Gravity Urine UA >=1.030 (1.000-1.035)
[2024-01-19 17:11] LABS: Amorphous Sediment Urine 2+; Bacteria Urine Moderate (10-30); Culture Indicated Urine Specimen Cultured; RBC Urine 5-10/HPF (0-5/HPF); Renal Epithelial Cells Urine 0-1/HPF (0-1/HPF); Squamous Epithelial Cell Urine 0-1 /HPF (0-5/HPF); Urine Volume 10mL (spun); WBC Urine 5-10/HPF (0-5/HPF)
== END ==
PROVIDERS: PCP Family Medicine; Visit Provider Internal Medicine
DX: Z00.00 Encounter for general adult medical examination without abnormal findings (principal)
CPT/HCPCS: 81001; 87077; 87086; 87186

== ENCOUNTER → 2024-02-19 18:52 | Outpatient (ROUT) | payer OTHER, MEDICAID, SELFPAY ==
[2021-09-19 15:36] VITALS: BMI 25.4
[2024-02-19 19:18] LABS: Appearance Urine UA SL CLOUDY; Bilirubin Urine UA NEGATIVE (NEGATIVE); Color Urine UA YELLOW; Glucose Urine UA NEGATIVE (Negative); Ketones Urine UA NEGATIVE (NEGATIVE); Leukocyte Esterase Urine UA 3+ (NEGATIVE); Nitrite Urine UA POSITIVE (Negative); Occult Blood Urine UA 2+ (Negative); Protein Urine UA 1+ (Negative)
[2024-02-19 19:29] LABS: Bacteria Urine Many (>30); Culture Indicated Urine Specimen Cultured; RBC Urine 5-10/HPF (0-5/HPF); Squamous Epithelial Cell Urine 0-1 /HPF (0-5/HPF); Urine Volume 10mL (spun); WBC Urine 30-100/HPF (0-5/HPF)
== END ==
PROVIDERS: PCP Family Medicine; Visit Provider Internal Medicine
DX: Z00.00 Encounter for general adult medical examination without abnormal findings (principal)
CPT/HCPCS: 81001; 87086

== ENCOUNTER → 2024-03-12 22:13 | Outpatient (ROUT) | payer OTHER, MEDICAID, SELFPAY ==
[2021-09-19 15:36] VITALS: BMI 25.4
[2024-03-12 22:23] LABS: Appearance Urine UA CLOUDY; Bilirubin Urine UA NEGATIVE (NEGATIVE); Color Urine UA YELLOW; Glucose Urine UA NEGATIVE (Negative); Ketones Urine UA NEGATIVE (NEGATIVE); Leukocyte Esterase Urine UA 3+ (NEGATIVE); Nitrite Urine UA POSITIVE (Negative); Occult Blood Urine UA 3+ (Negative); Protein Urine UA TRACE (Negative); Specific Gravity Urine UA 1.015 (1.000-1.035)
[2024-03-12 22:31] LABS: Bacteria Urine Many (>30); Culture Indicated Urine Specimen Cultured; RBC Urine 10-30/HPF (0-5/HPF); Squamous Epithelial Cell Urine None Seen (0-5/HPF); Urine Volume 10mL (spun); WBC Urine >100/HPF (0-5/HPF)
== END ==
PROVIDERS: PCP Family Medicine; Visit Provider Internal Medicine
DX: R31.1 Benign essential microscopic hematuria (principal)
CPT/HCPCS: 81001; 87077; 87086; 87186

== ENCOUNTER 2024-03-30 03:45 | Emergency (ER) | payer OTHER, MEDICAID, SELFPAY ==
[2021-09-19 15:36] VITALS: BMI 25.4
[2024-03-30 03:55] VITALS: TEMP 37.5; BMI 23.1
--- NOTE | 2024-03-30 04:02 | PC.NURSE ---
pt has indwelling catheter, was sent from facility for dislodgement of catheter, catheter removed with gross amount of sediment noted in tubing, new catheter inserted without difficulty with about 150 ml cloudy matt colored urine returned
[2024-03-30 04:09] LABS: Appearance Urine UA CLOUDY; Bilirubin Urine UA NEGATIVE (NEGATIVE); Color Urine UA YELLOW; Glucose Urine UA NEGATIVE (Negative); Ketones Urine UA NEGATIVE (NEGATIVE); Leukocyte Esterase Urine UA 3+ (NEGATIVE); Nitrite Urine UA POSITIVE (Negative); Occult Blood Urine UA 1+ (Negative); Protein Urine UA 1+ (Negative); Specific Gravity Urine UA 1.015 (1.000-1.035); pH Urine UA 7.5 (4.5-8.0)
[2024-03-30 04:14] LABS: Bacteria Urine Many (>30); RBC Urine 5-10/HPF (0-5/HPF); Urine Volume 10mL (spun); WBC Urine >100/HPF (0-5/HPF)
[2024-03-30 04:15] LABS: Culture Indicated Urine Specimen Cultured; Squamous Epithelial Cell Urine 0-1 /HPF (0-5/HPF); Triple Phosphate Crystal Urine Occasional
--- NOTE | 2024-03-30 04:15 | ED_ITS ---
HPI - General Adult General Chief complaint: Urogenital-Male Stated complaint: displaced chambers catheter Time Seen by Provider: 03/30/24 03:46 Source: EMS Mode of arrival: EMS History of Present Illness HPI narrative: 63-year-old gentleman with a history of prior stroke, lives at [facility], has a chronic indwelling Chambers catheter that he has been complaining is bothering him. Staff is concerned that it is displaced 911 was called to have not transported to the emergency department for further evaluation. There was no complain of abdominal pain or fever. He has not had nausea or vomiting. Related Data Home Medications Medication Instructions Recorded Confirmed acetaminophen 325 mg tablet 650 mg PO Q4H PRN Fever Or Pain 09/21/18 07/23/22 amlodipine 5 mg tablet 10 mg PO DAILY 09/21/18 07/23/22 aspirin 81 mg tablet,delayed 81 mg PO DAILY 09/21/18 07/23/22 release cholecalciferol (vitamin D3) 25 1,000 unit PO DAILY 09/21/18 07/23/22 mcg (1,000 unit) tablet (Vitamin D3) docusate sodium 100 mg capsule 100 mg PO BID 09/21/18 07/23/22 fluoxetine 10 mg tablet 10 mg PO DAILY 09/21/18 07/23/22 sennosides 8.6 mg tablet (senna) 8.6 mg PO DAILY 09/21/18 07/23/22 atorvastatin 20 mg tablet 20 mg PO BEDTIME 07/12/21 07/23/22 cyanocobalamin (vitamin B-12) 1,000 mcg PO DAILY 07/12/21 07/23/22 1,000 mcg capsule ondansetron 4 mg disintegrating 4 mg PO Q4H PRN Nausea 07/12/21 07/23/22 tablet magnesium hydroxide 400 mg/5 mL 5 ml PO DAILY PRN Constipation 09/05/21 07/23/22 oral suspension (Milk of Magnesia) nystatin 100,000 unit/gram topical 1 applic topical DAILY 09/05/21 07/23/22 powder Previous Rx's Medication Instructions Recorded oxycodone 5 mg tablet 5 mg PO Q4H PRN pain #14 tabs 10/19/21 Allergies Allergy/AdvReac Type Severity Reaction Status Date / Time Penicillins Allergy Intermediate Rash over Verified 01/11/23 11:44 body tetracycline Allergy Unknown Verified 01/11/23 11:44 Patient History Medical History Depression History of CVA (cerebrovascular accident) History of nephrolithiasis Hyperlipidemia Hypertension Obstruction of right ureteropelvic junction (UPJ) due to stone Retained ureteral stent Retained ureteral stent Right renal stone Surgical History History of cholecystectomy (07/13/21) Hx of cystoscopy (09/07/21) S/P right knee arthroscopy Family History Father Heart disease Social History household members: other Smoking Status: Former smoker Tobacco: How many years used: 15 alcohol intake: former caffeine: No Smoking Status: Former smoker alcohol intake frequency: holidays/special occasions only Substance Use Type: does not use Exam Initial Vital Signs Initial Vital Signs: Vital Signs Temperature 99.5 F 03/30/24 03:55 General: Alert , no acute distress Respiratory: Able to speak in full sentences, no obvious respiratory distress Abdomen is soft nontender nondistended Genitourinary: He does have an indwelling Chambers catheter with purulent discharge from the glands. He is some irritation in the right side of his groin and flank that initially it was concerned could be zoster but looks like it is skin irritation and abrasion from where his brief is and where the brief has been pulled trying to help him adjust his position in bed. The Chambers catheter is leaking and his groin and scrotum are somewhat macerated secondary to the moisture. Course Orders Ordered: ED Orders 03/30/24 03:55 Urinalysis and Microscopic Stat Vital Signs Vital signs: Vital Signs - 8 hr 03/30/24 03:55 Temperature 99.5 F Medical Decision Making Lab Data Labs: Lab Results 03/30/24 Range/Units 03:55 Urine Color Yellow Urine Appearance Cloudy Urine pH 7.5 (4.5-8.0) Ur Specific [place] 1.015 (1.000-1.035) Urine Protein 1+ H (Negative) Urine Glucose (UA) Negative (Negative) g/dL Urine Ketones Negative (NEGATIVE) Urine Occult Blood 1+ H (Negative) Urine Nitrate Positive H (Negative) Urine Bilirubin Negative (NEGATIVE) Urine Urobilinogen 1.0 (0.2) E.U./dL Ur Leukocyte Esterase 3+ H (NEGATIVE) MDM Narrative Medical decision making narrative: CC: Chambers catheter concern Complicating co-morbidities: Chronic indwelling Chambers, history of multidrug resistant organism, retained ureteral stent for urology notes, currently living in a care facility post CVA Data collected from: patient, medics, halfway note available Social determinants of health that may influence the patients condition: Currently lives at [facility] Medical records reviewed: Prior ER in urology notes with similar complaints reviewed Differential considered: Symptomatic UTI, balanitis, zoster, leaking Chambers with irritation due to chronic moisture, Suresh's gangrene Exam documented above, pertinent findings include: Pleasant gentleman post stroke sequelae. No abdominal pain. Abrasions to the right side of the groin and hip from his brief and where it his rubbed. Purulent discharge from his penis, drainage around the Chambers catheter irritated scrotum due to chronic moisture Lab Test results independently reviewed as above. Pertinent findings: Urinalysis is positive for leukocytes red cells white cells bacteria and is exactly the same as it has been with multiple prior urinalyses Treatments: Chambers catheter is replaced. There is approximately 4-5 cm of sedimentation in the proximal portion of the Chambers blocking it which is what was causing the leaking and likely discomfort. With the new Chambers in place it is draining nicely and patient was not complaining of any additional irritation. Discussion: 63-year-old gentleman lives at [facility] chronic indwelling Chambers catheter with multidrug resistant bacteria cultured each time cultures obtained. There is significant debris/sediment within the Chambers catheter which is why it was not draining. New Chambers catheter was placed without difficulty. As patient does not have a fever, abdominal pain and once catheter was replaced and genitals were cleaned and dried he has having no additional irritation or pain will opt to not treat with any antibiotics given the absence of clinical signs or symptoms of significant urinary tract infection. He is safe to return to his half-way facility Discharge Plan Departure Patient Disposition: Home Clinical Impression: Complication, blocked Chambers catheter Qualifiers: Encounter type: initial encounter Qualified Code(s): T83.091A - Other mechanical complication of indwelling urethral catheter, initial encounter Activity Restrictions/Additional Instructions: Thank you for coming in today Your catheter had quite a bit of debris stuck in the middle of the catheter which is why it was not draining and you are having such discomfort We replaced the catheter in your bladder seems to be draining nicely at this point. You are not complaining any additional pain once the catheter was replaced and your genitals were cleaned and dried We did culture your urine based on the multidrug resistant bacteria that have grown out previously in the absence of obvious signs of clinical urinary tract infection I am going to opt to not treat with any antibiotics today If there are additional concerns please feel free to return to the ER Prescriptions: No Action sennosides [senna] 8.6 mg Tablet 8.6 mg PO DAILY acetaminophen 325 mg Tablet 650 mg PO Q4H PRN (Reason: Fever Or Pain) Rx Instructions: pain level 1-3 or fever >100.1 fluoxetine 10 mg Tablet 10 mg PO DAILY amlodipine 5 mg Tablet 10 mg PO DAILY aspirin 81 mg Tablet,Delayed Release (Dr/Ec) 81 mg PO DAILY docusate sodium 100 mg Capsule 100 mg PO BID Rx Instructions: hold if loose stools cholecalciferol (vitamin D3) [Vitamin D3] 1,000 unit Tablet 1,000 unit PO DAILY atorvastatin 20 mg Tablet 20 mg PO BEDTIME ondansetron 4 mg Tablet,Disintegrating 4 mg PO Q4H PRN (Reason: Nausea) cyanocobalamin (vitamin B-12) 1,000 mcg Capsule 1,000 mcg PO DAILY oxycodone 5 mg tablet 5 mg PO Q4H PRN (Reason: pain) Qty: 14 0RF nystatin 100,000 unit/gram powder 1 applic topical DAILY magnesium hydroxide [Milk of Magnesia] 400 mg/5 mL suspension 5 ml PO DAILY PRN (Reason: Constipation) Referrals: Gee Arriaga MD [Primary Care Provider] - Stand Alone Forms: Patient Portal/API
[2024-03-30 05:24] VITALS: BP 128/78; PULSE 70; RESP 14; TEMP 37.3; O2SAT 96
== END 2024-03-30 05:25 | disposition home or self-care (01) ==
PROVIDERS: Emergency Provider Emergency Medicine; PCP Family Medicine
DX: T83.091A Other mechanical complication of indwelling urethral catheter, initial encounter (principal)
CPT/HCPCS: 81001; 87077; 87086; 99283

== ENCOUNTER → 2024-04-27 19:08 | Outpatient (ROUT) | payer OTHER, MEDICAID, SELFPAY ==
[2021-09-19 15:36] VITALS: BMI 25.4
[2024-04-27 19:23] LABS: Appearance Urine UA SL CLOUDY; Bilirubin Urine UA NEGATIVE (NEGATIVE); Color Urine UA YELLOW; Glucose Urine UA NEGATIVE (Negative); Ketones Urine UA NEGATIVE (NEGATIVE); Leukocyte Esterase Urine UA 3+ (NEGATIVE); Nitrite Urine UA POSITIVE (Negative); Occult Blood Urine UA 2+ (Negative); Protein Urine UA TRACE (Negative)
[2024-04-27 19:40] LABS: Bacteria Urine Many (>30); Culture Indicated Urine Specimen Cultured; RBC Urine 1-5/HPF (0-5/HPF); Squamous Epithelial Cell Urine 0-1 /HPF (0-5/HPF); Urine Volume 10mL (spun); WBC Urine 30-100/HPF (0-5/HPF)
== END ==
PROVIDERS: PCP Family Medicine; Visit Provider Internal Medicine
DX: Z00.00 Encounter for general adult medical examination without abnormal findings (principal)
CPT/HCPCS: 81001; 87086

== ENCOUNTER 2024-04-30 04:53 | Emergency (ER) | payer OTHER, MEDICAID, SELFPAY ==
[2021-09-19 15:36] VITALS: BMI 25.4
[2024-04-30] VITALS (12 sets, daily range): BP systolic 124–154; BP diastolic 73–87; PULSE 77–140; RESP 14–22; TEMP 36.6–36.8; O2SAT 95–99
--- NOTE | 2024-04-30 05:07 | EKG_ITS ---
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
--- NOTE | 2024-04-30 05:10 | ED_ITS ---
HPI - General Adult <Antonina Arriola MD - Last Filed: 05/04/24 07:49> General Chief complaint: Urogenital-Male Stated complaint: cath site pain Time Seen by Provider: 04/30/24 05:10 Source: patient and EMS Mode of arrival: EMS History of Present Illness HPI narrative: 63-year-old gentleman with a history of prior stroke, hypertension, hyperlipidemia currently lives at [facility] has a Padron catheter in place. Complains that is irritated at the tip. He states that it has not bothered him for over a year however he was seen in the emergency department in March of this year with similar complaints. Staff reported that he had a fever home he is initially afebrile upon arrival in the emergency department but he is somewhat diaphoretic. He will nod yes or no to questions can speak but simply chooses not to. He does have some right-sided deficits after his stroke. He does not indicate that he feels unwell, has chest pain, shortness for breath, abdominal pain, nausea, vomiting or diarrhea Related Data Home Medications Medication Instructions Recorded Confirmed acetaminophen 325 mg tablet 650 mg PO Q4H PRN Fever Or Pain 09/21/18 07/23/22 amlodipine 5 mg tablet 10 mg PO DAILY 09/21/18 07/23/22 aspirin 81 mg tablet,delayed 81 mg PO DAILY 09/21/18 07/23/22 release cholecalciferol (vitamin D3) 25 1,000 unit PO DAILY 09/21/18 07/23/22 mcg (1,000 unit) tablet (Vitamin D3) docusate sodium 100 mg capsule 100 mg PO BID 09/21/18 07/23/22 fluoxetine 10 mg tablet 10 mg PO DAILY 09/21/18 07/23/22 sennosides 8.6 mg tablet (senna) 8.6 mg PO DAILY 09/21/18 07/23/22 atorvastatin 20 mg tablet 20 mg PO BEDTIME 07/12/21 07/23/22 cyanocobalamin (vitamin B-12) 1,000 mcg PO DAILY 07/12/21 07/23/22 1,000 mcg capsule ondansetron 4 mg disintegrating 4 mg PO Q4H PRN Nausea 07/12/21 07/23/22 tablet magnesium hydroxide 400 mg/5 mL 5 ml PO DAILY PRN Constipation 09/05/21 07/23/22 oral suspension (Milk of Magnesia) nystatin 100,000 unit/gram topical 1 applic topical DAILY 09/05/21 07/23/22 powder Previous Rx's Medication Instructions Recorded oxycodone 5 mg tablet 5 mg PO Q4H PRN pain #14 tabs 10/19/21 cefdinir 300 mg capsule 300 mg PO BID 7 days #14 caps 04/30/24 Allergies Allergy/AdvReac Type Severity Reaction Status Date / Time Penicillins Allergy Intermediate Rash over Verified 01/11/23 11:44 body tetracycline Allergy Unknown Verified 01/11/23 11:44 Review of Systems <Antonina Arriola MD - Last Filed: 05/04/24 07:49> Review of Systems Narrative: Pertinent positive and negative findings as per HPI Patient History <Antonina Arriola MD - Last Filed: 05/04/24 07:49> Medical History History of nephrolithiasis Retained ureteral stent Retained ureteral stent Right renal stone Obstruction of right ureteropelvic junction (UPJ) due to stone Depression History of CVA (cerebrovascular accident) Hyperlipidemia Hypertension Surgical History Hx of cystoscopy (09/07/21) History of cholecystectomy (07/13/21) S/P right knee arthroscopy Family History Father Heart disease Social History household members: other Smoking Status: Former smoker Tobacco: How many years used: 15 alcohol intake: former caffeine: No Smoking Status: Former smoker alcohol intake frequency: holidays/special occasions only Substance Use Type: does not use Exam <Antonina Arriola MD - Last Filed: 05/04/24 07:49> Initial Vital Signs Initial Vital Signs: Vital Signs Pulse Rate 131 H 04/30/24 04:55 Pulse Oximetry 96 04/30/24 04:55 General: Chronically ill-appearing but in no acute distress. HEENT: Moist mucous membranes, normal sclera with reactive pupils, Respiratory: Lungs are clear to auscultation, no wheezing no rales no rhonchi. Full and symmetrical air movement Cardiac: Tachycardic but otherwise Regular rate and rhythm no murmurs no bruits Abdomen: Soft, nontender, good bowel tones, no flank pain Skin: Warm and dry, no rashes Neurologic: Deficits on the right side secondary to prior stroke with slow speech response again secondary to prior stroke Extremities: No trauma, no lower extremity edema Psych: Cooperative, : Padron is were placed without difficulty. Quite a bit of sediment in the urine. Heart rate goes down after Padron is placed and it may be that it was causing him more tenderness than we had initially anticipated <Enrrique Carvalho DO - Last Filed: 04/30/24 09:18> Initial Vital Signs Initial Vital Signs: Vital Signs Pulse Rate 131 H 04/30/24 04:55 Pulse Oximetry 96 04/30/24 04:55 Course <Antonina Arriola MD - Last Filed: 05/04/24 07:49> Orders Ordered: Discontinued Medications Sodium Chloride (Normal Saline 0.9%) 1,000 mls @ 1,000 mls/hr IV BOLUS ONE Stop: 04/30/24 06:32 Last Infusion: 04/30/24 07:30 Dose: Infused Documented By: Admin: 04/30/24 06:00 Dose: 1,000 mls/hr Documented By: Ceftriaxone Sodium 2,000 mg/ (Sodium Chloride) 100 mls @ 200 mls/hr IV NOW ONE Stop: 04/30/24 06:55 Last Infusion: 04/30/24 08:43 Dose: Infused Documented By: Admin: 04/30/24 07:23 Dose: 200 mls/hr Documented By: JORGE Lidocaine HCl (Lidocaine 2% (Glydo) 6 Ml Gel) 6 ml TOP NOW ONE Stop: 04/30/24 05:10 Last Admin: 04/30/24 05:15 Dose: 6 ml Documented By: JORGE(2) Vital Signs Vital signs: Vital Signs - 8 hr 04/30/24 04:55 04/30/24 05:00 04/30/24 05:00 Temperature 97.8 F Pulse Rate 131 H 140 H 129 H Respiratory Rate 22 Blood Pressure 141/81 H Pulse Oximetry 96 96 96 Oxygen Delivery Method Room Air 04/30/24 05:00 04/30/24 05:30 04/30/24 05:30 Temperature Pulse Rate 133 H Respiratory Rate 20 Blood Pressure 154/81 H 136/85 Pulse Oximetry 95 Oxygen Delivery Method 04/30/24 06:00 04/30/24 06:00 04/30/24 07:00 Temperature Pulse Rate 98 H 86 Respiratory Rate 21 20 Blood Pressure 124/73 Pulse Oximetry 95 97 Oxygen Delivery Method 04/30/24 07:00 04/30/24 07:30 04/30/24 07:30 Temperature 98.3 F Pulse Rate 82 Respiratory Rate 20 Blood Pressure 139/82 131/79 Pulse Oximetry 97 Oxygen Delivery Method 04/30/24 08:00 04/30/24 08:00 04/30/24 08:30 Temperature Pulse Rate 81 79 Respiratory Rate 19 14 Blood Pressure 140/84 Pulse Oximetry 97 97 Oxygen Delivery Method 04/30/24 08:30 Temperature Pulse Rate Respiratory Rate Blood Pressure 130/81 Pulse Oximetry Oxygen Delivery Method <Enrrique Carvalho, - Last Filed: 04/30/24 09:18> Orders Ordered: Discontinued Medications Sodium Chloride (Normal Saline 0.9%) 1,000 mls @ 1,000 mls/hr IV BOLUS ONE Stop: 04/30/24 06:32 Last Infusion: 04/30/24 07:30 Dose: Infused Documented By: Admin: 04/30/24 06:00 Dose: 1,000 mls/hr Documented By: Ceftriaxone Sodium 2,000 mg/ (Sodium Chloride) 100 mls @ 200 mls/hr IV NOW ONE Stop: 04/30/24 06:55 Last Infusion: 04/30/24 08:43 Dose: Infused Documented By: Admin: 04/30/24 07:23 Dose: 200 mls/hr Documented By: JORGE Lidocaine HCl (Lidocaine 2% (Glydo) 6 Ml Gel) 6 ml TOP NOW ONE Stop: 04/30/24 05:10 Last Admin: 04/30/24 05:15 Dose: 6 ml Documented By: JORGE(2) Vital Signs Vital signs: Vital Signs - 8 hr 04/30/24 04:55 04/30/24 05:00 04/30/24 05:00 Temperature 97.8 F Pulse Rate 131 H 140 H 129 H Respiratory Rate 22 Blood Pressure 141/81 H Pulse Oximetry 96 96 96 Oxygen Delivery Method Room Air 04/30/24 05:00 04/30/24 05:30 04/30/24 05:30 Temperature Pulse Rate 133 H Respiratory Rate 20 Blood Pressure 154/81 H 136/85 Pulse Oximetry 95 Oxygen Delivery Method 04/30/24 06:00 04/30/24 06:00 04/30/24 07:00 Temperature Pulse Rate 98 H 86 Respiratory Rate 21 20 Blood Pressure 124/73 Pulse Oximetry 95 97 Oxygen Delivery Method 04/30/24 07:00 04/30/24 07:30 04/30/24 07:30 Temperature 98.3 F Pulse Rate 82 Respiratory Rate 20 Blood Pressure 139/82 131/79 Pulse Oximetry 97 Oxygen Delivery Method 04/30/24 08:00 04/30/24 08:00 04/30/24 08:30 Temperature Pulse Rate 81 79 Respiratory Rate 19 14 Blood Pressure 140/84 Pulse Oximetry 97 97 Oxygen Delivery Method 04/30/24 08:30 Temperature Pulse Rate Respiratory Rate Blood Pressure 130/81 Pulse Oximetry Oxygen Delivery Method Medical Decision Making <Antonina Arriola MD - Last Filed: 05/04/24 07:49> Lab Data 04/30/24 05:52 04/30/24 05:52 Labs: Lab Results 04/30/24 04/30/24 04/30/24 Range/Units 05:43 05:52 08:00 WBC 12.7 H (4.5-11.0) X10^3/uL RBC 5.61 (4.5-5.9) X10^6/uL Hgb 17.4 (13.5-17.5) g/dL Hct 50.4 (41-53) % MCV 89.8 (80-100) fL MCH 30.9 (26-34) PG MCHC 34.4 (30-36) % RDW 14.1 (11.6-14.8) % Plt Count 251 (150-400) X10^3/uL Neut % (Auto) 80.2 H (50-75) % Lymph % (Auto) 6.0 L (25-40) % [place] % (Auto) 12.7 (3-14) % Eos % (Auto) 0.4 L (2-4) % Baso % (Auto) 0.7 (0-2) % Neut # (Auto) 22645 H (7907-0601) /uL Lymph # (Auto) 800 L (7931-2133) /uL [place] # (Auto) 1600 H (0-900) /uL Eos # (Auto) 0 (0-450) /uL Baso # (Auto) 100 (0-100) /uL Sodium 139 (137-145) mmol/L Potassium 3.3 L (3.4-5.1) mmol/L Chloride 104 (98-107) mmol/L Carbon Dioxide 24 (22-32) mmol/L BUN 13 (9-20) mg/dL Creatinine 0.95 (0.66-1.25) mg/dL Estimated GFR > 60 (>60) mL/min BUN/Creatinine Ratio 13.7 (6-22) Glucose 117 H (80-110) mg/dL Lactate 3.1 H 1.6 (0.7-2.1) mmol/L Calcium 9.3 (8.4-10.2) mg/dL Total Bilirubin 1.1 (0.2-1.3) mg/dL AST 39 (17-59) IU/L ALT 33 (<50) IU/L Alkaline Phosphatase 128 H (38-126) U/L Total Protein 7.5 (6.3-8.2) g/dL Albumin 4.2 (3.5-5.0) g/dL Globulin 3.3 (1.7-4.1) g/dL Albumin/Globulin Ratio 1.3 (1.0-2.8) Lipase 156 (23-300) U/L Procalcitonin 0.122 (<0.5) ng/mL Urine Color TNP Urine Appearance TNP Urine pH TNP Ur Specific [place] TNP Urine Protein TNP Urine Glucose (UA) TNP Urine Ketones TNP Urine Occult Blood TNP Urine Nitrate TNP Urine Bilirubin TNP Urine Urobilinogen TNP Ur Leukocyte Esterase TNP Urine RBC 10-30/hpf H (0-5/HPF) Urine WBC >100/hpf H (0-5/HPF) Ur Squamous Epith Cells 1-5 /hpf (0-5/HPF) Triple Phos Crystals Few Urine Bacteria Many (>30) H (None) Urine Mucus 4+ H D (Negative) Ur Culture Indicated? Specimen cultured Vol Urine Centrifuged 10ml (spun) Urine culture from March 12 2024 Org 1 = Proteus mirabilis Collected: 03/12/24 21:52 Source: Reflexed from Urinalysis Spec ANTIBIOTIC ORG 1 Amoxicillin/Clavulanate S Ampicillin R Ampicillin/Sulbactam I Cefazolin R Cefepime S Ceftazidime S Ceftriaxone S Ciprofloxacin R Ertapenem S Gentamicin R Nitrofurantoin R Piperacillin/Tazobactam S Tobramycin I Trimethoprim/Sulfamethoxazole R MDM Narrative Medical decision making narrative: CC: Fever sent from [facility] living facility Complicating co-morbidities: Prior stroke, slight right-sided deficits, slowed speech overall Data collected from: patient Social determinants of health that may influence the patients condition: Difficulty with communication secondary to prior stroke Medical records reviewed: Medical records through [facility] show multiple ER visits Apparently patient had a urine culture done on the that showing Gram- negative rods. Urine culture from March shows Proteus that is sensitive to ceftriaxone, Augmentin appears to be the best oral option however patient is allergic to penicillin. Differential considered: Urinary tract infection, Padron catheter irritation, sepsis, atrial fibrillation, dehydration Exam documented above, pertinent findings include: Patient appears on troubled, minimally vocal, slight right-sided weakness, diaphoretic somewhat flushed, no abdominal pain, significantly tachycardic to 140, lungs are clear no lower extremity edema no cellulitis Lab Test results independently reviewed as above. Pertinent findings: CBC shows mild leukocytosis at 12.7 with 80.2% neutrophils no anemia Chemistries shows slightly low potassium, creatinine is appropriate lactic acid is elevated Procalcitonin is minimally elevated Independently reviewed EKG: Sinus tachycardia at a rate of 128 no acute ischemic changes Imaging studies independently reviewed: Chest x-ray is unremarkable Consultations: Discussion with lab staff. Apparently urine has something in it that does not allow colorimetric testing. We will be cultured and microscopic exam we will be reported Treatments: 1 L of fluid, 2 g of ceftriaxone based on Proteus culture from March with urine sample from the suggesting Gram-negative rods Re-evaluations: Chest x-ray does not show acute abnormalities Discussion: 63 year gentleman fever noted at his assisted care facility post stroke. During sample from the is showing Gram-negative rods. Presented with significant tachycardia to 140 with diaphoresis it does appear that his fever had broken just prior to arrival in the emergency department. Urine catheter was replaced and heart rate came down suggesting that it was causing him some discomfort. He is currently receiving fluid bolus, is not hypotensive has been given initial dose of ceftriaxone. Care will be turned over to Dr. Carvalho at change of shift <Enrrique Carvalho, - Last Filed: 04/30/24 09:18> Medical Records Medical records reviewed: Yes I reviewed the patient's medical records. Lab Data Lab results reviewed: Yes I reviewed the patient's lab results. Labs: Lab Results 04/30/24 04/30/24 04/30/24 Range/Units 05:43 05:52 08:00 WBC 12.7 H (4.5-11.0) X10^3/uL RBC 5.61 (4.5-5.9) X10^6/uL Hgb 17.4 (13.5-17.5) g/dL Hct 50.4 (41-53) % MCV 89.8 (80-100) fL MCH 30.9 (26-34) PG MCHC 34.4 (30-36) % RDW 14.1 (11.6-14.8) % Plt Count 251 (150-400) X10^3/uL Neut % (Auto) 80.2 H (50-75) % Lymph % (Auto) 6.0 L (25-40) % [place] % (Auto) 12.7 (3-14) % Eos % (Auto) 0.4 L (2-4) % Baso % (Auto) 0.7 (0-2) % Neut # (Auto) 20254 H (6537-3696) /uL Lymph # (Auto) 800 L (3633-0425) /uL [place] # (Auto) 1600 H (0-900) /uL Eos # (Auto) 0 (0-450) /uL Baso # (Auto) 100 (0-100) /uL Sodium 139 (137-145) mmol/L Potassium 3.3 L (3.4-5.1) mmol/L Chloride 104 (98-107) mmol/L Carbon Dioxide 24 (22-32) mmol/L BUN 13 (9-20) mg/dL Creatinine 0.95 (0.66-1.25) mg/dL Estimated GFR > 60 (>60) mL/min BUN/Creatinine Ratio 13.7 (6-22) Glucose 117 H (80-110) mg/dL Lactate 3.1 H 1.6 (0.7-2.1) mmol/L Calcium 9.3 (8.4-10.2) mg/dL Total Bilirubin 1.1 (0.2-1.3) mg/dL AST 39 (17-59) IU/L ALT 33 (<50) IU/L Alkaline Phosphatase 128 H (38-126) U/L Total Protein 7.5 (6.3-8.2) g/dL Albumin 4.2 (3.5-5.0) g/dL Globulin 3.3 (1.7-4.1) g/dL Albumin/Globulin Ratio 1.3 (1.0-2.8) Lipase 156 (23-300) U/L Procalcitonin 0.122 (<0.5) ng/mL Urine Color TNP Urine Appearance TNP Urine pH TNP Ur Specific [place] TNP Urine Protein TNP Urine Glucose (UA) TNP Urine Ketones TNP Urine Occult Blood TNP Urine Nitrate TNP Urine Bilirubin TNP Urine Urobilinogen TNP Ur Leukocyte Esterase TNP Urine RBC 10-30/hpf H (0-5/HPF) Urine WBC >100/hpf H (0-5/HPF) Ur Squamous Epith Cells 1-5 /hpf (0-5/HPF) Triple Phos Crystals Few Urine Bacteria Many (>30) H (None) Urine Mucus 4+ H D (Negative) Ur Culture Indicated? Specimen cultured Vol Urine Centrifuged 10ml (spun) MDM Narrative Medical decision making narrative: CC: Fever sent from [facility] living [facility] Complicating co-morbidities: Prior stroke, slight right-sided deficits, slowed speech overall Data collected from: patient Social determinants of health that may influence the patients condition: Difficulty with communication secondary to prior stroke Medical records reviewed: Medical records through [facility] show multiple ER visits Apparently patient had a urine culture done on the that showing Gram- negative rods. Urine culture from March shows Proteus that is sensitive to ceftriaxone, Augmentin appears to be the best oral option however patient is allergic to penicillin. Differential considered: Urinary tract infection, Padron catheter irritation, sepsis, atrial fibrillation, dehydration Exam documented above, pertinent findings include: Patient appears on troubled, minimally vocal, slight right-sided weakness, diaphoretic somewhat flushed, no abdominal pain, significantly tachycardic to 140, lungs are clear no lower extremity edema no cellulitis Lab Test results independently reviewed as above. Pertinent findings: CBC shows mild leukocytosis at 12.7 with 80.2% neutrophils no anemia Chemistries shows slightly low potassium, creatinine is appropriate lactic acid is elevated Procalcitonin is minimally elevated Independently reviewed EKG: Sinus tachycardia at a rate of 128 no acute ischemic changes Imaging studies independently reviewed: Chest x-ray is unremarkable Consultations: Discussion with lab staff. Apparently urine has something in it that does not allow colorimetric testing. We will be cultured and microscopic exam we will be reported Treatments: 1 L of fluid, 2 g of ceftriaxone based on Proteus culture from March with urine sample from the suggesting Gram-negative rods Re-evaluations: Chest x-ray does not show acute abnormalities Discussion: 63 year gentleman fever noted at his assisted care facility post stroke. During sample from the is showing Gram-negative rods. Presented with significant tachycardia to 140 with diaphoresis it does appear that his fever had broken just prior to arrival in the emergency department. Urine catheter was replaced and heart rate came down suggesting that it was causing him some discomfort. He is currently receiving fluid bolus, is not hypotensive has been given initial dose of ceftriaxone. Care will be turned over to Dr. Carvalho at change of shift Dr carvalho: Received turned over. Review patient's history and physical exam. It does appear that the patient has a new/continued urinary tract infection. His lactate is improved. He was not hypotensive. On my evaluation of the patient he is more interactive. He stated that he felt ?okay? he stated that he was not nauseous. No chest pain. No abdominal pain. Review of his medical record shows that he has a Proteus infection in the past that was resistant to quite a few medications. It is susceptible to cephalosporins specifically the later generation cephalosporins. He was tolerating oral intake. He was given Rocephin here in the ER. Plan will be to discharge him home on [facility]. Patient states he has someone who can go and mixing picker tender the medicines and help him take the medicines. He was given return precautions. He expressed understanding and agreement. Discharge Plan Departure Patient Disposition: Home Clinical Impression: Urinary tract infection Instructions: DI for Urinary Tract Infection (UTI) Activity Restrictions/Additional Instructions: A prescription for a oral antibiotic that should treat the urinary tract infection was sent to [facility]. I recommend that he take it as directed. Recommend that his primary doctor be notified of his visit today. He can return to the emergency department for new or worsening symptoms. Prescriptions: New cefdinir 300 mg capsule 300 mg PO BID 7 Days Qty: 14 0RF No Action sennosides [senna] 8.6 mg Tablet 8.6 mg PO DAILY acetaminophen 325 mg Tablet 650 mg PO Q4H PRN (Reason: Fever Or Pain) Rx Instructions: pain level 1-3 or fever >100.1 fluoxetine 10 mg Tablet 10 mg PO DAILY amlodipine 5 mg Tablet 10 mg PO DAILY aspirin 81 mg Tablet,Delayed Release (Dr/Ec) 81 mg PO DAILY docusate sodium 100 mg Capsule 100 mg PO BID Rx Instructions: hold if loose stools cholecalciferol (vitamin D3) [Vitamin D3] 1,000 unit Tablet 1,000 unit PO DAILY atorvastatin 20 mg Tablet 20 mg PO BEDTIME ondansetron 4 mg Tablet,Disintegrating 4 mg PO Q4H PRN (Reason: Nausea) cyanocobalamin (vitamin B-12) 1,000 mcg Capsule 1,000 mcg PO DAILY oxycodone 5 mg tablet 5 mg PO Q4H PRN (Reason: pain) Qty: 14 0RF nystatin 100,000 unit/gram powder 1 applic topical DAILY magnesium hydroxide [Milk of Magnesia] 400 mg/5 mL suspension 5 ml PO DAILY PRN (Reason: Constipation) Referrals: Gee Arriaga MD [Primary Care Provider] - Stand Alone Forms: Patient Portal/API
[2024-04-30] MEDS: LIDOCAINE 2% (GLYDO) 6 ML GEL TOP (05:15)
--- NOTE | 2024-04-30 05:34 | DI.RAD.S_ITS ---
PROCEDURE: XR CHEST 1V INDICATIONS: fever, tachycardia TECHNIQUE: One view of the chest was acquired. COMPARISON: [facility], CR, XR CHEST 1V, 06/25/2022, 14:52. FINDINGS: Surgical changes and devices: None. Lungs and pleura: Subtle opacity in right infrahilar region is seen, small infiltrates versus atelectasis. No pleural effusions or pneumothorax. Mediastinum: Mediastinal contours appear normal. Heart size is normal. Bones and chest wall: No suspicious bony lesions. Overlying soft tissues appear unremarkable. IMPRESSION: Finding is concerning for small infiltrate/atelectasis at right infrahilar region suggest clinical correlation and follow-up. No pleural effusion or pneumothorax. No discrepancies from preliminary reading. Dictated by: Luther Noe M.D. on 04/30/2024 at 8:11 Approved by: Luther Noe M.D. on 04/30/2024 at 8:20
--- NOTE | 2024-04-30 05:59 | PC.NURSE ---
Padron cath changed out per protocol and verbal order Dr Arriola. Urine sample collected. Pt tolerated well.
[2024-04-30] MEDS: SODIUM CHLORIDE 0.9% 1,000 ML 1000 ML IV (06:00)
[2024-04-30 06:04] LABS: Add Manual Diff / Slide Review NO; Basophils Absolute Auto 100 /uL (0-100); Basophils Percent Auto 0.7 % (0-2); Eosinophils Absolute Auto 0 /uL (0-450); Eosinophils Percent Auto 0.4 % (2-4); Hematocrit 50.4 % (41-53); Hemoglobin 17.4 g/dL (13.5-17.5); Lymphocytes Absolute Auto 800 /uL (1100-4500); Mean Corpuscular HGB Conc 34.4 % (30-36); Mean Corpuscular Hemoglobin 30.9 PG (26-34); Mean Corpuscular Volume 89.8 fL (80-100); Monocytes Absolute Auto 1600 /uL (0-900); Monocytes Percent Auto 12.7 % (3-14); Neutrophils Absolute Auto 10100 /uL (1500-7000); Neutrophils Percent Auto 80.2 % (50-75); Platelet Count 251 X10^3/uL (150-400); Red Blood Cell Count 5.61 X10^6/uL (4.5-5.9); Red Cell Distribution Width 14.1 % (11.6-14.8); White Blood Cell Count 12.7 X10^3/uL (4.5-11.0)
[2024-04-30 06:21] LABS: Alanine Aminotransferase 33 IU/L (<50); Albumin 4.2 g/dL (3.5-5.0); Albumin Globulin Ratio 1.3 (1.0-2.8); Alkaline Phosphatase 128 U/L (38-126); Aspartate Aminotransferase 39 IU/L (17-59); BUN Creatinine Ratio 13.7 (6-22); Bilirubin Total 1.1 mg/dL (0.2-1.3); Blood Urea Nitrogen 13 mg/dL (9-20); Calcium 9.3 mg/dL (8.4-10.2); Carbon Dioxide 24 mmol/L (22-32); Chloride 104 mmol/L (98-107); Estimated Glomerular Filt Rate > 60 mL/min (>60); Globulin 3.3 g/dL (1.7-4.1); Glucose 117 mg/dL (80-110); HEMOLYSIS < 15 (0-50); Lactate (Lactic Acid) 3.1 mmol/L (0.7-2.1); Lipase 156 U/L (23-300); Potassium 3.3 mmol/L (3.4-5.1); Sodium 139 mmol/L (137-145); Total Protein 7.5 g/dL (6.3-8.2)
[2024-04-30 06:32] LABS: Urine Volume 10mL (spun)
[2024-04-30 06:33] LABS: Bacteria Urine Many (>30); Culture Indicated Urine Specimen Cultured; Mucus Urine 4+ (Negative); RBC Urine 10-30/HPF (0-5/HPF); Squamous Epithelial Cell Urine 1-5 /HPF (0-5/HPF); Triple Phosphate Crystal Urine Few; WBC Urine >100/HPF (0-5/HPF)
[2024-04-30 06:38] LABS: Procalcitonin 0.122 ng/mL (<0.5)
[2024-04-30] MEDS: cefTRIAXone 2,000 MG in SODIUM CHLORIDE 0.9% 100 ML 200 MG IV (07:23)
[2024-04-30 07:35] LABS: Reflexed Lactate in 2 Hours Y
[2024-04-30 08:22] LABS: Lactate 2HR (Lactic Acid Rflx) 1.6 mmol/L (0.7-2.1)
== END 2024-04-30 10:28 | disposition home or self-care (01) ==
PROVIDERS: Emergency Medicine; Emergency Provider Emergency Medicine; PCP Family Medicine
DX: N39.0 Urinary tract infection, site not specified (principal); Z86.73 Personal history of transient ischemic attack (TIA), and cerebral infarction without residual deficits; I10 Essential (primary) hypertension; E78.5 Hyperlipidemia, unspecified
CPT/HCPCS: 36415; 71045; 80053; 81001; 83605; 83690; 84145; 85025; 87040; 87077; 87086; 87186; 93005; 96361; 96365; 99284; J0696

== ENCOUNTER → 2024-05-20 19:30 | Outpatient (ROUT) | payer OTHER, MEDICAID, SELFPAY ==
[2021-09-19 15:36] VITALS: BMI 25.4
[2024-05-20 20:13] LABS: Appearance Urine UA SL CLOUDY; Bilirubin Urine UA NEGATIVE (NEGATIVE); Color Urine UA YELLOW; Glucose Urine UA NEGATIVE (Negative); Ketones Urine UA NEGATIVE (NEGATIVE); Leukocyte Esterase Urine UA 2+ (NEGATIVE); Nitrite Urine UA POSITIVE (Negative); Occult Blood Urine UA 1+ (Negative); Protein Urine UA 1+ (Negative); Specific Gravity Urine UA 1.015 (1.000-1.035)
[2024-05-20 20:36] LABS: Bacteria Urine Many (>30); Culture Indicated Urine Specimen Cultured; RBC Urine 1-5/HPF (0-5/HPF); Squamous Epithelial Cell Urine None Seen (0-5/HPF); Urine Volume 10mL (spun); WBC Urine 30-100/HPF (0-5/HPF)
== END ==
PROVIDERS: PCP Family Medicine; Visit Provider Internal Medicine
DX: Z00.00 Encounter for general adult medical examination without abnormal findings (principal)
CPT/HCPCS: 81001; 87086

== ENCOUNTER 2024-05-31 19:58 | Emergency (ER) | payer OTHER, MEDICAID, SELFPAY ==
[2021-09-19 15:36] VITALS: BMI 25.4
[2024-05-31 20:02] VITALS: BP 149/78; PULSE 59; RESP 17; TEMP 36.9; O2SAT 98; BMI 24.5
[2024-05-31] MEDS: LIDOCAINE 2% (GLYDO) 6 ML GEL TOP (20:10)
--- NOTE | 2024-05-31 20:18 | ED.GENADULT ---
HPI - General Adult General Chief complaint: Urogenital-Male Stated complaint: chambers cath problems Time Seen by Provider: 05/31/24 20:00 Source: EMS and other Mode of arrival: EMS History of Present Illness HPI narrative: 63-year-old male. History of stroke with right-sided deficits. Has a indwelling Chambers catheter. Was sent to the emergency department because of a blocked Chambers catheter and inability to flush the catheter at his assisted living facility. Patient did report to nursing staff that he was having some lower abdominal discomfort. Patient was unsure as to why he has the urinary catheter in place. Related Data Home Medications Medication Instructions Recorded Confirmed acetaminophen 325 mg tablet 650 mg PO Q4H PRN Fever Or Pain 09/21/18 07/23/22 amlodipine 5 mg tablet 10 mg PO DAILY 09/21/18 07/23/22 aspirin 81 mg tablet,delayed 81 mg PO DAILY 09/21/18 07/23/22 release cholecalciferol (vitamin D3) 25 1,000 unit PO DAILY 09/21/18 07/23/22 mcg (1,000 unit) tablet (Vitamin D3) docusate sodium 100 mg capsule 100 mg PO BID 09/21/18 07/23/22 fluoxetine 10 mg tablet 10 mg PO DAILY 09/21/18 07/23/22 sennosides 8.6 mg tablet (senna) 8.6 mg PO DAILY 09/21/18 07/23/22 atorvastatin 20 mg tablet 20 mg PO BEDTIME 07/12/21 07/23/22 cyanocobalamin (vitamin B-12) 1,000 mcg PO DAILY 07/12/21 07/23/22 1,000 mcg capsule ondansetron 4 mg disintegrating 4 mg PO Q4H PRN Nausea 07/12/21 07/23/22 tablet magnesium hydroxide 400 mg/5 mL 5 ml PO DAILY PRN Constipation 09/05/21 07/23/22 oral suspension (Milk of Magnesia) nystatin 100,000 unit/gram topical 1 applic topical DAILY 09/05/21 07/23/22 powder Previous Rx's Medication Instructions Recorded oxycodone 5 mg tablet 5 mg PO Q4H PRN pain #14 tabs 10/19/21 Allergies Allergy/AdvReac Type Severity Reaction Status Date / Time Penicillins Allergy Intermediate Rash over Verified 05/31/24 20:02 body tetracycline Allergy Unknown Verified 05/31/24 20:02 Review of Systems Constitutional Constitutional: Reports system reviewed and no additional complaints, except as documented Gastrointestinal Gastrointestinal: Reports system reviewed and no additional complaints, except as documented Genitourinary Genitourinary: Reports system reviewed and no additional complaints, except as documented Patient History Medical History History of nephrolithiasis Retained ureteral stent Retained ureteral stent Right renal stone Obstruction of right ureteropelvic junction (UPJ) due to stone Depression History of CVA (cerebrovascular accident) Hyperlipidemia Hypertension Surgical History Hx of cystoscopy (09/07/21) History of cholecystectomy (07/13/21) S/P right knee arthroscopy Family History Father Heart disease Social History household members: other Smoking Status: Former smoker Tobacco: How many years used: 15 alcohol intake: former caffeine: No Smoking Status: Former smoker alcohol intake frequency: holidays/special occasions only Substance Use Type: does not use Exam Initial Vital Signs Initial Vital Signs: Vital Signs Temperature 98.5 F 05/31/24 20:02 Pulse Rate 59 L 05/31/24 20:02 Respiratory Rate 17 05/31/24 20:02 Blood Pressure 149/78 H 05/31/24 20:02 Pulse Oximetry 98 05/31/24 20:02 Oxygen Delivery Method Room Air 05/31/24 20:02 GI Inspection: normal to inspection and non-distended Palpation: soft and No tender External: normal external exam Course Orders Ordered: Discontinued Medications Lidocaine HCl (Lidocaine 2% (Glydo) 6 Ml Gel) 6 ml TOP NOW ONE Stop: 05/31/24 20:03 Last Admin: 05/31/24 20:10 Dose: 6 ml Documented By: Vital Signs Vital signs: Vital Signs - 8 hr 05/31/24 20:02 Temperature 98.5 F Pulse Rate 59 L Respiratory Rate 17 Blood Pressure 149/78 H Pulse Oximetry 98 Oxygen Delivery Method Room Air Medical Decision Making MDM Narrative Medical decision making narrative: Patient's Chambers catheter was replaced and is now draining. Does have quite a bit of sediment. Otherwise clear. Will discharge patient back to his living facility. Discharge Plan Departure Patient Disposition: Home Clinical Impression: Complication, blocked Chambers catheter Instructions: How to Care for Your Chambers Catheter -- Male Activity Restrictions/Additional Instructions: The Chambers catheter was replaced in his now draining. He would continue to take all medications as directed. Prescriptions: No Action sennosides [senna] 8.6 mg Tablet 8.6 mg PO DAILY acetaminophen 325 mg Tablet 650 mg PO Q4H PRN (Reason: Fever Or Pain) Rx Instructions: pain level 1-3 or fever >100.1 fluoxetine 10 mg Tablet 10 mg PO DAILY amlodipine 5 mg Tablet 10 mg PO DAILY aspirin 81 mg Tablet,Delayed Release (Dr/Ec) 81 mg PO DAILY docusate sodium 100 mg Capsule 100 mg PO BID Rx Instructions: hold if loose stools cholecalciferol (vitamin D3) [Vitamin D3] 1,000 unit Tablet 1,000 unit PO DAILY atorvastatin 20 mg Tablet 20 mg PO BEDTIME ondansetron 4 mg Tablet,Disintegrating 4 mg PO Q4H PRN (Reason: Nausea) cyanocobalamin (vitamin B-12) 1,000 mcg Capsule 1,000 mcg PO DAILY oxycodone 5 mg tablet 5 mg PO Q4H PRN (Reason: pain) Qty: 14 0RF nystatin 100,000 unit/gram powder 1 applic topical DAILY magnesium hydroxide [Milk of Magnesia] 400 mg/5 mL suspension 5 ml PO DAILY PRN (Reason: Constipation) Referrals: Gee Arriaga MD [Primary Care Provider] - Stand Alone Forms: Patient Portal/API
--- NOTE | 2024-05-31 20:23 | PC.NURSE ---
Chambers catheter has large amount of sediment in catheter. Catheter removed and discovered sediment covering tip of catheter. Exchanged catheter with 16 fr 10 mL chambers. Pt tolerated well. Light yellow urine draining and continues to have sediment in urine.
[2024-05-31 20:32] VITALS: PULSE 55; O2SAT 98
[2024-05-31 20:33] VITALS: BP 136/72; PULSE 56; O2SAT 98
[2024-05-31 21:00] VITALS: PULSE 54; O2SAT 98
== END 2024-05-31 21:25 | disposition home or self-care (01) ==
PROVIDERS: Emergency Provider Emergency Medicine; PCP Family Medicine
DX: T83.091A Other mechanical complication of indwelling urethral catheter, initial encounter (principal); R10.30 Lower abdominal pain, unspecified
CPT/HCPCS: 99283

== ENCOUNTER → 2024-06-20 15:50 | Outpatient (ROUT) | payer OTHER, MEDICAID, SELFPAY ==
[2021-09-19 15:36] VITALS: BMI 25.4
[2024-06-20 15:56] LABS: Appearance Urine UA SL CLOUDY; Bilirubin Urine UA NEGATIVE (NEGATIVE); Color Urine UA YELLOW; Glucose Urine UA NEGATIVE (Negative); Ketones Urine UA NEGATIVE (NEGATIVE); Leukocyte Esterase Urine UA 3+ (NEGATIVE); Nitrite Urine UA POSITIVE (Negative); Occult Blood Urine UA 3+ (Negative); Protein Urine UA TRACE (Negative); Specific Gravity Urine UA 1.015 (1.000-1.035)
[2024-06-20 16:04] LABS: Bacteria Urine Few (2-10); Culture Indicated Urine Specimen Cultured; RBC Urine 10-30/HPF (0-5/HPF); Squamous Epithelial Cell Urine 0-1 /HPF (0-5/HPF); Triple Phosphate Crystal Urine Occasional; Urine Volume 10mL (spun); WBC Urine 30-100/HPF (0-5/HPF)
== END ==
PROVIDERS: PCP Family Medicine; Visit Provider Internal Medicine
DX: Z00.00 Encounter for general adult medical examination without abnormal findings (principal)
CPT/HCPCS: 81001; 87077; 87086; 87186

== ENCOUNTER → 2024-07-19 18:14 | Outpatient (ROUT) | payer OTHER, MEDICAID, SELFPAY ==
[2021-09-19 15:36] VITALS: BMI 25.4
[2024-07-19 18:22] LABS: Appearance Urine UA CLOUDY; Bilirubin Urine UA NEGATIVE (NEGATIVE); Color Urine UA YELLOW; Glucose Urine UA NEGATIVE (Negative); Ketones Urine UA NEGATIVE (NEGATIVE); Leukocyte Esterase Urine UA 3+ (NEGATIVE); Nitrite Urine UA NEGATIVE (Negative); Occult Blood Urine UA 3+ (Negative); Protein Urine UA TRACE (Negative)
[2024-07-19 18:33] LABS: Bacteria Urine Many (>30); Squamous Epithelial Cell Urine 0-1 /HPF (0-5/HPF); Urine Volume 10mL (spun); WBC Urine 10-30/HPF (0-5/HPF)
[2024-07-19 18:34] LABS: Amorphous Sediment Urine 1+; Culture Indicated Urine Specimen Cultured; RBC Urine 5-10/HPF (0-5/HPF)
== END ==
PROVIDERS: PCP Family Medicine; Visit Provider Internal Medicine
DX: Z00.00 Encounter for general adult medical examination without abnormal findings (principal)
CPT/HCPCS: 81001; 87077; 87086

== ENCOUNTER 2024-08-02 20:29 | Emergency (ER) | payer OTHER, SELFPAY ==
[2021-09-19 15:36] VITALS: BMI 25.4
[2024-08-02] VITALS (9 sets, daily range): BP systolic 115–175; BP diastolic 66–82; PULSE 75–81; RESP 18; TEMP 36.4; O2SAT 96–97; BMI 24.6
--- NOTE | 2024-08-02 21:00 | PC.NURSE ---
Patient has redness noted to penis with visible discharge. Indwelling chambers catheter's balloon was deflated and catheter was removed. Patient perineum was cleaned and large amount of purulent discharge and urine came out. New chambers catheter was placed
[2024-08-02 21:14] LABS: Bilirubin Urine UA NEGATIVE (NEGATIVE); Color Urine UA YELLOW; Glucose Urine UA NEGATIVE (Negative); Ketones Urine UA TRACE (NEGATIVE); Leukocyte Esterase Urine UA 2+ (NEGATIVE); Nitrite Urine UA POSITIVE (Negative); Occult Blood Urine UA 1+ (Negative); Protein Urine UA 1+ (Negative)
[2024-08-02 21:16] LABS: Appearance Urine UA SL CLOUDY
[2024-08-02 21:20] LABS: Urine Volume 10mL (spun)
[2024-08-02 21:21] LABS: Bacteria Urine Many (>30); RBC Urine 30-100/HPF (0-5/HPF); Squamous Epithelial Cell Urine 0-1 /HPF (0-5/HPF); WBC Urine 30-100/HPF (0-5/HPF)
[2024-08-02 21:22] LABS: Culture Indicated Urine Specimen Cultured; Mucus Urine 1+ (Negative)
--- NOTE | 2024-08-02 22:39 | ED_ITS ---
HPI - Male Genitourinary General Chief complaint: Urogenital-Male Stated complaint: catheter pain Time Seen by Provider: 08/02/24 21:33 Source: patient and EMS Mode of arrival: EMS History of Present Illness HPI Narrative: Patient is a 63-year-old male history of stroke right-sided deficits chronic indwelling Padron catheter presenting today with Padron catheter problem. Catheter was changed to his gross drainage. According to records urine culture from July 19 showed Enterococcus the Cialis with multi-drug resistance previous culture from June showed pronvidencia rettgeri, with multi-drug resistance. Patient is afebrile denies any pain Related Data Home Medications Medication Instructions Recorded Confirmed acetaminophen 325 mg tablet 650 mg PO Q4H PRN Fever Or Pain 09/21/18 07/23/22 amlodipine 5 mg tablet 10 mg PO DAILY 09/21/18 07/23/22 aspirin 81 mg tablet,delayed 81 mg PO DAILY 09/21/18 07/23/22 release cholecalciferol (vitamin D3) 25 1,000 unit PO DAILY 09/21/18 07/23/22 mcg (1,000 unit) tablet (Vitamin D3) docusate sodium 100 mg capsule 100 mg PO BID 09/21/18 07/23/22 fluoxetine 10 mg tablet 10 mg PO DAILY 09/21/18 07/23/22 sennosides 8.6 mg tablet (senna) 8.6 mg PO DAILY 09/21/18 07/23/22 atorvastatin 20 mg tablet 20 mg PO BEDTIME 07/12/21 07/23/22 cyanocobalamin (vitamin B-12) 1,000 mcg PO DAILY 07/12/21 07/23/22 1,000 mcg capsule ondansetron 4 mg disintegrating 4 mg PO Q4H PRN Nausea 07/12/21 07/23/22 tablet magnesium hydroxide 400 mg/5 mL 5 ml PO DAILY PRN Constipation 09/05/21 07/23/22 oral suspension (Milk of Magnesia) nystatin 100,000 unit/gram topical 1 applic topical DAILY 09/05/21 07/23/22 powder Previous Rx's Medication Instructions Recorded oxycodone 5 mg tablet 5 mg PO Q4H PRN pain #14 tabs 10/19/21 Allergies Allergy/AdvReac Type Severity Reaction Status Date / Time Penicillins Allergy Intermediate Rash over Verified 05/31/24 20:02 body tetracycline Allergy Unknown Verified 05/31/24 20:02 Patient History Medical History History of nephrolithiasis Retained ureteral stent Retained ureteral stent Right renal stone Obstruction of right ureteropelvic junction (UPJ) due to stone Depression History of CVA (cerebrovascular accident) Hyperlipidemia Hypertension Surgical History Hx of cystoscopy (09/07/21) History of cholecystectomy (07/13/21) S/P right knee arthroscopy Family History Father Heart disease Social History household members: other Smoking Status: Former smoker Tobacco: How many years used: 15 alcohol intake: former caffeine: No Smoking Status: Former smoker alcohol intake frequency: holidays/special occasions only Exam Initial Vital Signs Initial Vital Signs: Vital Signs Temperature 97.6 F 08/02/24 20:34 Pulse Rate 79 08/02/24 20:34 Respiratory Rate 18 08/02/24 20:34 Blood Pressure 175/77 H 08/02/24 20:34 Pulse Oximetry 97 08/02/24 20:34 Oxygen Delivery Method Room Air 08/02/24 20:34 GENERAL: Alert 63-year-old male CARDIOVASCULAR: peripheral pulses in tact, cap refill <2 sec RESPIRATORY: No respiratory distress, speaks in full sentences without difficu lty ABDOMEN: Soft, nontender, no guarding or rebound EXTREMITIES: Normal range of motion, no clubbing or edema. Neurovascularly intact NEUROLOGICAL: At baseline SKIN: Warm, dry, no petechiae, no rashes or lesions. Course Orders Ordered: ED Orders 08/02/24 20:55 Urinalysis and Microscopic Stat Urine Culture Stat Vital Signs Vital signs: Vital Signs - 8 hr 08/02/24 20:34 08/02/24 20:35 08/02/24 20:50 Temperature 97.6 F Pulse Rate 79 81 75 Respiratory Rate 18 Blood Pressure 175/77 H Pulse Oximetry 97 97 96 Oxygen Delivery Method Room Air 08/02/24 21:01 08/02/24 21:30 08/02/24 22:00 Temperature Pulse Rate Respiratory Rate Blood Pressure 116/66 115/70 128/75 Pulse Oximetry Oxygen Delivery Method 08/02/24 22:30 08/02/24 23:00 08/02/24 23:30 Temperature Pulse Rate Respiratory Rate Blood Pressure 127/77 140/82 134/82 Pulse Oximetry Oxygen Delivery Method 08/03/24 00:00 08/03/24 00:10 Temperature Pulse Rate 65 Respiratory Rate 16 Blood Pressure 140/86 Pulse Oximetry 97 Oxygen Delivery Method MDM - Male Genitourinary Lab Data Labs: Lab Results 08/02/24 Range/Units 20:55 Urine Color Yellow Urine Appearance Sl cloudy Urine pH 7.0 (4.5-8.0) Ur Specific Rembrandt 1.020 (1.000-1.035) Urine Protein 1+ H (Negative) Urine Glucose (UA) Negative (Negative) g/dL Urine Ketones Trace H (NEGATIVE) Urine Occult Blood 1+ H (Negative) Urine Nitrate Positive H (Negative) Urine Bilirubin Negative (NEGATIVE) Urine Urobilinogen 1.0 (0.2) E.U./dL Ur Leukocyte Esterase 2+ H (NEGATIVE) Urine RBC 30-100/hpf H (0-5/HPF) Urine WBC 30-100/hpf H (0-5/HPF) Ur Squamous Epith Cells 0-1 /hpf (0-5/HPF) Urine Bacteria Many (>30) H (None) Urine Mucus 1+ H D (Negative) Ur Culture Indicated? Specimen cultured Vol Urine Centrifuged 10ml (spun) [facility] Narrative Medical decision making narrative: 63-year-old male chronic indwelling Padron catheter history of stroke presenting today with Padron catheter problem. He has previously had this issue before he was multi-drug resistance UTIs. He is afebrile at this time would wait for culture before starting antibiotics maybe colonized as well. Discharge Plan Departure Patient Disposition: Home Clinical Impression: Complication of Padron catheter Activity Restrictions/Additional Instructions: *You have been diagnosed with Padron catheter problem *What to do: Padron catheter was changed we will wait for culture before starting antibiotics *Continue to take medications as directed *Follow up with your primary care provider in 2-3 days or call [phone] *Return to ER if you should have or any new, worsening or concerning symptoms Prescriptions: No Action sennosides [senna] 8.6 mg Tablet 8.6 mg PO DAILY acetaminophen 325 mg Tablet 650 mg PO Q4H PRN (Reason: Fever Or Pain) Rx Instructions: pain level 1-3 or fever >100.1 fluoxetine 10 mg Tablet 10 mg PO DAILY amlodipine 5 mg Tablet 10 mg PO DAILY aspirin 81 mg Tablet,Delayed Release (Dr/Ec) 81 mg PO DAILY docusate sodium 100 mg Capsule 100 mg PO BID Rx Instructions: hold if loose stools cholecalciferol (vitamin D3) [Vitamin D3] 1,000 unit Tablet 1,000 unit PO DAILY atorvastatin 20 mg Tablet 20 mg PO BEDTIME ondansetron 4 mg Tablet,Disintegrating 4 mg PO Q4H PRN (Reason: Nausea) cyanocobalamin (vitamin B-12) 1,000 mcg Capsule 1,000 mcg PO DAILY oxycodone 5 mg tablet 5 mg PO Q4H PRN (Reason: pain) Qty: 14 0RF nystatin 100,000 unit/gram powder 1 applic topical DAILY magnesium hydroxide [Milk of Magnesia] 400 mg/5 mL suspension 5 ml PO DAILY PRN (Reason: Constipation) Referrals: Gee Arriaga MD [Primary Care Provider] - Stand Alone Forms: Patient Portal/API/Survey
[2024-08-03] VITALS: BP 140/86
[2024-08-03 00:10] VITALS: PULSE 65; RESP 16; O2SAT 97
== END 2024-08-03 00:29 | disposition home or self-care (01) ==
PROVIDERS: Emergency Provider Emergency Medicine; PCP Family Medicine
DX: T83.9XXA Unspecified complication of genitourinary prosthetic device, implant and graft, initial encounter (principal)
CPT/HCPCS: 51702; 81001; 87077; 87086; 99281; 99283

== ENCOUNTER 2024-08-06 16:27 | Inpatient (IN) | payer OTHER, SELFPAY ==
[2021-09-19 15:36] VITALS: BMI 25.4
[2024-08-06] VITALS (14 sets, daily range): BP systolic 125–154; BP diastolic 73–83; PULSE 99–138; RESP 19–39; TEMP 37.1–38; O2SAT 92–96; BMI 28.3; BMI 26.6
--- NOTE | 2024-08-06 16:34 | DI.RAD.S_ITS ---
PROCEDURE: XR CHEST 1V INDICATIONS: suspected sepsis TECHNIQUE: One view of the chest was acquired. COMPARISON: [facility], CR, XR CHEST 1V, 04/30/2024, 5:51. [facility], CR, XR CHEST 1V, 06/25/2022, 14:52. [facility], CR, XR CHEST 2V, 07/12/2021, 15:31. [facility], CR, XR CHEST 1V, 09/21/2018, 17:37. FINDINGS: Surgical changes and devices: None. Lungs and pleura: Lungs are clear. No pleural effusions or pneumothorax. Mediastinum: Mediastinal contours appear normal. Heart size is normal. Bones and chest wall: No suspicious bony lesions. Overlying soft tissues appear unremarkable. IMPRESSION: No acute cardiothoracic process. Dictated by: Jaiden Valencia M.D. on 08/06/2024 at 16:52 Approved by: Jaiden Valencia M.D. on 08/06/2024 at 16:53
--- NOTE | 2024-08-06 16:43 | EKG_ITS ---
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
[2024-08-06] MEDS: SODIUM CHLORIDE 0.9% 1,000 ML 1000 ML IV (16:55)
[2024-08-06] MEDS: LIDOCAINE 2% (GLYDO) 6 ML GEL TOP (16:55)
[2024-08-06 16:59] LABS: Add Manual Diff / Slide Review NO; Basophils Absolute Auto 0 /uL (0-100); Basophils Percent Auto 0.2 % (0-2); Eosinophils Absolute Auto 0 /uL (0-450); Eosinophils Percent Auto 0.2 % (2-4); Hematocrit 48.4 % (41-53); Hemoglobin 16.4 g/dL (13.5-17.5); Lymphocytes Absolute Auto 600 /uL (1100-4500); Lymphocytes Percent Auto 4.8 % (25-40); Mean Corpuscular HGB Conc 33.9 % (30-36); Mean Corpuscular Hemoglobin 31.2 PG (26-34); Monocytes Absolute Auto 1100 /uL (0-900); Monocytes Percent Auto 9.3 % (3-14); Neutrophils Absolute Auto 10400 /uL (1500-7000); Neutrophils Percent Auto 85.5 % (50-75); Platelet Count 207 X10^3/uL (150-400); Red Blood Cell Count 5.26 X10^6/uL (4.5-5.9); Red Cell Distribution Width 13.8 % (11.6-14.8); White Blood Cell Count 12.2 X10^3/uL (4.5-11.0)
[2024-08-06 17:03] LABS: INR 1.1 (0.9-1.3)
[2024-08-06 17:06] LABS: PTT Partial Thromboplastin Tim 35 SECONDS (25.1-36.5)
[2024-08-06 17:07] LABS: Lactate (Lactic Acid) 3.4 mmol/L (0.7-2.1)
[2024-08-06 17:09] LABS: Alanine Aminotransferase 55 IU/L (<50); Albumin 3.8 g/dL (3.5-5.0); Albumin Globulin Ratio 1.2 (1.0-2.8); Alkaline Phosphatase 117 U/L (38-126); Aspartate Aminotransferase 79 IU/L (17-59); BUN Creatinine Ratio 13.8 (6-22); Bilirubin Total 1.1 mg/dL (0.2-1.3); Blood Urea Nitrogen 12 mg/dL (9-20); Calcium 8.6 mg/dL (8.4-10.2); Carbon Dioxide 21 mmol/L (22-32); Chloride 106 mmol/L (98-107); Estimated Glomerular Filt Rate > 60 mL/min (>60); Globulin 3.1 g/dL (1.7-4.1); Glucose 132 mg/dL (80-110); HEMOLYSIS 27 (0-50); Lipase 166 U/L (23-300); Potassium 3.6 mmol/L (3.4-5.1); Sodium 135 mmol/L (137-145); Total Protein 6.9 g/dL (6.3-8.2)
--- NOTE | 2024-08-06 17:13 | ED.GENADULT ---
HPI - General Adult General Chief complaint: Fever Stated complaint: cath problem Time Seen by Provider: 08/06/24 17:13 Source: patient and EMS Mode of arrival: EMS Related Data Home Medications Medication Instructions Recorded Confirmed acetaminophen 325 mg tablet 650 mg PO Q4H PRN Fever Or Pain 09/21/18 07/23/22 amlodipine 5 mg tablet 10 mg PO DAILY 09/21/18 07/23/22 aspirin 81 mg tablet,delayed 81 mg PO DAILY 09/21/18 07/23/22 release cholecalciferol (vitamin D3) 25 1,000 unit PO DAILY 09/21/18 07/23/22 mcg (1,000 unit) tablet (Vitamin D3) docusate sodium 100 mg capsule 100 mg PO BID 09/21/18 07/23/22 fluoxetine 10 mg tablet 10 mg PO DAILY 09/21/18 07/23/22 sennosides 8.6 mg tablet (senna) 8.6 mg PO DAILY 09/21/18 07/23/22 atorvastatin 20 mg tablet 20 mg PO BEDTIME 07/12/21 07/23/22 cyanocobalamin (vitamin B-12) 1,000 mcg PO DAILY 07/12/21 07/23/22 1,000 mcg capsule ondansetron 4 mg disintegrating 4 mg PO Q4H PRN Nausea 07/12/21 07/23/22 tablet magnesium hydroxide 400 mg/5 mL 5 ml PO DAILY PRN Constipation 09/05/21 07/23/22 oral suspension (Milk of Magnesia) nystatin 100,000 unit/gram topical 1 applic topical DAILY 09/05/21 07/23/22 powder Previous Rx's Medication Instructions Recorded oxycodone 5 mg tablet 5 mg PO Q4H PRN pain #14 tabs 10/19/21 Allergies Allergy/AdvReac Type Severity Reaction Status Date / Time Penicillins Allergy Intermediate Rash over Verified 08/06/24 16:39 body tetracycline Allergy Unknown Verified 08/06/24 16:39 Patient History Medical History History of nephrolithiasis Retained ureteral stent Retained ureteral stent Right renal stone Obstruction of right ureteropelvic junction (UPJ) due to stone Depression History of CVA (cerebrovascular accident) Hyperlipidemia Hypertension Surgical History Hx of cystoscopy (09/07/21) History of cholecystectomy (07/13/21) S/P right knee arthroscopy Family History Father Heart disease Social History household members: other Smoking Status: Former smoker Tobacco: How many years used: 15 alcohol intake: former caffeine: No Smoking Status: Former smoker alcohol intake frequency: holidays/special occasions only Exam Initial Vital Signs Initial Vital Signs: Vital Signs Temperature 100.4 F H 08/06/24 16:39 Pulse Rate 138 H 08/06/24 16:39 Respiratory Rate 20 08/06/24 16:39 Blood Pressure 154/81 H 08/06/24 16:39 Pulse Oximetry 96 08/06/24 16:39 Oxygen Delivery Method Room Air 08/06/24 16:39 Course Orders Ordered: ED Orders 08/06/24 16:34 XR chest 1V Stat EKG-12 Lead Stat RT Consult Eval and Treat NOW 08/06/24 16:39 Blood Culture Stat Complete Blood Count AUTO DIFF Stat Comprehensive Metabolic Panel Stat Lactate (Lactic Acid) Stat Lipase Stat PTT Partial Thromboplastin Jarrod Stat Procalcitonin Stat Prothrombin Time INR Stat Sodium Chloride (Normal Saline 0.9%) 1,000 mls @ 1,000 mls/hr IV BOLUS ONE Stop: 08/06/24 17:33 Last Admin: 08/06/24 16:55 Dose: 1,000 mls/hr Documented By: UNRULY Ondansetron HCl (Ondansetron 4 Mg/2 Ml Inj) 4 mg IV NOW PRN PRN Reason: Nausea And Vomiting Ondansetron HCl (Ondansetron 4 Mg Odt) 4 mg SL NOW PRN PRN Reason: Nausea And Vomiting Discontinued Medications Lidocaine HCl (Lidocaine 2% (Glydo) 6 Ml Gel) 6 ml TOP NOW ONE Stop: 08/06/24 16:37 Last Admin: 08/06/24 16:55 Dose: 6 ml Documented By: UNRULY Vital Signs Vital signs: Vital Signs - 8 hr 08/06/24 16:39 Temperature 100.4 F H Pulse Rate 138 H Respiratory Rate 20 Blood Pressure 154/81 H Pulse Oximetry 96 Oxygen Delivery Method Room Air Medical Decision Making Lab Data 08/06/24 16:39 08/06/24 16:39 Labs: Lab Results 08/06/24 Range/Units 16:39 WBC 12.2 H (4.5-11.0) X10^3/uL RBC 5.26 (4.5-5.9) X10^6/uL Hgb 16.4 (13.5-17.5) g/dL Hct 48.4 (41-53) % MCV 92.0 (80-100) fL MCH 31.2 (26-34) PG MCHC 33.9 (30-36) % RDW 13.8 (11.6-14.8) % Plt Count 207 (150-400) X10^3/uL Neut % (Auto) 85.5 H (50-75) % Lymph % (Auto) 4.8 L (25-40) % [place] % (Auto) 9.3 (3-14) % Eos % (Auto) 0.2 L (2-4) % Baso % (Auto) 0.2 (0-2) % Neut # (Auto) 17822 H (8310-1095) /uL Lymph # (Auto) 600 L (2972-2331) /uL [place] # (Auto) 1100 H (0-900) /uL Eos # (Auto) 0 (0-450) /uL Baso # (Auto) 0 (0-100) /uL PT 12.0 (9.4-12.5) SECONDS INR 1.1 (0.9-1.3) APTT 35 (25.1-36.5) SECONDS Sodium 135 L (137-145) mmol/L Potassium 3.6 (3.4-5.1) mmol/L Chloride 106 (98-107) mmol/L Carbon Dioxide 21 L (22-32) mmol/L BUN 12 (9-20) mg/dL Creatinine 0.87 (0.66-1.25) mg/dL Estimated GFR > 60 (>60) mL/min BUN/Creatinine Ratio 13.8 (6-22) Glucose 132 H (80-110) mg/dL Lactate 3.4 H (0.7-2.1) mmol/L Calcium 8.6 (8.4-10.2) mg/dL Total Bilirubin 1.1 (0.2-1.3) mg/dL AST 79 H (17-59) IU/L ALT 55 H (<50) IU/L Alkaline Phosphatase 117 (38-126) U/L Total Protein 6.9 (6.3-8.2) g/dL Albumin 3.8 (3.5-5.0) g/dL Globulin 3.1 (1.7-4.1) g/dL Albumin/Globulin Ratio 1.2 (1.0-2.8) Lipase 166 (23-300) U/L Discharge Plan Departure Prescriptions: No Action sennosides [senna] 8.6 mg Tablet 8.6 mg PO DAILY acetaminophen 325 mg Tablet 650 mg PO Q4H PRN (Reason: Fever Or Pain) Rx Instructions: pain level 1-3 or fever >100.1 fluoxetine 10 mg Tablet 10 mg PO DAILY amlodipine 5 mg Tablet 10 mg PO DAILY aspirin 81 mg Tablet,Delayed Release (Dr/Ec) 81 mg PO DAILY docusate sodium 100 mg Capsule 100 mg PO BID Rx Instructions: hold if loose stools cholecalciferol (vitamin D3) [Vitamin D3] 1,000 unit Tablet 1,000 unit PO DAILY atorvastatin 20 mg Tablet 20 mg PO BEDTIME ondansetron 4 mg Tablet,Disintegrating 4 mg PO Q4H PRN (Reason: Nausea) cyanocobalamin (vitamin B-12) 1,000 mcg Capsule 1,000 mcg PO DAILY oxycodone 5 mg tablet 5 mg PO Q4H PRN (Reason: pain) Qty: 14 0RF nystatin 100,000 unit/gram powder 1 applic topical DAILY magnesium hydroxide [Milk of Magnesia] 400 mg/5 mL suspension 5 ml PO DAILY PRN (Reason: Constipation) Referrals: Gee Arriaga MD [Primary Care Provider] -
[2024-08-06 17:25] LABS: Procalcitonin 0.494 ng/mL (<0.5)
--- NOTE | 2024-08-06 17:55 | PC.NURSE ---
patient's chambers cath could not be removed with a syringe to take the balloon fluid out. Provider notified and used bs US to assess the cath. it was unknown if the cath was kinked inside the urethra but a hard nodule was palpated at the deep base of the penis into the anterior scrotum. Provider orederd to cut the cath. fluid came out once cath was cut and the cath was pulled only a few inches before the balloon was seen, followed by sarah blood and likely urine. A [address] hematuria cath was reinserted in the sterile fashion and sarah blood came out followed by cloudy matt urine. The patient reports feeling better.
[2024-08-06 18:07] LABS: Appearance Urine UA CLOUDY; Bilirubin Urine UA NEGATIVE (NEGATIVE); Color Urine UA RED; Glucose Urine UA NEGATIVE (Negative); Ketones Urine UA TRACE (NEGATIVE); Leukocyte Esterase Urine UA 1+ (NEGATIVE); Nitrite Urine UA POSITIVE (Negative); Occult Blood Urine UA 3+ (Negative); Protein Urine UA 2+ (Negative); Specific Gravity Urine UA 1.025 (1.000-1.035); pH Urine UA 6.5 (4.5-8.0)
[2024-08-06 18:11] LABS: Bacteria Urine Moderate (10-30); Culture Indicated Urine Specimen Cultured; RBC Urine >100/HPF (0-5/HPF); Squamous Epithelial Cell Urine None Seen (0-5/HPF); Urine Volume Low Vol <10mL unspun; WBC Urine 5-10/HPF (0-5/HPF)
[2024-08-06] MEDS: cefTRIAXone 1,000 MG in SODIUM CHLORIDE 0.9% 100 ML 200 MG IV (18:18)
[2024-08-06 18:23] LABS: Reflexed Lactate in 2 Hours Y
--- NOTE | 2024-08-06 18:42 | ED_ITS ---
HPI - General Adult General Chief complaint: Fever Stated complaint: cath problem Time Seen by Provider: 08/06/24 17:13 Source: patient and EMS Mode of arrival: EMS History of Present Illness HPI narrative: Patient is a 63-year-old male. Has an indwelling Padron catheter. It was nonambulatory. Has had a stroke in the past. Is here for evaluation of urinary retention. Is having lower abdominal pain. Has not had any urine output in several hours. Prior to my evaluation he had his catheter flushed and then replaced. He states he was feeling better. No vomiting. He denies chest pain or shortness of breath. Related Data Home Medications Medication Instructions Recorded Confirmed acetaminophen 325 mg tablet 650 mg PO Q4H PRN Fever Or Pain 09/21/18 08/06/24 amlodipine 5 mg tablet 10 mg PO DAILY 09/21/18 08/06/24 aspirin 81 mg tablet,delayed 81 mg PO DAILY 09/21/18 08/06/24 release cholecalciferol (vitamin D3) 25 1,000 unit PO DAILY 09/21/18 08/06/24 mcg (1,000 unit) tablet (Vitamin D3) docusate sodium 100 mg capsule 100 mg PO BID 09/21/18 08/06/24 fluoxetine 10 mg tablet 10 mg PO DAILY 09/21/18 08/06/24 sennosides 8.6 mg tablet (senna) 8.6 mg PO DAILY 09/21/18 08/06/24 atorvastatin 20 mg tablet 20 mg PO BEDTIME 07/12/21 08/06/24 cyanocobalamin (vitamin B-12) 1,000 mcg PO DAILY 07/12/21 08/06/24 1,000 mcg capsule ondansetron 4 mg disintegrating 4 mg PO Q4H PRN Nausea 07/12/21 08/06/24 tablet magnesium hydroxide 400 mg/5 mL 5 ml PO DAILY PRN Constipation 09/05/21 08/06/24 oral suspension (Milk of Magnesia) nystatin 100,000 unit/gram topical 1 applic topical DAILY 09/05/21 08/06/24 powder Previous Rx's Medication Instructions Recorded oxycodone 5 mg tablet 5 mg PO Q4H PRN pain #14 tabs 10/19/21 Allergies Allergy/AdvReac Type Severity Reaction Status Date / Time Penicillins Allergy Intermediate Rash over Verified 08/06/24 16:39 body tetracycline Allergy Unknown Verified 08/06/24 16:39 Review of Systems Review of Systems ROS Unobtainable: All systems reviewed & are unremarkable except as noted in HPI and below Patient History Medical History History of nephrolithiasis Retained ureteral stent Retained ureteral stent Right renal stone Obstruction of right ureteropelvic junction (UPJ) due to stone Depression History of CVA (cerebrovascular accident) Hyperlipidemia Hypertension Surgical History Hx of cystoscopy (09/07/21) History of cholecystectomy (07/13/21) S/P right knee arthroscopy Family History Father Heart disease Social History household members: other Smoking Status: Former smoker Tobacco: How many years used: 15 alcohol intake: former caffeine: No Smoking Status: Former smoker alcohol intake frequency: holidays/special occasions only Exam Initial Vital Signs Initial Vital Signs: Vital Signs Pulse Rate 131 H 08/06/24 16:32 Respiratory Rate 39 H 08/06/24 16:32 Pulse Oximetry 95 08/06/24 16:32 Const General: No ill appearing HENMT Head: normal to inspection and normocephalic Resp Effort & Inspection: normal respiratory effort Auscultation: clear to auscultation bilaterally Cardio Rate: tachycardic Rhythm: regular rhythm GI Inspection: non-distended Palpation: soft Other: Padron catheter in place. Neuro General: patient alert and patient awake Extrem General: capillary refill normal Course Orders Ordered: ED Orders 08/06/24 16:34 XR chest 1V Stat EKG-12 Lead Stat RT Consult Eval and Treat NOW 08/06/24 16:39 Blood Culture Stat Complete Blood Count AUTO DIFF Stat Comprehensive Metabolic Panel Stat Lactate (Lactic Acid) Stat Lipase Stat PTT Partial Thromboplastin Jarrod Stat Procalcitonin Stat Prothrombin Time INR Stat 08/06/24 17:37 Urinalysis and Microscopic Stat Urine Culture Stat 08/06/24 19:36 Education, smoking cessation ONGOING 08/06/24 19:42 Consult to Occupational Therapy Evaluate & Treat Consult to Physical Therapy Evaluate & Treat 08/07/24 06:00 Basic Metabolic Panel Routine Complete Blood Count AUTO DIFF Routine Acetaminophen (Acetaminophen 325 Mg Tablet) 650 mg PO Q6H PRN PRN Reason: Fever/Mild Pain (1-3) Heparin Sodium (Porcine) (Heparin 5,000 Unit/Ml Vial) 5,000 unit SUBCUT BID [facility] Last Admin: 08/06/24 22:02 Dose: 5,000 unit Documented By: MOSES Lactated Ringer's (Lactated Ringers) 1,000 mls @ 100 mls/hr IV CONT [facility] Last Admin: 08/06/24 22:02 Dose: 100 mls/hr Documented By: MOSES Ceftriaxone Sodium 1,000 mg/ (Sodium Chloride) 100 mls @ 200 mls/hr IV DAILY [facility] Naloxone HCl (Naloxone 0.4 Mg/Ml Vial) 0.2 mg IV Q2MIN PRN PRN Reason: Opiate Reversal Ondansetron HCl (Ondansetron 4 Mg/2 Ml Inj) 4 mg IV NOW PRN PRN Reason: Nausea And Vomiting Ondansetron HCl (Ondansetron 4 Mg Odt) 4 mg SL NOW PRN PRN Reason: Nausea And Vomiting Ondansetron HCl (Ondansetron 4 Mg/2 Ml Inj) 4 mg IV Q8HR PRN PRN Reason: Nausea And Vomiting Discontinued Medications Sodium Chloride (Normal Saline 0.9%) 1,000 mls @ 1,000 mls/hr IV BOLUS ONE Stop: 08/06/24 17:33 Last Infusion: 08/06/24 17:50 Dose: Infused Documented By: Admin: 08/06/24 16:55 Dose: 1,000 mls/hr Documented By: UNRULY Ceftriaxone Sodium 1,000 mg/ (Sodium Chloride) 100 mls @ 200 mls/hr IV NOW ONE Stop: 08/06/24 18:03 Last Infusion: 08/06/24 19:05 Dose: Infused Documented By: Admin: 08/06/24 18:18 Dose: 200 mls/hr Documented By: Lidocaine HCl (Lidocaine 2% (Glydo) 6 Ml Gel) 6 ml TOP NOW ONE Stop: 08/06/24 16:37 Last Admin: 08/06/24 16:55 Dose: 6 ml Documented By: UNRULY Vital Signs Vital signs: Vital Signs - 8 hr 08/06/24 16:32 08/06/24 16:39 08/06/24 16:54 Temperature 100.4 F H Pulse Rate 131 H 138 H 134 H Respiratory Rate 39 H 20 37 H Blood Pressure 154/81 H Pulse Oximetry 95 96 93 Oxygen Delivery Method Room Air 08/06/24 16:54 08/06/24 17:00 08/06/24 17:30 Temperature Pulse Rate 115 H 109 H Respiratory Rate 35 H 34 H Blood Pressure 151/83 H Pulse Oximetry 92 94 Oxygen Delivery Method Room Air 08/06/24 17:37 08/06/24 17:37 08/06/24 18:00 Temperature Pulse Rate 111 H 106 H Respiratory Rate 33 H 33 H Blood Pressure 135/73 Pulse Oximetry 94 94 Oxygen Delivery Method 08/06/24 18:30 08/06/24 19:00 08/06/24 19:30 Temperature Pulse Rate 104 H 99 H 99 H Respiratory Rate 33 H 33 H 33 H Blood Pressure Pulse Oximetry 94 95 95 Oxygen Delivery Method Medical Decision Making Medical Records Medical records reviewed: Yes I reviewed the patient's medical records. Lab Data Lab results reviewed: Yes I reviewed the patient's lab results. 08/06/24 16:39 08/06/24 16:39 Labs: Lab Results 08/06/24 08/06/24 08/06/24 Range/Units 16:39 17:37 18:52 WBC 12.2 H (4.5-11.0) X10^3/uL RBC 5.26 (4.5-5.9) X10^6/uL Hgb 16.4 (13.5-17.5) g/dL Hct 48.4 (41-53) % MCV 92.0 (80-100) fL MCH 31.2 (26-34) PG MCHC 33.9 (30-36) % RDW 13.8 (11.6-14.8) % Plt Count 207 (150-400) X10^3/uL Neut % (Auto) 85.5 H (50-75) % Lymph % (Auto) 4.8 L (25-40) % [place] % (Auto) 9.3 (3-14) % Eos % (Auto) 0.2 L (2-4) % Baso % (Auto) 0.2 (0-2) % Neut # (Auto) 05375 H (0415-7147) /uL Lymph # (Auto) 600 L (6818-2535) /uL [place] # (Auto) 1100 H (0-900) /uL Eos # (Auto) 0 (0-450) /uL Baso # (Auto) 0 (0-100) /uL PT 12.0 (9.4-12.5) SECONDS INR 1.1 (0.9-1.3) APTT 35 (25.1-36.5) SECONDS Sodium 135 L (137-145) mmol/L Potassium 3.6 (3.4-5.1) mmol/L Chloride 106 (98-107) mmol/L Carbon Dioxide 21 L (22-32) mmol/L BUN 12 (9-20) mg/dL Creatinine 0.87 (0.66-1.25) mg/dL Estimated GFR > 60 (>60) mL/min BUN/Creatinine Ratio 13.8 (6-22) Glucose 132 H (80-110) mg/dL Lactate 3.4 H 1.7 (0.7-2.1) mmol/L Calcium 8.6 (8.4-10.2) mg/dL Total Bilirubin 1.1 (0.2-1.3) mg/dL AST 79 H (17-59) IU/L ALT 55 H (<50) IU/L Alkaline Phosphatase 117 (38-126) U/L Total Protein 6.9 (6.3-8.2) g/dL Albumin 3.8 (3.5-5.0) g/dL Globulin 3.1 (1.7-4.1) g/dL Albumin/Globulin Ratio 1.2 (1.0-2.8) Lipase 166 (23-300) U/L Procalcitonin 0.494 (<0.5) ng/mL Urine Color Red Urine Appearance Cloudy Urine pH 6.5 (4.5-8.0) Ur Specific [place] 1.025 (1.000-1.035) Urine Protein 2+ H (Negative) Urine Glucose (UA) Negative (Negative) g/dL Urine Ketones Trace H (NEGATIVE) Urine Occult Blood 3+ H (Negative) Urine Nitrate Positive H (Negative) Urine Bilirubin Negative (NEGATIVE) Urine Urobilinogen 2.0 H (0.2) E.U./dL Ur Leukocyte Esterase 1+ H (NEGATIVE) Urine RBC >100/hpf H (0-5/HPF) Urine WBC 5-10/hpf H (0-5/HPF) Ur Squamous Epith Cells None seen (0-5/HPF) Urine Bacteria Moderate (10-30) H (None) Ur Culture Indicated? Specimen cultured Vol Urine Centrifuged Low vol <10ml unspun A Imaging Data Chest x-ray: Radiologist's Impression: PROCEDURE: XR CHEST 1V INDICATIONS: suspected sepsis TECHNIQUE: One view of the chest was acquired. COMPARISON: [facility], CR, XR CHEST 1V, 04/30/2024, 5:51. [facility], CR, XR CHEST 1V, 06/25/2022, 14:52. [facility], CR, XR CHEST 2V, 07/12/2021, 15:31. [facility], CR, XR CHEST 1V, 09/21/2018, 17:37. FINDINGS: Surgical changes and devices: None. Lungs and pleura: Lungs are clear. No pleural effusions or pneumothorax. Mediastinum: Mediastinal contours appear normal. Heart size is normal. Bones and chest wall: No suspicious bony lesions. Overlying soft tissues appear unremarkable. IMPRESSION: No acute cardiothoracic process. ECG Data Attestation: I personally reviewed and interpreted this ECG as follows: Interpretation: Sinus tachycardia Ventricular rate of 128 Normal axis Q-wave noted in lead 3, AVF No ST T wave changes MDM Narrative Medical decision making narrative: Patient was have leukocytosis in his febrile. Has a nitrite positive urine. Elevated lactate which improved. Has never been hypotensive. Blood cultures were obtained. Antibiotics administered. Review of his medical record shows that he was had multiple infections in the past with have normal pathogens that have several different resistances. The urine culture was pending today. I feel that the patient would benefit from admission and IV antibiotics given the complicated nature of his UTI. His prior urine cultures have been resistant to most antibiotics. Patient states that he was feeling much better after having the catheter replaced. Discussed the case with Dr. Rivera hospitalist on-call who will admit for further evaluation. Discussed the need for admission with the patient who expressed understanding and agreement. Discharge Plan Departure Patient Disposition: Admitted As Inpatient Clinical Impression: Acute UTI Admit Date/Time: 08/06/24 19:51 Admit Provider: Saran Rivera
[2024-08-06 19:10] LABS: Lactate 2HR (Lactic Acid Rflx) 1.7 mmol/L (0.7-2.1)
[2024-08-06] MEDS: HEPARIN 5,000 UNIT/ML VIAL 5000 UNIT SUBCUT (22:02)
[2024-08-06] MEDS: LACTATED RINGERS 1,000 ML 100 ML IV (22:02)
--- NOTE | 2024-08-06 22:46 | PC.NURSE ---
2109 Patient admitted to room 208, oriented his room. Very poor historian, answered simple question. History of CVA with right sided deficit & expressive aphasia. Padron catheter with bloody urine no clots noted. Will continue plan of care & monitor.
[2024-08-07] VITALS (9 sets, daily range): BP systolic 130–145; BP diastolic 71–84; PULSE 73–112; RESP 19–27; TEMP 36.6–38.7; O2SAT 93–97; BMI 26.6
[2024-08-07] MEDS: ONDANSETRON 4 MG/2 ML INJ IV (01:27)
--- NOTE | 2024-08-07 01:56 | PC.NURSE ---
RECRUITMENT OFFICER noted tele had 2 runs of V-tach 3-4 seconds each. He was vomiting & 4 mg. of Zofran administered. notified, pt. trying to sleep now. Will monitor & continue plan of care.
--- NOTE | 2024-08-07 02:00 | P.HP_ITS ---
History of Present Illness History of Present Illness Chief complaint: cath problem Narrative: 63-year-old male with past medical history of hypertension, depression, hyperlipidemia, CVA and chronic chambers catheter presents with a fever and problem with his Chambers catheter. Per report, the patient was sent here from his SNF due to clogged chambers cathter. Also the staff at the SNF also noted that the patient has fever today with some super pubic discomfort. The patient state that has chambers catheter was not functioning properly. The patient did have subjective fever but denies any chills, nausea, vomiting, diarrhea, chest pain or shortness of breath. In our emergency room, the patient was hemodynamically stable though did meet criteria for sepsis with elevated white count and lactic acid (around 3). The chambers catheter was replaced. UA suggested UTI. The patient was given IVF and IV Ceftriaxone. Of note, repeat lactic acid was normal. Patient continue to remain hemodynamically stable after IV fluid bolus. [facility] Medical History History of nephrolithiasis Retained ureteral stent Retained ureteral stent Right renal stone Obstruction of right ureteropelvic junction (UPJ) due to stone Depression History of CVA (cerebrovascular accident) Hyperlipidemia Hypertension Surgical History Hx of cystoscopy (09/07/21) History of cholecystectomy (07/13/21) S/P right knee arthroscopy Family History Father Heart disease Social History household members: other Smoking Status: Former smoker Tobacco: How many years used: 15 alcohol intake: former caffeine: No Meds Home Medications and Allergies Home Medications Medication Instructions Recorded Confirmed Type acetaminophen 325 mg tablet 650 mg PO Q4H PRN Fever Or Pain 09/21/18 08/06/24 History amlodipine 5 mg tablet 10 mg PO DAILY 09/21/18 08/06/24 History aspirin 81 mg tablet,delayed 81 mg PO DAILY 09/21/18 08/06/24 History release cholecalciferol (vitamin D3) 25 1,000 unit PO DAILY 09/21/18 08/06/24 History mcg (1,000 unit) tablet (Vitamin D3) docusate sodium 100 mg capsule 100 mg PO BID 09/21/18 08/06/24 History fluoxetine 10 mg tablet 10 mg PO DAILY 09/21/18 08/06/24 History sennosides 8.6 mg tablet (senna) 8.6 mg PO DAILY 09/21/18 08/06/24 History atorvastatin 20 mg tablet 20 mg PO BEDTIME 07/12/21 08/06/24 History cyanocobalamin (vitamin B-12) 1,000 mcg PO DAILY 07/12/21 08/06/24 History 1,000 mcg capsule ondansetron 4 mg disintegrating 4 mg PO Q4H PRN Nausea 07/12/21 08/06/24 History tablet magnesium hydroxide 400 mg/5 mL 5 ml PO DAILY PRN Constipation 09/05/21 08/06/24 History oral suspension (Milk of Magnesia) nystatin 100,000 unit/gram topical 1 applic topical DAILY 09/05/21 08/06/24 History powder oxycodone 5 mg tablet 5 mg PO Q4H PRN pain #14 tabs 10/19/21 08/06/24 Rx Allergies Allergy/AdvReac Type Severity Reaction Status Date / Time Penicillins Allergy Intermediate Rash over Verified 08/06/24 16:39 body tetracycline Allergy Unknown Verified 08/06/24 16:39 Review of Systems Review of Systems ROS: Yes All systems reviewed with the patient and are negative except as otherwise documented Exam Vital Signs (past 8 hours): - 08/06/24 18:30 08/06/24 19:00 08/06/24 19:30 Temperature Pulse Rate 104 H 99 H 99 H Respiratory Rate 33 H 33 H 33 H Blood Pressure Pulse Oximetry 94 95 95 Oxygen Delivery Method Oxygen Flow Rate 08/06/24 20:00 08/06/24 20:01 08/06/24 20:01 Temperature Pulse Rate 99 H 99 H Respiratory Rate 32 H 29 H Blood Pressure 136/74 Pulse Oximetry 95 95 Oxygen Delivery Method Oxygen Flow Rate 08/06/24 20:30 08/06/24 20:30 08/06/24 21:43 Temperature 98.8 F Pulse Rate 101 H 100 H Respiratory Rate 28 H 26 H 19 Blood Pressure 128/76 125/75 Pulse Oximetry 95 94 94 Oxygen Delivery Method Room Air Oxygen Flow Rate 0 08/07/24 01:00 Temperature 97.9 F Pulse Rate 110 H Respiratory Rate 19 Blood Pressure 130/84 Pulse Oximetry 94 Oxygen Delivery Method Oxygen Flow Rate 0 Oxygen Delivery Method Room Air Oxygen Flow Rate 0 Narrative Exam Narrative: Physical Exam: GENERAL: The patient is not in any acute distressed. Awake and alert. HEENT: Nonicteric sclerae, PERRLA, EOMI. Oropharynx clear. Moist mucous membranes. Conjunctivae appear well perfused. HEART: Regular rate and rhythm without murmurs. No lower extremities edema. LUNGS: Clear to auscultation bilaterally. No wheezing, crackles or rhonchi ABDOMEN: Soft, positive bowel sounds, nontender. SKIN: No rash, no excessive bruising, petechiae, or purpura. NEUROLOGIC: AxO x 3. Cranial nerves II-XII intact without motor/sensory deficit. Objective Labs 08/06/24 16:39 08/06/24 16:39 Labs: Laboratory Results - last 24 hr 08/06/24 08/06/24 08/06/24 16:39 17:37 18:52 WBC 12.2 H RBC 5.26 Hgb 16.4 Hct 48.4 MCV 92.0 MCH 31.2 MCHC 33.9 RDW 13.8 Plt Count 207 Neut % (Auto) 85.5 H Lymph % (Auto) 4.8 L [place] % (Auto) 9.3 Eos % (Auto) 0.2 L Baso % (Auto) 0.2 Neut # (Auto) 13089 H Lymph # (Auto) 600 L [place] # (Auto) 1100 H Eos # (Auto) 0 Baso # (Auto) 0 PT 12.0 INR 1.1 APTT 35 Sodium 135 L Potassium 3.6 Chloride 106 Carbon Dioxide 21 L BUN 12 Creatinine 0.87 Estimated GFR > 60 BUN/Creatinine Ratio 13.8 Glucose 132 H Lactate 3.4 H 1.7 Calcium 8.6 Total Bilirubin 1.1 AST 79 H ALT 55 H Alkaline Phosphatase 117 Total Protein 6.9 Albumin 3.8 Globulin 3.1 Albumin/Globulin Ratio 1.2 Lipase 166 Procalcitonin 0.494 Urine Color Red Urine Appearance Cloudy Urine pH 6.5 Ur Specific [place] 1.025 Urine Protein 2+ H Urine Glucose (UA) Negative Urine Ketones Trace H Urine Occult Blood 3+ H Urine Nitrate Positive H Urine Bilirubin Negative Urine Urobilinogen 2.0 H Ur Leukocyte Esterase 1+ H Urine RBC >100/hpf H Urine WBC 5-10/hpf H Ur Squamous Epith Cells None seen Urine Bacteria Moderate (10-30) H Ur Culture Indicated? Specimen cultured Vol Urine Centrifuged Low vol <10ml unspun A Assessment & Plan Assessment & Plan narrative: Sepsis. Likely source is urine. Admit the patient to medical telemetry as inpatient. Treat underlying infection and monitor hemodynamics with IV fluid. UTI with Chambers catheter related infection. Patient had Chambers catheter replaced in the ER due to being clogged. Continue IV fluid and IV Ceftriaxone. Follow up urine culture and tailored antibiotic accordingly. Elevate lactic acid. Normalized after IV fluid. Mild transaminitis monitor for now. Hypertension. Monitor blood pressure and resume home medication accordingly. Hyperlipidemia resume home statin. History of CVA. No new focal finding. PT/OT. DVT prophylaxis hep SQ. Code status DNR/DNI Disposition like back to SNF in 2 to 3 days. Time-Based Coding :: [TOTAL MINUTES] spent with patient and on the chart (including review of chart, obtaining history, exam, reviewing outside data, placing orders, documenting exam and treatment plan, and counseling patient) on [DATE]. Quality VTE Deep Vein Thrombosis/Pulmonary Embolism Present on Admission: No
--- NOTE | 2024-08-07 02:07 | P.HP_ITS ---
<Statement entered by Saran Rivera MD - 08/29/24 19:59> Entered in ERROR
[2024-08-07 05:19] LABS: Add Manual Diff / Slide Review NO; Basophils Absolute Auto 100 /uL (0-100); Basophils Percent Auto 0.5 % (0-2); Eosinophils Absolute Auto 0 /uL (0-450); Eosinophils Percent Auto 0.1 % (2-4); Hemoglobin 14.8 g/dL (13.5-17.5); Lymphocytes Absolute Auto 600 /uL (1100-4500); Lymphocytes Percent Auto 3.4 % (25-40); Mean Corpuscular HGB Conc 34.5 % (30-36); Mean Corpuscular Hemoglobin 31.1 PG (26-34); Mean Corpuscular Volume 90.2 fL (80-100); Monocytes Absolute Auto 1500 /uL (0-900); Monocytes Percent Auto 8.6 % (3-14); Neutrophils Absolute Auto 15200 /uL (1500-7000); Neutrophils Percent Auto 87.4 % (50-75); Platelet Count 173 X10^3/uL (150-400); Red Blood Cell Count 4.77 X10^6/uL (4.5-5.9); Red Cell Distribution Width 14.1 % (11.6-14.8); White Blood Cell Count 17.4 X10^3/uL (4.5-11.0)
[2024-08-07 05:27] LABS: BUN Creatinine Ratio 13.6 (6-22); Blood Urea Nitrogen 11 mg/dL (9-20); Calcium 8.1 mg/dL (8.4-10.2); Carbon Dioxide 26 mmol/L (22-32); Chloride 105 mmol/L (98-107); Estimated Glomerular Filt Rate > 60 mL/min (>60); Glucose 102 mg/dL (80-110); HEMOLYSIS < 15 (0-50); Potassium 3.8 mmol/L (3.4-5.1); Sodium 134 mmol/L (137-145)
[2024-08-07 06:52] LABS: Acinetobacter calcoa-baumannii Not Detected (Not Detect); Bacteroides fragilis Not Detected (Not Detect); CTX-M Resistance Not Detected (Not Detect); Candida albicans Not Detected (Not Detect); Candida auris Not Detected (Not Detect); Candida glabrata Not Detected (Not Detect); Candida krusei Not Detected (Not Detect); Candida parapsilosis Not Detected (Not Detect); Candida tropicalis Not Detected (Not Detect); Cryptococcus neoformans/gatti Not Detected (Not Detect); Enterobacter cloacae complex Not Detected (Not Detect); Enterobacterales Detected (Not Detect); Enterococcus faecalis Detected (Not Detect); Enterococcus faecium Not Detected (Not Detect); Haemophilus influenzae Not Detected (Not Detect); IMP Resistance Not Detected (Not Detect); KPC Resistance Not Detected (Not Detect); Klebsiella aerogenes Not Detected (Not Detect); Listeria monocytogenes Not Detected (Not Detect); NDM Resistance Not Detected (Not Detect); Neisseria meningitidis Not Detected (Not Detect); OXA-48-like Resistance Not Detected (Not Detect); Proteus species Not Detected (Not Detect); Pseudomonas aeruginosa Not Detected (Not Detect); Salmonella species Not Detected (Not Detect); Serratia marcescens Not Detected (Not Detect); Staphylococcus epidermidis Not Detected (Not Detect); Staphylococcus lugdunensis Not Detected (Not Detect); Staphylococcus species Not Detected (Not Detect); Stenotrophomonas maltophilia Not Detected (Not Detect); Streptococcus agalactiae (Gr B Not Detected (Not Detect); Streptococcus pneumonia Not Detected (Not Detect); Streptococcus pyogenes (Gr A) Not Detected (Not Detect); Streptococcus species Not Detected (Not Detect); VIM Resistance Not Detected (Not Detect); Vancomycin-rest genes A/B Not Detected (Not Detect)
[2024-08-07] MEDS: LACTATED RINGERS 1,000 ML 100 ML IV ×2 (07:40→17:55)
[2024-08-07] MEDS: CYANOCOBALAMIN (VITAMIN B-12) 500 MCG TABLET 1000 MCG PO (10:30)
[2024-08-07] MEDS: cefTRIAXone 1,000 MG in SODIUM CHLORIDE 0.9% 100 ML 200 MG IV (10:30)
[2024-08-07] MEDS: HEPARIN 5,000 UNIT/ML VIAL 5000 UNIT SUBCUT ×2 (10:30→20:08)
[2024-08-07] MEDS: FLUoxetine 10 MG CAPSULE PO (10:30)
[2024-08-07] MEDS: SENNOSIDES 8.6 MG TABLET PO (10:31)
[2024-08-07] MEDS: ASPIRIN EC 81 MG TABLET PO (10:31)
[2024-08-07] MEDS: DOCUSATE 100 MG CAPSULE PO ×2 (10:31→20:08)
[2024-08-07] MEDS: AMLODIPINE 5 MG TABLET 10 MG PO (10:31)
--- NOTE | 2024-08-07 12:11 | P.PN_ITS ---
Subjective Subjective Date Patient Seen: 08/07/24 Time Patient Seen: 08:50 Interval history: Narrative: 63-year-old male with past medical history of hypertension, depression, hyperlipidemia, CVA and chronic chambers catheter presents with a fever and problem with his Chambers catheter. Per report, the patient was sent here from his SNF due to clogged chambers cathter. Also the staff at the SNF also noted that the patient has fever today with some super pubic discomfort. The patient state that has chambers catheter was not functioning properly. The patient did have subjective fever but denies any chills, nausea, vomiting, diarrhea, chest pain or shortness of breath. In our emergency room, the patient was hemodynamically stable though did meet criteria for sepsis with elevated white count and lactic acid (around 3). The chambers catheter was replaced. UA suggested UTI. The patient was given IVF and IV Ceftriaxone. Of note, repeat lactic acid was normal. Patient continue to remain hemodynamically stable after IV fluid bolus. Interval history: The patient states he is feeling better today. He reports abdominal discomfort though interview is limited due to his aphasia. Exam Vital Signs (past 8 hours): - 08/07/24 05:00 08/07/24 08:00 Temperature 98.8 F 100.8 F H Pulse Rate 90 73 Respiratory Rate 20 21 Blood Pressure 142/75 H 140/79 Pulse Oximetry 94 93 Oxygen Flow Rate 0 Oxygen Delivery Method Room Air Oxygen Flow Rate 0 Narrative Exam Narrative: GENERAL: This is a well-nourished, well-developed patient, in no apparent distress, with dense expressive aphasia. HEAD: Atraumatic. Normocephalic. No temporal or scalp tenderness. EYES: Pupils equal round and reactive. Extraocular motions intact. No scleral icterus. No injection or drainage. ENT: Mucous membranes pink and moist. NECK: Trachea midline. No JVD, bruits or lymphadenopathy. Supple, nontender, no meningeal signs. CARDIOVASCULAR: Regular rate and rhythm without murmurs, gallops, or rubs. RESPIRATORY: Clear to auscultation. GASTROINTESTINAL: Abdomen soft, non-tender, nondistended. GENITOURINARY: Chambers catheter in place (replaced in emergency department on admission) EXTREMITIES: No clubbing, cyanosis, or edema. BACK: Nontender without deformity or crepitance. No flank tenderness. NEUROLOGIC: Alert, expressive aphasia. DERMATOLOGIC: No rashes or skin lesions. Objective Labs 08/07/24 04:59 08/07/24 04:59 Labs: Laboratory Results - last 24 hr 08/06/24 08/06/24 08/06/24 16:39 17:37 18:52 WBC 12.2 H RBC 5.26 Hgb 16.4 Hct 48.4 MCV 92.0 MCH 31.2 MCHC 33.9 RDW 13.8 Plt Count 207 Neut % (Auto) 85.5 H Lymph % (Auto) 4.8 L [place] % (Auto) 9.3 Eos % (Auto) 0.2 L Baso % (Auto) 0.2 Neut # (Auto) 93667 H Lymph # (Auto) 600 L [place] # (Auto) 1100 H Eos # (Auto) 0 Baso # (Auto) 0 PT 12.0 INR 1.1 APTT 35 Sodium 135 L Potassium 3.6 Chloride 106 Carbon Dioxide 21 L BUN 12 Creatinine 0.87 Estimated GFR > 60 BUN/Creatinine Ratio 13.8 Glucose 132 H Lactate 3.4 H 1.7 Calcium 8.6 Total Bilirubin 1.1 AST 79 H ALT 55 H Alkaline Phosphatase 117 Total Protein 6.9 Albumin 3.8 Globulin 3.1 Albumin/Globulin Ratio 1.2 Lipase 166 Procalcitonin 0.494 Urine Color Red Urine Appearance Cloudy Urine pH 6.5 Ur Specific [place] 1.025 Urine Protein 2+ H Urine Glucose (UA) Negative Urine Ketones Trace H Urine Occult Blood 3+ H Urine Nitrate Positive H Urine Bilirubin Negative Urine Urobilinogen 2.0 H Ur Leukocyte Esterase 1+ H Urine RBC >100/hpf H Urine WBC 5-10/hpf H Ur Squamous Epith Cells None seen Urine Bacteria Moderate (10-30) H Ur Culture Indicated? Specimen cultured Vol Urine Centrifuged Low vol <10ml unspun A A.calcoaceticus-baumannii cmplx PCR Not detected Bacteroides fragilis Not detected Verónica albicans (PCR) Not detected Verónica auris (PCR) Not detected C. glabrata (PCR) Not detected C. krusei (PCR) Not detected C. parapsilosis (PCR) Not detected C. tropicalis (PCR) Not detected C. neoform/gattii (PCR) Not detected Enterobacterales (PCR) Detected E. cloacae complex PCR Not detected Enterococc faecalis PCR Detected Enterococc faecium PCR Not detected E. coli (PCR) Not detected H. influenzae (PCR) Not detected Klebsiella aerogenes (PCR) Not detected Klebsiella oxytoca PCR Not detected Klebsiella pneumoniae Not detected List. monocytogenes PCR Not detected N. meningitidis (PCR) Not detected Proteus species (PCR) Not detected Salmonella spp. (PCR) Not detected Serratia marcescens PCR Not detected Staphylococcus sp PCR Not detected Staph aureus (PCR) Not detected mecA/C & MREJ Resist Gene Not applicable mecA/C-Methicil Resis Gene Not applicable mcr-1 Colistin Res Gene PCR Not applicable Staph epidermidis (PCR) Not detected Staph lugdunensis PCR Not detected S. maltophilia (PCR) Not detected Streptococcus sp PCR Not detected Group A Strep (PCR) Not detected Strep agalactiae (PCR) Not detected Strep pneumoniae (PCR) Not detected P. aeruginosa (PCR) Not detected Jyoti/B-Vanco Res Genes Not detected blaIMP Car res Gene PCR Not detected KPC-Carbap Res Gene PCR Not detected blaNDM Car Res Gene PCR Not detected OXA-48 Carbapenem Resis Gene (PCR) Not detected blaVIM Car Res Gene PCR Not detected CTX-M Gene Resistance (PCR) Not detected 08/07/24 04:59 WBC 17.4 H RBC 4.77 Hgb 14.8 Hct 43.0 MCV 90.2 MCH 31.1 MCHC 34.5 RDW 14.1 Plt Count 173 Neut % (Auto) 87.4 H Lymph % (Auto) 3.4 L [place] % (Auto) 8.6 Eos % (Auto) 0.1 L Baso % (Auto) 0.5 Neut # (Auto) 17168 H Lymph # (Auto) 600 L [place] # (Auto) 1500 H Eos # (Auto) 0 Baso # (Auto) 100 PT INR APTT Sodium 134 L Potassium 3.8 Chloride 105 Carbon Dioxide 26 BUN 11 Creatinine 0.81 Estimated GFR > 60 BUN/Creatinine Ratio 13.6 Glucose 102 Lactate Calcium 8.1 L Total Bilirubin AST ALT Alkaline Phosphatase Total Protein Albumin Globulin Albumin/Globulin Ratio Lipase Procalcitonin Urine Color Urine Appearance Urine pH Ur Specific [place] Urine Protein Urine Glucose (UA) Urine Ketones Urine Occult Blood Urine Nitrate Urine Bilirubin Urine Urobilinogen Ur Leukocyte Esterase Urine RBC Urine WBC Ur Squamous Epith Cells Urine Bacteria Ur Culture Indicated? Vol Urine Centrifuged A.calcoaceticus-baumannii cmplx PCR Bacteroides fragilis Verónica albicans (PCR) Verónica auris (PCR) C. glabrata (PCR) C. krusei (PCR) C. parapsilosis (PCR) C. tropicalis (PCR) C. neoform/gattii (PCR) Enterobacterales (PCR) E. cloacae complex PCR Enterococc faecalis PCR Enterococc faecium PCR E. coli (PCR) H. influenzae (PCR) Klebsiella aerogenes (PCR) Klebsiella oxytoca PCR Klebsiella pneumoniae List. monocytogenes PCR N. meningitidis (PCR) Proteus species (PCR) Salmonella spp. (PCR) Serratia marcescens PCR Staphylococcus sp PCR Staph aureus (PCR) mecA/C & MREJ Resist Gene mecA/C-Methicil Resis Gene mcr-1 Colistin Res Gene PCR Staph epidermidis (PCR) Staph lugdunensis PCR S. maltophilia (PCR) Streptococcus sp PCR Group A Strep (PCR) Strep agalactiae (PCR) Strep pneumoniae (PCR) P. aeruginosa (PCR) Jyoti/B-Vanco Res Genes blaIMP Car res Gene PCR KPC-Carbap Res Gene PCR blaNDM Car Res Gene PCR OXA-48 Carbapenem Resis Gene (PCR) blaVIM Car Res Gene PCR CTX-M Gene Resistance (PCR) PFSH Medical History Depression History of CVA (cerebrovascular accident) History of nephrolithiasis Hyperlipidemia Hypertension Obstruction of right ureteropelvic junction (UPJ) due to stone Retained ureteral stent Retained ureteral stent Right renal stone Surgical History History of cholecystectomy (07/13/21) Hx of cystoscopy (09/07/21) S/P right knee arthroscopy Family History Father Heart disease Social History household members: other Smoking Status: Former smoker Tobacco: How many years used: 15 alcohol intake: former caffeine: No Assessment & Plan Assessment & Plan narrative: 1. Sepsis with Gram-positive cocci in 2 of 2 blood cultures, and gram-negative bacilli and Gram-positive cocci in urine. Likely source is urine. Admitted to medical telemetry as inpatient. Treat underlying infection and monitor hemodynamics with IV fluid. Continue ceftriaxone and add vancomycin. 2. UTI with Chambers catheter related infection. Patient had Chambers catheter replaced in the ER due to being clogged. Continue IV fluid and IV Ceftriaxone and add vancomycin 08/07/2024. Follow up urine culture and tailored antibiotic accordingly. 3. Elevate lactic acid. Normalized after IV fluid. 4. Mild transaminitis monitor for now. 5. Hypertension. Monitor blood pressure and resume home medication accordingly. 6. Hyperlipidemia. Continue home statin. 7. History of CVA. No new focal finding. PT/OT. Plan: -IV ceftriaxone and azithromycin -IV fluids -DVT prophylaxis hep SQ. -Code status DNR/DNI Disposition like back to SNF in 2 to 3 days. Quality VTE Deep Vein Thrombosis/Pulmonary Embolism Present on Admission: No PROFEE Charge codes Subsequent inpatient/observation care: 27209
--- NOTE | 2024-08-07 13:53 | PT.IIE ---
Current Diagnoses Sepsis, unspecified organism (08/06/24) Surgical History (Last Reviewed 08/08/24 @ 08:19 by Jey Medina MD) History of cholecystectomy (07/13/21) Hx of cystoscopy (09/07/21) S/P right knee arthroscopy Medical History (Last Reviewed 08/08/24 @ 08:19 by Jey Medina MD) Depression History of CVA (cerebrovascular accident) History of nephrolithiasis Hyperlipidemia Hypertension Obstruction of right ureteropelvic junction (UPJ) due to stone Retained ureteral stent Retained ureteral stent Right renal stone Physical Therapy Inpatient Evaluation/Re-Eval M1 PT/OT-IP Prior Functional Status Start: 08/07/24 14:56 Freq: NEEDED Status: Active Protocol: Document 08/09/24 13:00 AMB (Rec: 08/07/24 15:24 AMB [id number]) Medical Review Prior Functional Status Medical History Reviewed Yes Communication Expressive aphasia certainly present. When given a question like do you stand or use a lift to transfer patient can usually give one or two word answers like stand Mobility and Gait Per JAVA SWING DEVELOPER patient's brother reports he is usually Angelique to perform a stand pivot transfer . The patient reports he does not really walk, but can stand to get from the w/c to bed with assistance. Activities of Daily Living and IADL's Pt lives at [facility] Social History Household Members other Living Arrangements Assisted Living M1 PT/OT-IP Prior Functional Status Start: 08/07/24 14:58 Freq: NEEDED Status: Active Protocol: Document 08/09/24 11:19 CGR (Rec: 08/09/24 11:39 CGR [id number]) Medical Review Prior Functional Status Medical History Reviewed Yes Communication Expressive aphasia certainly present. When given a question like do you stand or use a lift to transfer patient can usually give one or two word answers like stand Mobility and Gait Per JAVA SWING DEVELOPER patient's brother reports he is usually Angelique to perform a stand pivot transfer . The patient reports he does not really walk, but can stand to get from the w/c to bed with assistance. Activities of Daily Living and IADL's Pt lives at [facility]. Pt states that he does his simple ADLs and some LB dressing (asked twice and same answer [place] for LB dressing) . Pt is unsure of upper body dressing and states that they help him with bathing and toielting. Social History Household Members other Living Arrangements Assisted Living Employment Status Retired Additional Social History Comment Pt states he has an adjustable bed M2 PT-IP Current Condition Start: 08/07/24 14:58 Freq: NEEDED Status: Active Protocol: Document 08/09/24 13:00 AMB (Rec: 08/07/24 15:24 AMB [id number]) Physical Therapy Current Condition Current Condition Evaluation Date 08/07/24 Treatment Diagnosis sepsis due to UTI in the context of chronic CVA R lane Onset Date 08/06/24 M3 PT-IP Subjective Start: 08/07/24 14:58 Freq: NEEDED Status: Active Protocol: Document 08/09/24 13:00 AMB (Rec: 08/07/24 15:24 AMB [id number]) Subjective Physical Therapy Visit Type Type Initial Evaluation Visit Start Time 14:00 Visit Stop Time 14:30 Physical Therapy Visit Comments Patient Comments Pt states Yes when asked if PT can enter his room. He is sitting in his recliner, nursing used the savita lift to get him from the chair to the bed earlier today. M4 PT-IP Mobility and Gait Start: 08/07/24 14:58 Freq: NEEDED Status: Active Protocol: Document 08/09/24 13:00 AMB (Rec: 08/07/24 15:24 AMB [id number]) PT-Transfer Assessment Comments Mobility Comments PT entered patient's room. He had spilled a significant amount of lunch on his gown, so PT assisted him to get a new gown on. R UE without significant active movement. Assessed R LE strength, Ayaz is able to perform slight movement at ankle with evident plantarflexion contracture, could feel light twitches at knee when asked to move knee actively. ROM appeared full at L LE, but mild weakness throughout L LE. Osmin was able to scoot to the edge of the chair, but could not assist in performing a sit to stand transfer. His L LE would have to be quite strong to stand, given the weakness in his R LE from his chronic stroke. Gait Assessment Comments Gait Comments not assessed, unable M5 PT-IP Objective Assessments Start: 08/07/24 14:58 Freq: NEEDED Status: Active Protocol: Document 08/09/24 13:00 AMB (Rec: 08/07/24 15:24 AMB [id number]) Orientation Orientation/Cognition Level of Alertness Alert Gross Range of Motion Lower Extremity ROM Assessment Right Impaired Strength Lower Extremity Strength Assessment Bilaterally Impaired Comments Strength Comments limited active movement throughout R LE; more mild weakness throghout L LE M6 PT-IP Treatment Start: 08/07/24 14:58 Freq: NEEDED Status: Active Protocol: Document 08/09/24 13:00 AMB (Rec: 08/07/24 15:24 AMB [id number]) Physical Therapy Treatment Education Education Provided Safety M7 PT-IP Assessment and Plan Start: 08/07/24 14:58 Freq: NEEDED Status: Active Protocol: Document 08/09/24 13:00 AMB (Rec: 08/07/24 15:24 AMB [id number]) PT Summary Assessment and Plan Potential Rehabilitation Potential Good Status of Condition at Evaluation Stable Summary Impairments ROM,Strength,Balance,Tone,Bed Mobility,Transfers,Gait, Activity Tolerance Assessment Summary Osmin is admitted for sepsis due to UTI. His baseline mobility as best as I can tell , is that he does not walk, but needs at least Angelique to perform a stand pivot transfer from his w/c to bed or the toilet. Today he is needing a savita lift for transferring. Certainly the hope is that he would quickly be able to return to stand pivot transfers with the treatment of his infection. It is difficult to tell if he will need SNF, or will be safe to return to [facility]. That depends on how quickly he is able to return to his PLOF, and how much assistance [facility] can offer. The patient states his preference would be to return to [facility] if he is able to. Goals Bed Mobility Goal Minimal Assistance Transfer Goal Minimal Assistance Days to Meet Goals 5 Frequency of Treatment Frequency Of Treatment Once a Day Treatment Plan Physical Therapy Treatment Plan Bed Mobility Training,Transfer Training,Therapeutic Exercise ,Balance Retraining,Discharge Planning,Neuromuscular Re-ed Other Recommendations and Next Treatment Sit to stand and stand or Focus squat pivot transfers Recommendations To Nursing Amount of Assist Needed Mechanical Lift Discharge Recommendations Other Discharge Recommendations [facility] vs SNF Transportation Needs at Discharge Wheelchair/Cabulance
--- NOTE | 2024-08-07 14:34 | CM.DANOTE ---
DCP Assessment note pt is a 63yo M here admitted with UTI/gram pos cocci in blood cultures, chronic chambers cath. Per H&P, chambers catheter not functioning properly/was clogged. PMH of CVA, pt uses w/c at baseline/transfers from bed to chair with standby-min assist, also with aphasia that impacts his verbal communication. PCP Gee Dominguezer [facility]/medicaid/silva SENIOR CLINICAL RESEARCH SCIENTIST reviewed EMR. Per provider in morning rounds, pt likely here a few days. Cultures pending for final abx rec. Per chart review, pt has hx of infections that are antibiotic resistant. SENIOR CLINICAL RESEARCH SCIENTIST attempted to meet with pt x2 during day, either working with PT or nursing staff during attempted assessments. SENIOR CLINICAL RESEARCH SCIENTIST spoke with brother Pablito ([phone]). Per Pablito, pt has lived at [facility] for the past 6years. 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 pt able to transfer from bed to chair with standby-min assist. per brother, pt had a large kidney stone removed/gallbladder removed a year or so ago that resulted in him needing to be hoyered for a bit. Anything else in his system makes him really weak. no recent hx of SNF. If pt needs IV abx at dc, brother assumes pt would be agreeable to SNF with preference to remain in [place] at if possible, understands that is not normally contracted with pt's insurance but sometimes for [facility] residents they are able to obtain a single case agreement. Per PT, pt currently savita. attempted to call [facility] for baseline mobility, lvm no response. SENIOR CLINICAL RESEARCH SCIENTIST lvm with [facility], no response. P: Medical POC continues to develop. DC either to SNF if IV abx needed vs return to [facility]. If SNF, referrals/INS auth/PASRR needed. CM team will continue to follow closely for continued DCP coordination. MELIZA Rosen Discharge Planning/Care Management CM Discharge Assessment Start: 08/07/24 14:30 Freq: Status: Active Protocol: Document 08/07/24 14:30 SL (Rec: 08/07/24 14:34 [id number]) Discharge Planning Assessment Assigned [employer] MELIZA Berkowitz DPOA/Assigned Designee Name Linda (mother) darleen Kenney ( brother) Contact Information ([phone]) and ) Advance Directives? Yes: POLST Advance Directives on File Yes History Provided By Patient,Family Member,Medical Record Prior Living Arrangements Assisted Living Household Members other Type of transporation used prior to Relies on Others admit Facility Name Admitted From: [facility] with ADL's No Is patient alert and oriented? Yes Needs Assistance With Grooming,Meal Prep,Managing Medications,Home Chores / Shopping DME Already Rented / Owned Wheelchair Comment per brother, pt is min assist to stand/transfer from bed to w/c at baseline Comment preference return to [facility]. Family open to SNF if needed for IV abx. Barriers to Discharge Yes Comment pending antibiotic rec for dc. Struggles coordinating with [facility]/getting ahold of them. Discharge Plan Assisted Living Facility Transportation Arrangement Facility van Referrals Initiated None needed Additional Comment if IV abx needed at dc, SNF referrals needed Review Status In Process Please Provide Date Initial DC 08/07/24 Assessment Was Performed Next Review Type Continued Stay Review
[2024-08-07] MEDS: OXYCODONE IR 5 MG TABLET PO (15:24)
[2024-08-07] MEDS: VANCOMYCIN 750 MG/150 ML PIGGYBACK 150 MG IV ×2 (15:33→20:08)
[2024-08-07] MEDS: ATORVASTATIN 20 MG TABLET PO (20:08)
[2024-08-07] MEDS: ACETAMINOPHEN 325 MG TABLET 650 MG PO (20:13)
[2024-08-08 01:00] VITALS: BP 140/86; PULSE 84; RESP 19; TEMP 37.2; O2SAT 98
[2024-08-08] MEDS: LACTATED RINGERS 1,000 ML 100 ML IV (02:11)
[2024-08-08] MEDS: VANCOMYCIN 750 MG/150 ML PIGGYBACK 150 MG IV ×4 (02:11→20:18)
[2024-08-08 05:00] VITALS: BP 136/88; PULSE 76; RESP 18; TEMP 37.2; O2SAT 98
[2024-08-08 07:58] VITALS: BP 155/79; PULSE 65; RESP 18; TEMP 36.8; O2SAT 95
--- NOTE | 2024-08-08 08:18 | PM.PN.1 ---
Subjective Subjective Date Patient Seen: 08/08/24 Time Patient Seen: 08:05 Interval history: Narrative: 63-year-old male with past medical history of hypertension, depression, hyperlipidemia, CVA and chronic chambers catheter presents with a fever and problem with his Chambers catheter. Per report, the patient was sent here from his SNF due to clogged chambers cathter. Also the staff at the SNF also noted that the patient has fever today with some super pubic discomfort. The patient state that has chambers catheter was not functioning properly. The patient did have subjective fever but denies any chills, nausea, vomiting, diarrhea, chest pain or shortness of breath. In our emergency room, the patient was hemodynamically stable though did meet criteria for sepsis with elevated white count and lactic acid (around 3). The chambers catheter was replaced. UA suggested UTI. The patient was given IVF and IV Ceftriaxone. Of note, repeat lactic acid was normal. Patient continue to remain hemodynamically stable after IV fluid bolus. Interval history: The patient states he is feeling better today. He was able get up yesterday with physical therapy. He denies abdominal discomfort though interview is limited due to his aphasia. Exam Vital Signs (past 8 hours): - 08/08/24 01:00 08/08/24 05:00 08/08/24 07:58 Temperature 99.0 F 98.9 F 98.3 F Pulse Rate 84 76 65 Respiratory Rate 19 18 18 Blood Pressure 140/86 136/88 155/79 H Pulse Oximetry 98 98 95 Oxygen Flow Rate 0 0 0 Oxygen Delivery Method Room Air Oxygen Flow Rate 0 Narrative Exam Narrative: GENERAL: This is a well-nourished, well-developed patient, in no apparent distress, with dense expressive aphasia. EYES: Pupils equal round and reactive. Extraocular motions intact. No scleral icterus. No injection or drainage. ENT: Mucous membranes pink and moist. NECK: Trachea midline. No JVD, bruits or lymphadenopathy. Supple, nontender, no meningeal signs. CARDIOVASCULAR: Regular rate and rhythm without murmurs, gallops, or rubs. RESPIRATORY: Clear to auscultation. GASTROINTESTINAL: Abdomen soft, non-tender, nondistended. GENITOURINARY: Chambers catheter in place (replaced in emergency department on admission) EXTREMITIES: No clubbing, cyanosis, or edema. NEUROLOGIC: Alert, expressive aphasia. Right hemiparesis with flexion contracture in the right upper extremity. DERMATOLOGIC: No rashes or skin lesions. Multiple tattoos. Objective Labs 08/07/24 04:59 08/07/24 04:59 PFS Medical History Depression History of CVA (cerebrovascular accident) History of nephrolithiasis Hyperlipidemia Hypertension Obstruction of right ureteropelvic junction (UPJ) due to stone Retained ureteral stent Retained ureteral stent Right renal stone Surgical History History of cholecystectomy (07/13/21) Hx of cystoscopy (09/07/21) S/P right knee arthroscopy Family History Father Heart disease Social History household members: other Smoking Status: Former smoker Tobacco: How many years used: 15 alcohol intake: former caffeine: No Assessment & Plan Assessment & Plan narrative: 1. Sepsis with Gram-positive cocci and Gram-negative bacilli in 2 of 2 blood cultures, culturing Providencia and Enterococcus in urine. Likely source is urine. Admitted to medical telemetry as inpatient. Treat underlying infection. Continue ceftriaxone and vancomycin. 2. UTI with Chambers catheter related infection due to Providencia and Enterococcus. Patient had Chambers catheter replaced in the ER due to being clogged. Continue IV fluid and IV Ceftriaxone and add vancomycin 08/07/2024. He will need a 14 day course of IV antibiotics. Place PICC line tomorrow. Likely at SNF. 3. Elevate lactic acid. Normalized after IV fluid. 4. Mild transaminitis monitor for now. 5. Hypertension. Elevated. Restart amlodipine. 6. Hyperlipidemia. Continue home statin. 7. History of CVA. No new focal finding. PT/OT. Plan: -IV ceftriaxone and azithromycin -repeat blood cultures, place PICC line when negative -discontinue IV fluids -restart amlodipine -DVT prophylaxis hep SQ. -Code status DNR/DNI Disposition like back to SNF in 2 to 3 days. Quality VTE Deep Vein Thrombosis/Pulmonary Embolism Present on Admission: No IH PROFEE Charge codes Subsequent inpatient/observation care: [id number]
[2024-08-08 09:02] LABS: Vancomycin Trough 11.6 ug/mL (10-20)
[2024-08-08] MEDS: CYANOCOBALAMIN (VITAMIN B-12) 500 MCG TABLET 1000 MCG PO (09:20)
[2024-08-08] MEDS: FLUoxetine 10 MG CAPSULE PO (09:20)
[2024-08-08] MEDS: DOCUSATE 100 MG CAPSULE PO ×2 (09:20→20:18)
[2024-08-08] MEDS: ASPIRIN EC 81 MG TABLET PO (09:20)
[2024-08-08] MEDS: HEPARIN 5,000 UNIT/ML VIAL 5000 UNIT SUBCUT ×2 (09:20→20:17)
[2024-08-08] MEDS: AMLODIPINE 5 MG TABLET 10 MG PO (09:20)
[2024-08-08] MEDS: SENNOSIDES 8.6 MG TABLET PO (09:21)
[2024-08-08] MEDS: cefTRIAXone 1,000 MG in SODIUM CHLORIDE 0.9% 100 ML 200 MG IV (10:36)
--- NOTE | 2024-08-08 11:14 | PT.IPTN ---
Current Diagnoses Sepsis, unspecified organism (08/06/24) Physical Therapy Treatment Note M2 PT-IP Current Condition Start: 08/07/24 14:58 Freq: NEEDED Status: Active Protocol: Document 08/07/24 14:58 AMB (Rec: 08/07/24 15:24 AMB [id number]) Physical Therapy Current Condition Current Condition Evaluation Date 08/07/24 Treatment Diagnosis sepsis due to UTI in the context of chronic CVA R lane Onset Date 08/06/24 M3 PT-IP Subjective Start: 08/07/24 14:58 Freq: NEEDED Status: Active Protocol: Document 08/08/24 10:51 KS (Rec: 08/08/24 12:51 KS [id number]) Subjective Physical Therapy Visit Type Type Treatment Note Visit Start Time 10:51 Visit Stop Time 11:14 Number of AIRCRAFT LOADMASTER SUPERINTENDENT Visits 1 Physical Therapy Visit Comments Patient Comments Pt ageeable to working w. PT. M4 PT-IP Mobility and Gait Start: 08/07/24 14:58 Freq: NEEDED Status: Active Protocol: Document 08/08/24 10:51 KS (Rec: 08/08/24 12:51 KS [id number]) PT-Bed Mobility Assessment Supine to Sit Supine to Sit Maximum Assistance,1 Person Assistance,Head of Bed Elevated Sit to Supine Sit to Supine Maximum Assistance,1 Person Assistance Scooting Scooting to Edge of Bed Maximum Assistance PT-Transfer Assessment Comments Mobility Comments Pt in bed upon arrival, agreeable to exercises and sitting EOB. Pt has R sided weakness due to previous stroke. He was able to complete L side exercises including ankle pumps, quad sets, SLR, seated marching, and heel slides. He required Max A for sup<>sit and scooting to the EOB. Once sitting, he was able to maintain his balance with use of grab bar during exercises. 2 PA for scooting up in bed. Pt left w/ all needs in reach. Gait Assessment Comments Gait Comments not assessed, unable M5 PT-IP Objective Assessments Start: 08/07/24 14:58 Freq: NEEDED Status: Active Protocol: Document 08/07/24 14:58 AMB (Rec: 08/07/24 15:24 AMB [id number]) Orientation Orientation/Cognition Level of Alertness Alert Gross Range of Motion Lower Extremity ROM Assessment Right Impaired Strength Lower Extremity Strength Assessment Bilaterally Impaired Comments Strength Comments limited active movement throughout R LE; more mild weakness throghout L LE M6 PT-IP Treatment Start: 08/07/24 14:58 Freq: NEEDED Status: Active Protocol: Document 08/08/24 10:51 KS (Rec: 08/08/24 12:51 KS [id number]) Physical Therapy Treatment Exercises Exercises Ankle Pumps,Gluteal Sets,Quad Sets,Heel Slides,Straight Leg Raises Education Education Provided Safety Other Treatments Other Treatment Performed Seated marching M7 PT-IP Assessment and Plan Start: 08/07/24 14:58 Freq: NEEDED Status: Active Protocol: Document 08/08/24 10:51 KS (Rec: 08/08/24 12:51 KS [id number]) PT Summary Assessment and Plan Potential Rehabilitation Potential Good Summary Impairments ROM,Strength,Balance,Tone,Bed Mobility,Transfers,Gait, Activity Tolerance Progress Towards Goals Progressing Toward Goals,Slow Progress due to Medical Issues Assessment Summary Pt able to perform bed mobility w/ Max A today and completed several LE exercises . Did not attempt transfer, treatment cut short due to need for blood draws. But pt states he is feeling stronger than yesterday. It remains difficult to tell if he will need SNF, or will be safe to return to [facility]. That depends on how quickly he is able to return to his PLOF, and how much assistance [facility] can offer. The patient states his preference would be to return to [facility] if he is able to. Will continue to assess progress. Goals Bed Mobility Goal Minimal Assistance Transfer Goal Minimal Assistance Days to Meet Goals 5 Frequency of Treatment Frequency Of Treatment Once a Day Treatment Plan Physical Therapy Treatment Plan Bed Mobility Training,Transfer Training,Therapeutic Exercise ,Balance Retraining,Discharge Planning,Neuromuscular Re-ed Other Recommendations and Next Treatment Sit to stand and stand or Focus squat pivot transfers Recommendations To Nursing Amount of Assist Needed Mechanical Lift Discharge Recommendations Other Discharge Recommendations [facility] vs SNF Transportation Needs at Discharge Wheelchair/Cabulance
--- NOTE | 2024-08-08 11:16 | PC.NURSE ---
Patient just worked with physical therapy and he sat at the side of the bed for a few minutes and did some exercises. Back to bed and comfortable at this time. He is being turned at his descretion and denies pain or discomfort.
[2024-08-08 12:00] VITALS: BP 129/74; PULSE 66; RESP 18; TEMP 37.1; O2SAT 95
[2024-08-08 12:10] LABS: Vancomycin Peak 19.6 ug/mL (20-40)
[2024-08-08 16:00] VITALS: BP 128/79; PULSE 75; RESP 18; TEMP 37.3; O2SAT 95
--- NOTE | 2024-08-08 16:41 | CM.DPNOTE ---
Per Carol, patient will need IVABX at d/c. Patient has [facility] plan, discussed with Anu at [facility] and she is going to discuss with [facility] to possibly work out taking him. Cultures pending for final meds, PICC line to be placed Friday, possible d/c /Fri pending cultures and acceptance. Anu called and inquired about the PT eval, a treatment note from [facility] was entered today, but no initial evaluation done/entered. Insurance may require for auth. Anu is submitting and said they?d also have to do a one-time contract that may take an additional day to arrange.
[2024-08-08 20:04] VITALS: BP 143/85; PULSE 67; RESP 16; TEMP 37.3; O2SAT 95
[2024-08-08] MEDS: ATORVASTATIN 20 MG TABLET PO (20:18)
[2024-08-09 00:41] VITALS: BP 126/77; PULSE 72; RESP 16; TEMP 36.3; O2SAT 98
[2024-08-09] MEDS: VANCOMYCIN 750 MG/150 ML PIGGYBACK 150 MG IV ×4 (02:35→20:10)
[2024-08-09 04:48] VITALS: BP 126/78; PULSE 63; RESP 16; TEMP 36.3; O2SAT 95
[2024-08-09 05:55] LABS: Add Manual Diff / Slide Review NO; Basophils Absolute Auto 0 /uL (0-100); Basophils Percent Auto 0.7 % (0-2); Eosinophils Absolute Auto 100 /uL (0-450); Eosinophils Percent Auto 2.1 % (2-4); Hematocrit 39.8 % (41-53); Lymphocytes Absolute Auto 1100 /uL (1100-4500); Lymphocytes Percent Auto 20.4 % (25-40); Mean Corpuscular Hemoglobin 31.2 PG (26-34); Mean Corpuscular Volume 89.1 fL (80-100); Monocytes Absolute Auto 1000 /uL (0-900); Monocytes Percent Auto 18.4 % (3-14); Neutrophils Absolute Auto 3100 /uL (1500-7000); Neutrophils Percent Auto 58.4 % (50-75); Platelet Count 110 X10^3/uL (150-400); Red Blood Cell Count 4.47 X10^6/uL (4.5-5.9); Red Cell Distribution Width 13.8 % (11.6-14.8); White Blood Cell Count 5.3 X10^3/uL (4.5-11.0)
[2024-08-09 06:12] LABS: BUN Creatinine Ratio 18.4 (6-22); Blood Urea Nitrogen 14 mg/dL (9-20); Carbon Dioxide 25 mmol/L (22-32); Chloride 105 mmol/L (98-107); Estimated Glomerular Filt Rate > 60 mL/min (>60); Glucose 90 mg/dL (80-110); HEMOLYSIS < 15 (0-50); Potassium 3.4 mmol/L (3.4-5.1); Sodium 135 mmol/L (137-145)
[2024-08-09 08:00] VITALS: BP 128/76; PULSE 65; RESP 15; TEMP 37.1; O2SAT 96
[2024-08-09] MEDS: FLUoxetine 10 MG CAPSULE PO (08:58)
[2024-08-09] MEDS: SENNOSIDES 8.6 MG TABLET PO (08:58)
[2024-08-09] MEDS: DOCUSATE 100 MG CAPSULE PO ×2 (08:58→20:10)
[2024-08-09] MEDS: HEPARIN 5,000 UNIT/ML VIAL 5000 UNIT SUBCUT ×2 (08:58→20:10)
[2024-08-09] MEDS: AMLODIPINE 5 MG TABLET 10 MG PO (08:58)
[2024-08-09] MEDS: ASPIRIN EC 81 MG TABLET PO (08:58)
[2024-08-09] MEDS: CYANOCOBALAMIN (VITAMIN B-12) 500 MCG TABLET 1000 MCG PO (08:58)
[2024-08-09] MEDS: POTASSIUM CHLORIDE 20 MEQ TAB 40 MEQ PO (08:58)
--- NOTE | 2024-08-09 09:19 | PC.NURSE ---
Patient is alert and oriented x3, he has hx of cva and some r.sided weakness. Chambers patent and putting out yellow urine (chronic chambers). Patient is tolerating is his iv antiobiotics and he is eating well at meals. Afebrile at this time and medications taken well with water.
[2024-08-09] MEDS: cefTRIAXone 2,000 MG in SODIUM CHLORIDE 0.9% 100 ML 200 MG IV (10:06)
--- NOTE | 2024-08-09 10:51 | PC.NURSE ---
Patient given vicodin and she is now sleeing. Complained of discomfort and anxiety. Patient will be leaving back to [facility] around 1400 on hospice.
--- NOTE | 2024-08-09 11:20 | OT.IP.EVAL ---
Current Diagnoses Sepsis, unspecified organism (08/06/24) Past Medical History (Last Reviewed 08/08/24 @ 08:19 by Jey Medina MD) Depression History of CVA (cerebrovascular accident) History of nephrolithiasis Hyperlipidemia Hypertension Obstruction of right ureteropelvic junction (UPJ) due to stone Retained ureteral stent Retained ureteral stent Right renal stone Surgical History (Last Reviewed 08/08/24 @ 08:19 by Jey Medina MD) History of cholecystectomy (07/13/21) Hx of cystoscopy (09/07/21) S/P right knee arthroscopy Occupational Therapy Inpatient Evaluation/Re-Eval M1 PT/OT-IP Prior Functional Status Start: 08/07/24 14:56 Freq: NEEDED Status: Active Protocol: Document 08/07/24 14:58 AMB (Rec: 08/07/24 15:24 AMB [id number]) Medical Review Prior Functional Status Medical History Reviewed Yes Communication Expressive aphasia certainly present. When given a question like do you stand or use a lift to transfer patient can usually give one or two word answers like stand Mobility and Gait Per FLIGHT INSTRUCTOR patient's brother reports he is usually Angelique to perform a stand pivot transfer . The patient reports he does not really walk, but can stand to get from the w/c to bed with assistance. Activities of Daily Living and IADL's Pt lives at [facility] Social History Household Members other Living Arrangements Assisted Living M1 PT/OT-IP Prior Functional Status Start: 08/07/24 14:58 Freq: NEEDED Status: Active Protocol: Document 08/09/24 11:19 CGR (Rec: 08/09/24 11:39 CGR [id number]) Medical Review Prior Functional Status Medical History Reviewed Yes Communication Expressive aphasia certainly present. When given a question like do you stand or use a lift to transfer patient can usually give one or two word answers like stand Mobility and Gait Per FLIGHT INSTRUCTOR patient's brother reports he is usually Angelique to perform a stand pivot transfer . The patient reports he does not really walk, but can stand to get from the w/c to bed with assistance. Activities of Daily Living and IADL's Pt lives at [facility]. Pt states that he does his simple ADLs and some LB dressing (asked twice and same answer [place] for LB dressing) . Pt is unsure of upper body dressing and states that they help him with bathing and toielting. Social History Household Members other Living Arrangements Assisted Living Employment Status Retired Additional Social History Comment Pt states he has an adjustable bed M2 OT-IP Current Condition Start: 08/07/24 14:56 Freq: Status: Active Protocol: Document 08/09/24 11:19 CGR (Rec: 08/09/24 11:39 CGR [id number]) Occupational Therapy Current Condition Current Condition Evaluation Date 08/09/24 Treatment Diagnosis fever and chambers not draining Diagnosis Onset Date 08/06/24 M3 OT- IP Subjective and Pain Start: 08/07/24 14:56 Freq: Status: Active Protocol: Document 08/09/24 11:19 CGR (Rec: 08/09/24 11:39 CGR [id number]) OT- Subjective Occupational Therapy Visit Type Type Initial Evaluation Visit Start Time 10:54 Visit Stop Time 11:20 Notes Assist from nursing aid for transfer OT Pain Assessment Pain When Pain Assessed At Rest Pain Present Pain Present Denied Pain M4 OT- IP ADL's Start: 08/07/24 14:56 Freq: Status: Active Protocol: Document 08/09/24 11:19 CGR (Rec: 08/09/24 11:39 CGR [id number]) OT [id number] Comments OT Self-Feeding Comments not meal time OT ADL-Grooming Comments OT Grooming Comments pt states her perform this AM. Nursing aid states that he performed IND with set up this morning. OT ADL-Oral Care Comments Oral Care Comments pt states her perform this AM. Nursing aid states that he performed IND with set up this morning. OT ADL-Dressing General Eval Lower Body Dressing Ability Total Assistance Areas Needing Assistance Socks Comments OT Dressing Comments supine in bed OT ADL-Toileting General Evaluation Toileting Ability Total Assistance Comments OT Toileting Comments chambers OT ADL-Bathing Comments OT Bathing Comments not performed M5 OT- IP IADL's Start: 08/07/24 14:56 Freq: Status: Active Protocol: Document 08/09/24 11:19 CGR (Rec: 08/09/24 11:39 CGR [id number]) OT-Instrumental Activities of Daily Living Deficits IADL Deficits Identified Deficits Home Safety Awareness Awareness of Need for Assistance at Home Decreased Awareness Ability to Problem Solve Emergency Unable to Problem Solve Situations Medication Management Medication Management Caregiver Administers Money Management Money Management Caregiver Provides Assistance Meal Preparation Meal Preparation Caregiver Provides Assist Brick Chimney Supervisor Brick Chimney Supervisor Caregiver Provides Assist Driving Driving Comments Pt does not drive M6 OT- IP Functional Cognition Start: 08/07/24 14:56 Freq: Status: Active Protocol: Document 08/09/24 11:19 CGR (Rec: 08/09/24 11:39 CGR [id number]) Cognitive Factors Limiting Selfcare Function Cognitive Ability Level of Alertness Alert Patient Orientation Name,Place,Situation Attention Span Ability Capable of Focused Attention, Capable of Sustained Attention Ability to Follow Commands Able to Follow One Step Commands with Increased Time, Able to Follow One Step Commands with Repetition Cognitive Comments Cognitive Assessment Comments Pt needs extra time to respond . OT- Vision and Hearing OT- Hearing Assessment OT- Hearing Assessment WFL OT- Vision Assessment Visual Acuity Glasses All The Time Visual Attentiveness WFL Occular Pursuits WFL Vision Assessment Comments Pt wearing dirty bifocals. washed glasses for pt and pt states thanks. M7 OT- IP Mobility and Balance Start: 08/07/24 14:56 Freq: Status: Active Protocol: Document 08/09/24 11:19 CGR (Rec: 08/09/24 11:39 CGR [id number]) OT- Bed Mobility Assessment Supine to Sit Supine to Sit Assist Moderate Assistance,Maximum Assistance,1 Person Assistance ,Head of Bed Elevated,Bedrails Scooting Scooting to Edge of Bed Maximum Assistance,1 Person Assistance OT-Transfer Assessment Sit to and From Stand Sit to and from Stand Moderate Assistance,2 Person Assistance Transfers Transfer Ability Moderate Assistance,2 Person Assistance Technique Transfer Destination Bed,Chair Transfer Technique Stand Step Pivot Devices Transfer Assistive Devices Gait Belt Comments Mobility Comments Pt performed well in transfer today with mod x 2. Likely would be safe with less assist but given first transfer since admit, increased safety measures taken. Pt stood on his count and took 2 small steps to chair without AD but gait belt donned. OT- Gait Assessment Comments Gait Ability Comments pt does not ambulate at baseline OT- Balance Assessment Sitting Balance and Reactions Static Sitting Balance Ability Fair Dynamic Sitting Balance Ability Fair Comments Other Balance Tests/Deviations/Treatment Pt with initial good balance : seated EOB but then started leaning backwards requiring assist. Pulled pt into forward fx with some rocking and pt regained balance. M8 OT- IP Objective Assessments Start: 08/07/24 14:56 Freq: Status: Active Protocol: Document 08/09/24 11:19 CGR (Rec: 08/09/24 11:39 CGR [id number]) OT Gross Range of Motion Upper Extremity Range of Motion Assessment Right Impaired OT Strength Upper Extremity Strength Assessment Right Impaired Comments Strength Comments LUE 5-/5 RUE not specifically tested but rests in elbow fx with finger extension. OT- Coordination Assessment Upper Extremity Finger to Nose Test Right UE Impaired Finger Tapping Test Right UE Impaired OT Sensation Assessment Comments Summary Comments Pt states sensation is the same on both arms Edema Edema Absent M9 OT- IP Assessment and Plan Start: 08/07/24 14:56 Freq: Status: Active Protocol: Document 08/09/24 11:19 CGR (Rec: 08/09/24 11:39 CGR [id number]) OT Summary Assessment and Plan Potential Rehabilitation Potential Fair Analytic Complexity at Evaluation High Summary OT Impairments Range of Motion,Strength, Balance,Coordination,Tone, Functional Cognition, Functional Mobility,Dressing, Toileting,Bathing,Toilet Transfers,Shower Transfers, Activity Tolerance Progress Towards Goals Progressing Toward Goals Assessment Summary Pt presents as a high complexity evaluation s/p admit for fever with chambers cath obstruction. Pt appears to be close to his baseline for ADLS and transfers. Will continue to see for 1-2 more sessions. Recommend return to [place]. Goals Self-Feeding Goal Independent Grooming Goal Independent Toilet Transfer Goal Minimal Assistance,Bedside Commode Days to Meet Goals 2 Frequency of Treatment Other frequency 5x a week Treatment Plan OT Treatment Plan ADL Training,Functional Mobility,Patient/Family Education,Discharge Planning Other Treatment Recommendations and Next transfer to [facility], standing for Treatment Focus pericare, simple ADLs, feeding . Discharge Recommendations OT Discharge Recommendations Home with 24/7 Assist Available Other Discharge Recommendations Home to [facility] with 24/7 assist Transportation Needs at Discharge Wheelchair/Cabulance
[2024-08-09 12:00] VITALS: BP 153/87; PULSE 63; RESP 14; TEMP 36.8; O2SAT 97
--- NOTE | 2024-08-09 12:20 | PT.IPTN ---
Current Diagnoses Sepsis, unspecified organism (08/06/24) Physical Therapy Treatment Note M2 PT-IP Current Condition Start: 08/07/24 14:58 Freq: NEEDED Status: Active Protocol: Document 08/09/24 12:03 SP (Rec: 08/09/24 13:04 SP [id number]) Physical Therapy Current Condition Current Condition Evaluation Date 08/07/24 Treatment Diagnosis sepsis due to UTI in the context of chronic CVA R lane Onset Date 08/06/24 M3 PT-IP Subjective Start: 08/07/24 14:58 Freq: NEEDED Status: Active Protocol: Document 08/09/24 12:03 SP (Rec: 08/09/24 13:04 SP [id number]) Subjective Physical Therapy Visit Type Type Treatment Note Visit Start Time 12:03 Visit Stop Time 12:20 Notes Nurse provided 2nd person assist with mobility during tx . Number of FURNITURE ASSEMBLER AND INSTALLER Visits 2 Physical Therapy Visit Comments Patient Comments Pt up in chair for lunch, agreeable to working with PT. M4 PT-IP Mobility and Gait Start: 08/07/24 14:58 Freq: NEEDED Status: Active Protocol: Document 08/09/24 12:03 SP (Rec: 08/09/24 13:04 SP [id number]) PT-Transfer Assessment Sit to and From Stand Sit to and from Stand Maximum Assistance,2 Person Assistance,Use of Upper Extremities Equipment Transfer Assistive Device Large Based Quad Cane Transfers Transfer Destination Bed,Chair Transfer Technique Stand Step Pivot Transfer Ability Level of Assist Maximum Assistance,2 Person Assistance,Use of Upper Extremities Comments Mobility Comments Pt upright in chair when arrived. Instructed and performed seated LE ex pre mobility: AP, LAQ. Completed scoot fwd in chair with cues motor planning and push form chair, improves ascend into standing when pt counts out, STS from from chair, Max cues for TKE and full stand heavy Max A x1 x3 reps total. Stand step pivot chair<> bed Max cues for lean R more midline trunk positioning sequencing BLE, LBQC in LUE, support to anterior R knee for stability, hand over hand with cues for QC positioning and safety support stability Max A x2 persons. Pt was reclined in chair with all needs, call light and lunch in reach before left. Gait Assessment Gait Gait Assistance Required: Maximum Assistance,2 Person Assist Distance (Feet) 2 Able to Maintain Weight Bearing Status Yes During Gait Assistive Devices Assistive Device Large Based Quad Cane Gait Deviations General Gait Pattern Antalgic,Flexed Trunk,Lateral Trunk Lean,Narrow Based Gait, Step-to Gait Factors Limiting Gait Function Factors Limiting Gait Function Decreased Activity Tolerance, Decreased Strength,Difficulty Following Directions, Incoordination,Limited Range of Motion,Poor Balance,Poor Safety Awareness Comments Gait Comments See mobility comments Stair Climbing Assessment Comments Stair Climbing Comments no stairs need to assess. PT-Balance Assessment Sitting Balance and Reactions Static Sitting Balance Ability Good Dynamic Sitting Balance Ability Good Standing Balance and Reactions Static Standing Balance Ability Poor Dynamic Standing Balance Ability Poor Device Used LBQC M5 PT-IP Objective Assessments Start: 08/07/24 14:58 Freq: NEEDED Status: Active Protocol: Document 08/07/24 13:00 AMB (Rec: 08/07/24 15:24 AMB [id number]) Orientation Orientation/Cognition Level of Alertness Alert Gross Range of Motion Lower Extremity ROM Assessment Right Impaired Strength Lower Extremity Strength Assessment Bilaterally Impaired Comments Strength Comments limited active movement throughout R LE; more mild weakness throghout L LE M6 PT-IP Treatment Start: 08/07/24 14:58 Freq: NEEDED Status: Active Protocol: Document 08/09/24 12:03 SP (Rec: 08/09/24 13:04 SP [id number]) Physical Therapy Treatment Exercises Exercises Ankle Pumps,Seated Knee Flexion/Extension Education Education Provided Safety Other Treatments Other Treatment Performed Seated marching M7 PT-IP Assessment and Plan Start: 08/07/24 14:58 Freq: NEEDED Status: Active Protocol: Document 08/09/24 12:03 SP (Rec: 08/09/24 13:04 SP [id number]) PT Summary Assessment and Plan Potential Rehabilitation Potential Good Summary Impairments ROM,Strength,Balance,Tone,Bed Mobility,Transfers,Gait, Activity Tolerance Progress Towards Goals Progressing Toward Goals,Slow Progress due to Medical Issues Assessment Summary Pt performed instructed BLEs exercises pre mobility seated in chair. He was able to complete STS from chair with LBQC heavy Max A x1 and SBA- Min A 2nd person while blocking R anterior knee for safety and hand over hand of QC positioning and stability, verbal and tactile cues for proper hand placement push from chair/ reach back sit and full stand TKE and tall posture to encourage full stand. Max cues and Max x2 complete stand step pivot transfer with much skilled cues for sequencing, pt tends to heavily lean to L and retro causing increased outside assistance of max 2 persons. Recommending SNF for progression in BLE and functional strength during trannsfer. Will continue to assess progress. Goals Bed Mobility Goal Minimal Assistance Transfer Goal Minimal Assistance Days to Meet Goals 5 Frequency of Treatment Frequency Of Treatment Once a Day Treatment Plan Physical Therapy Treatment Plan Bed Mobility Training,Transfer Training,Therapeutic Exercise ,Balance Retraining,Discharge Planning,Neuromuscular Re-ed Other Recommendations and Next Treatment Sit to stand use of HW, stand Focus or squat pivot transfers /c HW Recommendations To Nursing Amount of Assist Needed Mechanical Lift Discharge Recommendations PT Discharge Recommendations SNF Rehab Other Discharge Recommendations SNF Transportation Needs at Discharge Wheelchair/Cabulance
--- NOTE | 2024-08-09 14:05 | CM.DPNOTE ---
DCP Note Per hospitalist in morning rounds, need 7 days of the IV ceftriaxone and IV vanco that he's currently on. Cleared medically to dc when SNF arrangements can be made. Per special agent in charge, no in house staff to place PICC line, will have to order outside providers for tomorrow morning. Per Alexa at , obtained ins auth, can take pt around [phone] tomorrow. transport options limited. PRIVATE BRANCH EXCHANGE SERVICE ADVISER completed PASRR- level 2 exempt, need provider signature. PRIVATE BRANCH EXCHANGE SERVICE ADVISER spoke with brother Pablito (p [phone]). updated him on above. in agreement with plan. PRIVATE BRANCH EXCHANGE SERVICE ADVISER spoke with pt in room. Reviewed about. Pt provided head nods of agreement. Denies questions at this time. PRIVATE BRANCH EXCHANGE SERVICE ADVISER updated Raul at [facility] with above plans. In agreement with plan. P: dc to tomorrow pending PICC placement. Transport set up for between [id number]. Signature needed on PASRR. CM team will continue to follow closely MELIZA Rosen
[2024-08-09 16:00] VITALS: BP 128/77; PULSE 63; RESP 15; TEMP 36.9; O2SAT 97
--- NOTE | 2024-08-09 18:24 | P.PN_ITS ---
Subjective Subjective Date Patient Seen: 08/08/24 Time Patient Seen: 08:05 Interval history: Narrative: 63-year-old male with past medical history of hypertension, depression, hyperlipidemia, CVA and chronic chambers catheter presents with a fever and problem with his Chambers catheter. Per report, the patient was sent here from his SNF due to clogged chambers cathter. Also the staff at the SNF also noted that the patient has fever today with some super pubic discomfort. The patient state that has chambers catheter was not functioning properly. The patient did have subjective fever but denies any chills, nausea, vomiting, diarrhea, chest pain or shortness of breath. In our emergency room, the patient was hemodynamically stable though did meet criteria for sepsis with elevated white count and lactic acid (around 3). The chambers catheter was replaced. UA suggested UTI. The patient was given IVF and IV Ceftriaxone. Of note, repeat lactic acid was normal. Patient continue to remain hemodynamically stable after IV fluid bolus. Interval history: The patient states he is feeling better today. He was able get up yesterday with physical therapy. He denies abdominal discomfort though interview is limited due to his aphasia. Exam Vital Signs (past 8 hours): - 08/09/24 12:00 08/09/24 16:00 Temperature 98.3 F 98.4 F Pulse Rate 63 63 Respiratory Rate 14 15 Blood Pressure 153/87 H 128/77 Pulse Oximetry 97 97 Oxygen Flow Rate 0 0 Oxygen Delivery Method Room Air Oxygen Flow Rate 0 Narrative Exam Narrative: GENERAL: This is a well-nourished, well-developed patient, in no apparent distress, with dense expressive aphasia. EYES: Pupils equal round and reactive. Extraocular motions intact. No scleral icterus. No injection or drainage. ENT: Mucous membranes pink and moist. NECK: Trachea midline. No JVD, bruits or lymphadenopathy. Supple, nontender, no meningeal signs. CARDIOVASCULAR: Regular rate and rhythm without murmurs, gallops, or rubs. RESPIRATORY: Clear to auscultation. GASTROINTESTINAL: Abdomen soft, non-tender, nondistended. GENITOURINARY: Chambers catheter in place (replaced in emergency department on admission) EXTREMITIES: No clubbing, cyanosis, or edema. NEUROLOGIC: Alert, expressive aphasia. Right hemiparesis with flexion contracture in the right upper extremity. DERMATOLOGIC: No rashes or skin lesions. Multiple tattoos. Objective Labs 08/09/24 05:28 08/09/24 05:28 Labs: Laboratory Results - last 24 hr 08/09/24 05:28 WBC 5.3 RBC 4.47 L Hgb 14.0 Hct 39.8 L MCV 89.1 MCH 31.2 MCHC 35.0 RDW 13.8 Plt Count 110 L Neut % (Auto) 58.4 Lymph % (Auto) 20.4 L Schleicher % (Auto) 18.4 H Eos % (Auto) 2.1 Baso % (Auto) 0.7 Neut # (Auto) 3100 Lymph # (Auto) 1100 Schleicher # (Auto) 1000 H Eos # (Auto) 100 Baso # (Auto) 0 Sodium 135 L Potassium 3.4 Chloride 105 Carbon Dioxide 25 BUN 14 Creatinine 0.76 Estimated GFR > 60 BUN/Creatinine Ratio 18.4 Glucose 90 Calcium 8.0 L PFSH Medical History Depression History of CVA (cerebrovascular accident) History of nephrolithiasis Hyperlipidemia Hypertension Obstruction of right ureteropelvic junction (UPJ) due to stone Retained ureteral stent Retained ureteral stent Right renal stone Surgical History History of cholecystectomy (07/13/21) Hx of cystoscopy (09/07/21) S/P right knee arthroscopy Family History Father Heart disease Social History household members: other Smoking Status: Former smoker Tobacco: How many years used: 15 alcohol intake: former caffeine: No Assessment & Plan Assessment & Plan narrative: 1. Sepsis with secondary to Providencia and Enterococcus in urine and blood. Likely source is urine. - continue ceftriaxone and vancomycin - given penicillin allergy, treat enterococcus with vancomycin. The other can be treated with oral antibiotics on discharge. 2. UTI with Chambers catheter related infection due to Providencia and Enterococcus. Patient had Chambers catheter replaced in the ER due to being clogged. Continue IV fluid and IV Ceftriaxone 2g daily and add vancomycin 08/07/2024. He will need a 7 day course of IV antibiotics given clear urinary source. PICC ordered. Likely at SNF. 3. Elevate lactic acid. Normalized after IV fluid. 4. Mild transaminitis monitor for now. 5. Hypertension. Elevated. Restart amlodipine. 6. Hyperlipidemia. Continue home statin. 7. History of CVA. No new focal finding. PT/OT. Plan: -IV ceftriaxone and vancomycin -repeat blood cultures, place PICC line when negative, ordered for today. -discontinue IV fluids -restart amlodipine -DVT prophylaxis hep SQ. -Code status DNR/DNI Disposition like back to SNF, possibly as soon as tomorrow. Discussed with pharmacist regarding optimal vancomycin dosing, which appears good at this time. Time-Based Coding :: [TOTAL MINUTES] spent with patient and on the chart (including review of chart, obtaining history, exam, reviewing outside data, placing orders, documenting exam and treatment plan, and counseling patient) on [DATE]. Quality VTE Deep Vein Thrombosis/Pulmonary Embolism Present on Admission: No
[2024-08-09] MEDS: ATORVASTATIN 20 MG TABLET PO (20:10)
[2024-08-09 20:40] VITALS: BP 131/83; PULSE 68; RESP 16; TEMP 36.8; O2SAT 95
[2024-08-10] VITALS: BP 132/81; PULSE 59; RESP 16; TEMP 36.2; O2SAT 98
--- NOTE | 2024-08-10 01:32 | DI.RAD.S_ITS ---
PROCEDURE: XR CHEST FOR PICC 1V INDICATIONS: [facility], [facility], XR CHEST 1V, 04/30/2024, 5:51. FINDINGS: PICC was placed by the intravenous therapy team from the left side. Fluoroscopic spot film demonstrates the tip of PICC projecting to the area of low SVC. IMPRESSION: Tip of PICC projects to the area of low SVC. Dictated by: Nahid Mcdonough M.D. on 08/10/2024 at 8:44 Approved by: Nahid Mcdonough M.D. on 08/10/2024 at 8:45
[2024-08-10] MEDS: ACETAMINOPHEN 325 MG TABLET 650 MG PO (01:47)
[2024-08-10] MEDS: VANCOMYCIN 750 MG/150 ML PIGGYBACK 150 MG IV (03:17)
[2024-08-10 04:28] VITALS: BP 138/79; PULSE 56; RESP 16; TEMP 36.4; O2SAT 98
[2024-08-10 05:29] LABS: BUN Creatinine Ratio 18.8 (6-22); Blood Urea Nitrogen 13 mg/dL (9-20); Carbon Dioxide 27 mmol/L (22-32); Chloride 104 mmol/L (98-107); Estimated Glomerular Filt Rate > 60 mL/min (>60); Glucose 82 mg/dL (80-110); HEMOLYSIS < 15 (0-50); Potassium 3.4 mmol/L (3.4-5.1); Sodium 134 mmol/L (137-145)
[2024-08-10] MEDS: POTASSIUM CHLORIDE 20 MEQ TAB 40 MEQ PO (07:52)
[2024-08-10 08:00] VITALS: BP 139/92; PULSE 72; RESP 19; TEMP 36.8; O2SAT 94
[2024-08-10] MEDS: VANCOMYCIN TROUGH 1 REQUEST MISC (08:45)
[2024-08-10] MEDS: HEPARIN 5,000 UNIT/ML VIAL 5000 UNIT SUBCUT (08:54)
[2024-08-10] MEDS: ASPIRIN EC 81 MG TABLET PO (08:55)
[2024-08-10] MEDS: cefTRIAXone 2,000 MG in SODIUM CHLORIDE 0.9% 100 ML 200 MG IV (08:55)
[2024-08-10] MEDS: FLUoxetine 10 MG CAPSULE PO (08:55)
[2024-08-10] MEDS: SENNOSIDES 8.6 MG TABLET PO (08:55)
[2024-08-10] MEDS: AMLODIPINE 5 MG TABLET 10 MG PO (08:55)
[2024-08-10] MEDS: DOCUSATE 100 MG CAPSULE PO (08:55)
[2024-08-10] MEDS: CYANOCOBALAMIN (VITAMIN B-12) 500 MCG TABLET 1000 MCG PO (08:55)
--- NOTE | 2024-08-10 09:25 | CM.DPNOTE ---
Addendum entered by MELIZA Moran 08/10/24 11:37: Per Alexa at , p/u 1445 today, CREDIT REPORTING CLERK updated SERVICE SPECIALIST/RN. gave RN report number. CREDIT REPORTING CLERK met with pt in room. In agreement with plan. Deny questions at this time. Hospitalist signed PASRR and med list. ROMAN Valente kindly agreed to send Alexa from final dc information. placed signed med list and PASRR in chart. P: dc today to to finish IV abx course prior to his return to [place]. transport at 1445. CM team will continue to follow as needed SL Original Note: DCP note CREDIT REPORTING CLERK reviewed EMR Per chart review, PICC was placed last night and pt tolerated well. Per Alexa at , can accept pt today. transport likely [phone] cas[place] but she will double check. CREDIT REPORTING CLERK spoke with pt's brother Pablito ([phone]) to update him on plan. in agreement, plans to visit pt at tomorrow. P: DC to today, time pending. Need hospitalist signature on PASRR, signed med list, and to give RN report number. CM team will continue to follow closely MELIZA Moran
[2024-08-10 09:31] LABS: Vancomycin Trough 16.9 ug/mL (10-20)
[2024-08-10] MEDS: VANCOMYCIN 1,500 MG/300 ML PIGGYBACK 200 MG IV (11:01)
--- NOTE | 2024-08-10 11:09 | P.DS_ITS ---
History of Present Illness History of Present Illness Date Patient Seen: 08/10/24 Time Patient Seen: 11:09 Chief complaint: cath problem Narrative: Per admitting provider, 63-year-old male with past medical history of hypertension, depression, hyperlipidemia, CVA and chronic chambers catheter presents with a fever and problem with his Chambers catheter. Per report, the patient was sent here from his SNF due to clogged chambers cathter. Also the staff at the SNF also noted that the patient has fever today with some super pubic discomfort. The patient state that has chambers catheter was not functioning properly. The patient did have subjective fever but denies any chills, nausea, vomiting, diarrhea, chest pain or shortness of breath. In our emergency room, the patient was hemodynamically stable though did meet criteria for sepsis with elevated white count and lactic acid (around 3). The chambers catheter was replaced. UA suggested UTI. The patient was given IVF and IV Ceftriaxone. Of note, repeat lactic acid was normal. Patient continue to remain hemodynamically stable after IV fluid bolus. Discharge Providers Provider Date of admission: 08/06/24 19:51 Discharge Date: 08/10/24 Primary care physician: Gee Arriaga MD Consults: 08/06/24 19:42 Consult to Occupational Therapy Evaluate & Treat Comment: Physician Instructions: Evaluate and treat Consult to Physical Therapy Evaluate & Treat Comment: Physician Instructions: Evaluate and Treat Discharge provider: Ashvin Ziegler DO Summary Hospital Course Discharge Diagnosis: 1. Sepsis with secondary to Providencia and Enterococcus in urine and blood 2. UTI with Chambers catheter related infection due to Providencia and Enterococcus. 3. Elevate lactic acid. 4. Mild transaminitis monitor for now. 5. Hypertension. 6. Hyperlipidemia. 7. History of CVA. Hospital Course: This is a 63 year old male with chronic chambers catheter, HTN, HLD, prior CVA who was admitted with sepsis secondary to Providencia and enetrococcus bacteremia. Both bacteria were also found in urine cultures. The urine infection was likely due to a clogged urinary catheter which was changed in the emergency room. Given urinary source of enterococcus, 7 days of IV antibiotics are recommended. Given his allergy to penicillins, vancomycin for 7 days is recommended. He will complete therapy at a SNF after working with case management. For the providencia bacteremia, given resistance profile on sensitivities and penicillin allergy, and given the patient going to SNF, ceftriaxone was continued on discharge rather than a change to oral cefdinir (resistant to cephalexin), also 7 days of therapy. An additional 5 days of antibiotics was prescribed to complete therapy at SNF. No other changes to his chronic medications were recommended. Time Spent with Patient Time spent: Greater than 30 minutes Exam Vital Signs (past 8 hours): - 08/10/24 04:28 08/10/24 08:00 Temperature 97.5 F L 98.2 F Pulse Rate 56 L 72 Respiratory Rate 16 19 Blood Pressure 138/79 139/92 H Pulse Oximetry 98 94 Oxygen Flow Rate 0 0 Oxygen Delivery Method Room Air Oxygen Flow Rate 0 Narrative Exam Narrative: GENERAL: This is a well-nourished, well-developed patient, in no apparent distress, with dense expressive aphasia. EYES: Pupils equal round and reactive. Extraocular motions intact. No scleral icterus. No injection or drainage. ENT: Mucous membranes pink and moist. NECK: Trachea midline. No JVD, bruits or lymphadenopathy. Supple, nontender, no meningeal signs. CARDIOVASCULAR: Regular rate and rhythm without murmurs, gallops, or rubs. RESPIRATORY: Clear to auscultation. GASTROINTESTINAL: Abdomen soft, non-tender, nondistended. GENITOURINARY: Chambers catheter in place (replaced in emergency department on admission) EXTREMITIES: No clubbing, cyanosis, or edema. NEUROLOGIC: Alert, expressive aphasia. Right hemiparesis with flexion contracture in the right upper extremity. DERMATOLOGIC: No rashes or skin lesions. Multiple tattoos. Objective Labs 08/09/24 05:28 08/10/24 04:46 Labs: Laboratory Results - last 24 hr 08/10/24 08/10/24 04:46 09:03 Sodium 134 L Potassium 3.4 Chloride 104 Carbon Dioxide 27 BUN 13 Creatinine 0.69 Estimated GFR > 60 BUN/Creatinine Ratio 18.8 Glucose 82 Calcium 8.0 L Vancomycin Trough 16.9 [facility] Medical History Depression History of CVA (cerebrovascular accident) History of nephrolithiasis Hyperlipidemia Hypertension Obstruction of right ureteropelvic junction (UPJ) due to stone Retained ureteral stent Retained ureteral stent Right renal stone Surgical History History of cholecystectomy (07/13/21) Hx of cystoscopy (09/07/21) S/P right knee arthroscopy Family History Father Heart disease Social History household members: other Smoking Status: Former smoker Tobacco: How many years used: 15 alcohol intake: former caffeine: No Discharge Plan Discharge Plan Patient Disposition: SNF Provider Discharge Comment: 63 M admitted with catheter associated UTI, with corresponding enterococcus and providencia bacteremia. Continuing ceftriaxone and vancomycin for total 7 day course for treatment of the above at [facility]. End date for antibiotics is 08/14/2024. Discharge orders & Medications Prescriptions: New ceftriaxone 2 gram recon soln 2 g IV DAILY 5 Days Qty: 5 0RF heparin, porcine (PF) 10 unit/mL Syringe 50 unit IV PRN PRN (Reason: Flush) Qty: 20 0RF heparin, porcine (PF) 10 unit/mL Syringe 50 unit IV BID Qty: 20 0RF vancomycin-diluent combo no.1 1.5 gram/300 mL Piggyback 1,500 mg IV Q12H 5 Days Qty: 3000 0RF Continued sennosides [senna] 8.6 mg Tablet 8.6 mg PO DAILY acetaminophen 325 mg Tablet 650 mg PO Q4H PRN (Reason: Fever Or Pain) Rx Instructions: pain level 1-3 or fever >100.1 fluoxetine 10 mg Tablet 10 mg PO DAILY amlodipine 5 mg Tablet 10 mg PO DAILY aspirin 81 mg Tablet,Delayed Release (Dr/Ec) 81 mg PO DAILY docusate sodium 100 mg Capsule 100 mg PO BID Rx Instructions: hold if loose stools cholecalciferol (vitamin D3) [Vitamin D3] 1,000 unit Tablet 1,000 unit PO DAILY atorvastatin 20 mg Tablet 20 mg PO BEDTIME ondansetron 4 mg Tablet,Disintegrating 4 mg PO Q4H PRN (Reason: Nausea) cyanocobalamin (vitamin B-12) 1,000 mcg Capsule 1,000 mcg PO DAILY oxycodone 5 mg tablet 5 mg PO Q4H PRN (Reason: pain) Qty: 14 0RF nystatin 100,000 unit/gram powder 1 applic topical DAILY magnesium hydroxide [Milk of Magnesia] 400 mg/5 mL suspension 5 ml PO DAILY PRN (Reason: Constipation) Follow up/Referrals: Gee Arriaga MD [Primary Care Provider] - Discharge Health Status Multidrug resistant organism: No MDRO Precautions: [place] Diet/Activity/Treatments Diet: Diet as Tolerated Liquid consistency: Normal/Thin Food texture: Regular Diet comment: No restrictions Activity: No restrictions Catheter: 2-way Chambers Catheter comment: Chronic urinary retention Visit Report/Discharge Packet Stand Alone Forms: Patient Portal/API Discharge Data Primary Care Provider: Gee Arriaga VTE Deep Vein Thrombosis/Pulmonary Embolism Present on Admission: No
--- NOTE | 2024-08-10 11:15 | PT.IPTN ---
Current Diagnoses Sepsis, unspecified organism (08/06/24) Physical Therapy Treatment Note M2 PT-IP Current Condition Start: 08/07/24 14:58 Freq: NEEDED Status: Active Protocol: Document 08/09/24 12:03 SP (Rec: 08/09/24 13:04 SP [id number]) Physical Therapy Current Condition Current Condition Evaluation Date 08/07/24 Treatment Diagnosis sepsis due to UTI in the context of chronic CVA R lane Onset Date 08/06/24 M3 PT-IP Subjective Start: 08/07/24 14:58 Freq: NEEDED Status: Active Protocol: Document 08/10/24 11:15 AB (Rec: 08/10/24 12:51 AB [id number]) Subjective Physical Therapy Visit Type Type Treatment Note Visit Start Time 11:15 Visit Stop Time 11:45 Number of STENOTYPE OPERATOR Visits 0 Physical Therapy Visit Comments Patient Comments agreeable to do PT M4 PT-IP Mobility and Gait Start: 08/07/24 14:58 Freq: NEEDED Status: Active Protocol: Document 08/10/24 11:15 AB (Rec: 08/10/24 12:51 AB [id number]) PT-Bed Mobility Assessment Supine to Sit Supine to Sit Maximum Assistance Scooting Scooting to Edge of Bed Maximum Assistance PT-Transfer Assessment Sit to and From Stand Sit to and from Stand Maximum Assistance,1 Person Assistance,2 Person Assistance ,Use of Upper Extremities Equipment Transfer Assistive Device Gait Belt Orthotic/Prosthetic Devices or Brace: No Transfers Transfer Destination Bed,Chair Transfer Technique Squat Pivot Transfer Ability Level of Assist Maximum Assistance,1 Person Assistance,2 Person Assistance ,Use of Upper Extremities Comments Mobility Comments pt supine in bed and agreeable to do PT. completed supine to sit max A and max cues. able to sit on EOB SBA. max A for scooting to EOB. positioned chair on pt's L side. completed squat pivot transfer max A with pt reaching over to chair's armrests to assist. completed squat transfer chair to bed max A x 1-2 and max cues and back again to chair max A and max cues. attempted sit to stand from chair x 3 attemps requiring max A x 1-2 and max cues. positioned pt on the chair. call light and table placed within reach. M5 PT-IP Objective Assessments Start: 08/07/24 14:58 Freq: NEEDED Status: Active Protocol: Document 08/07/24 13:00 AMB (Rec: 08/07/24 15:24 AMB [id number]) Orientation Orientation/Cognition Level of Alertness Alert Gross Range of Motion Lower Extremity ROM Assessment Right Impaired Strength Lower Extremity Strength Assessment Bilaterally Impaired Comments Strength Comments limited active movement throughout R LE; more mild weakness throghout L LE M6 PT-IP Treatment Start: 08/07/24 14:58 Freq: NEEDED Status: Active Protocol: Document 08/10/24 11:15 AB (Rec: 08/10/24 12:51 AB [id number]) Physical Therapy Treatment Education Education Provided Safety M7 PT-IP Assessment and Plan Start: 08/07/24 14:58 Freq: NEEDED Status: Active Protocol: Document 08/10/24 11:15 AB (Rec: 08/10/24 12:51 AB [id number]) PT Summary Assessment and Plan Potential Rehabilitation Potential Fair Summary Impairments Pain,ROM,Strength,Balance, Coordination,Sensation,Tone, Cognition,Bed Mobility, Transfers,Gait,Activity Tolerance Progress Towards Goals Slow Progress - Other Assessment Summary pt requiring max A x 1-2 for squat pivot transfer bed<> chair. pt lives at [facility] and has been receiving one person assist at [facility]. pt may go back to [facility] when medically stable. Goals Bed Mobility Goal Minimal Assistance Transfer Goal Minimal Assistance Days to Meet Goals 5 Frequency of Treatment Frequency Of Treatment Once a Day Treatment Plan Physical Therapy Treatment Plan Bed Mobility Training,Transfer Training,Therapeutic Exercise ,Balance Retraining,Discharge Planning,Neuromuscular Re-ed Recommendations To Nursing Amount of Assist Needed Mechanical Lift Discharge Recommendations PT Discharge Recommendations Home with 03/03 Assist Available Other Discharge Recommendations back to [facility] Transportation Needs at Discharge Wheelchair/Cabulance
--- NOTE | 2024-08-10 11:45 | OT.IP.TRT ---
Current Diagnoses Sepsis, unspecified organism (08/06/24) Occupational Therapy Treatment Note M2 OT-IP Current Condition Start: 08/07/24 14:56 Freq: Status: Active Protocol: Document 08/09/24 11:19 CGR (Rec: 08/09/24 11:39 CGR [id number]) Occupational Therapy Current Condition Current Condition Evaluation Date 08/09/24 Treatment Diagnosis fever and chambers not draining Diagnosis Onset Date 08/06/24 M3 OT- IP Subjective and Pain Start: 08/07/24 14:56 Freq: Status: Active Protocol: Document 08/10/24 11:50 [facility] (Rec: 08/10/24 11:56 [facility] [id number]) OT- Subjective Occupational Therapy Visit Type Type Treatment Note Visit Start Time 11:24 Visit Stop Time 11:45 Occupational Therapy Visit Comments Patient Comments Pt agreed to practice squat pivot transfers. Patient/Caregiver Goals TO get better. OT Pain Assessment Pain When Pain Assessed At Rest Pain Present Pain Present Denied Pain M4 OT- IP ADL's Start: 08/07/24 14:56 Freq: Status: Active Protocol: Document 08/10/24 11:50 [facility] (Rec: 08/10/24 11:56 [facility] [id number]) OT [id number] Comments OT Self-Feeding Comments Pt will need assist with set- up. OT ADL-Dressing General Eval Lower Body Dressing Ability Total Assistance Areas Needing Assistance Socks OT ADL-Toileting General Evaluation Toileting Ability Total Assistance Comments OT Toileting Comments chambers OT ADL-Bathing Comments OT Bathing Comments not performed M5 OT- IP IADL's Start: 08/07/24 14:56 Freq: Status: Active Protocol: Document 08/09/24 11:19 CGR (Rec: 08/09/24 11:39 R [id number]) OT-Instrumental Activities of Daily Living Deficits IADL Deficits Identified Deficits Home Safety Awareness Awareness of Need for Assistance at Home Decreased Awareness Ability to Problem Solve Emergency Unable to Problem Solve Situations Medication Management Medication Management Caregiver Administers Money Management Money Management Caregiver Provides Assistance Meal Preparation Meal Preparation Caregiver Provides Assist Drapery Hand Drapery Hand Caregiver Provides Assist Driving Driving Comments Pt does not drive M6 OT- IP Functional Cognition Start: 08/07/24 14:56 Freq: Status: Active Protocol: Document 08/10/24 11:50 [facility] (Rec: 08/10/24 11:56 [facility] [id number]) Cognitive Factors Limiting Selfcare Function Cognitive Comments Cognitive Assessment Comments Pt needing increased time to process and follow commands. Pt benefit from visual cues. M7 OT- IP Mobility and Balance Start: 08/07/24 14:56 Freq: Status: Active Protocol: Document 08/10/24 11:50 [facility] (Rec: 08/10/24 11:56 [facility] [id number]) OT- Bed Mobility Assessment Supine to Sit Supine to Sit Assist Maximum Assistance,1 Person Assistance,Head of Bed Elevated,Bedrails Scooting Scooting to Edge of Bed Maximum Assistance,1 Person Assistance OT-Transfer Assessment Sit to and From Stand Sit to and from Stand Maximum Assistance,1 Person Assistance Transfers Transfer Ability Maximum Assistance,1 Person Assistance Technique Transfer Destination Bed,Chair Transfer Technique Stand Step Pivot Devices Transfer Assistive Devices Gait Belt Comments Mobility Comments Pt needing MAX AX 1 and assist for set-up for squat pivot to the recliner and back to the bed and recliner again. Pt transfers to his strong side which is his left, a at this time safer for staff to use the savita lift on the pt as pt is not consistent and has a differnet set-up at home. OT- Gait Assessment Comments Gait Ability Comments pt does not ambulate at baseline OT- Balance Assessment Sitting Balance and Reactions Static Sitting Balance Ability Good Dynamic Sitting Balance Ability Fair Standing Balance and Reactions Static Standing Balance Ability Poor M8 OT- IP Objective Assessments Start: 08/07/24 14:56 Freq: Status: Active Protocol: Document 08/09/24 11:19 CGR (Rec: 08/09/24 11:39 CGR [id number]) OT Gross Range of Motion Upper Extremity Range of Motion Assessment Right Impaired OT Strength Upper Extremity Strength Assessment Right Impaired Comments Strength Comments LUE 5-/5 RUE not specifically tested but rests in elbow fx with finger extension. OT- Coordination Assessment Upper Extremity Finger to Nose Test Right UE Impaired Finger Tapping Test Right UE Impaired OT Sensation Assessment Comments Summary Comments Pt states sensation is the same on both arms Edema Edema Absent M9 OT- IP Assessment and Plan Start: 08/07/24 14:56 Freq: Status: Active Protocol: Document 08/10/24 11:50 [facility] (Rec: 08/10/24 11:56 [facility] [id number]) OT Summary Assessment and Plan Potential Rehabilitation Potential Fair Analytic Complexity at Evaluation High Summary OT Impairments Range of Motion,Strength, Balance,Coordination,Tone, Functional Cognition, Functional Mobility,Dressing, Toileting,Bathing,Toilet Transfers,Shower Transfers, Activity Tolerance Progress Towards Goals Progressing Toward Goals Assessment Summary Pt feels that he is pretty much back to his baseline for mobility needs. Pt will continue to benefit from continued practice of transfers so able to be consistent and safe for one person to assist pt. Pt to go home with 24/7 assist when medically stable. Goals Self-Feeding Goal Independent Grooming Goal Independent Toilet Transfer Goal Minimal Assistance,Bedside Commode Days to Meet Goals 5 Frequency of Treatment Other frequency 5x a week Treatment Plan OT Treatment Plan ADL Training,Functional Mobility,Patient/Family Education,Discharge Planning Other Treatment Recommendations and Next transfer to [facility], standing for Treatment Focus pericare, simple ADLs, feeding . Discharge Recommendations OT Discharge Recommendations Home with 24/7 Assist Available Transportation Needs at Discharge Wheelchair/Cabulance
[2024-08-10 12:00] VITALS: BP 131/88; PULSE 65; RESP 20; TEMP 36.4; O2SAT 97
== END 2024-08-10 15:11 | DRG 466 ==
LOC: ED 19:49 → AC 19:51
PROVIDERS: Emergency Medicine; Internal Medicine; Admitting Provider Internal Medicine; Emergency Provider Emergency Medicine; PCP Family Medicine; Referring Provider Emergency Medicine; Visit Provider Internal Medicine
DX: T83.511A Infection and inflammatory reaction due to indwelling urethral catheter, initial encounter (principal); A41.9 Sepsis, unspecified organism; N39.0 Urinary tract infection, site not specified; R74.01 Elevation of levels of liver transaminase levels; I10 Essential (primary) hypertension; E78.5 Hyperlipidemia, unspecified; B95.2 Enterococcus as the cause of diseases classified elsewhere; B96.89 Other specified bacterial agents as the cause of diseases classified elsewhere; T83.098A Other mechanical complication of other urinary catheter, initial encounter; F32.A Depression, unspecified; R79.89 Other specified abnormal findings of blood chemistry; I69.320 Aphasia following cerebral infarction; Y73.2 Prosthetic and other implants, materials and accessory gastroenterology and urology devices associated with adverse incidents; Z66 Do not resuscitate; Z88.0 Allergy status to penicillin; Z87.891 Personal history of nicotine dependence
CPT/HCPCS: 36415; 36569; 51798; 71045; 80048; 80053; 80202; 81001; 83605; 83690; 84145; 85025; 85610; 85730; 87040; 87077; 87086; 87154; 87186; 93005; 96361; 96365; 97110; 97162; 97167; 97530; 99284; J0696; J1642; J1644; J2405

== ENCOUNTER 2024-08-21 07:07 | Emergency (ER) | payer OTHER, SELFPAY ==
[2024-08-07 02:20] VITALS: BMI 26.6
[2024-08-21] VITALS (13 sets, daily range): BP systolic 112–156; BP diastolic 65–87; PULSE 97–126; RESP 19–31; TEMP 37.6–37.7; O2SAT 91–97; BMI 25.0
--- NOTE | 2024-08-21 07:23 | DI.RAD.S_ITS ---
PROCEDURE: XR CHEST 1V INDICATIONS: cough TECHNIQUE: One view of the chest was acquired. COMPARISON: [facility], CR, XR CHEST FOR PICC 1V, 08/10/2024, 1:52. [facility], CR, XR CHEST 1V, 08/06/2024, 16:31. [facility], CR, XR CHEST 1V, 04/30/2024, 5:51. [facility], CR, XR CHEST 1V, 06/25/2022, 14:52. FINDINGS: Surgical changes and devices: None. Lungs and pleura: Lungs are clear. No pleural effusions or pneumothorax. Mediastinum: Mediastinal contours appear normal. Heart size is normal. Bones and chest wall: No suspicious bony lesions. Overlying soft tissues appear unremarkable. IMPRESSION: No acute cardiopulmonary abnormality is seen. Dictated by: Jaiden Valencia M.D. on 08/21/2024 at 7:48 Approved by: Jaiden Valencia M.D. on 08/21/2024 at 7:49
[2024-08-21 07:31] LABS: Add Manual Diff / Slide Review NO; Basophils Absolute Auto 100 /uL (0-100); Basophils Percent Auto 0.8 % (0-2); Eosinophils Absolute Auto 0 /uL (0-450); Eosinophils Percent Auto 0.1 % (2-4); Hematocrit 49.1 % (41-53); Hemoglobin 17.2 g/dL (13.5-17.5); Lymphocytes Absolute Auto 1100 /uL (1100-4500); Lymphocytes Percent Auto 10.3 % (25-40); Mean Corpuscular Hemoglobin 31.3 PG (26-34); Mean Corpuscular Volume 89.2 fL (80-100); Monocytes Absolute Auto 1500 /uL (0-900); Neutrophils Absolute Auto 7800 /uL (1500-7000); Neutrophils Percent Auto 74.8 % (50-75); Platelet Count 278 X10^3/uL (150-400); Red Blood Cell Count 5.51 X10^6/uL (4.5-5.9); Red Cell Distribution Width 14.1 % (11.6-14.8); White Blood Cell Count 10.4 X10^3/uL (4.5-11.0)
[2024-08-21 07:36] LABS: Alanine Aminotransferase 43 IU/L (<50); Albumin 4.1 g/dL (3.5-5.0); Albumin Globulin Ratio 1.2 (1.0-2.8); Alkaline Phosphatase 116 U/L (38-126); Aspartate Aminotransferase 52 IU/L (17-59); BUN Creatinine Ratio 11.7 (6-22); Bilirubin Total 1.1 mg/dL (0.2-1.3); Blood Urea Nitrogen 11 mg/dL (9-20); Calcium 8.9 mg/dL (8.4-10.2); Carbon Dioxide 26 mmol/L (22-32); Chloride 101 mmol/L (98-107); Estimated Glomerular Filt Rate > 60 mL/min (>60); Globulin 3.4 g/dL (1.7-4.1); Glucose 103 mg/dL (80-110); HEMOLYSIS 23 (0-50); Lactate (Lactic Acid) 1.6 mmol/L (0.7-2.1); Lipase 190 U/L (23-300); Sodium 135 mmol/L (137-145); Total Protein 7.5 g/dL (6.3-8.2)
--- NOTE | 2024-08-21 07:38 | ED.ABDPAIN ---
HPI - Abdominal Pain General Chief Complaint: Urogenital-Male Stated Complaint: Fever, N/V, UTI? Time Seen by Provider: 08/21/24 07:11 Source: EMS and old records reviewed Mode of arrival: EMS History of Present Illness HPI narrative: Patient is a 63-year-old male history of hypertension, depression, hyperlipidemia, CVA, chronic Padron catheter presenting today with low-grade temperature of 100?. He has frequent UTIs was recently admitted August 06 through August 10 with sepsis secondary to Providencia and Enterococcus in urine and blood. He reports today that he was feeling nauseous does not report vomiting. Has a slight cough but no chest pain or shortness of breath. Related Data Home Medications Medication Instructions Recorded Confirmed acetaminophen 325 mg tablet 650 mg PO Q4H PRN Fever Or Pain 09/21/18 08/06/24 amlodipine 5 mg tablet 10 mg PO DAILY 09/21/18 08/06/24 aspirin 81 mg tablet,delayed 81 mg PO DAILY 09/21/18 08/06/24 release cholecalciferol (vitamin D3) 25 1,000 unit PO DAILY 09/21/18 08/06/24 mcg (1,000 unit) tablet (Vitamin D3) docusate sodium 100 mg capsule 100 mg PO BID 09/21/18 08/06/24 fluoxetine 10 mg tablet 10 mg PO DAILY 09/21/18 08/06/24 sennosides 8.6 mg tablet (senna) 8.6 mg PO DAILY 09/21/18 08/06/24 atorvastatin 20 mg tablet 20 mg PO BEDTIME 07/12/21 08/06/24 cyanocobalamin (vitamin B-12) 1,000 mcg PO DAILY 07/12/21 08/06/24 1,000 mcg capsule ondansetron 4 mg disintegrating 4 mg PO Q4H PRN Nausea 07/12/21 08/06/24 tablet magnesium hydroxide 400 mg/5 mL 5 ml PO DAILY PRN Constipation 09/05/21 08/06/24 oral suspension (Milk of Magnesia) nystatin 100,000 unit/gram topical 1 applic topical DAILY 09/05/21 08/06/24 powder Previous Rx's Medication Instructions Recorded heparin, porcine (PF) 10 unit/mL 50 unit (5 mL) IV BID #20 mL 08/10/24 intravenous syringe heparin, porcine (PF) 10 unit/mL 50 unit (5 mL) IV PRN PRN Flush 08/10/24 intravenous syringe #20 mL oxycodone 5 mg tablet 5 mg PO Q4H PRN pain #14 tabs 08/10/24 Allergies Allergy/AdvReac Type Severity Reaction Status Date / Time Penicillins Allergy Intermediate Rash over Verified 08/21/24 07:22 body tetracycline Allergy Unknown Verified 08/21/24 07:22 Patient History Medical History Depression History of CVA (cerebrovascular accident) History of nephrolithiasis Hyperlipidemia Hypertension Obstruction of right ureteropelvic junction (UPJ) due to stone Retained ureteral stent Retained ureteral stent Right renal stone Surgical History History of cholecystectomy (07/13/21) Hx of cystoscopy (09/07/21) S/P right knee arthroscopy Family History Father Heart disease Social History household members: other Smoking Status: Former smoker Tobacco: How many years used: 15 alcohol intake: former caffeine: No Smoking Status: Former smoker alcohol intake frequency: holidays/special occasions only Exam Initial Vital Signs Initial Vital Signs: Vital Signs Pulse Rate 126 H 08/21/24 07:12 Pulse Oximetry 96 08/21/24 07:12 GENERAL: Alert nontoxic 63-year-old male mild slurring of speech HEENT: Head atraumatic,EOMI, pupils reactive, face symmetric, moist mucous membranes CARDIOVASCULAR: Regular rate and rhythm without murmurs, rubs or gallops. RESPIRATORY: Breath sounds equal bilaterally, no wheezes rales or rhonchi. ABDOMEN: Soft, minimal suprapubic tenderness no guarding or rebound : Padron catheter in place urine drainage EXTREMITIES: Normal range of motion, no clubbing or edema. Neurovascularly intact NEUROLOGICAL: Alert and oriented x4.Normal gait and speech. SKIN: Warm, dry, no laceration, no petechiae, no rashes or lesions. Course Orders Ordered: ED Orders 08/21/24 10:10 Troponin & CK Cardiac Panel Stat Discontinued Medications Acetaminophen (Acetaminophen 325 Mg Tablet) 975 mg PO NOW ONE Stop: 08/21/24 09:54 Last Admin: 08/21/24 10:19 Dose: 975 mg Documented By: JORGE Vital Signs Vital signs: Vital Signs - 8 hr 08/21/24 11:00 08/21/24 11:30 08/21/24 11:34 Temperature 99.6 F Pulse Rate 100 H 100 H Respiratory Rate 31 H 25 H Blood Pressure 119/67 112/65 Pulse Oximetry 91 92 Oxygen Delivery Method Room Air MDM - Abdominal Pain Lab Data 08/21/24 07:05 08/21/24 07:05 Labs: Lab Results 08/21/24 08/21/24 08/21/24 Range/Units 07:05 07:56 08:20 WBC 10.4 (4.5-11.0) X10^3/uL RBC 5.51 (4.5-5.9) X10^6/uL Hgb 17.2 (13.5-17.5) g/dL Hct 49.1 (41-53) % MCV 89.2 (80-100) fL MCH 31.3 (26-34) PG MCHC 35.0 (30-36) % RDW 14.1 (11.6-14.8) % Plt Count 278 (150-400) X10^3/uL Neut % (Auto) 74.8 (50-75) % Lymph % (Auto) 10.3 L (25-40) % [place] % (Auto) 14.0 (3-14) % Eos % (Auto) 0.1 L (2-4) % Baso % (Auto) 0.8 (0-2) % Neut # (Auto) 7800 H (4280-0620) /uL Lymph # (Auto) 1100 (4507-2093) /uL [place] # (Auto) 1500 H (0-900) /uL Eos # (Auto) 0 (0-450) /uL Baso # (Auto) 100 (0-100) /uL Sodium 135 L (137-145) mmol/L Potassium 4.0 (3.4-5.1) mmol/L Chloride 101 (98-107) mmol/L Carbon Dioxide 26 (22-32) mmol/L BUN 11 (9-20) mg/dL Creatinine 0.94 (0.66-1.25) mg/dL Estimated GFR > 60 (>60) mL/min BUN/Creatinine Ratio 11.7 (6-22) Glucose 103 (80-110) mg/dL Lactate 1.6 (0.7-2.1) mmol/L Calcium 8.9 (8.4-10.2) mg/dL Total Bilirubin 1.1 (0.2-1.3) mg/dL AST 52 (17-59) IU/L ALT 43 (<50) IU/L Alkaline Phosphatase 116 (38-126) U/L Total Creatine Kinase (55-170) U/L Troponin I (0.01-0.034) ng/mL NT-Pro-B Natriuret Pep 1190 H (<125) pg/mL Total Protein 7.5 (6.3-8.2) g/dL Albumin 4.1 (3.5-5.0) g/dL Globulin 3.4 (1.7-4.1) g/dL Albumin/Globulin Ratio 1.2 (1.0-2.8) Lipase 190 (23-300) U/L Procalcitonin 0.206 (<0.5) ng/mL Urine Color Yellow Urine Appearance Sl cloudy Urine pH 5.5 (4.5-8.0) Ur Specific [place] >=1.030 H (1.000-1.035) Urine Protein 2+ H (Negative) Urine Glucose (UA) Negative (Negative) g/dL Urine Ketones Negative (NEGATIVE) Urine Occult Blood 3+ H (Negative) Urine Nitrate Negative (Negative) Urine Bilirubin 1+ H (NEGATIVE) Ur Bilirubin Confirm Negative (Negative) Urine Urobilinogen 1.0 (0.2) E.U./dL Ur Leukocyte Esterase Negative (NEGATIVE) Urine RBC 30-100/hpf H (0-5/HPF) Urine WBC 0-1/hpf (0-5/HPF) Ur Squamous Epith Cells None seen (0-5/HPF) Urine Bacteria None seen (None) Ur Culture Indicated? Cult not indicated Vol Urine Centrifuged Low vol <10ml (spun) A SARS-CoV-2 (PCR) Negative (Negative) Influenza A (RT-PCR) Flu a positive H (NEGATIVE) Influenza B (RT-PCR) Flu b negative (NEGATIVE) RSV (PCR) Negative (Negative) 08/21/24 Range/Units 10:10 WBC (4.5-11.0) X10^3/uL RBC (4.5-5.9) X10^6/uL Hgb (13.5-17.5) g/dL Hct (41-53) % MCV (80-100) fL MCH (26-34) PG MCHC (30-36) % RDW (11.6-14.8) % Plt Count (150-400) X10^3/uL Neut % (Auto) (50-75) % Lymph % (Auto) (25-40) % [place] % (Auto) (3-14) % Eos % (Auto) (2-4) % Baso % (Auto) (0-2) % Neut # (Auto) (4931-5152) /uL Lymph # (Auto) (7879-6741) /uL [place] # (Auto) (0-900) /uL Eos # (Auto) (0-450) /uL Baso # (Auto) (0-100) /uL Sodium (137-145) mmol/L Potassium (3.4-5.1) mmol/L Chloride (98-107) mmol/L Carbon Dioxide (22-32) mmol/L BUN (9-20) mg/dL Creatinine (0.66-1.25) mg/dL Estimated GFR (>60) mL/min BUN/Creatinine Ratio (6-22) Glucose (80-110) mg/dL Lactate (0.7-2.1) mmol/L Calcium (8.4-10.2) mg/dL Total Bilirubin (0.2-1.3) mg/dL AST (17-59) IU/L ALT (<50) IU/L Alkaline Phosphatase (38-126) U/L Total Creatine Kinase 26 L (55-170) U/L Troponin I < 0.012 (0.01-0.034) ng/mL NT-Pro-B Natriuret Pep (<125) pg/mL Total Protein (6.3-8.2) g/dL Albumin (3.5-5.0) g/dL Globulin (1.7-4.1) g/dL Albumin/Globulin Ratio (1.0-2.8) Lipase (23-300) U/L Procalcitonin (<0.5) ng/mL Urine Color Urine Appearance Urine pH (4.5-8.0) Ur Specific [place] (1.000-1.035) Urine Protein (Negative) Urine Glucose (UA) (Negative) g/dL Urine Ketones (NEGATIVE) Urine Occult Blood (Negative) Urine Nitrate (Negative) Urine Bilirubin (NEGATIVE) Ur Bilirubin Confirm (Negative) Urine Urobilinogen (0.2) E.U./dL Ur Leukocyte Esterase (NEGATIVE) Urine RBC (0-5/HPF) Urine WBC (0-5/HPF) Ur Squamous Epith Cells (0-5/HPF) Urine Bacteria (None) Ur Culture Indicated? Vol Urine Centrifuged SARS-CoV-2 (PCR) (Negative) Influenza A (RT-PCR) (NEGATIVE) Influenza B (RT-PCR) (NEGATIVE) RSV (PCR) (Negative) Imaging Data Chest x-ray: Radiologist's Impression: PROCEDURE: XR CHEST 1V INDICATIONS: cough TECHNIQUE: One view of the chest was acquired. COMPARISON: [facility], CR, XR CHEST FOR PICC 1V, 08/10/2024, 1:52. [facility], CR, XR CHEST 1V, 08/06/2024, 16:31. [facility], CR, XR CHEST 1V, 04/30/2024, 5:51. [facility], CR, XR CHEST 1V, 06/25/2022, 14:52. FINDINGS: Surgical changes and devices: None. Lungs and pleura: Lungs are clear. No pleural effusions or pneumothorax. Mediastinum: Mediastinal contours appear normal. Heart size is normal. Bones and chest wall: No suspicious bony lesions. Overlying soft tissues appear unremarkable. IMPRESSION: No acute cardiopulmonary abnormality is seen. Dictated by: Jaiden Valencia M.D. on 08/21/2024 at 7:48 ECG Data Attestation: I personally reviewed and interpreted this ECG as follows: Prior ECG tracings: available for review Interpretation: Normal sinus rhythm rate 99 CA interval 158 QRS 98 QTC 451 no ischemia similar to prior EKGs in fact heart rate is improved MDM Narrative Medical decision making narrative: MDM CC: Nausea vomiting Complicating co-morbidities: Chronic indwelling Padron catheter frequent UTIs multi-drug resistance history of CVA Data collected from: EMS patient nursing staff in triage Medical records reviewed: Recent admission Differential considered: Sepsis UTI intra-abdominal pathology Exam documented above, pertinent findings include: Alert nontoxic male history of CVA with right-sided deficits abdomen mildly tender Lab Test results independently reviewed as above. Pertinent findings: Influenza a+ WBC 10.4 lactate 1.6 procalcitonin 0.20 BNP 1190 no priors, troponin negative Independently reviewed EKG as above sinus rhythm out ischemic Imaging studies independently reviewed: Chest x-ray no acute cardiopulmonary process Treatments: Tylenol Re-evaluations: Patient is awake alert tolerating some p.o. fluids heart rate is increasing Discussion: Patient positive for influenza A. He is tolerating p.o. fluids not eating oxygen. Blood work has been reviewed overall reassuring he has no leukocytosis or evidence of sepsis. Urinalysis today shows overall improvement. I have called and updated brother. At this time you patient does not meet admission criteria can go home I will ever if not tolerating fluids increased confusion or increased difficulty breathing needs to return Discharge Plan Departure Patient Disposition: Home Clinical Impression: Influenza A Instructions: DI for Influenza -- Adult Activity Restrictions/Additional Instructions: *You have been diagnosed with influenza a *What to do: At this time increase fluids as tolerated may increase diet as tolerated that as well but please make sure drinking fluids. *Continue to take medications as directed Tylenol Motrin as needed for fever *Follow up with your primary care provider in 2-3 days or call [phone] *Return to ER if you should have increased confusion increased difficulty breathing not tolerating fluids or any new, worsening or concerning symptoms Prescriptions: No Action sennosides [senna] 8.6 mg Tablet 8.6 mg PO DAILY acetaminophen 325 mg Tablet 650 mg PO Q4H PRN (Reason: Fever Or Pain) Rx Instructions: pain level 1-3 or fever >100.1 fluoxetine 10 mg Tablet 10 mg PO DAILY amlodipine 5 mg Tablet 10 mg PO DAILY aspirin 81 mg Tablet,Delayed Release (Dr/Ec) 81 mg PO DAILY docusate sodium 100 mg Capsule 100 mg PO BID Rx Instructions: hold if loose stools cholecalciferol (vitamin D3) [Vitamin D3] 1,000 unit Tablet 1,000 unit PO DAILY atorvastatin 20 mg Tablet 20 mg PO BEDTIME ondansetron 4 mg Tablet,Disintegrating 4 mg PO Q4H PRN (Reason: Nausea) cyanocobalamin (vitamin B-12) 1,000 mcg Capsule 1,000 mcg PO DAILY heparin, porcine (PF) 10 unit/mL Syringe 50 unit IV PRN PRN (Reason: Flush) Qty: 20 0RF heparin, porcine (PF) 10 unit/mL Syringe 50 unit IV BID Qty: 20 0RF oxycodone 5 mg tablet 5 mg PO Q4H PRN (Reason: pain) Qty: 14 0RF nystatin 100,000 unit/gram powder 1 applic topical DAILY magnesium hydroxide [Milk of Magnesia] 400 mg/5 mL suspension 5 ml PO DAILY PRN (Reason: Constipation) Referrals: Gee Arriaga MD [Primary Care Provider] - Stand Alone Forms: Patient Portal/API/Survey
[2024-08-21 07:53] LABS: Procalcitonin 0.206 ng/mL (<0.5)
--- NOTE | 2024-08-21 07:53 | EKG_ITS ---
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
[2024-08-21 08:26] LABS: Appearance Urine UA SL CLOUDY; Bilirubin Urine UA 1+ (NEGATIVE); Color Urine UA YELLOW; Glucose Urine UA NEGATIVE (Negative); Ketones Urine UA NEGATIVE (NEGATIVE); Leukocyte Esterase Urine UA NEGATIVE (NEGATIVE); Nitrite Urine UA NEGATIVE (Negative); Occult Blood Urine UA 3+ (Negative); Protein Urine UA 2+ (Negative); Specific Gravity Urine UA >=1.030 (1.000-1.035); pH Urine UA 5.5 (4.5-8.0)
[2024-08-21 08:38] LABS: Bacteria Urine None Seen; Culture Indicated Urine Cult Not Indicated; Ictotest Urine Negative (Negative); RBC Urine 30-100/HPF (0-5/HPF); Squamous Epithelial Cell Urine None Seen (0-5/HPF); Urine Volume Low Vol <10mL (spun); WBC Urine 0-1/HPF (0-5/HPF)
[2024-08-21 08:50] LABS: NT-proBNP (BNP-Adult 18+) 1190 pg/mL (<125)
[2024-08-21 09:07] LABS: Influenza A - CEPHEID Flu A POSITIVE (NEGATIVE); Influenza B - CEPHEID Flu B NEGATIVE (NEGATIVE); Respiratory Syncytial Virus Negative (Negative)
[2024-08-21 09:09] LABS: COVID-19 CEPHEID 4-PLEX PCR Negative (Negative)
--- NOTE | 2024-08-21 09:54 | PC.NURSE ---
Attempted to contact brother/POA--phone went to voicemail. Voicemail left stating to call ER back w/ call back number.
[2024-08-21] MEDS: ACETAMINOPHEN 325 MG TABLET 975 MG PO (10:19)
[2024-08-21 10:21] LABS: Creatine Kinase 26 U/L (55-170)
[2024-08-21 10:34] LABS: Troponin I < 0.012 ng/mL (0.01-0.034)
--- NOTE | 2024-08-21 11:58 | PC.NURSE ---
Fever, N/V. SNF/[facility] reports fever over the past 24 hours. Wanted to rule out UTI.
== END 2024-08-21 11:59 | disposition home or self-care (01) ==
PROVIDERS: Emergency Provider Emergency Medicine; PCP Family Medicine
DX: J10.2 Influenza due to other identified influenza virus with gastrointestinal manifestations (principal); R11.0 Nausea; R05.9 Cough, unspecified
CPT/HCPCS: 0241U; 36415; 71045; 80053; 81001; 82550; 83605; 83690; 83880; 84145; 84484; 85025; 87040; 87077; 87147; 93005; 93010; 99283; 99284

== ENCOUNTER → 2024-09-02 16:53 | Outpatient (ROUT) | payer OTHER, SELFPAY ==
[2024-08-07 02:20] VITALS: BMI 26.6
[2024-09-02 17:10] LABS: Appearance Urine UA CLOUDY; Bilirubin Urine UA NEGATIVE (NEGATIVE); Color Urine UA YELLOW; Glucose Urine UA NEGATIVE (Negative); Ketones Urine UA TRACE (NEGATIVE); Leukocyte Esterase Urine UA 2+ (NEGATIVE); Nitrite Urine UA POSITIVE (Negative); Occult Blood Urine UA 3+ (Negative); Protein Urine UA 2+ (Negative); pH Urine UA 6.5 (4.5-8.0)
[2024-09-02 17:19] LABS: Bacteria Urine Few (2-10); Culture Indicated Urine Specimen Cultured; RBC Urine 5-10/HPF (0-5/HPF); Squamous Epithelial Cell Urine 0-1 /HPF (0-5/HPF); Urine Volume 10mL (spun); WBC Urine 1-5/HPF (0-5/HPF)
== END ==
PROVIDERS: PCP Family Medicine; Visit Provider Registered Nurse
DX: Z00.00 Encounter for general adult medical examination without abnormal findings (principal)
CPT/HCPCS: 81001; 87077; 87086; 87186

== ENCOUNTER → 2024-09-09 15:40 | Outpatient (ROUT) | payer OTHER, SELFPAY ==
[2024-08-07 02:20] VITALS: BMI 26.6
[2024-09-09 16:01] LABS: Appearance Urine UA CLOUDY; Bilirubin Urine UA NEGATIVE (NEGATIVE); Color Urine UA YELLOW; Glucose Urine UA NEGATIVE (Negative); Ketones Urine UA TRACE (NEGATIVE); Leukocyte Esterase Urine UA 3+ (NEGATIVE); Nitrite Urine UA POSITIVE (Negative); Occult Blood Urine UA 2+ (Negative); Protein Urine UA 3+ (Negative); pH Urine UA >= 9.0 (4.5-8.0)
[2024-09-09 16:22] LABS: Urine Volume 10mL (spun)
[2024-09-09 16:23] LABS: Bacteria Urine Many (>30); RBC Urine 10-30/HPF (0-5/HPF); WBC Urine >100/HPF (0-5/HPF)
[2024-09-09 16:24] LABS: Culture Indicated Urine Specimen Cultured; Squamous Epithelial Cell Urine None Seen (0-5/HPF); Triple Phosphate Crystal Urine Few
== END ==
PROVIDERS: PCP Family Medicine; Visit Provider Nurse Practitioner Family
DX: R50.9 Fever, unspecified (principal); R10.2 Pelvic and perineal pain; R82.90 Unspecified abnormal findings in urine
CPT/HCPCS: 81001; 87077; 87086

== ENCOUNTER → 2024-10-02 18:23 | Outpatient (ROUT) | payer OTHER, SELFPAY ==
[2024-08-07 02:20] VITALS: BMI 26.6
[2024-10-02 18:34] LABS: Appearance Urine UA CLOUDY; Bilirubin Urine UA NEGATIVE (NEGATIVE); Glucose Urine UA NEGATIVE (Negative); Ketones Urine UA NEGATIVE (NEGATIVE); Leukocyte Esterase Urine UA 2+ (NEGATIVE); Nitrite Urine UA POSITIVE (Negative); Occult Blood Urine UA 3+ (Negative); Protein Urine UA 2+ (Negative); Specific Gravity Urine UA 1.025 (1.000-1.035)
[2024-10-02 18:44] LABS: Bacteria Urine Moderate (10-30); Calcium Oxalate Crystals Urine Few; Color Urine UA 257991; RBC Urine 1-5/HPF (0-5/HPF); Squamous Epithelial Cell Urine None Seen (0-5/HPF); Urine Volume 10mL (spun); WBC Urine >100/HPF (0-5/HPF)
[2024-10-02 18:45] LABS: Amorphous Sediment Urine 1+; Culture Indicated Urine Specimen Cultured
== END ==
PROVIDERS: PCP Family Medicine; Visit Provider Internal Medicine
DX: N39.0 Urinary tract infection, site not specified (principal)
CPT/HCPCS: 81001; 87077; 87086; 87186

== ENCOUNTER 2024-10-08 02:23 | Emergency (ER) | payer OTHER, SELFPAY ==
[2024-08-07 02:20] VITALS: BMI 26.6
[2024-10-08] VITALS (11 sets, daily range): BP systolic 107–176; BP diastolic 66–98; PULSE 61–128; RESP 13–24; TEMP 36.6; O2SAT 92–98; BMI 24.6
--- NOTE | 2024-10-08 02:48 | ED_ITS ---
HPI - General Adult General Chief complaint: Urogenital-Male Stated complaint: groin pain Time Seen by Provider: 10/08/24 02:23 History of Present Illness HPI narrative: 63-year-old gentleman from [facility] with history of stroke and expressive aphasia, hypertension, hyperlipidemia, chronic indwelling catheter, he is DNR with limited interventions. He is brought to the emergency department after complaining of groin pain for approximately 40 minutes. Staff do not report fevers, cough, chills. They feel that he is at his baseline. Initial concern was for abdominal pain, on arrival in the emergency department he indicates that his pain is around his penis and Padron catheter only. He seems nontoxic, affable with an obvious expressive aphasia. Related Data Home Medications Medication Instructions Recorded Confirmed acetaminophen 325 mg tablet 650 mg PO Q4H PRN Fever Or Pain 09/21/18 08/06/24 amlodipine 5 mg tablet 10 mg PO DAILY 09/21/18 08/06/24 aspirin 81 mg tablet,delayed 81 mg PO DAILY 09/21/18 08/06/24 release cholecalciferol (vitamin D3) 25 1,000 unit PO DAILY 09/21/18 08/06/24 mcg (1,000 unit) tablet (Vitamin D3) docusate sodium 100 mg capsule 100 mg PO BID 09/21/18 08/06/24 fluoxetine 10 mg tablet 10 mg PO DAILY 09/21/18 08/06/24 sennosides 8.6 mg tablet (senna) 8.6 mg PO DAILY 09/21/18 08/06/24 atorvastatin 20 mg tablet 20 mg PO BEDTIME 07/12/21 08/06/24 cyanocobalamin (vitamin B-12) 1,000 mcg PO DAILY 07/12/21 08/06/24 1,000 mcg capsule ondansetron 4 mg disintegrating 4 mg PO Q4H PRN Nausea 07/12/21 08/06/24 tablet magnesium hydroxide 400 mg/5 mL 5 ml PO DAILY PRN Constipation 09/05/21 08/06/24 oral suspension (Milk of Magnesia) nystatin 100,000 unit/gram topical 1 applic topical DAILY 09/05/21 08/06/24 powder Previous Rx's Medication Instructions Recorded heparin, porcine (PF) 10 unit/mL 50 unit (5 mL) IV BID #20 mL 08/10/24 intravenous syringe heparin, porcine (PF) 10 unit/mL 50 unit (5 mL) IV PRN PRN Flush 08/10/24 intravenous syringe #20 mL oxycodone 5 mg tablet 5 mg PO Q4H PRN pain #14 tabs 08/10/24 Allergies Allergy/AdvReac Type Severity Reaction Status Date / Time Penicillins Allergy Intermediate Rash over Verified 08/21/24 07:22 body tetracycline Allergy Unknown Verified 08/21/24 07:22 Review of Systems Review of Systems Narrative: Pertinent positive and negative findings as per HPI Patient History Medical History History of nephrolithiasis Retained ureteral stent Retained ureteral stent Right renal stone Obstruction of right ureteropelvic junction (UPJ) due to stone Depression History of CVA (cerebrovascular accident) Hyperlipidemia Hypertension Surgical History Hx of cystoscopy (09/07/21) History of cholecystectomy (07/13/21) S/P right knee arthroscopy Family History Father Heart disease Social History household members: other Smoking Status: Former smoker Tobacco: How many years used: 15 alcohol intake: former caffeine: No Smoking Status: Former smoker alcohol intake frequency: holidays/special occasions only Exam Initial Vital Signs Initial Vital Signs: Vital Signs Temperature 97.8 F 10/08/24 02:35 Pulse Rate 128 H 10/08/24 02:35 Respiratory Rate 20 10/08/24 02:35 Blood Pressure 176/98 H 10/08/24 02:35 Pulse Oximetry 96 10/08/24 02:35 Oxygen Delivery Method Room Air 10/08/24 02:35 General: chronically ill-appearing with expressive aphasia but in no acute distress. Smiling and cooperative HEENT: Moist mucous membranes, normal sclera with reactive pupils, Respiratory: Lungs are clear to auscultation, no wheezing no rales no rhonchi. Full and symmetrical air movement Cardiac: tachycardic but regular. Abdomen: Soft, nontender, good bowel tones, no flank pain. He has no groin pain. He is leaking urine around his Padron catheter Skin: Warm and dry, he has leakage around his Padron catheter and some debris around the shaft of his penis Neurologic: he is moving all extremities but does have an expressive aphasia Extremities: No trauma, well perfused Psych: Cooperative, appropriate insight and affect Course Orders Ordered: ED Orders 10/08/24 02:37 Urine Culture Stat Urine Microscopic Stat Vital Signs Vital signs: Vital Signs - 8 hr 10/08/24 02:35 10/08/24 02:45 10/08/24 03:00 Temperature 97.8 F Pulse Rate 128 H 97 H 85 Respiratory Rate 20 20 24 Blood Pressure 176/98 H Pulse Oximetry 96 97 92 Oxygen Delivery Method Room Air Room Air 10/08/24 03:01 10/08/24 03:01 10/08/24 03:30 Temperature Pulse Rate 85 79 Respiratory Rate 20 20 Blood Pressure 110/69 Pulse Oximetry 92 93 Oxygen Delivery Method 10/08/24 03:30 Temperature Pulse Rate Respiratory Rate Blood Pressure 107/66 Pulse Oximetry Oxygen Delivery Method Medical Decision Making Lab Data Labs: Lab Results 10/08/24 Range/Units 02:37 Urine RBC 5-10/hpf H (0-5/HPF) Urine WBC 30-100/hpf H (0-5/HPF) Ur Squamous Epith Cells None seen (0-5/HPF) Triple Phos Crystals Few Urine Bacteria Many (>30) H (None) Ur Culture Indicated? Specimen cultured Vol Urine Centrifuged 10ml (spun) Urine Dip Bedside Urine Glucose Negative Bedside Urine Bilirubin - Negative Bedside Urine Ketone - Negative Urine Specific [place] 1.005 Bedside Urine Occult Blood +++ Bedside Urine pH 8.5 Bedside Urine Protein ++ 100 Bedside Urine Urobilinogen +/- 1mg Bedside Urine Nitrite + Positive Bedside Urine Leukocytes +++ 500 Esterase Point of care testing: Urine Dip Bedside Urine Glucose Negative Bedside Urine Bilirubin - Negative Bedside Urine Ketone - Negative Urine Specific [place] 1.005 Bedside Urine Occult Blood +++ Bedside Urine pH 8.5 Bedside Urine Protein ++ 100 Bedside Urine Urobilinogen +/- 1mg Bedside Urine Nitrite + Positive Bedside Urine Leukocytes +++ 500 Esterase MDM Narrative Medical decision making narrative: CC:Groin pain Complicating co-morbidities: expressive aphasia, lives at [facility] actual issue is difficult to figure out Data collected from: patient, medics Medical records reviewed: medical records from [facility] are reviewed. Patient does have a complicated urologic history with multiple stones, retained stents, stones causing acute urinary retention. urine culture done through [facility] on October 02 shows Proteus, sensitive to Augmentin cefepime, ceftazidime, ceftriaxone ertapenem and piperacillin tazobactam.. There are orders to send a urine culture every time his Padron catheter is changed. Last 3 samples have all shown similar Proteus results. in looking at prior results they are always positive. Differential considered: abdominal pain, urinary tract infection, acute urinary retention, recurrent kidney stone Exam documented above, pertinent findings include: leaking Padron catheter, irritated penis, pain behavior seemingly resolved when Padron catheter is removed and he is spontaneously voiding Lab Test results independently reviewed as above. Pertinent findings: Treatments: Cleaning genital area, Padron catheter is replaced Re-evaluations: As we are examining him, his genital area is cleaned. Much of his bedding is wet, does appear has been leaking significantly around his Padron catheter and the catheter has debris throughout the entire tubing with minimal collection into the bag. As soon as the catheter is removed he has quite a bit of spontaneous voiding, this is caught for a urine sample, and he seems far more comfortable with his tachycardia resolving. Discussion: 63-year-old gentleman complaining initially abdominal pain than groin pain and I suspect that his actual complaint was acute urinary retention. His Padron catheter was essentially blocked with debris. Catheter was removed, genitals were cleaned new catheter was placed and he seemed far more comfortable with resolution of his baseline tachycardia. in reviewing all urinalysis that were done with prior Padron catheter changes, there ordered monthly. He has had Proteus, multiple other Gram-negative bacilli, Providencia, Morganella. In short he is colonized with no indication at this point for antibiotics. He is currently sleeping comfortably no longer exhibiting any pain behaviors. He will be transferred back to his assisted living facility Discharge Plan Departure Patient Disposition: Home Clinical Impression: Acute urinary retention Padron catheter problem Qualifiers: Encounter type: initial encounter Qualified Code(s): T83.9XXA - Unspecified complication of genitourinary prosthetic device, implant and graft, initial encounter Activity Restrictions/Additional Instructions: on exam in the emergency department, it seems that Osmin's catheter was essentially blocked. There was quite a debris in it. He was obviously uncomfortable. Padron catheter was changed, he was cleaned up, dried and urine was sent for culture. In reviewing all prior cultures they do typically tend to grow some type of bacteria. At this point he has not showing signs of acute infection. when the catheter was removed he had a large volume spontaneous void. He then had an additional 400 cc of urine in his bladder. Currently is quite comfortable, not indicating any penis groin or abdominal pain, vital signs are back to his baseline and he is sleeping quite comfortably Prescriptions: No Action sennosides [senna] 8.6 mg Tablet 8.6 mg PO DAILY acetaminophen 325 mg Tablet 650 mg PO Q4H PRN (Reason: Fever Or Pain) Rx Instructions: pain level 1-3 or fever >100.1 fluoxetine 10 mg Tablet 10 mg PO DAILY amlodipine 5 mg Tablet 10 mg PO DAILY aspirin 81 mg Tablet,Delayed Release (Dr/Ec) 81 mg PO DAILY docusate sodium 100 mg Capsule 100 mg PO BID Rx Instructions: hold if loose stools cholecalciferol (vitamin D3) [Vitamin D3] 1,000 unit Tablet 1,000 unit PO DAILY atorvastatin 20 mg Tablet 20 mg PO BEDTIME ondansetron 4 mg Tablet,Disintegrating 4 mg PO Q4H PRN (Reason: Nausea) cyanocobalamin (vitamin B-12) 1,000 mcg Capsule 1,000 mcg PO DAILY heparin, porcine (PF) 10 unit/mL Syringe 50 unit IV PRN PRN (Reason: Flush) Qty: 20 0RF heparin, porcine (PF) 10 unit/mL Syringe 50 unit IV BID Qty: 20 0RF oxycodone 5 mg tablet 5 mg PO Q4H PRN (Reason: pain) Qty: 14 0RF nystatin 100,000 unit/gram powder 1 applic topical DAILY magnesium hydroxide [Milk of Magnesia] 400 mg/5 mL suspension 5 ml PO DAILY PRN (Reason: Constipation) Referrals: Gee Arriaga MD [Primary Care Provider] - Stand Alone Forms: Patient Portal/API/Survey
[2024-10-08 03:11] LABS: RBC Urine 5-10/HPF (0-5/HPF); Urine Volume 10mL (spun); WBC Urine 30-100/HPF (0-5/HPF)
[2024-10-08 03:13] LABS: Bacteria Urine Many (>30); Triple Phosphate Crystal Urine Few
[2024-10-08 03:14] LABS: Culture Indicated Urine Specimen Cultured; Squamous Epithelial Cell Urine None Seen (0-5/HPF)
== END 2024-10-08 06:56 | disposition home or self-care (01) ==
PROVIDERS: Emergency Provider Emergency Medicine; PCP Family Medicine
DX: R33.8 Other retention of urine (principal); T83.9XXA Unspecified complication of genitourinary prosthetic device, implant and graft, initial encounter; R00.0 Tachycardia, unspecified; Z86.73 Personal history of transient ischemic attack (TIA), and cerebral infarction without residual deficits; I10 Essential (primary) hypertension; E78.5 Hyperlipidemia, unspecified
CPT/HCPCS: 81003; 81015; 87077; 87086; 87186; 99283

== ENCOUNTER 2024-10-12 09:28 | Emergency (ER) | payer OTHER, SELFPAY ==
[2024-08-07 02:20] VITALS: BMI 26.6
[2024-10-12] VITALS (14 sets, daily range): BP systolic 118–154; BP diastolic 60–78; PULSE 57–89; RESP 14; TEMP 36.5; O2SAT 95–99; BMI 24.6
[2024-10-12 09:43] LABS: Appearance Urine UA SL CLOUDY; Bilirubin Urine UA NEGATIVE (NEGATIVE); Color Urine UA YELLOW; Glucose Urine UA NEGATIVE (Negative); Ketones Urine UA NEGATIVE (NEGATIVE); Leukocyte Esterase Urine UA 3+ (NEGATIVE); Nitrite Urine UA POSITIVE (Negative); Occult Blood Urine UA NEGATIVE (Negative); Protein Urine UA NEGATIVE (Negative); pH Urine UA 7.5 (4.5-8.0)
--- NOTE | 2024-10-12 09:46 | ED.MALEGU ---
HPI - Male Genitourinary General Chief complaint: Urogenital-Male Stated complaint: Cath Issue Source: patient Mode of arrival: EMS History of Present Illness HPI Narrative: this is a 63-year-old man with a history of stroke hemiparesis and chronic catheterization presenting with a blocked catheter. Patient denies fevers flank or abdominal pain he has not been vomiting. He was seen here on the with a blocked catheter, he has been seen here a couple of times recently and he has urine cultures positive for Proteus but without signs of infection. Related Data Home Medications Medication Instructions Recorded Confirmed acetaminophen 325 mg tablet 650 mg PO Q4H PRN Fever Or Pain 09/21/18 08/06/24 amlodipine 5 mg tablet 10 mg PO DAILY 09/21/18 08/06/24 aspirin 81 mg tablet,delayed 81 mg PO DAILY 09/21/18 08/06/24 release cholecalciferol (vitamin D3) 25 1,000 unit PO DAILY 09/21/18 08/06/24 mcg (1,000 unit) tablet (Vitamin D3) docusate sodium 100 mg capsule 100 mg PO BID 09/21/18 08/06/24 fluoxetine 10 mg tablet 10 mg PO DAILY 09/21/18 08/06/24 sennosides 8.6 mg tablet (senna) 8.6 mg PO DAILY 09/21/18 08/06/24 atorvastatin 20 mg tablet 20 mg PO BEDTIME 07/12/21 08/06/24 cyanocobalamin (vitamin B-12) 1,000 mcg PO DAILY 07/12/21 08/06/24 1,000 mcg capsule ondansetron 4 mg disintegrating 4 mg PO Q4H PRN Nausea 07/12/21 08/06/24 tablet magnesium hydroxide 400 mg/5 mL 5 ml PO DAILY PRN Constipation 09/05/21 08/06/24 oral suspension (Milk of Magnesia) nystatin 100,000 unit/gram topical 1 applic topical DAILY 09/05/21 08/06/24 powder Previous Rx's Medication Instructions Recorded heparin, porcine (PF) 10 unit/mL 50 unit (5 mL) IV BID #20 mL 08/10/24 intravenous syringe heparin, porcine (PF) 10 unit/mL 50 unit (5 mL) IV PRN PRN Flush 08/10/24 intravenous syringe #20 mL oxycodone 5 mg tablet 5 mg PO Q4H PRN pain #14 tabs 08/10/24 Allergies Allergy/AdvReac Type Severity Reaction Status Date / Time Penicillins Allergy Intermediate Rash over Verified 10/12/24 09:33 body tetracycline Allergy Unknown Verified 10/12/24 09:33 Patient History Medical History History of nephrolithiasis Retained ureteral stent Retained ureteral stent Right renal stone Obstruction of right ureteropelvic junction (UPJ) due to stone Depression History of CVA (cerebrovascular accident) Hyperlipidemia Hypertension Surgical History Hx of cystoscopy (09/07/21) History of cholecystectomy (07/13/21) S/P right knee arthroscopy Family History Father Heart disease Social History household members: other Smoking Status: Former smoker Tobacco: How many years used: 15 alcohol intake: former caffeine: No Smoking Status: Former smoker alcohol intake frequency: holidays/special occasions only Exam Initial Vital Signs Initial Vital Signs: Vital Signs Temperature 97.7 F 10/12/24 09:30 Pulse Rate 66 10/12/24 09:30 Respiratory Rate 14 10/12/24 09:30 Blood Pressure 145/75 H 10/12/24 09:30 Pulse Oximetry 97 10/12/24 09:30 Oxygen Delivery Method Room Air 10/12/24 09:30 vital signs are unremarkable Const Other: Appears to be in no distress GI Other: abdomen is soft and nontender no CVAT no suprapubic tenderness Other: Padron catheter is in place genitalia otherwise intact Skin Other: warm and dry Neuro Other: right hemiparesis Course Orders Ordered: ED Orders 10/12/24 09:33 Urinalysis and Microscopic Stat Urine Culture Stat Vital Signs Vital signs: Vital Signs - 8 hr 10/12/24 09:30 Temperature 97.7 F Pulse Rate 66 Respiratory Rate 14 Blood Pressure 145/75 H Pulse Oximetry 97 Oxygen Delivery Method Room Air MDM - Male Genitourinary Medical Records Medical records narrative: reviewed most recent ED visit note and recent cultures. Lab Data Labs: Lab Results 10/12/24 Range/Units 09:33 Urine Color Yellow Urine Appearance Sl cloudy Urine pH 7.5 (4.5-8.0) Ur Specific [place] 1.020 (1.000-1.035) Urine Protein Negative (Negative) Urine Glucose (UA) Negative (Negative) g/dL Urine Ketones Negative (NEGATIVE) Urine Occult Blood Negative (Negative) Urine Nitrate Positive H (Negative) Urine Bilirubin Negative (NEGATIVE) Urine Urobilinogen 1.0 (0.2) E.U./dL Ur Leukocyte Esterase 3+ H (NEGATIVE) Urine RBC None seen (0-5/HPF) Urine WBC 5-10/hpf H (0-5/HPF) Ur Squamous Epith Cells None seen (0-5/HPF) Urine Bacteria Many (>30) H (None) Ur Culture Indicated? Specimen cultured Vol Urine Centrifuged 10ml (spun) MDM Narrative Medical decision making narrative: 63-year-old man presenting with a blocked urinary catheter. He has a chronic indwelling catheter. His urine repeatedly cultures positive for Proteus but without evidence of infection. Today he has a blocked catheter and no evidence of infection. urinalysis was ordered by nursing staff. I canceled his urine culture since he does not have evidence of current infection in his urine will no doubt have a positive culture. Catheter was replaced. He has returned to his previous care set Discharge Plan Departure Patient Disposition: Home Clinical Impression: Padron catheter problem Qualifiers: Encounter type: initial encounter Qualified Code(s): T83.9XXA - Unspecified complication of genitourinary prosthetic device, implant and graft, initial encounter Activity Restrictions/Additional Instructions: return to previous care setting, catheter can be gently irrigated with normal saline if blockages are encountered. Return to emergency department for fevers shaking chills vomiting flank pain Prescriptions: No Action sennosides [senna] 8.6 mg Tablet 8.6 mg PO DAILY acetaminophen 325 mg Tablet 650 mg PO Q4H PRN (Reason: Fever Or Pain) Rx Instructions: pain level 1-3 or fever >100.1 fluoxetine 10 mg Tablet 10 mg PO DAILY amlodipine 5 mg Tablet 10 mg PO DAILY aspirin 81 mg Tablet,Delayed Release (Dr/Ec) 81 mg PO DAILY docusate sodium 100 mg Capsule 100 mg PO BID Rx Instructions: hold if loose stools cholecalciferol (vitamin D3) [Vitamin D3] 1,000 unit Tablet 1,000 unit PO DAILY atorvastatin 20 mg Tablet 20 mg PO BEDTIME ondansetron 4 mg Tablet,Disintegrating 4 mg PO Q4H PRN (Reason: Nausea) cyanocobalamin (vitamin B-12) 1,000 mcg Capsule 1,000 mcg PO DAILY heparin, porcine (PF) 10 unit/mL Syringe 50 unit IV PRN PRN (Reason: Flush) Qty: 20 0RF heparin, porcine (PF) 10 unit/mL Syringe 50 unit IV BID Qty: 20 0RF oxycodone 5 mg tablet 5 mg PO Q4H PRN (Reason: pain) Qty: 14 0RF nystatin 100,000 unit/gram powder 1 applic topical DAILY magnesium hydroxide [Milk of Magnesia] 400 mg/5 mL suspension 5 ml PO DAILY PRN (Reason: Constipation) Referrals: Gee Arriaga MD [Primary Care Provider] - Stand Alone Forms: Patient Portal/API/Survey
--- NOTE | 2024-10-12 09:48 | PC.NURSE ---
Pt arrives from [facility] with complaints that catheter has not been draining overnight. unclear when cath was last changed, however it appears clean and intact. balloon deflated and reinflated and continues without drainage. cath removed. New 16F chambers cath placed with cloudy light yellow urine with some mucus strands. draining appropriately. sample sent to lab. pt denies pain.
[2024-10-12 09:49] LABS: RBC Urine None Seen (0-5/HPF); Urine Volume 10mL (spun); WBC Urine 5-10/HPF (0-5/HPF)
[2024-10-12 09:50] LABS: Bacteria Urine Many (>30); Culture Indicated Urine Specimen Cultured; Squamous Epithelial Cell Urine None Seen (0-5/HPF)
== END 2024-10-12 11:52 | disposition home or self-care (01) ==
LOC: ED 09:55
PROVIDERS: Emergency Provider Emergency Medicine; PCP Family Medicine
DX: T83.9XXA Unspecified complication of genitourinary prosthetic device, implant and graft, initial encounter (principal)
CPT/HCPCS: 81001; 87077; 87086; 87186; 99283

== ENCOUNTER → 2024-11-01 20:17 | Outpatient (ROUT) | payer OTHER, SELFPAY ==
[2024-08-07 02:20] VITALS: BMI 26.6
[2024-11-01 20:26] LABS: Appearance Urine UA CLOUDY; Bilirubin Urine UA NEGATIVE (NEGATIVE); Color Urine UA YELLOW; Glucose Urine UA NEGATIVE (Negative); Ketones Urine UA NEGATIVE (NEGATIVE); Leukocyte Esterase Urine UA 3+ (NEGATIVE); Nitrite Urine UA POSITIVE (Negative); Occult Blood Urine UA 3+ (Negative); Protein Urine UA 2+ (Negative); Specific Gravity Urine UA 1.015 (1.000-1.035)
[2024-11-01 20:32] LABS: Bacteria Urine Few (2-10); Culture Indicated Urine Specimen Cultured; Mucus Urine 1+ (Negative); RBC Urine 10-30/HPF (0-5/HPF); Squamous Epithelial Cell Urine 0-1 /HPF (0-5/HPF); Urine Volume 10mL (spun); WBC Urine 30-100/HPF (0-5/HPF)
== END ==
PROVIDERS: PCP Family Medicine; Visit Provider Internal Medicine
DX: Z00.00 Encounter for general adult medical examination without abnormal findings (principal)
CPT/HCPCS: 81001; 87077; 87086; 87186

== ENCOUNTER 2024-11-20 12:17 | Emergency (ER) | payer OTHER, SELFPAY ==
[2024-08-07 02:20] VITALS: BMI 26.6
[2024-11-20] VITALS (19 sets, daily range): BP systolic 127–204; BP diastolic 66–109; PULSE 56–94; RESP 16; TEMP 36.4; O2SAT 95–99; BMI 26.6
[2024-11-20] MEDS: LIDOCAINE 2% (GLYDO) 6 ML GEL TOP (14:08)
[2024-11-20 14:42] LABS: Bacteria Urine Occasional (0-1); RBC Urine 10-30/HPF (0-5/HPF); Squamous Epithelial Cell Urine None Seen (0-5/HPF); Urine Volume 10mL (spun); WBC Urine 5-10/HPF (0-5/HPF)
[2024-11-20 14:43] LABS: Culture Indicated Urine Cult Not Indicated
--- NOTE | 2024-11-20 16:22 | ED.MALEGU ---
HPI - Male Genitourinary General Chief complaint: Urogenital-Male Stated complaint: Cath taken out unable to replace blood and pus uti Time Seen by Provider: 11/20/24 15:38 Source: patient and EMS Mode of arrival: EMS History of Present Illness HPI Narrative: Patient is a 64-year-old male history of stroke hemiparesis chronic catheterization presenting today with block catheter. I suppose they were trying to change it over at long-term care facility they were unable to replace it due to gross penile drainage. Nursing staff easily replaced it. He was previous cultures positive for Proteus with multidrug resistant but sensitive to cephalosporins. Patient he is denying any sort of pain his abdomen is soft he has no nausea or vomiting. Here often for blocked catheter problem Related Data Home Medications Medication Instructions Recorded Confirmed acetaminophen 325 mg tablet 650 mg PO Q4H PRN Fever Or Pain 09/21/18 08/06/24 amlodipine 5 mg tablet 10 mg PO DAILY 09/21/18 08/06/24 aspirin 81 mg tablet,delayed 81 mg PO DAILY 09/21/18 08/06/24 release cholecalciferol (vitamin D3) 25 1,000 unit PO DAILY 09/21/18 08/06/24 mcg (1,000 unit) tablet (Vitamin D3) docusate sodium 100 mg capsule 100 mg PO BID 09/21/18 08/06/24 fluoxetine 10 mg tablet 10 mg PO DAILY 09/21/18 08/06/24 sennosides 8.6 mg tablet (senna) 8.6 mg PO DAILY 09/21/18 08/06/24 atorvastatin 20 mg tablet 20 mg PO BEDTIME 07/12/21 08/06/24 cyanocobalamin (vitamin B-12) 1,000 mcg PO DAILY 07/12/21 08/06/24 1,000 mcg capsule ondansetron 4 mg disintegrating 4 mg PO Q4H PRN Nausea 07/12/21 08/06/24 tablet magnesium hydroxide 400 mg/5 mL 5 ml PO DAILY PRN Constipation 09/05/21 08/06/24 oral suspension (Milk of Magnesia) nystatin 100,000 unit/gram topical 1 applic topical DAILY 09/05/21 08/06/24 powder Previous Rx's Medication Instructions Recorded heparin, porcine (PF) 10 unit/mL 50 unit (5 mL) IV BID #20 mL 08/10/24 intravenous syringe heparin, porcine (PF) 10 unit/mL 50 unit (5 mL) IV PRN PRN Flush 08/10/24 intravenous syringe #20 mL oxycodone 5 mg tablet 5 mg PO Q4H PRN pain #14 tabs 08/10/24 cephalexin 500 mg capsule 500 mg PO BID 7 days #14 caps 11/20/24 Allergies Allergy/AdvReac Type Severity Reaction Status Date / Time Penicillins Allergy Intermediate Rash over Verified 10/12/24 09:33 body tetracycline Allergy Unknown Verified 10/12/24 09:33 Patient History Medical History History of nephrolithiasis Retained ureteral stent Retained ureteral stent Right renal stone Obstruction of right ureteropelvic junction (UPJ) due to stone Depression History of CVA (cerebrovascular accident) Hyperlipidemia Hypertension Surgical History Hx of cystoscopy (09/07/21) History of cholecystectomy (07/13/21) S/P right knee arthroscopy Family History Father Heart disease Social History household members: other Tobacco: How many years used: 15 alcohol intake: former caffeine: No alcohol intake frequency: holidays/special occasions only Exam Initial Vital Signs Initial Vital Signs: Vital Signs Pulse Rate 63 11/20/24 12:23 Pulse Oximetry 98 11/20/24 12:23 GENERAL: Alert pleasant well-appearing 64-year-old HEENT: Head atraumatic,EOMI, pupils reactive, CARDIOVASCULAR: Regular rate and rhythm without murmurs, rubs or gallops. RESPIRATORY: Breath sounds equal bilaterally, no wheezes rales or rhonchi. ABDOMEN: Soft, nontender. Normoactive bowel sounds all 4 quadrants. No guarding or rebound. : Padron catheter in place working EXTREMITIES: Normal range of motion, no clubbing or edema. Neurovascularly intact NEUROLOGICAL: Alert oriented at baseline SKIN: Warm, dry, no laceration, no petechiae, no rashes or lesions. Course Orders Ordered: ED Orders 11/20/24 14:16 Urine Culture Stat Urine Microscopic Stat Discontinued Medications Cefdinir (Cefdinir 300 Mg Capsule) 300 mg PO NOW ONE Stop: 11/20/24 16:32 Last Admin: 11/20/24 16:46 Dose: 300 mg Documented By: JIMENA Lidocaine HCl (Lidocaine 2% (Glydo) 6 Ml Gel) 6 ml TOP NOW ONE Stop: 11/20/24 14:05 Last Admin: 11/20/24 14:08 Dose: 6 ml Documented By: JIMENA Vital Signs Vital signs: Vital Signs - 8 hr 11/20/24 12:23 11/20/24 12:24 11/20/24 12:30 Temperature 97.5 F L Pulse Rate 63 62 Respiratory Rate 16 Blood Pressure 139/77 151/68 H Pulse Oximetry 98 96 Oxygen Delivery Method Room Air 11/20/24 12:30 11/20/24 13:00 11/20/24 13:00 Temperature Pulse Rate 61 56 L Respiratory Rate Blood Pressure 151/72 H Pulse Oximetry 96 96 Oxygen Delivery Method 11/20/24 13:30 11/20/24 13:30 11/20/24 14:00 Temperature Pulse Rate 60 Respiratory Rate Blood Pressure 127/68 129/66 Pulse Oximetry 95 Oxygen Delivery Method 11/20/24 14:00 11/20/24 14:30 11/20/24 14:30 Temperature Pulse Rate 60 58 L Respiratory Rate Blood Pressure 136/68 Pulse Oximetry 95 96 Oxygen Delivery Method 11/20/24 15:00 11/20/24 15:00 11/20/24 15:30 Temperature Pulse Rate 57 L 59 L Respiratory Rate Blood Pressure 145/70 H Pulse Oximetry 96 96 Oxygen Delivery Method 11/20/24 15:30 11/20/24 16:00 11/20/24 16:00 Temperature Pulse Rate 58 L Respiratory Rate Blood Pressure 135/78 147/73 H Pulse Oximetry 97 Oxygen Delivery Method 11/20/24 16:30 11/20/24 16:30 11/20/24 17:00 Temperature Pulse Rate 57 L Respiratory Rate Blood Pressure 148/72 H 149/71 H Pulse Oximetry 99 Oxygen Delivery Method 11/20/24 17:00 11/20/24 17:30 11/20/24 17:30 Temperature Pulse Rate 64 62 Respiratory Rate Blood Pressure 141/74 H Pulse Oximetry 97 98 Oxygen Delivery Method 11/20/24 18:00 11/20/24 18:00 11/20/24 18:30 Temperature Pulse Rate 62 94 H Respiratory Rate Blood Pressure 131/71 Pulse Oximetry 97 99 Oxygen Delivery Method 11/20/24 18:31 11/20/24 18:31 Temperature Pulse Rate 84 Respiratory Rate Blood Pressure 204/109 H Pulse Oximetry 98 Oxygen Delivery Method MDM - Male Genitourinary Lab Data Labs: Lab Results 11/20/24 Range/Units 14:16 Urine RBC 10-30/hpf H (0-5/HPF) Urine WBC 5-10/hpf H (0-5/HPF) Ur Squamous Epith Cells None seen (0-5/HPF) Urine Bacteria Occasional (0-1) (None) Ur Culture Indicated? Cult not indicated Vol Urine Centrifuged 10ml (spun) Urine Dip Bedside Urine Glucose Negative Bedside Urine Bilirubin - Negative Bedside Urine Ketone - Negative Urine Specific [place] 1.010 Bedside Urine Occult Blood +++ Bedside Urine pH 8.0 Bedside Urine Protein +/- 15 Bedside Urine Urobilinogen +/- 1mg Bedside Urine Nitrite - Negative Bedside Urine Leukocytes ++ 125 Esterase MDM Narrative Medical decision making narrative: Patient was chronic indwelling Padron catheter. It was replaced. He has had multiple infections with multi-drug resistance Proteus. It was sensitive to cephalosporins given 1st dose of cefdinir here. Not septic Discharge Plan Departure Patient Disposition: Home Clinical Impression: Acute UTI Activity Restrictions/Additional Instructions: *You have been diagnosed with UTI *What to do: *Continue to take medications as directed Keflex 500 mg twice a day for 7 days *Follow up with your primary care provider in 2-3 days or call [phone] *Return to ER if you should have increasing pain confusion or any new, worsening or concerning symptoms Prescriptions: New cephalexin 500 mg capsule 500 mg PO BID 7 Days Qty: 14 0RF No Action sennosides [senna] 8.6 mg Tablet 8.6 mg PO DAILY acetaminophen 325 mg Tablet 650 mg PO Q4H PRN (Reason: Fever Or Pain) Rx Instructions: pain level 1-3 or fever >100.1 fluoxetine 10 mg Tablet 10 mg PO DAILY amlodipine 5 mg Tablet 10 mg PO DAILY aspirin 81 mg Tablet,Delayed Release (Dr/Ec) 81 mg PO DAILY docusate sodium 100 mg Capsule 100 mg PO BID Rx Instructions: hold if loose stools cholecalciferol (vitamin D3) [Vitamin D3] 1,000 unit Tablet 1,000 unit PO DAILY atorvastatin 20 mg Tablet 20 mg PO BEDTIME ondansetron 4 mg Tablet,Disintegrating 4 mg PO Q4H PRN (Reason: Nausea) cyanocobalamin (vitamin B-12) 1,000 mcg Capsule 1,000 mcg PO DAILY heparin, porcine (PF) 10 unit/mL Syringe 50 unit IV PRN PRN (Reason: Flush) Qty: 20 0RF heparin, porcine (PF) 10 unit/mL Syringe 50 unit IV BID Qty: 20 0RF oxycodone 5 mg tablet 5 mg PO Q4H PRN (Reason: pain) Qty: 14 0RF nystatin 100,000 unit/gram powder 1 applic topical DAILY magnesium hydroxide [Milk of Magnesia] 400 mg/5 mL suspension 5 ml PO DAILY PRN (Reason: Constipation) Referrals: Gee Arriaga MD [Primary Care Provider] - Stand Alone Forms: Patient Portal/API/Survey
[2024-11-20] MEDS: CEFDINIR 300 MG CAPSULE PO (16:46)
== END 2024-11-20 19:54 | disposition home or self-care (01) ==
PROVIDERS: Emergency Provider Emergency Medicine; PCP Family Medicine
DX: N39.0 Urinary tract infection, site not specified (principal); B96.4 Proteus (mirabilis) (morganii) as the cause of diseases classified elsewhere
CPT/HCPCS: 51702; 81003; 81015; 87077; 87086; 87186; 99283

== ENCOUNTER → 2024-12-02 16:40 | Outpatient (ROUT) | payer OTHER, SELFPAY ==
[2024-08-07 02:20] VITALS: BMI 26.6
[2024-12-02 16:48] LABS: Appearance Urine UA CLEAR; Bilirubin Urine UA NEGATIVE (NEGATIVE); Color Urine UA YELLOW; Glucose Urine UA NEGATIVE (Negative); Ketones Urine UA NEGATIVE (NEGATIVE); Leukocyte Esterase Urine UA 1+ (NEGATIVE); Nitrite Urine UA NEGATIVE (Negative); Occult Blood Urine UA TRACE-INTACT (Negative); Protein Urine UA 1+ (Negative)
[2024-12-02 17:04] LABS: Bacteria Urine None Seen; RBC Urine 1-5/HPF (0-5/HPF); Squamous Epithelial Cell Urine None Seen (0-5/HPF); Urine Volume 10mL (spun); WBC Urine 10-30/HPF (0-5/HPF)
[2024-12-02 17:05] LABS: Culture Indicated Urine Specimen Cultured
== END ==
LOC: LAB 16:41
PROVIDERS: PCP Family Medicine; Visit Provider Internal Medicine
DX: Z00.00 Encounter for general adult medical examination without abnormal findings (principal)
CPT/HCPCS: 81001; 87086

== ENCOUNTER 2025-01-04 07:04 | Emergency (ER) | payer OTHER, SELFPAY ==
[2024-08-07 02:20] VITALS: BMI 26.6
[2025-01-04] VITALS (9 sets, daily range): BP systolic 133–162; BP diastolic 62–83; PULSE 52–99; RESP 20; TEMP 37.2; O2SAT 96–99; BMI 24.6
[2025-01-04] MEDS: LIDOCAINE 2% (GLYDO) 6 ML GEL TOP (07:23)
--- NOTE | 2025-01-04 07:35 | ED.GENADULT ---
HPI - General Adult General Chief complaint: Urogenital-Male Stated complaint: urogentital. Time Seen by Provider: 01/04/25 07:08 Mode of arrival: Ambulatory History of Present Illness HPI narrative: 64-year-old gentleman currently lives at [facility] after suffering a stroke with hemiparesis, he is chronically catheterized with his catheter changed yesterday. Nursing staff noted a small amount of bloody discharge earlier this morning any complains that the meatal foramen feels ?full?. There was a minor amount of irritation at that site. No fevers, chills, abdominal pain. Sent in by assisted living nursing staff for further evaluation. Related Data Home Medications Medication Instructions Recorded Confirmed acetaminophen 325 mg tablet 650 mg PO Q4H PRN Fever Or Pain 09/21/18 08/06/24 amlodipine 5 mg tablet 10 mg PO DAILY 09/21/18 08/06/24 aspirin 81 mg tablet,delayed 81 mg PO DAILY 09/21/18 08/06/24 release cholecalciferol (vitamin D3) 25 1,000 unit PO DAILY 09/21/18 08/06/24 mcg (1,000 unit) tablet (Vitamin D3) docusate sodium 100 mg capsule 100 mg PO BID 09/21/18 08/06/24 fluoxetine 10 mg tablet 10 mg PO DAILY 09/21/18 08/06/24 sennosides 8.6 mg tablet (senna) 8.6 mg PO DAILY 09/21/18 08/06/24 atorvastatin 20 mg tablet 20 mg PO BEDTIME 07/12/21 08/06/24 cyanocobalamin (vitamin B-12) 1,000 mcg PO DAILY 07/12/21 08/06/24 1,000 mcg capsule ondansetron 4 mg disintegrating 4 mg PO Q4H PRN Nausea 07/12/21 08/06/24 tablet magnesium hydroxide 400 mg/5 mL 5 ml PO DAILY PRN Constipation 09/05/21 08/06/24 oral suspension (Milk of Magnesia) nystatin 100,000 unit/gram topical 1 applic topical DAILY 09/05/21 08/06/24 powder Previous Rx's Medication Instructions Recorded heparin, porcine (PF) 10 unit/mL 50 unit (5 mL) IV BID #20 mL 08/10/24 intravenous syringe heparin, porcine (PF) 10 unit/mL 50 unit (5 mL) IV PRN PRN Flush 08/10/24 intravenous syringe #20 mL oxycodone 5 mg tablet 5 mg PO Q4H PRN pain #14 tabs 08/10/24 lidocaine 4 % topical gel 1 applic topical QID #30 grams 01/04/25 Allergies Allergy/AdvReac Type Severity Reaction Status Date / Time Penicillins Allergy Intermediate Rash over Verified 10/12/24 09:33 body tetracycline Allergy Unknown Verified 10/12/24 09:33 Review of Systems Review of Systems Narrative: Pertinent positive and negative findings as per HPI Patient History Medical History History of nephrolithiasis Retained ureteral stent Retained ureteral stent Right renal stone Obstruction of right ureteropelvic junction (UPJ) due to stone Depression History of CVA (cerebrovascular accident) Hyperlipidemia Hypertension Surgical History Hx of cystoscopy (09/07/21) History of cholecystectomy (07/13/21) S/P right knee arthroscopy Family History Father Heart disease Social History household members: other Smoking Status: Never smoker Tobacco: How many years used: 15 alcohol intake: former caffeine: No Smoking Status: Never smoker alcohol intake frequency: holidays/special occasions only Exam Initial Vital Signs Initial Vital Signs: Vital Signs Pulse Oximetry 98 01/04/25 07:06 General: Alert appropriate in no acute distress Respiratory: Able to speak in full sentences, no obvious respiratory distress Skin: No obvious rashes, warm and dry Neurologic: Grossly intact no obvious asymmetries or abnormalities Psych: appropriate insight and affect, cooperative : Minor irritation of the urethral opening. Padron is draining clear yellow urine. No suprapubic tenderness Course Orders Ordered: Discontinued Medications Lidocaine HCl (Lidocaine 2% (Glydo) 6 Ml Gel) 6 ml TOP NOW ONE Stop: 01/04/25 07:18 Last Admin: 01/04/25 07:23 Dose: 6 ml Documented By: ES Vital Signs Vital signs: Vital Signs - 8 hr 01/04/25 07:06 01/04/25 07:07 01/04/25 07:07 Temperature Pulse Rate 55 L Respiratory Rate Blood Pressure 158/78 H Pulse Oximetry 98 99 Oxygen Delivery Method 01/04/25 07:14 01/04/25 07:30 01/04/25 07:30 Temperature 99 F Pulse Rate 99 H 59 L Respiratory Rate 20 Blood Pressure 158/78 H 136/62 Pulse Oximetry 99 99 Oxygen Delivery Method Room Air 01/04/25 08:00 01/04/25 08:00 01/04/25 08:30 Temperature Pulse Rate 57 L Respiratory Rate Blood Pressure 162/83 H 135/81 Pulse Oximetry 99 Oxygen Delivery Method 01/04/25 08:30 01/04/25 09:00 01/04/25 09:00 Temperature Pulse Rate 52 L 54 L Respiratory Rate Blood Pressure 146/82 H Pulse Oximetry 97 98 Oxygen Delivery Method 01/04/25 09:30 01/04/25 09:30 Temperature Pulse Rate 57 L Respiratory Rate Blood Pressure 133/76 Pulse Oximetry 97 Oxygen Delivery Method Medical Decision Making MDM Narrative Medical decision making narrative: 64-year-old gentleman with chronic indwelling Padron catheter changed yesterday minor irritation at the meatus. Viscous lidocaine was applied. There was no evidence of infection, bleeding or other complications in urine sample was not obtained today. Urine samples and cultures reviewed from the last 3 years show almost all of them with some type growth including Klebsiella and Proteus. He clearly is colonized with a freely draining bladder and no evidence of infection. I do not believe repeat urine culture is of clinical significance and antibiotics are not indicated today. There was no indication that he needs hospitalization. We will give him prescription for topical lidocaine to use for minor irritation and continue with scheduled monthly catheter replacements. Discharge Plan Departure Patient Disposition: Home Clinical Impression: Chronic indwelling Padron catheter Complication of Padron catheter Qualifiers: Encounter type: initial encounter Qualified Code(s): T83.9XXA - Unspecified complication of genitourinary prosthetic device, implant and graft, initial encounter Instructions: How to Care for Your Padron Catheter -- Male Activity Restrictions/Additional Instructions: Thank you for coming in today With some topical lidocaine at the tip of your penis, your symptoms have resolved. I believe this is simply irritation and pulling from the catheter and the change from yesterday. There is no longer any blood in your urine and my suspicion for a bladder infection is low. You do not need antibiotics I have given you a prescription for topical lidocaine, you can use a small amount at the tip of your penis any time you have a bit of irritation. Please make sure the catheter is positioned so that is not pulling or rubbing the tip of your penis because it is position too high or too low as it was secured Orders for assisted living: Topical lidocaine to penile meatus, as needed pain from catheter, q.6 hours This prescription has been electronically transmitted to [facility] pharmacy Prescriptions: New lidocaine 4 % gel 1 applic topical QID Qty: 30 1RF No Action sennosides [senna] 8.6 mg Tablet 8.6 mg PO DAILY acetaminophen 325 mg Tablet 650 mg PO Q4H PRN (Reason: Fever Or Pain) Rx Instructions: pain level 1-3 or fever >100.1 fluoxetine 10 mg Tablet 10 mg PO DAILY amlodipine 5 mg Tablet 10 mg PO DAILY aspirin 81 mg Tablet,Delayed Release (Dr/Ec) 81 mg PO DAILY docusate sodium 100 mg Capsule 100 mg PO BID Rx Instructions: hold if loose stools cholecalciferol (vitamin D3) [Vitamin D3] 1,000 unit Tablet 1,000 unit PO DAILY atorvastatin 20 mg Tablet 20 mg PO BEDTIME ondansetron 4 mg Tablet,Disintegrating 4 mg PO Q4H PRN (Reason: Nausea) cyanocobalamin (vitamin B-12) 1,000 mcg Capsule 1,000 mcg PO DAILY heparin, porcine (PF) 10 unit/mL Syringe 50 unit IV PRN PRN (Reason: Flush) Qty: 20 0RF heparin, porcine (PF) 10 unit/mL Syringe 50 unit IV BID Qty: 20 0RF oxycodone 5 mg tablet 5 mg PO Q4H PRN (Reason: pain) Qty: 14 0RF nystatin 100,000 unit/gram powder 1 applic topical DAILY magnesium hydroxide [Milk of Magnesia] 400 mg/5 mL suspension 5 ml PO DAILY PRN (Reason: Constipation) Referrals: Gee Arriaga MD [Primary Care Provider] - Stand Alone Forms: Patient Portal/API/Survey
--- NOTE | 2025-01-04 08:37 | PC.NURSE ---
[employer] attempted to contact [employer] @ [id number] for ride. No answer; VM left. RN attempted again at 0830 no answer.
== END 2025-01-04 10:18 | disposition home or self-care (01) ==
PROVIDERS: Emergency Provider Emergency Medicine; PCP Family Medicine
DX: T83.9XXA Unspecified complication of genitourinary prosthetic device, implant and graft, initial encounter (principal)
CPT/HCPCS: 99282

== ENCOUNTER → 2025-01-11 14:52 | Outpatient (ROUT) | payer OTHER, SELFPAY ==
[2024-08-07 02:20] VITALS: BMI 26.6
[2025-01-11 15:02] LABS: Appearance Urine UA CLOUDY; Bilirubin Urine UA NEGATIVE (NEGATIVE); Color Urine UA YELLOW; Glucose Urine UA NEGATIVE (Negative); Ketones Urine UA NEGATIVE (NEGATIVE); Leukocyte Esterase Urine UA 3+ (NEGATIVE); Nitrite Urine UA POSITIVE (Negative); Occult Blood Urine UA 2+ (Negative); Protein Urine UA 2+ (Negative); Specific Gravity Urine UA <=1.005 (1.000-1.035); pH Urine UA >= 9.0 (4.5-8.0)
[2025-01-11 15:24] LABS: Amorphous Sediment Urine 2+; Bacteria Urine Many (>30); Culture Indicated Urine Specimen Cultured; RBC Urine 5-10/HPF (0-5/HPF); Squamous Epithelial Cell Urine 1-5 /HPF (0-5/HPF); Triple Phosphate Crystal Urine Few; Urine Volume 10mL (spun); WBC Urine 10-30/HPF (0-5/HPF)
== END ==
LOC: LAB 14:52
PROVIDERS: PCP Family Medicine; Visit Provider Hospitalist
DX: Z13.89 Encounter for screening for other disorder (principal)
CPT/HCPCS: 81001; 87077; 87086; 87186

== ENCOUNTER → 2025-01-30 18:55 | Outpatient (ROUT) | payer OTHER, SELFPAY ==
[2024-08-07 02:20] VITALS: BMI 26.6
[2025-01-30 19:06] LABS: Appearance Urine UA SL CLOUDY; Bilirubin Urine UA NEGATIVE (NEGATIVE); Color Urine UA YELLOW; Glucose Urine UA NEGATIVE (Negative); Ketones Urine UA NEGATIVE (NEGATIVE); Leukocyte Esterase Urine UA 3+ (NEGATIVE); Nitrite Urine UA NEGATIVE (Negative); Occult Blood Urine UA 3+ (Negative); Protein Urine UA NEGATIVE (Negative); pH Urine UA 6.5 (4.5-8.0)
[2025-01-30 19:18] LABS: Bacteria Urine Few (2-10); Calcium Oxalate Crystals Urine Occasional; Culture Indicated Urine Specimen Cultured; RBC Urine 1-5/HPF (0-5/HPF); Squamous Epithelial Cell Urine 0-1 /HPF (0-5/HPF); Urine Volume 10mL (spun); WBC Urine 10-30/HPF (0-5/HPF)
== END ==
PROVIDERS: PCP Family Medicine; Visit Provider Hospitalist
DX: Z00.00 Encounter for general adult medical examination without abnormal findings (principal)
CPT/HCPCS: 81001; 87077; 87086

== ENCOUNTER 2025-03-12 06:32 | Emergency (ER) | payer OTHER, SELFPAY ==
[2024-08-07 02:20] VITALS: BMI 26.6
[2025-03-12] VITALS (7 sets, daily range): BP systolic 113–139; BP diastolic 66–80; PULSE 61–69; RESP 18; TEMP 36.7; O2SAT 95–97; BMI 24.3
--- NOTE | 2025-03-12 05:40 | PC.NURSE ---
Indwelling urinary catheter flushed with sterile water. Able to instill and withdraw without difficulty.
--- NOTE | 2025-03-12 06:00 | PC.NURSE ---
Bladder scan-24ml. Pt given water to produce urine for UA/micro.
--- NOTE | 2025-03-12 06:17 | ED.MALEGU ---
HPI - Male Genitourinary <Khadar Fischer, DO - Last Filed: 03/12/25 19:33> General Chief complaint: Urogenital-Male Stated complaint: changed catheter Time Seen by Provider: 03/12/25 07:24 Source: patient Mode of arrival: EMS History of Present Illness HPI Narrative: 64-year-old gentleman currently living at [facility] after suffering stroke with hemiparesis who a chronic indwelling catheter, attempted to flush can not drain, saw hematuria sent here for further evaluation. Other than what is stateed 14 pt ROS is negative. Related Data Home Medications ?Medication ?Instructions ?Recorded ?Confirmed acetaminophen 325 mg tablet 650 mg PO Q4H PRN Fever Or Pain 09/21/18 03/12/25 amlodipine 5 mg tablet 10 mg PO DAILY 09/21/18 03/12/25 aspirin 81 mg tablet,delayed 81 mg PO DAILY 09/21/18 03/12/25 release cholecalciferol (vitamin D3) 25 1,000 unit PO DAILY 09/21/18 03/12/25 mcg (1,000 unit) tablet (Vitamin D3) docusate sodium 100 mg capsule 100 mg PO BID 09/21/18 03/12/25 fluoxetine 10 mg tablet 10 mg PO DAILY 09/21/18 03/12/25 sennosides 8.6 mg tablet (senna) 8.6 mg PO DAILY 09/21/18 03/12/25 atorvastatin 20 mg tablet 20 mg PO BEDTIME 07/12/21 03/12/25 cyanocobalamin (vitamin B-12) 1,000 mcg PO DAILY 07/12/21 03/12/25 1,000 mcg capsule ondansetron 4 mg disintegrating 4 mg PO Q4H PRN Nausea 07/12/21 03/12/25 tablet magnesium hydroxide 400 mg/5 mL 5 ml PO DAILY PRN Constipation 09/05/21 03/12/25 oral suspension (Milk of Magnesia) Previous Rx's ?Medication ?Instructions ?Recorded oxycodone 5 mg tablet 5 mg PO Q4H PRN pain #14 tabs 08/10/24 lidocaine 4 % topical gel 1 applic topical QID #30 grams 01/04/25 nitrofurantoin 100 mg PO Q12H 7 days #14 caps 03/12/25 monohydrate/macrocrystals 100 mg capsule (Macrobid) Allergies Allergy/AdvReac Type Severity Reaction Status Date / Time Penicillins Allergy Intermediate Rash over Verified 03/12/25 05:32 body tetracycline Allergy Unknown Verified 03/12/25 05:32 Review of Systems <Khadar Fischer DO - Last Filed: 03/12/25 19:33> Review of Systems ROS Unobtainable: All systems reviewed & are unremarkable except as noted in HPI and below Patient History <Khadar Fischer DO - Last Filed: 03/12/25 19:33> Medical History History of nephrolithiasis Retained ureteral stent Retained ureteral stent Right renal stone Obstruction of right ureteropelvic junction (UPJ) due to stone Depression History of CVA (cerebrovascular accident) Hyperlipidemia Hypertension Surgical History Hx of cystoscopy (09/07/21) History of cholecystectomy (07/13/21) S/P right knee arthroscopy Family History Father Heart disease Social History household members: other Tobacco: How many years used: 15 alcohol intake: former caffeine: No alcohol intake frequency: holidays/special occasions only Exam <Khadar Fischer DO - Last Filed: 03/12/25 19:33> Narrative Exam Narrative: GENERAL: [64] year old patient appears stated age. Well-developed patient, in mild distress. HEAD: Atraumatic. Normocephalic. EYES: Pupils equal round and reactive. Extraocular motions intact. No scleral icterus. No injection or drainage. NECK: Trachea midline. Non tender CARDIOVASCULAR: Regular rate and rhythm without murmurs, gallops, or rubs. RESPIRATORY: Clear to auscultation. Breath sounds equal bilaterally. No wheezes, rales, or rhonchi. GASTROINTESTINAL: Abdomen soft, non-tender, nondistended. EXTREMITIES: No edema or joint tenderness. BACK: Nontender without deformity or crepitance. No flank tenderness. NEURO: AOx3. SKIN: No rash or erythema of visible areas Initial Vital Signs Initial Vital Signs: Vital Signs Pulse Rate 66 03/12/25 05:31 Blood Pressure 132/77 03/12/25 05:31 Pulse Oximetry 96 03/12/25 05:31 <Kevon Harvey MD - Last Filed: 03/12/25 07:50> Initial Vital Signs Initial Vital Signs: Vital Signs Pulse Rate 66 03/12/25 05:31 Blood Pressure 132/77 03/12/25 05:31 Pulse Oximetry 96 03/12/25 05:31 Course <Khadar Fischer DO - Last Filed: 03/12/25 19:33> Orders Ordered: ED Orders 03/12/25 06:55 Ictotest Urine Stat Urinalysis and Microscopic Stat Urine Culture Stat Vital Signs Vital signs: Vital Signs - 8 hr 03/12/25 05:31 03/12/25 05:31 03/12/25 05:32 Temperature 98.1 F Pulse Rate 66 69 Respiratory Rate 18 Blood Pressure 132/77 132/77 Pulse Oximetry 96 95 Oxygen Delivery Method Room Air 03/12/25 06:00 03/12/25 06:00 03/12/25 06:30 Temperature Pulse Rate 65 65 Respiratory Rate Blood Pressure 126/80 Pulse Oximetry 97 97 Oxygen Delivery Method 03/12/25 06:30 03/12/25 07:00 03/12/25 07:00 Temperature Pulse Rate 65 Respiratory Rate Blood Pressure 122/74 113/66 Pulse Oximetry 96 Oxygen Delivery Method 03/12/25 07:30 03/12/25 07:30 Temperature Pulse Rate 62 Respiratory Rate Blood Pressure 139/72 Pulse Oximetry 97 Oxygen Delivery Method <Kevon Harvey MD - Last Filed: 03/12/25 07:50> Orders Ordered: ED Orders 03/12/25 06:55 Ictotest Urine Stat Urinalysis and Microscopic Stat Urine Culture Stat Reevaluation(s) Reevaluation #1: Upon re-evaluation, patient's urine catheter is clean there is no sign of any hematuria. Vital Signs Vital signs: Vital Signs - 8 hr 03/12/25 05:31 03/12/25 05:31 03/12/25 05:32 Temperature 98.1 F Pulse Rate 66 69 Respiratory Rate 18 Blood Pressure 132/77 132/77 Pulse Oximetry 96 95 Oxygen Delivery Method Room Air 03/12/25 06:00 03/12/25 06:00 03/12/25 06:30 Temperature Pulse Rate 65 65 Respiratory Rate Blood Pressure 126/80 Pulse Oximetry 97 97 Oxygen Delivery Method 03/12/25 06:30 03/12/25 07:00 03/12/25 07:00 Temperature Pulse Rate 65 Respiratory Rate Blood Pressure 122/74 113/66 Pulse Oximetry 96 Oxygen Delivery Method 03/12/25 07:30 03/12/25 07:30 Temperature Pulse Rate 62 Respiratory Rate Blood Pressure 139/72 Pulse Oximetry 97 Oxygen Delivery Method MDM - Male Genitourinary <Khadar Fischer DO - Last Filed: 03/12/25 19:33> Lab Data Labs: Lab Results 03/12/25 Range/Units 06:55 Urine Color Yellow Urine Appearance Cloudy Urine pH >= 9.0 H (4.5-8.0) Ur Specific [place] <=1.005 (1.000-1.035) Urine Protein 3+ H (Negative) Urine Glucose (UA) Negative (Negative) g/dL Urine Ketones 1+ H (NEGATIVE) Urine Occult Blood 3+ H (Negative) Urine Nitrate Negative (Negative) Urine Bilirubin 1+ H (NEGATIVE) Ur Bilirubin Confirm Negative (Negative) Urine Urobilinogen 4.0 H (0.2) E.U./dL Ur Leukocyte Esterase 3+ H (NEGATIVE) Urine RBC 30-100/hpf H (0-5/HPF) Urine WBC 30-100/hpf H (0-5/HPF) Ur Squamous Epith Cells 0-1 /hpf (0-5/HPF) Triple Phos Crystals Many Urine Bacteria Many (>30) H (None) Urine Mucus 2+ H (Negative) Ur Culture Indicated? Specimen cultured Vol Urine Centrifuged 10ml (spun) MDM Narrative Medical decision making narrative: Vital signs, nurse triage note, medication list, previous ER visits, and all imaging studies reviewed. Nurse flushed here and now chambers working. Bladder scan 25cc so given PO Intake to obtain urine. Differential diagnosis UTI, chronic indwelling catheter malfunction. Pt s/o to at shift change pending final disposition. UA did show a UTI picture and so we will treat the UTI and discharge the patient back to his facility. <Kevon Harvey MD - Last Filed: 03/12/25 07:50> Differential Diagnosis Differential diagnosis: Likely urinary tract infection, urethritis, epididymitis and acute retention of urine Lab Data Labs: Lab Results 03/12/25 Range/Units 06:55 Urine Color Yellow Urine Appearance Cloudy Urine pH >= 9.0 H (4.5-8.0) Ur Specific [place] <=1.005 (1.000-1.035) Urine Protein 3+ H (Negative) Urine Glucose (UA) Negative (Negative) g/dL Urine Ketones 1+ H (NEGATIVE) Urine Occult Blood 3+ H (Negative) Urine Nitrate Negative (Negative) Urine Bilirubin 1+ H (NEGATIVE) Ur Bilirubin Confirm Negative (Negative) Urine Urobilinogen 4.0 H (0.2) E.U./dL Ur Leukocyte Esterase 3+ H (NEGATIVE) Urine RBC 30-100/hpf H (0-5/HPF) Urine WBC 30-100/hpf H (0-5/HPF) Ur Squamous Epith Cells 0-1 /hpf (0-5/HPF) Triple Phos Crystals Many Urine Bacteria Many (>30) H (None) Urine Mucus 2+ H (Negative) Ur Culture Indicated? Specimen cultured Vol Urine Centrifuged 10ml (spun) MDM Narrative Medical decision making narrative: Vital signs, nurse triage note, medication list, previous ER visits, and all imaging studies reviewed. Nurse flushed here and now chambers working. Bladder scan 25cc so given PO Intake to obtain urine. Differential diagnosis UTI, chronic indwelling catheter malfunction. UA did show a UTI picture and so we will treat the UTI and discharge the patient back to his facility. Discharge Plan Departure Patient Disposition: Home Clinical Impression: Acute UTI, Indwelling Chambers catheter present Instructions: How to Care for Your Chambers Catheter -- Male, DI for Urinary Tract Infection (UTI) Activity Restrictions/Additional Instructions: Take antibiotics as prescribed. Follow up for any new blood in urine. Prescriptions: New nitrofurantoin monohyd/m-cryst [Macrobid] 100 mg capsule 100 mg PO Q12H 7 Days Qty: 14 0RF Rx Instructions: must administer with a meal/food No Action sennosides [senna] 8.6 mg Tablet 8.6 mg PO DAILY acetaminophen 325 mg Tablet 650 mg PO Q4H PRN (Reason: Fever Or Pain) Rx Instructions: pain level 1-3 or fever >100.1 fluoxetine 10 mg Tablet 10 mg PO DAILY amlodipine 5 mg Tablet 10 mg PO DAILY aspirin 81 mg Tablet,Delayed Release (Dr/Ec) 81 mg PO DAILY docusate sodium 100 mg Capsule 100 mg PO BID Rx Instructions: hold if loose stools cholecalciferol (vitamin D3) [Vitamin D3] 1,000 unit Tablet 1,000 unit PO DAILY atorvastatin 20 mg Tablet 20 mg PO BEDTIME ondansetron 4 mg Tablet,Disintegrating 4 mg PO Q4H PRN (Reason: Nausea) cyanocobalamin (vitamin B-12) 1,000 mcg Capsule 1,000 mcg PO DAILY oxycodone 5 mg tablet 5 mg PO Q4H PRN (Reason: pain) Qty: 14 0RF lidocaine 4 % gel 1 applic topical QID Qty: 30 1RF magnesium hydroxide [Milk of Magnesia] 400 mg/5 mL suspension 5 ml PO DAILY PRN (Reason: Constipation) Referrals: Gee Arriaga MD [Primary Care Provider, Family Practice] Stand Alone Forms: Patient Portal/API
[2025-03-12 07:01] LABS: Bilirubin Urine UA 1+ (NEGATIVE); Color Urine UA YELLOW; Glucose Urine UA NEGATIVE (Negative); Ketones Urine UA 1+ (NEGATIVE); Leukocyte Esterase Urine UA 3+ (NEGATIVE); Nitrite Urine UA NEGATIVE (Negative); Occult Blood Urine UA 3+ (Negative); Protein Urine UA 3+ (Negative); Specific Gravity Urine UA <=1.005 (1.000-1.035); Urobilinogen Urine UA 4.0 E.U./dL (0.2); pH Urine UA >= 9.0 (4.5-8.0)
[2025-03-12 07:14] LABS: Appearance Urine UA CLOUDY
[2025-03-12 07:17] LABS: Culture Indicated Urine Specimen Cultured; Ictotest Urine Negative (Negative)
--- NOTE | 2025-03-12 08:39 | PC.NURSE ---
Padron was irrgated overnight and found to be patent. bladder scan performed post irrigation with <20ml in bladder. pt was transported back to [facility] with BLS crew from [facility]. report called to [place] and spoke to Shabnam from nursing staff. GWYN.
== END 2025-03-12 08:31 | disposition home or self-care (01) ==
PROVIDERS: Family Medicine; Emergency Provider Family Medicine; PCP Family Medicine
DX: N39.0 Urinary tract infection, site not specified (principal); Z96.0 Presence of urogenital implants
CPT/HCPCS: 81001; 87077; 87086; 87186; 99281; 99282

== ENCOUNTER → 2025-05-03 21:25 | Outpatient (ROUT) | payer OTHER, SELFPAY ==
[2024-08-07 02:20] VITALS: BMI 26.6
[2025-05-03 21:31] LABS: Appearance Urine UA TURBID; Bilirubin Urine UA NEGATIVE (NEGATIVE); Color Urine UA YELLOW; Glucose Urine UA NEGATIVE (Negative); Ketones Urine UA NEGATIVE (NEGATIVE); Leukocyte Esterase Urine UA 3+ (NEGATIVE); Nitrite Urine UA NEGATIVE (Negative); Occult Blood Urine UA 3+ (Negative); Protein Urine UA 2+ (Negative); Specific Gravity Urine UA 1.015 (1.000-1.035); Urobilinogen Urine UA >=8.0 E.U./dL (0.2); pH Urine UA 8.0 (4.5-8.0)
[2025-05-03 21:40] LABS: Culture Indicated Urine Specimen Cultured
== END ==
LOC: LAB 21:26
PROVIDERS: PCP Family Medicine; Visit Provider Registered Nurse
DX: Z00.00 Encounter for general adult medical examination without abnormal findings (principal)
CPT/HCPCS: 81001; 87077; 87086; 87186

== ENCOUNTER 2025-05-25 09:57 | Emergency (ER) | payer OTHER, SELFPAY ==
[2024-08-07 02:20] VITALS: BMI 26.6
[2025-05-25 10:04] VITALS: BP 130/64; PULSE 62; RESP 13; TEMP 36.5; O2SAT 98; BMI 24.3
--- NOTE | 2025-05-25 11:39 | ED.MALEGU ---
HPI - Male Genitourinary <Angela Guerra PA-C - Last Filed: 05/25/25 13:31> General Chief complaint: Urogenital-Male Stated complaint: Catheter not draining Time Seen by Provider: 05/25/25 11:09 Source: patient Mode of arrival: EMS History of Present Illness HPI Narrative: Mr. Pulido is a very pleasant 64-year-old gentleman with a past medical history of prior stroke with hemiparesis and chronic indwelling catheter, in the ER frequently for catheter blockages/UTI/colonized with Proteus mirabilis who presents to the emergency department from his assisted living, [facility], for staff concern of a blocked catheter. Patient states last night they exchange his Padron catheter, and nursing staff at the facility was concerned today that his catheter was blocked/not draining. He does have dark yellow urine in the catheter bag at this time. He is currently on Bactrim for UTI. Denies any symptoms, any concerns, no abdominal pain, nausea, vomiting, fevers, hematuria. He does have right-sided hemiparesis. Related Data Home Medications ?Medication ?Instructions ?Recorded ?Confirmed acetaminophen 325 mg tablet 650 mg PO Q4H PRN Fever Or Pain 09/21/18 03/12/25 amlodipine 5 mg tablet 10 mg PO DAILY 09/21/18 03/12/25 aspirin 81 mg tablet,delayed 81 mg PO DAILY 09/21/18 03/12/25 release cholecalciferol (vitamin D3) 25 1,000 unit PO DAILY 09/21/18 03/12/25 mcg (1,000 unit) tablet (Vitamin D3) docusate sodium 100 mg capsule 100 mg PO BID 09/21/18 03/12/25 fluoxetine 10 mg tablet 10 mg PO DAILY 09/21/18 03/12/25 sennosides 8.6 mg tablet (senna) 8.6 mg PO DAILY 09/21/18 03/12/25 atorvastatin 20 mg tablet 20 mg PO BEDTIME 07/12/21 03/12/25 cyanocobalamin (vitamin B-12) 1,000 mcg PO DAILY 07/12/21 03/12/25 1,000 mcg capsule ondansetron 4 mg disintegrating 4 mg PO Q4H PRN Nausea 07/12/21 03/12/25 tablet magnesium hydroxide 400 mg/5 mL 5 ml PO DAILY PRN Constipation 09/05/21 03/12/25 oral suspension (Milk of Magnesia) Previous Rx's ?Medication ?Instructions ?Recorded oxycodone 5 mg tablet 5 mg PO Q4H PRN pain #14 tabs 08/10/24 lidocaine 4 % topical gel 1 applic topical QID #30 grams 01/04/25 sulfamethoxazole 800 1 tab PO BID #10 tabs 03/15/25 mg-trimethoprim 160 mg tablet (Bactrim DS) Allergies Allergy/AdvReac Type Severity Reaction Status Date / Time Penicillins Allergy Intermediate Rash over Verified 05/25/25 10:04 body tetracycline Allergy Unknown Verified 05/25/25 10:04 Review of Systems <Angela Guerra PA-C - Last Filed: 05/25/25 13:31> Review of Systems ROS Unobtainable: All systems reviewed & are unremarkable except as noted in HPI and below Patient History <Angela Guerra PA-C - Last Filed: 05/25/25 13:31> Medical History History of nephrolithiasis Retained ureteral stent Retained ureteral stent Right renal stone Obstruction of right ureteropelvic junction (UPJ) due to stone Depression History of CVA (cerebrovascular accident) Hyperlipidemia Hypertension Surgical History Hx of cystoscopy (09/07/21) History of cholecystectomy (07/13/21) S/P right knee arthroscopy Family History Father Heart disease Social History household members: other Smoking Status: Unknown if ever smoked Tobacco: How many years used: 15 alcohol intake: former caffeine: No Smoking Status: Unknown if ever smoked alcohol intake frequency: holidays/special occasions only Exam <Angela Guerra PA-C - Last Filed: 05/25/25 13:31> Narrative Exam Narrative: GENERAL: 64 year old patient appears stated age. Well-developed patient, in no acute distress. HEAD: Atraumatic. Normocephalic. EYES: No scleral icterus. No injection or drainage. NECK: Trachea midline. Cervical ROM intact. CARDIOVASCULAR: Regular rate RESPIRATORY: ?Nonlabored respirations. ?Speaking in clear, full sentences. GASTROINTESTINAL: Abdomen soft, non-tender, nondistended. Yellow urine in catheter bag. Patient gave verbal consent for exam, he has normal-appearing circumcised penis with no urethral meatus erythema or lesions. EXTREMITIES: No LE edema. BACK: No CVA tenderness BL. NEURO: AOx3. ?Clear speech. ?Right sided chronic deficits. SKIN: No rash or erythema of visible areas Initial Vital Signs Initial Vital Signs: Vital Signs Temperature 97.7 F 05/25/25 10:04 Pulse Rate 62 05/25/25 10:04 Respiratory Rate 13 05/25/25 10:04 Blood Pressure 130/64 05/25/25 10:04 Pulse Oximetry 98 05/25/25 10:04 Oxygen Delivery Method Room Air 05/25/25 10:04 <Audra Peña DO - Last Filed: 05/27/25 07:48> Initial Vital Signs Initial Vital Signs: Vital Signs Temperature 97.7 F 05/25/25 10:04 Pulse Rate 62 05/25/25 10:04 Respiratory Rate 13 05/25/25 10:04 Blood Pressure 130/64 05/25/25 10:04 Pulse Oximetry 98 05/25/25 10:04 Oxygen Delivery Method Room Air 05/25/25 10:04 Course <Angela Guerra PA-C - Last Filed: 05/25/25 13:31> Vital Signs Vital signs: Vital Signs - 8 hr 05/25/25 10:04 05/25/25 13:12 Temperature 97.7 F Pulse Rate 62 57 L Respiratory Rate 13 16 Blood Pressure 130/64 127/67 Pulse Oximetry 98 100 Oxygen Delivery Method Room Air Room Air <Audra Peña DO - Last Filed: 05/27/25 07:48> Vital Signs Vital signs: Vital Signs - 8 hr 05/25/25 10:04 05/25/25 13:12 Temperature 97.7 F Pulse Rate 62 57 L Respiratory Rate 13 16 Blood Pressure 130/64 127/67 Pulse Oximetry 98 100 Oxygen Delivery Method Room Air Room Air MDM - Male Genitourinary <Angela Guerra PA-C - Last Filed: 05/25/25 13:31> Medical Records Attestation: I reviewed the patient's medical records. MDM Narrative Medical decision making narrative: 64-year-old gentleman with a past medical history of prior stroke with hemiparesis and chronic indwelling catheter, in the ER frequently for catheter blockages/UTI/colonized with Proteus mirabilis who presents to the emergency department from his assisted living, [facility], for staff concern of a blocked catheter. Differential diagnosis includes but is not limited to catheter blockage, empty bladder, UTI, etc. On exam patient is in no acute distress, nontoxic-appearing, all vital signs within normal limits, abdomen soft and nontender. He was sent here for concern of catheter blockage after a new catheter was placed last night. He does have urine in the Padron bag. We will obtain bladder scan and attempt to flush catheter. He is currently on Bactrim. Bladder scan revealed less than 30 cc in the bladder, patient also has a 30 cc saline balloon in place, suspect his catheter was not draining because he did not have any urine in his bladder. He was given a water bottle here, his catheter leg sticker was adjusted, in his catheter is draining normally, it was also flushed. He has not having any pain or fevers, he is currently on Bactrim, no indication for repeat urinalysis or urine culture. Advised patient follow up with his PCP, discussed ER return precautions. He is agreeable to the plan, all questions answered, he is comfortable and stable for transport back to his assisted living facility. Discharge Plan Departure Patient Disposition: Home Clinical Impression: Padron catheter problem Qualifiers: Encounter type: initial encounter Qualified Code(s): T83.9XXA - Unspecified complication of genitourinary prosthetic device, implant and graft, initial encounter Instructions: DI for Urinary Retention in Men Activity Restrictions/Additional Instructions: Dear Ashok, Thank you for coming to the emergency department. Today you were evaluated for your Padron catheter not draining. Your bladder scan revealed that your bladder was actually quite empty which is likely why it was not draining. Your catheter was flushed and it is draining normally. The sticker was also move down slightly on your leg to allow better gravity to help with the flow of urine. Please return to the emergency department if you develop any concerns, abdominal pain, fevers, etc. Please follow up with your primary care doctor within the next 2-3 days for ER follow-up. (If you do not have a PCP you can call [phone]. ?to schedule an appointment with an [facility] Primary Care Provider) IF YOU DEVELOP ANY NEW OR WORSENING SYMPTOMS, RETURN TO THE ER! Please read the attached instructions, they highlight more specific treatments and interventions for you at home. Thank you for letting me participate in your care, Angela Guerra PA-C Prescriptions: No Action sennosides [senna] 8.6 mg Tablet 8.6 mg PO DAILY acetaminophen 325 mg Tablet 650 mg PO Q4H PRN (Reason: Fever Or Pain) Rx Instructions: pain level 1-3 or fever >100.1 fluoxetine 10 mg Tablet 10 mg PO DAILY amlodipine 5 mg Tablet 10 mg PO DAILY aspirin 81 mg Tablet,Delayed Release (Dr/Ec) 81 mg PO DAILY docusate sodium 100 mg Capsule 100 mg PO BID Rx Instructions: hold if loose stools cholecalciferol (vitamin D3) [Vitamin D3] 1,000 unit Tablet 1,000 unit PO DAILY atorvastatin 20 mg Tablet 20 mg PO BEDTIME ondansetron 4 mg Tablet,Disintegrating 4 mg PO Q4H PRN (Reason: Nausea) cyanocobalamin (vitamin B-12) 1,000 mcg Capsule 1,000 mcg PO DAILY oxycodone 5 mg tablet 5 mg PO Q4H PRN (Reason: pain) Qty: 14 0RF lidocaine 4 % gel 1 applic topical QID Qty: 30 1RF sulfamethoxazole-trimethoprim [Bactrim DS] 800-160 mg tablet 1 tab PO BID Qty: 10 0RF magnesium hydroxide [Milk of Magnesia] 400 mg/5 mL suspension 5 ml PO DAILY PRN (Reason: Constipation) Referrals: Gee Arriaga MD [Primary Care Provider, Family Practice] Stand Alone Forms: Patient Portal/API ED Sign-out <Audra Peña DO - Last Filed: 05/27/25 07:48> Cosign ED Attending Cosignature Attestation: I was available for consultation.
--- NOTE | 2025-05-25 12:18 | PC.NURSE ---
Pt sent from [facility] for problem of cath not draining. cath was placed yesterday (18F 30CC) for neurogenic bladder 2/2 CVA. On inspection, catheter bag has clear yellow urine. the cath tubing was kinked underneath pt brief and stat lock noted to be very proximal on R leg which did not allow adequate flow of drainage. pt was bladder scanned with about 24ml seen in bladder. stat lock was removed. balloon was deflated and reinflated with confirmation of 30cc's. sterile water was instilled and returned. stat lock was replaced more distal on the leg. meatus was inspected and appears normal. catheter is draining with confirmation inspection by Angela Guerra, PAC. BLS called for pt pick up driver and transport back to [facility]
[2025-05-25 13:12] VITALS: BP 127/67; PULSE 57; RESP 16; O2SAT 100
--- NOTE | 2025-05-25 13:12 | PC.NURSE ---
Report given to A EMT. attempted to call report to [facility] and was unable to contact anyone.
== END 2025-05-25 13:14 | disposition home or self-care (01) ==
PROVIDERS: Emergency Provider Physician Assistant; PCP Family Medicine
DX: T83.9XXA Unspecified complication of genitourinary prosthetic device, implant and graft, initial encounter (principal)
CPT/HCPCS: 51700; 51798; 99283; 99284

== ENCOUNTER → 2025-06-02 20:45 | Outpatient (ROUT) | payer OTHER, SELFPAY ==
[2024-08-07 02:20] VITALS: BMI 26.6
[2025-06-02 20:53] LABS: Appearance Urine UA CLOUDY; Bilirubin Urine UA NEGATIVE (NEGATIVE); Color Urine UA YELLOW; Glucose Urine UA NEGATIVE (Negative); Ketones Urine UA NEGATIVE (NEGATIVE); Leukocyte Esterase Urine UA 3+ (NEGATIVE); Nitrite Urine UA NEGATIVE (Negative); Occult Blood Urine UA 2+ (Negative); Protein Urine UA 1+ (Negative); Specific Gravity Urine UA 1.015 (1.000-1.035); Urobilinogen Urine UA >=8.0 E.U./dL (0.2); pH Urine UA 7.5 (4.5-8.0)
[2025-06-02 20:59] LABS: Culture Indicated Urine Specimen Cultured
== END ==
PROVIDERS: PCP Family Medicine; Visit Provider Hospitalist
DX: R39.9 Unspecified symptoms and signs involving the genitourinary system (principal)
CPT/HCPCS: 81001; 87077; 87086

== ENCOUNTER 2025-06-09 10:10 | Emergency (ER) | payer OTHER, SELFPAY ==
[2024-08-07 02:20] VITALS: BMI 26.6
[2025-06-09 10:15] VITALS: BP 146/73; PULSE 59; RESP 15; TEMP 36.8; O2SAT 99; BMI 24.3
--- NOTE | 2025-06-09 11:24 | ED.MALEGU ---
HPI - Male Genitourinary <Steven Javed PA-C - Last Filed: 06/09/25 11:39> General Chief complaint: Urogenital-Male Stated complaint: Padron not draining Time Seen by Provider: 06/09/25 11:00 Mode of arrival: EMS History of Present Illness HPI Narrative: This is a 64-year-old male presenting to the emergency department due to reports his Padron catheter not draining. Patient lives at assisted living facility in his not a very reliable historian. . Per paramedics patient was sent here due to reports of his Padron catheter being clogged and draining. Patient denies any fevers, dysuria, flank pain, chest pain, or any other concerning signs or symptoms. Related Data Home Medications ?Medication ?Instructions ?Recorded ?Confirmed acetaminophen 325 mg tablet 650 mg PO Q4H PRN Fever Or Pain 09/21/18 03/12/25 amlodipine 5 mg tablet 10 mg PO DAILY 09/21/18 03/12/25 aspirin 81 mg tablet,delayed 81 mg PO DAILY 09/21/18 03/12/25 release cholecalciferol (vitamin D3) 25 1,000 unit PO DAILY 09/21/18 03/12/25 mcg (1,000 unit) tablet (Vitamin D3) docusate sodium 100 mg capsule 100 mg PO BID 09/21/18 03/12/25 fluoxetine 10 mg tablet 10 mg PO DAILY 09/21/18 03/12/25 sennosides 8.6 mg tablet (senna) 8.6 mg PO DAILY 09/21/18 03/12/25 atorvastatin 20 mg tablet 20 mg PO BEDTIME 07/12/21 03/12/25 cyanocobalamin (vitamin B-12) 1,000 mcg PO DAILY 07/12/21 03/12/25 1,000 mcg capsule ondansetron 4 mg disintegrating 4 mg PO Q4H PRN Nausea 07/12/21 03/12/25 tablet magnesium hydroxide 400 mg/5 mL 5 ml PO DAILY PRN Constipation 09/05/21 03/12/25 oral suspension (Milk of Magnesia) Previous Rx's ?Medication ?Instructions ?Recorded oxycodone 5 mg tablet 5 mg PO Q4H PRN pain #14 tabs 08/10/24 lidocaine 4 % topical gel 1 applic topical QID #30 grams 01/04/25 sulfamethoxazole 800 1 tab PO BID #10 tabs 03/15/25 mg-trimethoprim 160 mg tablet (Bactrim DS) Allergies Allergy/AdvReac Type Severity Reaction Status Date / Time Penicillins Allergy Intermediate Rash over Verified 06/09/25 10:10 body tetracycline Allergy Unknown Verified 06/09/25 10:10 Review of Systems <Steven Javed PA-C - Last Filed: 06/09/25 11:39> Review of Systems Narrative: GENERAL: Denies chills, fatigue, malaise, fever, sweats. HEENT: Denies sinus pain, ear pain, sore throat, difficulty swallowing, dizziness. RESPIRATORY: Denies dyspnea, cough, wheezing, hemoptysis, sputum. CARDIOVASCULAR: Denies chest pain, palpitations, orthopnea, edema, GASTROINTESTINAL: Denies nausea, vomiting, abdominal pain, diarrhea, constipation, melena. : Denies dysuria, frequency, incontinence, hematuria, urinary retention. MUSCULOSKELETAL: denies weakness, joint pain, or bony pain SKIN: Denies rash, skin lesions, or other NEUROLOGIC: Denies weakness, headache, numbness, change in speech, confusion, seizures, incoordination. PSYCHIATRIC: No concerning psychosocial issues 12 point review of systems is negative except for those stated above Patient History <Steven Javed PA-C - Last Filed: 06/09/25 11:39> Medical History History of nephrolithiasis Retained ureteral stent Retained ureteral stent Right renal stone Obstruction of right ureteropelvic junction (UPJ) due to stone Depression History of CVA (cerebrovascular accident) Hyperlipidemia Hypertension Surgical History Hx of cystoscopy (09/07/21) History of cholecystectomy (07/13/21) S/P right knee arthroscopy Family History Father Heart disease Social History household members: other Tobacco: How many years used: 15 alcohol intake: former caffeine: No alcohol intake frequency: holidays/special occasions only Exam <Steven Javed PA-C - Last Filed: 06/09/25 11:39> Narrative Exam Narrative: GENERAL: Well-developed patient, in mild distress. HEAD: Atraumatic. Normocephalic. EYES: Pupils equal round and reactive. Extraocular motions intact. No scleral icterus. No injection or drainage. ENT: Nose without bleeding, purulent drainage. Throat without erythema, tonsillar hypertrophy or exudate. Airway patent. NECK: Trachea midline. Non tender EXTREMITIES: No edema or joint tenderness. NEURO: AOx3. SKIN: No rash or erythema of visible areas . : Padron catheter in place, urine appears the appropriate color and in bag. Initial Vital Signs Initial Vital Signs: Vital Signs Temperature 98.3 F 06/09/25 10:15 Pulse Rate 59 L 06/09/25 10:15 Respiratory Rate 15 06/09/25 10:15 Blood Pressure 146/73 H 06/09/25 10:15 Pulse Oximetry 99 06/09/25 10:15 Oxygen Delivery Method Room Air 06/09/25 10:15 <Brock Veloz MD - Last Filed: 06/09/25 15:00> Initial Vital Signs Initial Vital Signs: Vital Signs Temperature 98.3 F 06/09/25 10:15 Pulse Rate 59 L 06/09/25 10:15 Respiratory Rate 15 06/09/25 10:15 Blood Pressure 146/73 H 06/09/25 10:15 Pulse Oximetry 99 06/09/25 10:15 Oxygen Delivery Method Room Air 06/09/25 10:15 Course <Steven Javed PA-C - Last Filed: 06/09/25 11:39> Orders Ordered: ED Orders 06/09/25 10:35 Urinalysis and Microscopic Stat Urine Culture Stat Vital Signs Vital signs: Vital Signs - 8 hr 06/09/25 10:15 06/09/25 11:54 Temperature 98.3 F Pulse Rate 59 L 56 L Respiratory Rate 15 16 Blood Pressure 146/73 H 134/67 Pulse Oximetry 99 97 Oxygen Delivery Method Room Air Room Air <Brock Veloz MD - Last Filed: 06/09/25 15:00> Orders Ordered: ED Orders 06/09/25 10:35 Urinalysis and Microscopic Stat Urine Culture Stat Vital Signs Vital signs: Vital Signs - 8 hr 06/09/25 10:15 06/09/25 11:54 Temperature 98.3 F Pulse Rate 59 L 56 L Respiratory Rate 15 16 Blood Pressure 146/73 H 134/67 Pulse Oximetry 99 97 Oxygen Delivery Method Room Air Room Air MDM - Male Genitourinary <Steven Javed PA-C - Last Filed: 06/09/25 11:39> Lab Data Labs: Lab Results 06/09/25 Range/Units 10:35 Urine Color Yellow Urine Appearance Cloudy Urine pH >= 9.0 H (4.5-8.0) Ur Specific [place] <=1.005 (1.000-1.035) Urine Protein 1+ H (Negative) Urine Glucose (UA) Negative (Negative) g/dL Urine Ketones Negative (NEGATIVE) Urine Occult Blood 2+ H (Negative) Urine Nitrate Positive H (Negative) Urine Bilirubin Negative (NEGATIVE) Urine Urobilinogen 4.0 H (0.2) E.U./dL Ur Leukocyte Esterase 3+ H (NEGATIVE) Urine RBC 5-10/hpf H (0-5/HPF) Urine WBC 10-30/hpf H (0-5/HPF) Ur Squamous Epith Cells None seen (0-5/HPF) Triple Phos Crystals Moderate Urine Bacteria Many (>30) H (None) Ur Culture Indicated? Specimen cultured Vol Urine Centrifuged 10ml (spun) MDM Narrative Medical decision making narrative: ED course: This is a 64-year-old male who is a somewhat poor historian that was sent here due to reports of his Padron catheter not draining. On arrival patient was bladder scanned which showed only 50 cc in his bladder. Throughout the course of the encounter there appeared to be 50 cc of urine in the catheter bag. Padron catheter was flushed multiple times without any signs of blockage. Patient was denying any UTI symptoms and has been colonized with Proteus mirabilis. We will not treat for any possible UTIs. Suspect the lack of drainage reported by the paramedics was due to patient having a low amount of actual urine in his bladder as he reports that he was not been drinking very much water. CC: Catheter issue Complicating co-morbidities: As below Data collected from: Previous notes Medical records reviewed: Patient was has been here numerous times for catheter problem. Last seen here 15 days ago. History of prior stroke with hemiparesis and chronic indwelling catheter. Colonized with a Proteus mirabilis. Presented 15 days ago due to concerns for a blocked catheter. Was on Bactrim for UTI. History of nephrolithiasis, retained ureteral stent, right renal stone. Bladder scan revealed less than 30 cc in the bladder. Suspected that it was not draining due to him not having any urine in his bladder. Catheter was flushed and draining normally. Differential considered, but not limited to: HERMELINDO, blocked Padron catheter, ureteral obstruction Exam documented above, pertinent findings include: Padron catheter appears to be draining well Lab Test results independently reviewed as above. Pertinent findings: UA shows evidence of chronic colonization Imaging studies independently reviewed: None obtained Scores Used: None MIPS Elements: None Consultations: None Treatments: Catheter was flushed appropriately Re-evaluations: None Discussion: Discussed plan with the patient was comfortable with the plan Diagnosis: Catheter working well Disposition: see below, along with detailed discharge instructions that have been reviewed with patient as well as indications for ED re-evaluation and additional outpatient follow up <Brock eVloz MD - Last Filed: 06/09/25 15:00> Lab Data Labs: Lab Results 06/09/25 Range/Units 10:35 Urine Color Yellow Urine Appearance Cloudy Urine pH >= 9.0 H (4.5-8.0) Ur Specific [place] <=1.005 (1.000-1.035) Urine Protein 1+ H (Negative) Urine Glucose (UA) Negative (Negative) g/dL Urine Ketones Negative (NEGATIVE) Urine Occult Blood 2+ H (Negative) Urine Nitrate Positive H (Negative) Urine Bilirubin Negative (NEGATIVE) Urine Urobilinogen 4.0 H (0.2) E.U./dL Ur Leukocyte Esterase 3+ H (NEGATIVE) Urine RBC 5-10/hpf H (0-5/HPF) Urine WBC 10-30/hpf H (0-5/HPF) Ur Squamous Epith Cells None seen (0-5/HPF) Triple Phos Crystals Moderate Urine Bacteria Many (>30) H (None) Ur Culture Indicated? Specimen cultured Vol Urine Centrifuged 10ml (spun) Discharge Plan Departure Patient Disposition: Home Clinical Impression: Indwelling Padron catheter present Activity Restrictions/Additional Instructions: Thank you for coming to the [facility] Emergency Department today. The catheter was flushed and appears to be draining well. I suspect that the lack of drainage from the catheter was due to the patient having a small amount of urine in his actual bladder which was evident here in the ER. He was not presenting with any UTI symptoms and does not need any new antibiotic prescriptions. Recommend adequate oral hydration to help with his urine production. Please return to the emergency department if you develop any fevers, nausea, vomiting, or any other concerning signs or symptoms. I hope you feel better soon. Please follow up with your primary care provider within a week if your symptoms continue. If you do not have a primary care provider please contact the [facility] Resource line at [phone]. They will ask some questions about your medical history and help you get set up with a provider in the community. Prescriptions: No Action sennosides [senna] 8.6 mg Tablet 8.6 mg PO DAILY acetaminophen 325 mg Tablet 650 mg PO Q4H PRN (Reason: Fever Or Pain) Rx Instructions: pain level 1-3 or fever >100.1 fluoxetine 10 mg Tablet 10 mg PO DAILY amlodipine 5 mg Tablet 10 mg PO DAILY aspirin 81 mg Tablet,Delayed Release (Dr/Ec) 81 mg PO DAILY docusate sodium 100 mg Capsule 100 mg PO BID Rx Instructions: hold if loose stools cholecalciferol (vitamin D3) [Vitamin D3] 1,000 unit Tablet 1,000 unit PO DAILY atorvastatin 20 mg Tablet 20 mg PO BEDTIME ondansetron 4 mg Tablet,Disintegrating 4 mg PO Q4H PRN (Reason: Nausea) cyanocobalamin (vitamin B-12) 1,000 mcg Capsule 1,000 mcg PO DAILY oxycodone 5 mg tablet 5 mg PO Q4H PRN (Reason: pain) Qty: 14 0RF lidocaine 4 % gel 1 applic topical QID Qty: 30 1RF sulfamethoxazole-trimethoprim [Bactrim DS] 800-160 mg tablet 1 tab PO BID Qty: 10 0RF magnesium hydroxide [Milk of Magnesia] 400 mg/5 mL suspension 5 ml PO DAILY PRN (Reason: Constipation) Referrals: Gee Arriaga MD [Primary Care Provider, Family Practice] Stand Alone Forms: Patient Portal/API ED Sign-out <Brock Veloz MD - Last Filed: 06/09/25 15:00> Cosign ED Attending Quyhn Attestation: I was immediately available in the department for consultation. ?This documentation has been reviewed and I agree with assessment and plan. Supervised by Brock Veloz MD
[2025-06-09 11:43] LABS: Appearance Urine UA CLOUDY; Bilirubin Urine UA NEGATIVE (NEGATIVE); Color Urine UA YELLOW; Glucose Urine UA NEGATIVE (Negative); Ketones Urine UA NEGATIVE (NEGATIVE); Leukocyte Esterase Urine UA 3+ (NEGATIVE); Nitrite Urine UA POSITIVE (Negative); Occult Blood Urine UA 2+ (Negative); Protein Urine UA 1+ (Negative); Specific Gravity Urine UA <=1.005 (1.000-1.035); Urobilinogen Urine UA 4.0 E.U./dL (0.2); pH Urine UA >= 9.0 (4.5-8.0)
[2025-06-09 11:54] VITALS: BP 134/67; PULSE 56; RESP 16; O2SAT 97
[2025-06-09 11:54] LABS: Culture Indicated Urine Specimen Cultured
== END 2025-06-09 12:30 | disposition home or self-care (01) ==
PROVIDERS: Emergency Provider Physician Assistant Medical; PCP Family Medicine
DX: N39.0 Urinary tract infection, site not specified (principal); B96.4 Proteus (mirabilis) (morganii) as the cause of diseases classified elsewhere; Z86.73 Personal history of transient ischemic attack (TIA), and cerebral infarction without residual deficits
CPT/HCPCS: 51798; 81001; 87077; 87086; 87186; 99282; 99283

== ENCOUNTER → 2025-07-05 18:51 | Outpatient (ROUT) | payer OTHER, SELFPAY ==
[2024-08-07 02:20] VITALS: BMI 26.6
[2025-07-05 18:58] LABS: Appearance Urine UA CLOUDY; Bilirubin Urine UA NEGATIVE (NEGATIVE); Color Urine UA YELLOW; Glucose Urine UA NEGATIVE (Negative); Ketones Urine UA TRACE (NEGATIVE); Leukocyte Esterase Urine UA 2+ (NEGATIVE); Nitrite Urine UA POSITIVE (Negative); Occult Blood Urine UA 3+ (Negative); Protein Urine UA 2+ (Negative); Specific Gravity Urine UA 1.020 (1.000-1.035); Urobilinogen Urine UA 1.0 E.U./dL (0.2); pH Urine UA 7.0 (4.5-8.0)
[2025-07-05 19:09] LABS: Culture Indicated Urine Specimen Cultured
== END ==
PROVIDERS: PCP Family Medicine; Visit Provider Urology
DX: R30.0 Dysuria (principal)
CPT/HCPCS: 81001; 87077; 87086; 87186

== ENCOUNTER 2025-07-24 18:03 | Emergency (ER) | payer OTHER, SELFPAY ==
[2024-08-07 02:20] VITALS: BMI 26.6
[2025-07-24] VITALS (12 sets, daily range): BP systolic 133–189; BP diastolic 71–101; PULSE 78–119; RESP 12–20; TEMP 36; O2SAT 92–99; BMI 24.1
--- NOTE | 2025-07-24 18:21 | ED.GENADULT ---
HPI - General Adult General Chief complaint: Urogenital-Male Stated complaint: Cath Problem Time Seen by Provider: 07/24/25 18:16 History of Present Illness HPI narrative: 64-year-old male with history of right-sided hemiplegia, living at [facility], chronic indwelling transfer urethral urinary catheter, changed monthly, recently changed 1 week ago, does not seem to have drainage from the catheter, increasing suprapubic area discomfort. No fevers or chills. No back pain. No blood/clot noted in tubing or bag. Related Data Home Medications ?Medication ?Instructions ?Recorded ?Confirmed acetaminophen 325 mg tablet 650 mg PO Q4H PRN Fever Or Pain 09/21/18 03/12/25 amlodipine 5 mg tablet 10 mg PO DAILY 09/21/18 03/12/25 aspirin 81 mg tablet,delayed 81 mg PO DAILY 09/21/18 03/12/25 release cholecalciferol (vitamin D3) 25 1,000 unit PO DAILY 09/21/18 03/12/25 mcg (1,000 unit) tablet (Vitamin D3) docusate sodium 100 mg capsule 100 mg PO BID 09/21/18 03/12/25 fluoxetine 10 mg tablet 10 mg PO DAILY 09/21/18 03/12/25 sennosides 8.6 mg tablet (senna) 8.6 mg PO DAILY 09/21/18 03/12/25 atorvastatin 20 mg tablet 20 mg PO BEDTIME 07/12/21 03/12/25 cyanocobalamin (vitamin B-12) 1,000 mcg PO DAILY 07/12/21 03/12/25 1,000 mcg capsule ondansetron 4 mg disintegrating 4 mg PO Q4H PRN Nausea 07/12/21 03/12/25 tablet magnesium hydroxide 400 mg/5 mL 5 ml PO DAILY PRN Constipation 09/05/21 03/12/25 oral suspension (Milk of Magnesia) Previous Rx's ?Medication ?Instructions ?Recorded oxycodone 5 mg tablet 5 mg PO Q4H PRN pain #14 tabs 08/10/24 lidocaine 4 % topical gel 1 applic topical QID #30 grams 01/04/25 sulfamethoxazole 800 1 tab PO BID #10 tabs 03/15/25 mg-trimethoprim 160 mg tablet (Bactrim DS) cefdinir 300 mg capsule 300 mg PO Q12H #14 caps 06/11/25 cefdinir 300 mg capsule 300 mg PO BID #14 caps 07/08/25 cefdinir 300 mg capsule 300 mg PO BID 7 days #14 caps 07/24/25 Allergies Allergy/AdvReac Type Severity Reaction Status Date / Time Penicillins Allergy Intermediate Rash over Verified 07/24/25 18:27 body tetracycline Allergy Unknown Verified 07/24/25 18:27 Patient History Medical History History of nephrolithiasis Retained ureteral stent Retained ureteral stent Right renal stone Obstruction of right ureteropelvic junction (UPJ) due to stone Depression History of CVA (cerebrovascular accident) Hyperlipidemia Hypertension Surgical History Hx of cystoscopy (09/07/21) History of cholecystectomy (07/13/21) S/P right knee arthroscopy Family History Father Heart disease Social History household members: other Smoking Status: Former smoker Tobacco: How many years used: 15 alcohol intake: former caffeine: No alcohol intake frequency: holidays/special occasions only Exam Narrative Exam Narrative: GENERAL: Well-developed patient, in mild distress. HEAD: Atraumatic. Normocephalic. EYES: Pupils equal round and reactive. Extraocular motions intact. No scleral icterus. No injection or drainage. ENT: No obvious acute craniofacial swelling or redness NECK: Trachea midline. Non tender CARDIOVASCULAR: Regular rate and rhythm without murmurs, gallops, or rubs. RESPIRATORY: Clear to auscultation. Breath sounds equal bilaterally. No wheezes, rales, or rhonchi. GASTROINTESTINAL: Abdomen soft, non-tender, nondistended. : Catheter in place, no penile lesions, circumcised, no drainage around the meatus, tubing however is looped around the securing device on medial thigh, slackened but still no urine flow in tubing EXTREMITIES: No edema or joint tenderness. BACK: Nontender without deformity or crepitance. No flank tenderness. NEURO: AOx3. Right-sided hemiplegia noted, as per HPI and problem list SKIN: No rash or erythema of visible areas Initial Vital Signs Initial Vital Signs: Vital Signs Pulse Rate 111 H 07/24/25 18:12 Respiratory Rate 20 07/24/25 18:12 Blood Pressure 182/93 H 07/24/25 18:12 Pulse Oximetry 98 07/24/25 18:12 Course Orders Ordered: ED Orders 07/24/25 19:10 Urinalysis and Microscopic Stat Urine Culture Stat Discontinued Medications Albuterol/Ipratropium (Albuterol/Ipratropium 3 Ml Ampul) 3 ml INH NOW ONE Stop: 07/24/25 18:19 Last Admin: 07/24/25 18:42 Dose: Not Given Documented By: RENETTA Cefdinir (Cefdinir 300 Mg Capsule) 300 mg PO NOW ONE Stop: 07/24/25 20:19 Last Admin: 07/24/25 20:43 Dose: 300 mg Documented By: RENETTA Lidocaine HCl (Lidocaine 2% (Glydo) 6 Ml Gel) 6 ml TOP NOW ONE Stop: 07/24/25 18:58 Last Admin: 07/24/25 18:59 Dose: 6 ml Documented By: UNRULY Vital Signs Vital signs: Vital Signs - 8 hr 07/24/25 18:12 07/24/25 18:12 07/24/25 18:19 Temperature Pulse Rate 111 H 119 H Respiratory Rate 20 20 Blood Pressure 182/93 H Pulse Oximetry 98 97 Oxygen Delivery Method 07/24/25 18:20 07/24/25 18:20 07/24/25 18:21 Temperature Pulse Rate 109 H Respiratory Rate 16 Blood Pressure 184/86 H 171/87 H Pulse Oximetry 97 Oxygen Delivery Method 07/24/25 18:21 07/24/25 18:22 07/24/25 18:22 Temperature Pulse Rate 104 H 104 H Respiratory Rate 16 12 Blood Pressure 171/80 H Pulse Oximetry 97 98 Oxygen Delivery Method 07/24/25 18:26 07/24/25 18:30 07/24/25 18:30 Temperature 96.8 F L Pulse Rate 110 H 115 H Respiratory Rate 20 15 Blood Pressure 182/93 H 189/101 H Pulse Oximetry 92 99 Oxygen Delivery Method Room Air 07/24/25 19:00 07/24/25 19:00 07/24/25 19:36 Temperature Pulse Rate 99 H 86 Respiratory Rate 14 Blood Pressure 149/82 H Pulse Oximetry 95 Oxygen Delivery Method 07/24/25 20:00 07/24/25 20:30 07/24/25 20:42 Temperature Pulse Rate 83 78 Respiratory Rate 20 20 Blood Pressure 133/71 Pulse Oximetry 96 96 Oxygen Delivery Method 07/24/25 20:42 Temperature Pulse Rate 79 Respiratory Rate 15 Blood Pressure Pulse Oximetry 96 Oxygen Delivery Method Room Air Medical Decision Making Lab Data Lab results reviewed: Yes I reviewed the patient's lab results. Lab results narrative: Urinalysis with inflammatory cells positive nitrite and many bacteria, urine culture triggered by protocol. Labs: Lab Results 07/24/25 Range/Units 19:10 Urine Color Yellow Urine Appearance Cloudy Urine pH 8.5 H (4.5-8.0) Ur Specific [place] 1.010 (1.000-1.035) Urine Protein Trace H (Negative) Urine Glucose (UA) Negative (Negative) g/dL Urine Ketones Negative (NEGATIVE) Urine Occult Blood 2+ H (Negative) Urine Nitrate Positive H (Negative) Urine Bilirubin Negative (NEGATIVE) Urine Urobilinogen 1.0 (0.2) E.U./dL Ur Leukocyte Esterase 3+ H (NEGATIVE) Urine RBC 5-10/hpf H (0-5/HPF) Urine WBC 1-5/hpf (0-5/HPF) Ur Squamous Epith Cells None seen (0-5/HPF) Triple Phos Crystals Occasional Urine Bacteria Many (>30) H (None) Ur Culture Indicated? Specimen cultured Vol Urine Centrifuged 10ml (spun) MDM Narrative Medical decision making narrative: 64-year-old male with history of right-sided hemiparesis, resident at [facility], with indwelling Pardon catheter, changed about a week ago, history of UTIs, complains of lower abdominal discomfort. Slight cloudy urine in tubing with some sediment, nursing concern that balloon may not be functioning. Agreeable to changing out replacement of Padron catheter, done successfully, new urinary catheter placed. Urinalysis suspicious for infection. History of penicillin allergy, however he has had cefdinir in the past. Oral cefdinir dose given, prescription sent to his requested pharmacy. Follow up with PCP advised next week, to see how symptoms are doing, and then check results of urine culture. Discharged home with family back to [facility]. Return precautions discussed. Discharge Plan Departure Patient Disposition: Home Clinical Impression: Encounter for Padron catheter replacement, Urinary tract infection Instructions: How to Care for Your Padron Catheter -- Male, DI for Urinary Tract Infection (UTI) Activity Restrictions/Additional Instructions: Chronic indwelling urinary catheter, last changed about one-week ago, difficulty with draining noted today. Some slight sediment noted in tubing. Some drainage around the catheter at penile tip noted by nursing. Replacement of urinary catheter. Urinalysis was sent, suspicious for infection. Cefdinir antibiotic given, which you have taken in the past, prescription sent to your requested pharmacy for 7 day course. Take antibiotics as directed. Recheck with your regular doctor if not improving this week. Return to this/nearest emergency department for any change worsening symptoms or concerns prior. Prescriptions: New cefdinir 300 mg capsule 300 mg PO BID 7 Days Qty: 14 0RF No Action cefdinir 300 mg capsule 300 mg PO BID Qty: 14 0RF sennosides [senna] 8.6 mg Tablet 8.6 mg PO DAILY acetaminophen 325 mg Tablet 650 mg PO Q4H PRN (Reason: Fever Or Pain) Rx Instructions: pain level 1-3 or fever >100.1 fluoxetine 10 mg Tablet 10 mg PO DAILY amlodipine 5 mg Tablet 10 mg PO DAILY aspirin 81 mg Tablet,Delayed Release (Dr/Ec) 81 mg PO DAILY docusate sodium 100 mg Capsule 100 mg PO BID Rx Instructions: hold if loose stools cholecalciferol (vitamin D3) [Vitamin D3] 1,000 unit Tablet 1,000 unit PO DAILY atorvastatin 20 mg Tablet 20 mg PO BEDTIME ondansetron 4 mg Tablet,Disintegrating 4 mg PO Q4H PRN (Reason: Nausea) cyanocobalamin (vitamin B-12) 1,000 mcg Capsule 1,000 mcg PO DAILY cefdinir 300 mg capsule 300 mg PO Q12H Qty: 14 0RF oxycodone 5 mg tablet 5 mg PO Q4H PRN (Reason: pain) Qty: 14 0RF lidocaine 4 % gel 1 applic topical QID Qty: 30 1RF sulfamethoxazole-trimethoprim [Bactrim DS] 800-160 mg tablet 1 tab PO BID Qty: 10 0RF magnesium hydroxide [Milk of Magnesia] 400 mg/5 mL suspension 5 ml PO DAILY PRN (Reason: Constipation) Referrals: Gee Arriaga MD [Primary Care Provider, Family Practice] Stand Alone Forms: Patient Portal/API
[2025-07-24] MEDS: LIDOCAINE 2% (GLYDO) 6 ML GEL TOP (18:59)
--- NOTE | 2025-07-24 19:18 | PC.NURSE ---
Patient arrived unable to drain cath. 18fr 30cc chambers was wrapped around his chambers roa. Tubing was clear and dry with sediment in the tube. Patient had urine flowing around the chambers cath today. Removed chambers. Placed a new cath 10cc chambers. Chambers is draining now, cloudy and light yellow urine.
[2025-07-24 19:34] LABS: Appearance Urine UA CLOUDY; Bilirubin Urine UA NEGATIVE (NEGATIVE); Color Urine UA YELLOW; Glucose Urine UA NEGATIVE (Negative); Ketones Urine UA NEGATIVE (NEGATIVE); Leukocyte Esterase Urine UA 3+ (NEGATIVE); Nitrite Urine UA POSITIVE (Negative); Occult Blood Urine UA 2+ (Negative); Protein Urine UA TRACE (Negative); Specific Gravity Urine UA 1.010 (1.000-1.035); Urobilinogen Urine UA 1.0 E.U./dL (0.2); pH Urine UA 8.5 (4.5-8.0)
--- NOTE | 2025-07-24 19:42 | PC.NURSE ---
patient had full linen change. pt had soiled his brief. stool was mushy but not liquid. pt tolerated the procedure well.
[2025-07-24 20:01] LABS: Culture Indicated Urine Specimen Cultured
[2025-07-24] MEDS: CEFDINIR 300 MG CAPSULE PO (20:43)
== END 2025-07-24 21:35 | disposition home or self-care (01) ==
PROVIDERS: Emergency Provider Emergency Medicine; PCP Family Medicine
DX: N39.0 Urinary tract infection, site not specified (principal); Z96.0 Presence of urogenital implants
CPT/HCPCS: 51702; 81001; 87077; 87086; 87186; 99283; 99284

== ENCOUNTER → 2025-08-09 10:19 | Outpatient (CLI) | payer OTHER, SELFPAY ==
[2024-08-07 02:20] VITALS: BMI 26.6
--- NOTE | 2025-08-09 10:20 | DI.CT.S_ITS ---
PROCEDURE: CT KIDNEY URETER BLADDER (KUB) INDICATIONS: 64 y/o M w/ h/o nephrolithiasis, question retained stent TECHNIQUE: CT of the abdomen and pelvis was obtained without intravenous contrast. Coronal and sagittal reformats were performed. For radiation dose reduction, the following was used: automated exposure control, adjustment of mA and/or kV according to patient size. COMPARISON: [facility], CT, CT KIDNEY URETER BLADDER (KUB), 07/19/2022, 10:13. FINDINGS: Image quality: Diagnostic. Lower Chest: Dependent atelectasis. Coronary artery calcifications are noted. No significant findings. Small incidental hiatal hernia. ABDOMEN: Liver: No contour-deforming mass. Gallbladder: Status post cholecystectomy. Biliary ducts: No biliary dilation. Pancreas: No ductal dilation. Spleen: Size is within normal limits. Adrenal Glands: No adrenal nodules. Kidneys and Ureters: No hydronephrosis. No solid mass. No complex renal cystic lesion which requires follow up. No left-sided renal stones. At least 3 nonobstructing right-sided renal stones measuring up to 6 mm and 417 Hounsfield units. No obstructing ureteral stone. Significant scarring and volume loss noted in the inferior right kidney. Duplicated right renal collecting system. Stomach and Bowel: Normal colonic caliber, without significant wall thickening. Colon diverticulosis is noted without inflammatory changes concerning for acute diverticulitis. Normal appendix. Peritoneum: No abnormal intraperitoneal fluid. No free air. Ventral Wall: No significant hernia. Abdominal Nodes: No retroperitoneal or mesenteric adenopathy by size criteria. Vessels: Aorta and inferior vena cava are normal in size. Moderate atheromatous plaques are noted in the nonaneurysmal abdominal aorta. PELVIS: Pelvic Organs: Mild prostate gland enlargement. Mildly prominent seminal vesicles. Coarse and punctate prostate calcifications are present. Bladder: Padron catheter located within a contracted urinary bladder. Diffuse bladder wall thickening. Mild adjacent fat stranding. Linear hyperdensity noted in the right lateral bladder wall best seen on image 151. Pelvic Nodes: No enlarged lymph nodes. Miscellaneous: No inguinal hernias are seen. Bones: No aggressive osseous abnormality. IMPRESSION: No acute abnormality in abdomen or pelvis. No hydronephrosis or left renal stones per nonobstructing right-sided renal stones. Atrophy in the inferior right kidney noted. Incidental duplicated right renal collecting system. Padron catheter noted in the contracted thick-walled urinary bladder. No definite bladder mass. Mild adjacent fat stranding. Correlate for cystitis symptoms and laboratories. Diverticulosis. Normal appendix. No inflammation. Dictated by: Ronel Rose M.D. on 08/09/2025 at 18:59 Approved by: Ronel Rose M.D. on 08/09/2025 at 19:09
== END ==
LOC: CT 10:20
PROVIDERS: PCP Family Medicine; Referring Provider Urology; Visit Provider Urology
DX: N39.0 Urinary tract infection, site not specified (principal); Q64.8 Other specified congenital malformations of urinary system; N40.0 Benign prostatic hyperplasia without lower urinary tract symptoms; I25.10 Atherosclerotic heart disease of native coronary artery without angina pectoris; K44.9 Diaphragmatic hernia without obstruction or gangrene; N20.0 Calculus of kidney; K57.90 Diverticulosis of intestine, part unspecified, without perforation or abscess without bleeding; I70.0 Atherosclerosis of aorta; Z96.0 Presence of urogenital implants; Z90.49 Acquired absence of other specified parts of digestive tract
CPT/HCPCS: 74176